=== PATIENT | female | born 1955 | race Caucasian/White ===

== ENCOUNTER → 2018-06-12 | Outpatient (CLI) | payer OTHER ==
[~2018-06-12] MED LIST: LOSA1TAB PO; MULT-506 PO
--- NOTE | 2018-06-13 08:10 | MAMMOGRAPHY REPORT ---
BILATERAL DIGITAL SCREENING MAMMOGRAM TOMOSYNTHESIS WITH CAD: 06/12/2018 CLINICAL HISTORY: Routine screening. Patient has no complaints. TECHNIQUE: The study was acquired using full field digital technology and interpreted from soft copy. Tomosynthesis (3D imaging) was done in the CC and MLO projections. A C-view reconstruction was then done. Current study was also evaluated with a Computer Aided Detection (CAD) system. COMPARISON: Comparison is made to exams dated: 11/28/2013 mammogram, 04/05/2012 mammogram, 04/03/2011 leyda mogram, 01/25/2010 mammogram - [facility], 01/20/2009, and 01/20/2009. BREAST COMPOSITION: There are scattered areas of fibroglandular density in both breasts. FINDINGS: No suspicious masses, calcifications, or areas of architectural distortion are noted in either breast . There has been no significant interval change compared to prior exams. Scattered bilateral benign-a ppearing calcifications are not significantly changed. IMPRESSION: There is no mammographic evidence of malignancy. A 1 year screening mammogram is recommended.( 019) The patient will receive written notification of the results. Approximately 10% of breast cancers are not detected with mammography. A negative mammographic report should not delay biopsy if a clinically suggestive mass is present. Liat Olguin M.D. /:06/12/2018 08:29:11 Metal Finish Inspector: Celeste Avalos, [facility] letter sent: Normal 1/2 BI-RADS Code: ACR BI-RADS Category 2: Benign
== END | disposition home or self-care (01) ==
LOC: C.MAMM 07:41
PROVIDERS: ATTEND Physician Assistant
DX: Z12.31 Encounter for screening mammogram for malignant neoplasm of breast (principal)

== ENCOUNTER 2024-06-20 17:03 | Inpatient (IN) ==
[2024-06-20] MEDS: MoRPHine SULFATE 4 MG/ML 1 ML CARP\\VIAL IV STA (17:58)
[2024-06-20] MEDS: ONDANSETRON INJ 2 MG/ML 2 ML VIAL IV STA (17:58)
[2024-06-20] MEDS: SODIUM CHLORIDE 0.9% 500 ML IV ONE (17:58)
[2024-06-20] MEDS: ONDANSETRON INJ 2 MG/ML 2 ML VIAL ONE (18:00)
[2024-06-20] MEDS: dilTIAZem HCl 5 MG/ML 5 ML VIAL IV STA (18:01)
[2024-06-20] MEDS ORDERED: STAT IV Infusion **Titration per Protocol STA (18:04)
--- NOTE | 2024-06-20 18:12 | Emergency Department Note ---
Impression & Plan Atrial fibrillation with rapid ventricular response, Back pain, Weakness, Acute hyponatremia ED Provider Note Provider: Stu Obregon MD DATE OF SERVICE: 06/20/2024 CHIEF COMPLAINT: Back and neck pain, weakness HISTORY OF PRESENT ILLNESS: Patient is a 69-year-old female history of hypertension recently seen here as well as in the outpatient setting in relation the past week for some pain in the initially the low back and left sciatic region. States she had turned in her desk and reach for something and had some pain develop here. Significant pain overnight and seen in the ER had x-rays obtained but on some oxycodone. Followed up in the primary office on Sunday still having significant pain there and put on some steroid. Later overnight that night developed some pain in the neck region. No significant chest pain or abdominal pain but generalized weakness and nausea not eating and drinking very well. Sleeping in a chair the last 5 days and not really ambulatory. Denies numbness or tingling. Pain has moved from the left low back and mid back region to the mid back to the right low back and right sciatic area. Has history of right sciatica here before but no surgeries the back. Did in the last day or so fall approximately 4 times. Has some bruising to the right elbow but good motion. Little bit of soreness of the right shoulder. Slight headache at the base of the head but no severe headache. Very fatigued. No fevers if anything a few days ago may be a slightly low temperature. Not eating and drinking much and not having much bowel movements. Has been on steroid pack the past several days. Does report that one of the doctors she did have some mild diffuse back pain. PAST MEDICAL HISTORY: As noted above MEDICATIONS: Reviewed home medications FMH: Heart disease and family including stents/CABG SOCIAL HISTORY: , works at [employer], non-smoker PHYSICAL EXAM: GENERAL: alert and oriented fatigued and uncomfortable appearing on the bed. Not lethargic and keenly awake. Head: normocephalic and atraumatic EYES: No injection, discharge or icterus. PERRL, EOMI. NECK: Trachea midline. Supple but with pain with any range of motion and turning in flexion and extension. No crepitus. No edema/erythema. ENT: Mucous membranes pink and moist. LUNGS: Airway patent. No retractions. Breath sounds clear HEART: Tachycardic irregular regular rate and rhythm. No chest wall tenderness ABDOMEN: Soft and non-tender, without guarding or rebound. SKIN: Acyanotic, warm, dry, without rashes EXTREMITIES: Without swelling, tenderness or deformity with some slight right shoulder tenderness and slight contusion and pain of the right elbow but good range of motion of these extremities. No significant tenderness of the lower extremities or deformity with some 1+ bilateral lower extremity edema. NEUROLOGICAL: No focal deficits moving all extremities. No aphasia. No facial droop or slurred speech. Normal strength and tone in the extremities. Sensation to gross touch normal in extremities. EK beats minute atrial fibrillation with a ventricular sponsor. No acute ST segment elevation or depression with a QTc of 475. Nonspecific T wave changes. CONTINUOUS CARDIAC MONITORING: was ordered and showed a heart rate of 110s-150s bpm in atrial fibrillation GCS 15. Patient's laboratory studies and imaging reviewed. Differential includes Musculoskeletal, disc herniation, fracture, metastatic disease, cord compression, discitis, sciatica, cauda equina, infection, aortic disease, renal colic, gastrointestinal, cardiac abnormality, CVA, meningitis, RPA, neck infection, electrolyte abnormality as well as other pathologies. IMPRESSION/MEDICAL DECISION MAKING: Patient weak and fatigued. Generally healthy. Fallen several times in the last 4 days secondary to pain initially related to left sciatic pain now more right sciatic pain. No real LOC reported not on high blood thinners. Has been on steroids to try to help with her back pain. Decreased intake. No significant abdominal pain or chest pain reported. Slight improvement with steroids and ibuprofen at home. No history of back surgeries. Some stiffness to the neck but does not appear lethargic and no fevers reported. Triage vitals without severe abnormality however EKG obtained in process of workup shows new onset rapid A-fib. Unsure if this has been ongoing just this evening or for several days and may explain some of her weakness. Will obtain CT scans of the head, cervical spine, chest, abdomen pelvis and lumbar spine. Blood work is ordered. Given a bit of IV fluid as well as some Zofran for symptom control in addition to pain medication. Given some Cardizem to help with rate control initially on a Cardizem drip was ordered. Denies significant URI symptoms but COVID flu RSV testing is sent. Negative flu COVID RSV testing. Blood work shows evidence of hyponatremia and what appears to be an acute kidney injury. No severe transaminitis. Troponin minimally elevated likely related to demand than true ACS. No significant anemia or thrombocytopenia noted. Patient does have a leukocytosis of 39. Has been on steroids. Unsure how much is stress reaction and neutrophil degranulation from the steroids. Will obtain lactate blood cultures and procalcitonin. A total of 2 L IV fluid ordered more than a 30 mL/kg IBW although again unclear if this is truly infectious. Will cover broadly with cefepime for broad-spectrum antimicrobial coverage. Again doubt this represents meningitis given the history with prolonged course, her lack of fevers, and her lack of lethargy. CT of the head per radiology report with acute traumatic injury or intracranial bleeding noted. CT of the cervical spine per radiology report without acute fracture and only degenerative changes. CT of the chest with contrast per radiology report without significant acute finding noted. CT abdomen pelvis and lumbar spine per radiology report without fractures. Nonspecific hyperdense fluid in the right pelvis questioning small hematoma versus lymphatic obstruction versus soft tissue mass without active extravasation noted. Discussed with the patient. Likely needs further imaging and MRI. Uptitrating diltiazem drip for better rate control again with receiving IV fluid here. Will bring her to the hospital for further care given her significant symptoms of new onset A-fib, hyponatremia, PRATIMA, and back pain. Likely need to go to further testing and possible MRIs prickly regarding the pelvic fluid? but do not see an acute neurological deficit this time indicative of acute cauda equina or spinal cord injury. Hospitalist was contacted. Harvey catheter placed that she is have difficulty ambulating. Patient is feeling much more comfortable and has increased range of motion of the neck. DIAGNOSIS: A-fib RVR, back pain, weakness, hyponatremia DISPOSITION: Hospitalist will evaluate Patient was agreeable with this plan. Critical Care I have personally spent 41 minutes of critical care time in the direct management of this patient. This includes bedside care, interpretation of diagnostic studies, and testing, discussion with consultants, patient, and family members, and other required patient management activities. These 41 minutes is in excess of all separately billable procedures. Past Med/Surg History Problem List (Updated 06/20/24 @ 18:21 by Stu Obregon M.D.) Acute hyponatremia (Acute) Weakness (Acute) Back pain (Acute) Atrial fibrillation with rapid ventricular response (Acute) Acute left lumbar radiculopathy (Acute) Social History Smoking Status: Never smoker Preferred Language: Sinhala Feels Safe at Home: Yes Allergies Allergies Allergy/AdvReac Type Severity Reaction Status Date / Time No Known Allergies Allergy Unverified 02/10/13 20:36 Home Meds Home Medications Medication Instructions Recorded Confirmed LOSARTAN POTASSIUM (COZAAR) 25 mg PO DAILY #0 tabs 07/24/12 Multivitamin 1 tab PO DAILY #0 tabs 02/10/13 Results & Data (ED) Vital Signs Vital Signs - 24 hr 06/20/24 17:18 06/20/24 17:44 06/20/24 18:04 Temperature 35.6 C L Temperature Source Temporal Artery Scan Pulse Rate 84 138 H Pulse Rate [Finger] 128 H Pulse Rhythm Regular Pulse Rhythm [Finger] Regular Pulse Strength Normal Pulse Strength [Finger] Normal Respiratory Rate 18 18 Respiratory Effort / Characteristics Non-Labored Non-Labored Spontaneous Respiratory Depth Normal Normal Respiratory Pattern Regular Blood Pressure 104/72 Blood Pressure [Right Arm] 156/96 H Blood Pressure Mean 82 Blood Pressure Mean [Right Arm] 116 Pulse Oximetry 97 100 Oxygen Delivery Method Room Air Room Air Sepsis Recent Fever Within 48 Hours No Sepsis New/Unexplained Change in Mental Status No Sepsis Action Taken by Nursing No Action Required 06/20/24 18:04 Temperature Temperature Source Pulse Rate Pulse Rate [Finger] Pulse Rhythm Pulse Rhythm [Finger] Pulse Strength Pulse Strength [Finger] Respiratory Rate Respiratory Effort / Characteristics Respiratory Depth Respiratory Pattern Blood Pressure Blood Pressure [Right Arm] Blood Pressure Mean Blood Pressure Mean [Right Arm] Pulse Oximetry 100 Oxygen Delivery Method Room Air Sepsis Recent Fever Within 48 Hours Sepsis New/Unexplained Change in Mental Status Sepsis Action Taken by Nursing Laboratory Data 06/20/24 17:55 06/20/24 17:55 Lab Results 06/20/24 06/20/24 06/20/24 Range/Units 17:55 18:02 18:07 WBC 39.08 H* (4.8-10.8) K/ul RBC 4.14 L (4.20-5.40) M/uL Hgb 12.4 (12.0-16.0) g/dl POC Hgb 12.9 (12.0-16.0) g/dl Hct 35.6 L (37.0-47.0) % POC Hct 38 (37-47) % MCV 86.0 (80.0-100.0) fL MCH 30.0 (25.0-34.0) pg MCHC 34.8 (32.0-36.0) g/dL RDW Std Deviation 40.6 (36.4-46.3) fL RDW Coeff of Jarad 13.0 (11.5-14.5) % Plt Count 337 (130-400) K/uL MPV 11.0 (9.4-12.4) fL Immature Gran % (Auto) 3.5 % Neut % (Auto) 88.1 % Lymph % (Auto) 4.5 % [place] % (Auto) 3.5 % Eos % (Auto) 0.0 % Baso % (Auto) 0.4 % Neut # (Auto) 34.45 H (1.40-6.50) K/uL Lymph # (Auto) 1.75 (1.20-3.40) K/uL [place] # (Auto) 1.36 H (0.11-0.59) K/uL Eos # (Auto) 0.00 (0.00-0.50) K/uL Baso # (Auto) 0.15 (0.00-0.20) K/uL Immature Gran # (Auto) 1.37 H (0.01-0.20) K/uL Polychromasia 1+ Echinocytes 1+ POC Sodium 127 L (135-144) mmol/L Sodium 127 L (136-145) mmol/L POC Potassium 3.3 (3.3-5.0) mmol/L Potassium 3.5 (3.5-5.1) mmol/L POC Chloride 95 L (101-112) mmol/L Chloride 94 L (98-107) mmol/L Carbon Dioxide 19 L (21-32) mmol/L POC Total CO2 17 L (24-31) mmol/L Anion Gap 14 H (3-11) POC Anion Gap 19.0 (16-25) mmol/L POC BUN 75 H (7-18) mg/dl BUN 84 H (6-23) mg/dl Creatinine 1.53 H (0.6-1.2) mg/dl POC Creatinine 1.7 H (0.6-1.3) mg/dl Est Cr Clr Drug Dosing 38.6 ml/min Est GFR ( Amer) 39.5 ml/min Est GFR (Non-Af Amer) 34.1 ml/min BUN/Creatinine Ratio 54.9 H (10-20) Glucose 280 H (70-99(Fasting)) mg/dl POC Glucose (other) 271 H (70-99) mg/dl Calcium 9.5 (8.6-10.3) mg/dl POC Ioniz Calcium Travis 1.17 (1.12-1.32) mmol/l Total Bilirubin 1.6 H (0.2-1.0) mg/dl AST 26 (13-39) U/L ALT 38 (7-52) U/L Alkaline Phosphatase 212 H (34-104) U/L Troponin I High Sens 59.8 H* (0-14) pg/ml Total Protein 6.7 (6.0-8.3) gm/dl Albumin 3.0 L (3.4-5.0) gm/dl Globulin 3.7 (2.5-4.0) gm/dl Albumin/Globulin Ratio 0.8 L (0.9-2) Lipase 17 (11-82) U/L SARS-CoV-2 (PCR) NEGATIVE (Negative) Influenza Type A (PCR) Negative (Neg) Influenza Type B (PCR) Negative (Neg) RSV (RT-PCR) Negative (Neg) Administered Medications Diltiazem HCl 125 mg/ Dextrose 125 mls @ 5 mls/hr IV .Q24H [facility]; Protocol Stop: 07/20/24 18:14 Last Admin: 06/20/24 18:30 Dose: 5 mg/hr, 5 mls/hr Documented By: GAURAV Co-signed By: LEX Lactated Ringer's (Lr) 1,000 mls @ 999 mls/hr IV .Q1H1M ONE Stop: 06/20/24 19:45 Last Admin: 06/20/24 19:03 Dose: 999 mls/hr Documented By: GAURAV Lactated Ringer's (Lr) 500 mls @ 999 mls/hr IV .Q31M ONE Stop: 06/20/24 19:15 Last Admin: 06/20/24 19:03 Dose: 999 mls/hr Documented By: GAURAV Discontinued Medications Diltiazem HCl (Diltiazem Hcl 5 Mg/Ml 5 Ml Vial) 10 mg IV NOW STA Stop: 06/20/24 17:58 Last Admin: 06/20/24 18:01 Dose: 10 mg Documented By: ZENAIDA Co-signed By: LEX Fentanyl Citrate (Fentanyl Citrate Pf 100 Mcg/2 Ml Vial) 100 mcg IV NOW STA Stop: 06/20/24 18:57 Last Admin: 06/20/24 19:02 Dose: 100 mcg Documented By: GAURAV Sodium Chloride (Nss) 500 mls @ 999 mls/hr IV .Q31M ONE Stop: 06/20/24 18:16 Last Infusion: 06/20/24 18:37 Dose: Infused Documented By: Admin: 06/20/24 17:58 Dose: 999 mls/hr Documented By: ZENAIDA Cefepime HCl (Maxipime) 2,000 mg in 20 mls @ 5 mls/min IV NOW STA; Protocol Stop: 06/20/24 18:49 Last Admin: 06/20/24 19:03 Dose: 5 mls/min Documented By: GAURAV Ioversol (Optiray 320 100ml) 94 ml IV ONCE ONE Stop: 06/20/24 18:38 Last Admin: 06/20/24 18:37 Dose: 94 ml Documented By: MAEGAN Morphine Sulfate (Morphine Sulfate 4 Mg/Ml 1 Ml Carp\Vial) 4 mg IV NOW STA Stop: 06/20/24 17:45 Last Admin: 06/20/24 17:58 Dose: 4 mg Documented By: ZENAIDA Ondansetron HCl (Ondansetron Inj 2 Mg/Ml 2 Ml Vial) 4 mg IV NOW STA Stop: 06/20/24 17:57 Last Admin: 06/20/24 17:58 Dose: 4 mg Documented By: ZENAIDA Ondansetron HCl (Ondansetron Inj 2 Mg/Ml 2 Ml Vial) Confirm Administered Dose 4 mg .ROUTE .STK-MED ONE Stop: 06/20/24 17:58 Last Admin: 06/20/24 18:00 Dose: Not Given Documented By: ZENAIDA Imaging Data Radiologist's Impression: Cervical Spine CT 06/20/24 17:44 CT cervical spine wo con CLINICAL HISTORY: falls, pain TECHNIQUE: Multidetector row helical CT of the cervical spine was performed without administration of intravenous contrast. Coronal and sagittal reformations were obtained. Automated dose lowering techniques and/or adjustment according to patient size were utilized for this exam. Comparison: None available at the time of this dictation. FINDINGS: No acute fractures or subluxations are identified. Degenerative changes are seen in the visualized spine. The alignment is normal. Soft tissues are unremarkable. IMPRESSION: Degenerative changes without evidence of acute bony injury. ACT 112: Negative or not required by law. Electronically signed by: Sagar Kennedy M.D. 06/20/2024 6:[address] 06/20/24 17:45 CT head/brain wo con CLINICAL HISTORY: falls, pain Technique: Contiguous axial CT images of the head were acquired from the base of the skull to the vertex without intravenous contrast administration. Images were viewed in brain, subdural and bone windows. Automated dose lowering techniques and/or adjustment according to patient size were utilized for this exam. Comparison: None available at the time of this dictation. Findings: The ventricles, basal cisterns, and cerebral sulci are normal. There is no acute intracranial hemorrhage or evidence of acute territorial infarction. Neither mass effect, shift of the midline structures, nor abnormal extra-axial fluid collections are shown. And subarachnoid cyst. Imaged portions of the paranasal sinuses and mastoid air cells are clear. The orbits appear normal. There are no acute fractures of the calvaria or scalp swelling. Impression: No acute intracranial hemorrhage, no evidence of acute territorial infarction or other acute intracranial disease process. ACT 112: Negative or not required by law. Electronically signed by: Sagar Kennedy M.D. 06/20/2024 6:[address] 06/20/24 17:46 CT chest diagnostic w con CLINICAL HISTORY: falls, back pain TECHNIQUE: Multidetector row helical CT of the chest was performed with intravenous contrast. Coronal and sagittal reformations were obtained. Automated dose lowering techniques and/or adjustment according to patient size were utilized for this exam. Comparison: Comparison is made to chest radiograph 07/24/2012 FINDINGS: Lungs and pleura: A calcified granuloma is seen. Heart and pericardium: Heart size is normal. No pericardial effusion. Vessels: Moderate atherosclerotic changes in the aorta and coronary arteries. Mediastinum and uriel: Unremarkable. Chest wall and lower neck: Unremarkable. Abdomen: For findings below the diaphragm, please refer to CT of the abdomen dated the same. Bones: Degenerative changes in the thoracic spine. IMPRESSION: No acute abnormalities, in particular no evidence of acute fracture. ACT 112: Negative or not required by law. Electronically signed by: Sagar Kennedy M.D. 06/20/2024 7:06 PM Discharge Plan Visit Data Chief Complaint: Back Injury/Pain Stated Complaint: SCIATICA, MEDS NOT HELPING, SEVERE PAIN ED Provider: Stu Obregon Discharge Problem: Atrial fibrillation with rapid ventricular response, Back pain, Weakness, Acute hyponatremia Patient Disposition: Being Evaluated by Hospitalist Forms Stand Alone Forms: [facility] Prescriptions Prescriptions: No Action LOSARTAN POTASSIUM (COZAAR) 25 MG tablet 25 mg PO DAILY Qty: 0 Multivitamin tablet 1 tab PO DAILY Qty: 0 Referrals Referrals: Juliane Khoury, [Primary Care Provider] -
[2024-06-20 18:14] LABS: iSTAT Creatinine 1.7 mg/dl (0.6-1.3); iSTAT Hemoglobin 12.9 g/dl (12.0-16.0); iSTAT Ionized Calcium 1.17 mmol/l (1.12-1.32); iSTAT Potassium 3.3 mmol/L (3.3-5.0)
[2024-06-20 18:27] LABS: Albumin Globulin Ratio 0.8 (0.9-2); BUN Creatinine Ratio 54.9 (10-20); Bilirubin,Total 1.6 mg/dl (0.2-1.0); Calcium 9.5 mg/dl (8.6-10.3); Creatinine Clr Calc Pharmacy 38.6 ml/min; Est GFR (African American) 39.5 ml/min; Est GFR (Non-African American) 34.1 ml/min; Globulin 3.7 gm/dl (2.5-4.0); Potassium 3.5 mmol/L (3.5-5.1); Total Protein 6.7 gm/dl (6.0-8.3)
[2024-06-20] MEDS: dilTIAZem HCL 125 MG in DEXTROSE 5% 100 ML IV SCH (18:30)
[2024-06-20 18:35] LABS: Troponin I High Sensitivity 59.8 pg/ml (0-14)
[2024-06-20 18:36] LABS: Hematocrit (blood only) 35.6 % (37.0-47.0); Hemoglobin 12.4 g/dl (12.0-16.0); Mean Corpuscular Hgb Conc 34.8 g/dL (32.0-36.0); Platelet Count 337 K/uL (130-400); RDW Standard Deviation 40.6 fL (36.4-46.3); Red Blood Count 4.14 M/uL (4.20-5.40); White Blood Count 39.08 K/ul (4.8-10.8)
[2024-06-20] MEDS: OPTIRAY 320 100ml IV ONE (18:37)
[2024-06-20 18:40] LABS: Basophils # (auto) 0.15 K/uL (0.00-0.20); Basophils % (auto) 0.4 %; Echinocytes 1+; Immature Granulocytes # (auto) 1.37 K/uL (0.01-0.20); Immature Granulocytes % (auto) 3.5 %; Lymphocytes # (auto) 1.75 K/uL (1.20-3.40); Lymphocytes % (auto) 4.5 %; Monocytes # (auto) 1.36 K/uL (0.11-0.59); Monocytes % (auto) 3.5 %; Neutrophils # (auto) 34.45 K/uL (1.40-6.50); Neutrophils % (auto) 88.1 %; Polychromasia 1+
[2024-06-20 18:54] LABS: Influenza A virus by PCR Negative (Neg); Influenza B virus by PCR Negative (Neg); RSV by PCR Negative (Neg); SARS CoV2 RNA(COVID-19) Ceph NEGATIVE (Negative)
--- NOTE | 2024-06-20 18:56 | CT Scan Report ---
CT head/brain wo con CLINICAL HISTORY: falls, pain Technique: Contiguous axial CT images of the head were acquired from the base of the skull to the lauren leslie without intravenous contrast administration. Images were viewed in brain, subdural and bone [facility]. Automated dose lowering techniques and/or adjustment according to patient size were utilized for this exam. Comparison: None available at the time of this dictation. Findings: The ventricles, basal cisterns, and cerebral sulci are normal. There is no acute intracranial hemorrh age or evidence of acute territorial infarction. Neither mass effect, shift of the midline structures , nor abnormal extra-axial fluid collections are shown. And subarachnoid cyst. Imaged portions of the paranasal sinuses and mastoid air cells are clear. The orbits appear normal. There are no acute fractures of the calvaria or scalp swelling. Impression: No acute intracranial hemorrhage, no evidence of acute territorial infarction or other acute intracra nial disease process. ACT 112: Negative or not required by law. Electronically signed by: Sagar Kennedy M.D. 06/20/2024 6:55 PM
--- NOTE | 2024-06-20 19:00 | CT Scan Report ---
CT cervical spine wo con CLINICAL HISTORY: falls, pain TECHNIQUE: Multidetector row helical CT of the cervical spine was performed without administration of intravenous contrast. Coronal and sagittal reformations were obtained. Automated dose lowering techn iques and/or adjustment according to patient size were utilized for this exam. Comparison: None available at the time of this dictation. FINDINGS: No acute fractures or subluxations are identified. Degenerative changes are seen in the visualized sp ine. The alignment is normal. Soft tissues are unremarkable. IMPRESSION: Degenerative changes without evidence of acute bony injury. ACT 112: Negative or not required by law. Electronically signed by: Sagar Kennedy M.D. 06/20/2024 6:57 PM
[2024-06-20] MEDS: fentaNYL citrate PF 100 MCG/2 ML VIAL IV STA (19:02)
[2024-06-20] MEDS: LACTATED RINGER'S 1,000 ML IV ONE (19:03)
[2024-06-20] MEDS: LACTATED RINGER'S 500 ML IV ONE (19:03)
[2024-06-20] MEDS: CEFEPIME 2,000 MG/20 ML VIAL IV STA (19:03)
--- NOTE | 2024-06-20 19:08 | CT Scan Report ---
CT chest diagnostic w con CLINICAL HISTORY: falls, back pain TECHNIQUE: Multidetector row helical CT of the chest was performed with intravenous contrast. Coronal and sagittal reformations were obtained. Automated dose lowering techniques and/or adjustment accord ing to patient size were utilized for this exam. Comparison: Comparison is made to chest radiograph 07/24/2012 FINDINGS: Lungs and pleura: A calcified granuloma is seen. Heart and pericardium: Heart size is normal. No pericardial effusion. Vessels: Moderate atherosclerotic changes in the aorta and coronary arteries. Mediastinum and uriel: Unremarkable. Chest wall and lower neck: Unremarkable. Abdomen: For findings below the diaphragm, please refer to CT of the abdomen dated the same. Bones: Degenerative changes in the thoracic spine. IMPRESSION: No acute abnormalities, in particular no evidence of acute fracture. ACT 112: Negative or not required by law. Electronically signed by: Sagar Kennedy M.D. 06/20/2024 7:06 PM
--- NOTE | 2024-06-20 19:22 | CT Scan Report ---
CT abd pelvis IV con only, CT lumbar spine w con CLINICAL HISTORY: falls, back pain TECHNIQUE: Helical axial images of the abdomen and pelvis were obtained and displayed. Automated dose lowering techniques and/or adjustment according to patient size were utilized for this exam. Dedicat ed images of the lumbar spine were obtained. This exam was performed with intravenous contrast. COMPARISON: Comparison is made to CT abdomen pelvis 02/11/2013 FINDINGS: Lower chest: For findings above the diaphragm, please see CT chest performed same day. Liver: Unremarkable. No focal lesions are seen. Gallbladder and biliary tree: Patient is status post cholecystectomy. No intra- or extrahepatic bilia ry ductal dilation. Pancreas: Unremarkable, no focal lesions. Spleen: Splenule is incidentally noted. Adrenals: Unremarkable. Kidneys and ureters: Renal cysts are seen. Bladder: Unremarkable. Reproductive organs: Unremarkable. Bowel: A hiatal hernia is seen. Lymph nodes Retroperitoneal: Unremarkable. Pelvic: Unremarkable. Mesenteric: Unremarkable. Peritoneum: There is a small amount of hyperdense fluid in the right pelvis which results in mild mas s effect upon the right internal iliac vein. Vessels: Atherosclerotic calcifications are seen. Abdominal wall: Bilateral fat-containing inguinal hernias are seen. Bones: Degenerative changes in the visualized spine. IMPRESSION: There is nonspecific hyperdense fluid in the right pelvis which may represent a very small amount of hematoma or interval development of lymphatic obstruction, less likely a soft tissue mass. No active extravasation is seen. Follow-up to resolution is recommended to exclude mass. ACT 112: Positive. There are findings on this exam that require communication between the performing entity and the patient following Patient Test Result Information Act ([place] Act 112) guidelines. Electronically signed by: Sagar Kennedy M.D. 06/20/2024 7:20 PM
--- NOTE | 2024-06-20 19:46 | History & Physical Report ---
Date of Service June 20, 2024 Assessment & Plan (1) Atrial fibrillation with rapid ventricular response: (2) Elevated troponin: Plan: Patient is 69 year old female with PMH HTN, dyslipidemia, anxiety presented to ER with c/o low back pain x 1 week and falls x 1 day In ER found to be in atrial fibrillation RVR. Pt denies CP, SOB, palpitations EKG Afib RVR with nonspecific ST changes Troponin: 59. Magnesium: 2.5, TSH: 1.8 Likely demand ischemia from afib rvr Trend troponin In ER given total 2L IVF, given Cardizem bolus and drip with HRs still in 130's Give Lopressor 5mg IV now Continue Cardizem drip Start Lopressor 12.5mg Q6H po Monitor on telemetry Echo MRI pelvis pending to further assess if appear to be hematoma. If less likely hematoma plan to start IV heparin EKG in am Cardiology consult (3) Back pain: (4) Weakness: Plan: Lumbar back pain x 8 days. Treated outpatient with oxycodone, muscle relaxers, NSAIDs and on day [address] Lumbar spine: degenerative changes In ER given fentanyl, morphine with reported decreased pain MRI Lumbar spine pending May need to consider ortho consult (5) PRATIMA (acute kidney injury): Plan: BUN: 84, Cr: 1.5. BUN/Cr ratio: 54. In 2021 Cr: 0.9 with GFR: 64 IVF Monitor renal functions, avoid nephrotoxic agents when possible SPEP w/ immuno fixation, further urine studies pending Nephrology consult (6) Leukocytosis: Plan: WBC: 39. Lactate: 2.2. Procalcitonin: 2.8. UA unremarkable. CT chest without infiltrate. Negative Lyme screen, Negative flu, RSV and COVID-19 PCR In ER afebrile. Is tachycardic with Afib RVR. Meets SIRS criteria, no source identified at this time, however further investigating pelvic fluid mass with MRI results pending In ER given total 2L IVF, cefepime Blood cultures pending Continue IVF Start Zosyn Trend Lactate MRSA swab pending CBC in am (7) Acute hyponatremia: Plan: Na corrected at 130 for glucose: 280 Serum and urine osmolality pending BMP in am (8) Pelvic fluid collection: Plan: CT Abd/Pelvis:nonspecific hyperdense fluid in the right pelvis which may represent a very small amount of hematoma or interval development of lymphatic obstruction, less likely a soft tissue mass. No active extravasation is seen. MRI Abd pending to further assess (9) Hyperglycemia: Plan: Random glucose: 280 No former DM diagnosis. Has been on 3 days prednisone Novolog sliding scale A1c in AM (10) Elevated alkaline phosphatase level: Plan: Alk phos: 212. other LFTs WNL May be secondary to underlying bone etiology CMP in am (11) HTN (hypertension): Plan: BP stable in ER and is on Cardizem drip Will hold home losartan with PRATIMA Admit PCU Full Code as per discussion with pt Follows with Dr Khoury for routine care Pt was seen and care coordinated with Dr Deal. See addendum I spent a total of 80 minutes reviewing notes, outpatient records, labs, medication, coordinating, documenting and providing care for this patient excluding time spent in the performance of separately billed services. History of Present Illness Chief Complaint: Back pain, falls Primary Care Provider: Juliane Khoury DO Patient is 69 year old female with PMH HTN, dyslipidemia, anxiety presented to ER with c/o back pain and falls. History obtained from patient and outpatient chart review. Patient states 8 days ago started with low back pain when she turned to get out of a chair and initially felt like she pulled a muscle and then had low back pain that radiated to left lateral leg. Seemed more to left side of low back initially and now right low back pain with radiation down inner right leg. States in past has had right back pain with sciatica type symptoms but this is more severe. She was seen in ER 06/14/2024 for low back pain and was prescribed oxycodone as needed for pain. She followed up with PCP and had continued back pain with radiation and was started on prednisone taper. Today was day 3 of 60 mg prednisone daily. She also has been using muscle relaxer as needed. Patient states despite these things pain has persisted. The past week she reports decreased appetite and has not been eating or drinking well. States yesterday attempted to ambulate and had fallen. Patient states has fallen 4 times in the past day. She denies hitting her head. She feels generalized weakness. Today feeling a little dizzy, worse with standing. Hasn't been able to ambulate or get out of bed or chair without assistance from her family. Denies abdominal pain, chest pain, SOB, palpitations, fever/chills, N/V/D/C, loss control of bowels or bladder, saddle paresthesias, extremity paresthesias, vision changes, neck pain, orthopnea, cough, sore throat, otalgia, rhinorrhea, abdominal pain, extremity edema, rashes, dysuria, hematuria, urinary frequency, urinary retention Allergies Allergy/AdvReac Type Severity Reaction Status Date / Time No Known Allergies Allergy Unverified 06/20/24 19:48 Home Medications Medication Instructions Recorded Confirmed Type Collagen Tab 3 tabs PO QAM 06/20/24 06/20/24 History acetaminophen 500 mg tablet 1,000 mg PO Q6H PRN Pain 06/20/24 06/20/24 History (Tylenol Extra Strength) calcium carbonate (Calcium 600) 600 mg PO DAILY 06/20/24 06/20/24 History glucosamine-chondroitin 250 mg-200 2 tab PO DAILY 06/20/24 06/20/24 History mg tablet (Osteo Bi-Flex) ibuprofen 200 mg tablet 600 - 800 mg PO Q8 PRN Pain 06/20/24 06/20/24 History losartan 50 mg tablet 50 mg PO QAM 06/20/24 06/20/24 History magnesium oxide 400 mg PO DAILY 06/20/24 06/20/24 History oxycodone 5 mg tablet 5 mg PO Q6 PRN Pain 06/20/24 06/20/24 History prednisone 20 mg tablet 2 mg PO .TAPER UD 06/20/24 06/20/24 History tizanidine 4 mg tablet 4 mg PO Q6 PRN .Muscle pain 06/20/24 06/20/24 History turmeric 400 mg capsule 0 mg PO QAM 06/20/24 06/20/24 History vitamin B complex 1 tab PO DAILY 06/20/24 06/20/24 History Past Med/Surg History Problem List (Updated 06/20/24 @ 20:54 by Dora Eduardo PA-C) Elevated alkaline phosphatase level Hyperglycemia Pelvic fluid collection Leukocytosis PRATIMA (acute kidney injury) Elevated troponin Acute hyponatremia (Acute) Weakness (Acute) Back pain (Acute) Atrial fibrillation with rapid ventricular response (Acute) Acute left lumbar radiculopathy (Acute) Medical History (Updated 06/20/24 @ 20:54 by Dora Eduardo PA-C) HTN (hypertension) Surgical History H/O section History of cholecystectomy Hx of tonsillectomy History of Zakia fundoplication Family History Other Heart disease Hypertension Social History Smoking Status: Never smoker Hx Alcohol Use: Yes Alcohol Intake Frequency: 2-4 x/Month Hx Substance Use: No Preferred Language: B[place] Feels Safe at Home: Yes Review of Systems Review of Systems: All systems reviewed & are unremarkable except as noted in HPI & below Physical Exam Physical Exam: PE per Dr Deal Results & Data Results & Data Vital Signs (Past 12 Hours) Vital Signs Temp Pulse Pulse Resp BP BP Pulse Ox 06/20/24 18:04 100 06/20/24 18:04 128 H 18 156/96 H 100 06/20/24 17:44 138 H 06/20/24 17:18 35.6 C L 84 18 104/72 97 O2 Del Method 06/20/24 18:04 Room Air 06/20/24 18:04 Room Air 06/20/24 17:44 06/20/24 17:18 Room Air Laboratory Results Short CBC 06/20/24 Range/Units 17:55 WBC 39.08 H* (4.8-10.8) K/ul Hgb 12.4 (12.0-16.0) g/dl Hct 35.6 L (37.0-47.0) % Plt Count 337 (130-400) K/uL BMP 06/20/24 17:55 Sodium 127 L Potassium 3.5 Chloride 94 L Carbon Dioxide 19 L BUN 84 H Creatinine 1.53 H Glucose 280 H Calcium 9.5 Liver Function 06/20/24 Range/Units 17:55 Total Bilirubin 1.6 H (0.2-1.0) mg/dl AST 26 (13-39) U/L ALT 38 (7-52) U/L Alkaline Phosphatase 212 H (34-104) U/L Albumin 3.0 L (3.4-5.0) gm/dl Urine 06/20/24 Range/Units 19:35 Urine Color Yellow Urine Appearance Clear (Clear) Urine pH 5.5 (4.5-7.5) Ur Specific [place] 1.022 (1.000-1.030) Urine Protein Trace H (Negative) Urine Glucose (UA) 1+ H (Negative) Diagnostic Findings Abdomen/Pelvis CT 06/20/24 17:44 CT abd pelvis IV con only, CT lumbar spine w con CLINICAL HISTORY: falls, back pain TECHNIQUE: Helical axial images of the abdomen and pelvis were obtained and displayed. Automated dose lowering techniques and/or adjustment according to patient size were utilized for this exam. Dedicated images of the lumbar spine were obtained. This exam was performed with intravenous contrast. COMPARISON: Comparison is made to CT abdomen pelvis 02/11/2013 FINDINGS: Lower chest: For findings above the diaphragm, please see CT chest performed same day. Liver: Unremarkable. No focal lesions are seen. Gallbladder and biliary tree: Patient is status post cholecystectomy. No intra- or extrahepatic biliary ductal dilation. Pancreas: Unremarkable, no focal lesions. Spleen: Splenule is incidentally noted. Adrenals: Unremarkable. Kidneys and ureters: Renal cysts are seen. Bladder: Unremarkable. Reproductive organs: Unremarkable. Bowel: A hiatal hernia is seen. Lymph nodes Retroperitoneal: Unremarkable. Pelvic: Unremarkable. Mesenteric: Unremarkable. Peritoneum: There is a small amount of hyperdense fluid in the right pelvis which results in mild mass effect upon the right internal iliac vein. Vessels: Atherosclerotic calcifications are seen. Abdominal wall: Bilateral fat-containing inguinal hernias are seen. Bones: Degenerative changes in the visualized spine. IMPRESSION: There is nonspecific hyperdense fluid in the right pelvis which may represent a very small amount of hematoma or interval development of lymphatic obstruction, less likely a soft tissue mass. No active extravasation is seen. Follow-up to resolution is recommended to exclude mass. ACT 112: Positive. There are findings on this exam that require communication between the performing entity and the patient following Patient Test Result Information Act ([place] Act 112) guidelines. Electronically signed by: Sagar Kennedy M.D. 06/20/2024 7:[address] 06/20/24 17:44 CT cervical spine wo con CLINICAL HISTORY: falls, pain TECHNIQUE: Multidetector row helical CT of the cervical spine was performed without administration of intravenous contrast. Coronal and sagittal reformations were obtained. Automated dose lowering techniques and/or adjustment according to patient size were utilized for this exam. Comparison: None available at the time of this dictation. FINDINGS: No acute fractures or subluxations are identified. Degenerative changes are seen in the visualized spine. The alignment is normal. Soft tissues are unremarkable. IMPRESSION: Degenerative changes without evidence of acute bony injury. ACT 112: Negative or not required by law. Electronically signed by: Sagar Kennedy M.D. 06/20/2024 6:[address] 06/20/24 17:45 CT head/brain wo con CLINICAL HISTORY: falls, pain Technique: Contiguous axial CT images of the head were acquired from the base of the skull to the vertex without intravenous contrast administration. Images were viewed in brain, subdural and bone windows. Automated dose lowering techniques and/or adjustment according to patient size were utilized for this exam. Comparison: None available at the time of this dictation. Findings: The ventricles, basal cisterns, and cerebral sulci are normal. There is no acute intracranial hemorrhage or evidence of acute territorial infarction. Neither mass effect, shift of the midline structures, nor abnormal extra-axial fluid collections are shown. And subarachnoid cyst. Imaged portions of the paranasal sinuses and mastoid air cells are clear. The orbits appear normal. There are no acute fractures of the calvaria or scalp swelling. Impression: No acute intracranial hemorrhage, no evidence of acute territorial infarction or other acute intracranial disease process. ACT 112: Negative or not required by law. Electronically signed by: Sagar Kennedy M.D. 06/20/2024 6:[address] 06/20/24 17:45 CT abd pelvis IV con only, CT lumbar spine w con CLINICAL HISTORY: falls, back pain TECHNIQUE: Helical axial images of the abdomen and pelvis were obtained and displayed. Automated dose lowering techniques and/or adjustment according to patient size were utilized for this exam. Dedicated images of the lumbar spine were obtained. This exam was performed with intravenous contrast. COMPARISON: Comparison is made to CT abdomen pelvis 02/11/2013 FINDINGS: Lower chest: For findings above the diaphragm, please see CT chest performed same day. Liver: Unremarkable. No focal lesions are seen. Gallbladder and biliary tree: Patient is status post cholecystectomy. No intra- or extrahepatic biliary ductal dilation. Pancreas: Unremarkable, no focal lesions. Spleen: Splenule is incidentally noted. Adrenals: Unremarkable. Kidneys and ureters: Renal cysts are seen. Bladder: Unremarkable. Reproductive organs: Unremarkable. Bowel: A hiatal hernia is seen. Lymph nodes Retroperitoneal: Unremarkable. Pelvic: Unremarkable. Mesenteric: Unremarkable. Peritoneum: There is a small amount of hyperdense fluid in the right pelvis which results in mild mass effect upon the right internal iliac vein. Vessels: Atherosclerotic calcifications are seen. Abdominal wall: Bilateral fat-containing inguinal hernias are seen. Bones: Degenerative changes in the visualized spine. IMPRESSION: There is nonspecific hyperdense fluid in the right pelvis which may represent a very small amount of hematoma or interval development of lymphatic obstruction, less likely a soft tissue mass. No active extravasation is seen. Follow-up to resolution is recommended to exclude mass. ACT 112: Positive. There are findings on this exam that require communication between the performing entity and the patient following Patient Test Result [place] Act [place] Act 112) guidelines. Electronically signed by: Sagar Kennedy M.D. 06/20/2024 7:[address] 06/20/24 17:46 CT chest diagnostic w con CLINICAL HISTORY: falls, back pain TECHNIQUE: Multidetector row helical CT of the chest was performed with intravenous contrast. Coronal and sagittal reformations were obtained. Automated dose lowering techniques and/or adjustment according to patient size were utilized for this exam. Comparison: Comparison is made to chest radiograph 07/24/2012 FINDINGS: Lungs and pleura: A calcified granuloma is seen. Heart and pericardium: Heart size is normal. No pericardial effusion. Vessels: Moderate atherosclerotic changes in the aorta and coronary arteries. Mediastinum and uriel: Unremarkable. Chest wall and lower neck: Unremarkable. Abdomen: For findings below the diaphragm, please refer to CT of the abdomen dated the same. Bones: Degenerative changes in the thoracic spine. IMPRESSION: No acute abnormalities, in particular no evidence of acute fracture. ACT 112: Negative or not required by law. Electronically signed by: Sagar Kennedy M.D. 06/20/2024 7:06 PM Supervising Physician Co-Signing Physician Notes I have seen and discussed the case with the collaborating advanced practitioner. I agree with the above H&P. I have reviewed and confirmed the patients medical history, the findings on physical examination, and the patients diagnosis and treatment plan with Jayce SALAMANCA and agree with the information documented. In short, Ms Espino is a 69 year old woman with PMH HTN, dyslipidemia, anxiety who is presenting with acute, progressive back pain. She states she does have sciatica but it seems to be bilateral, and more from groin down anterior leg with restless thighs. States was in normal state of health on Sunday of last week (06/12) and since presenting to ED and taking steroids, noting no relief in symptoms--in fact progressing Denies chest pain, decreased urine output, saddle anesthesia/incontinence. Completed taper. She reports decreased appetite for 1 week. found to be in afib rvr in the ED. Started on Dilt drip. Imaging with right pelvic mass, ?hematoma? GENERAL APPEARANCE: AxOx4,pleasant but mildly uncomfortable HEENT: NC, AT. MMM. EOMI, clear conjunctiva, oropharynx clear. NECK: Supple without lymphadenopathy. No stiffness or restricted ROM. HEART: irregularly irregular LUNGS: CTAB, moving air well. No crackles or wheezes are heard. ABDOMEN: Soft, TTP RLQ to deep palpation EXTREMITIES: Without cyanosis, clubbing or edema. NEUROLOGICAL: Grossly nonfocal. Alert and oriented, moving all 4 extremities. CN not formally tested but appear grossly intact. leg flexion limited 2/2 pain, sensation/pulses/motor intact Skin: Warm and dry without any rash. #Questionable Sepsis #Leukocytosis Unclear infectious source, however pelvic mass s/p 2L, will continue trickle iso hyponatremia and c/f volume overload Infectious work up pending, elevated procal iso of some inflammatory/infectious source Continue with Empiric zosyn MRSA nare Given relatively elevated ca+ (corrected 10.3) PRATIMA elevated protein gap and mass, ordered SPEP w/ immuno fixation -Also with leukocytosis was elevated even iso steriods, will add peripheral smear to assess if reactive or other process ongoing MRI Lumbar/pelvis to better delineate pelvic mass Repeat lactate #Atrial fib with RVR #Elevated troponin, likely demand iso RVR, sepsis On dilt drip, continue Start PO metoprolol 12.5mg q6h Once done from MRI and confirm no hematoma, start Heparin drip for [facility] Cards consult TSH pending #PRATIAM no history of CKD Elevated BUN iso steriods/dehydration, possibly prerenal Given presentation, urine studies ordered If uptrending consider nephrology #Hyponatremia iso pain and hyperglycemia Serum and urine osmo, pain control, and repeat am amp Gylcemic control #Hyperglycemia likely iso steriod use A1C in am SSI I spent a total of 35 minutes coordinating, documenting, and providing care for this patient excluding time spent in the performance of separately billed services. All of the aforementioned completed outside of collaborating with the assigned advanced practitioner for a full treatment plan. I have reviewed the advanced practitioner's documentation, and I agree with, and take responsibility for the plan of care
[2024-06-20] MEDS: METOPROLOL TARTRATE 1 MG/ML VIAL IV STA (20:13)
[2024-06-20] MEDS ORDERED: METOPROLOL TARTRATE 50 MG TAB PO ONE (20:15)
[2024-06-20 20:21] LABS: Magnesium 2.5 mg/dl (1.7-2.4)
[2024-06-20 20:35] LABS: Appearance Urine Clear (Clear); Bacteria Urine Automated None Seen (None Seen); Bilirubin Urine Negative (Negative); Blood Urine Negative (Negative); Color Urine Yellow; Epithelial Cell Urine Auto 0-2 /hpf (0-2); Glucose Urine UA 1+ (Negative); Ketones Urine Negative (Negative); Leukocyte Esterase Urine Negative (Negative); Nitrite Urine Negative (Negative); Protein Urine Trace (Negative); RBC Urine Automated 0-2 /hpf (0-2); Specific Gravity Urine 1.022 (1.000-1.030); Urobilinogen Urine Negative (Negative); WBC Urine Automated 0-5 /hpf (0-5); pH Urine 5.5 (4.5-7.5)
[2024-06-20 20:37] LABS: Thyroid Stimulating Hormone 1.85 uIu/ml (0.300-4.500)
[2024-06-20] MEDS: METOPROLOL TARTRATE 25 MG TAB PO ONE (20:58)
[2024-06-20] MEDS ORDERED: PIPERACILLIN/TAZOBACTAM 4.5 GM/100 ML BAG IV ONE (21:00)
[2024-06-20] MEDS ORDERED: METOPROLOL TARTRATE 1 MG/ML VIAL IV PRN (21:22)
[2024-06-20] MEDS ORDERED: DEXTROSE 50% 50 ML SYRINGE IV PRN (21:22)
[2024-06-20] MEDS ORDERED: CARBOHYDRATES FOR HYPOGLYCEMIA PO PRN (21:22)
[2024-06-20] MEDS ORDERED: GLUCOSE 40% GEL 15 GM TUBE PO PRN (21:22)
[2024-06-20] MEDS ORDERED: GLUCOSE 10 TAB/TUBE PO PRN (21:22)
[2024-06-20] MEDS ORDERED: oxyCODONE HCL IR 5 MG TAB (IMMEDIATE RELEASE) PO PRN (21:22)
[2024-06-20] MEDS ORDERED: GLUCAGON FOR INJ 1 MG VIAL SQ PRN (21:22)
[2024-06-20] MEDS: SODIUM CHLORIDE 0.9% 1,000 ML IV SCH (21:30)
[2024-06-20] MEDS: PIPERACILLIN/TAZOBACTAM 4.5 GM in DEXTROSE 5% MINI-B 100 ML IV ONE (21:56)
[2024-06-20] MEDS: INSULIN ASPART PER UNIT CHARGE SC SCH (22:17)
[2024-06-20] MEDS: ACETAMINOPHEN 325 MG TAB PO PRN (22:17)
[2024-06-20 23:14] LABS: Creatinine Urine Random 27.8 mg/dl; Protein Creatinine Ratio Urine 0.9 (0-0.2)
--- OUTSIDE RECORDS SUMMARY | 2024-06-20 23:19 | External Medical Summary | Summary of Care ---
Author Name Unknown Organization [facility] Address [address] [place] [address] Phone [phone] Care Team Providers Care Pantographer Name Role Phone Juliane Khoury DO Primary Care Provider Reason for Visit * Reason Comments Hospital Follow-Up Patient is here for an ER follow-up after being discharged on 06/13 from [facility] due to lbp. Patient is still in severe pain. Patient was given morphine and antinausea medication and still remains in severe pain Encounter Details Date Type Department Care Team (Late st Contact Info) Description 06/17/2024 1:40 PM EDT Office Visit Family Practice [facility] [address] [place] [address] Darling Hernández PA-C 200 [place] [address] Lumbar radiculopathy*; Nausea Allergies No known active allergiesdocumented as of this encounter (statuses as of 06/17/2024) Medications Medication Sig Dispensed Refills Start Date End Date Status Multiple Vitamins-Minerals (MULTIVITAMIN WOMEN 50+) TABS Take 1 Tab by mouth daily. Active Osteo Bi-Flex Triple Strength Oral Tablet Take by mouth 2 Tablets daily . Active Vitamin D3 50 MCG (2000 UT) Oral Capsule Take 1 Capsule by mouth in the morning. Active Calcium-Vitamin D 600-200 MG-UNIT Oral Tablet Take 1 Tablet by mouth in the morning. Active Super B-50 Complex Oral Capsule Take by mouth 1 Tablet daily . Active Collagen 1500/C 500-50-0.8 MG Oral Capsule (Collagen-Vitamin C-Biotin) Take by mouth 3 Tablets daily . Active Omeprazole 20 MG Oral Capsule Delayed Release (PriLOSEC)Indication s:Gastroesophageal reflux disease, unspecified whether esophagitis present Take 1 Capsule by mouth in the morning. 1 hour before the first meal of the day. 30 Capsule 5 07/23/2023 Active Additional Information Patient not taking.Reported on 03/27/2024 Losartan Potassium 50 MG Oral Tablet (Cozaar) Take 1 Tablet by mouth in the morning. 90 Tablet 3 08/15/2023 Active Magnesium 250 MG Oral Tablet Take 1 Tablet by mouth every evening. Active Ibuprofen 200 MG Oral Capsule Take 2 Capsules by mouth every 6 hours as needed. Active tiZANidine HCl 4 MG Oral Tablet (Zanaflex)Indication s:Lumbar radiculopathy Take 1 Tablet by mouth every 6 hours as needed for Muscle spasms. 30 Tablet 06/17/2024 Active predniSONE 20 MG Oral Tablet (Deltasone)Indicatio ns:Lumbar radiculopathy Take 3 tabs for 3 days, 2 tabs for 3 days, 1 tab for 3 days, 1/2 tab for 3 days 20 Tablet 06/17/2024 Active Hospital, Clinic, or Other Facility Administered Medication Ordered Dose Route Frequency Start Date End Date Status keTORolac (Toradol) 60 MG/2ML IM inj 60 mgIndications:Lumbar radiculopathy 60 mg IM ONCE 06/17/2024 06/17/2024 Ended ondansetron (Zofran) tab 4 mgIndications:Nausea 4 mg OR ONCE 06/17/2024 06/17/2024 Disc ontinued ondansetron ODT (Zofran) tab 4 mgIndications:Nausea 4 mg OR ONCE 06/17/2024 06/17/2024 Ende d documented as of this encounter (statuses as of 06/17/2024) Active Problems Problem Noted Date Diagnosed Date Primary osteoarthritis of both hands 02/14/2023 Primary osteoarthritis of both shoulders 023 Generalized osteoarthritis 02/14/2023 HTN, goal below 140/90 02/13/2018 Paraesophageal hernia 08/01/2012 DYSLIPIDEMIA, GOAL TO BE DETERMINED 11/11/2009 Overview: Per Lipid Taxonomy. ADVANCE DIRECTIVE INFORMATION 12/10/2008 Overview: No, Advance Directive brochure given to patient. Anxiety state 09/02/2007 Insomnia 06/13/2004 Overview: PSG 2014 -- no sleep disorder ICD-10 update of inactive term documented as of this encounter (statuses as of 06/17/2024) Resolved Problems Problem Noted Date Diagnosed Date Resolved Date Special screening for malign ant neoplasms, colon 02/13/2018 02/13/2018 Dyslipidemia, goal to be determined 11/14/2007 10/20/2009 Overview: Per Lipid Taxonomy HTN, goal below 140/90 12/26/200507/31 PURE HYPERCHOLESTEROLEM 06/13/200410/26 Overview: Per Lipid Taxonomy. Hypertension 03/06/2018 documented as of this encounter (statuses as of 06/17/2024) Immunizations Name Administration Dates Next Due COVID-19 mRNA, LNP-s, No Pre serve, 2-Dose Series ([employer]) 09/05/2021,02/25/2021,01/29/2021 Covid-19, Mrna, Lnp-s, Pf, B ivalent, 30 Mcg, IM, 12 yrs and above ([employer]) 09/20/2022 Influenza, Whole Virus 09/13/1998 9 Pneumococcal Conjugate Vacc, 13 Valent (Prevnar) 04/14/2022 Pneumococcal Polysaccharide PPV23 (Pneumovax) 10/29/2020 Seasonal Influenza Virus Vac cine, Unspecified Formulation 08/29/2021,09/12/2018 Seasonal Influenza, QUAD, wi th Preserv, 6 mons & Above, 0.5 mL, IM 08/29/2020,09/19/2019 Seasonal Influenza, Quadriva lent Hd (Fluzone Hd) 09/20/2022 Seasonal Influenza, Quadriva lent, No Preserve, IM 09/13/2017 Seasonal Influenza, Split, I IV3, With Preserve, Inj 08/20/2014,09/28/2010,09/28/2009,12/2002,10/30/2002,11/14/2000 TD - Tetanus/Diptheria (ADULT) 05/26/1996 TD, Preservative Free 10/29/2020 TDAP, Age 7 and older, IM (Adacel) 10/28/2009 Zoster Vaccine Recombinant (Shingrix) 10/06/2019 ,08/05/2019 documented as of this encounter Social History Tobacco Use Types Packs/Day Years Used Date Smoking Tobacco: Never Smokeless Tobacco: Never Alcohol Use Standard Drinks/Week Comments Yes 0 (1 standard drink = 0.6 oz pur e alcohol) 2 glasses per week PHQ-2 Answer Date Recorded PHQ-2 Score 0 07/22/2019 Hunger Vital Sign Answer Date Recorded Within the past 12 months, y ou worried that your food would run out before you got the money to buy more. Never true 04/02/20 23 Within the past 12 months, t he food you bought just didn't last and you didn't have money to get more. Never true 04/02/2023 Sex and Gender Information Value Date Recorded Sex Assigned at Female 04/02/2023 8:49 AM EDT Gender Identity Female 04/02/2023 8:49 AM EDT Sexual Orientation Straight 04/02/2023 8: 49 AM EDT Job Start Date Occupation Industry Not on file Not on file Not on file documented as of this encounter Last Filed Vital Signs Vital Sign Reading Time Taken Comments Blood Pressure 162/80 06/17/2024 1:49 PM EDT Pulse 95 06/17/2024 1:49 PM EDT Temperature 37.6 C (99.6 F) 06/17/2024 1:49 PM ED T Respiratory Rate 15 06/17/2024 1:49 PM EDT Oxygen Saturation 98% 06/17/2024 1:49 PM EDT Inhaled Oxygen Concentration - - Weight - - Height 166.9 cm (5' 5.71") 06/17/2024 1:49 PM E DT Body Mass Index - - documented in this encounter Progress Notes * Nereida Thompson, MED ASSIST - 06/17/2024 2:34 PM EDT Pre-Administration Time Out Procedure Performed: Yes Patient Identified (Ask Name/Date of ): Yes Does the patient have a fever greater than 101 degrees today? No Patient allergic to latex? No Has the patient ever fainted after receiving an injection? No VFC Stock: No Immunization(s) verified: Yes, Immunization Name: toradol, VIS Sheet(s) given: Yes Verified Side and Site: Yes Verified Shot(s) with Parent(s)/Patient: Yes * Darling Hernández PA-C - 06/17/2024 1:53 PM EDT Images from the original note were not included. History of Present Illness John Espino is a 69 year old female that presents for Hospital Follow-Up (Patient is here for an ER follow-up after being discharged on 06/13 from [facility] due to lbp. Patient is still in severe pain. Patient was given morphine and antinausea medication and still remains in severe pain) Patient is a 69 year old female presents for a follow up after an ER visit. On 06/12 felt a pinch inher low back. Noted at the end of the work day. No injury. Awoke with excruiating pain on morning of 06/13. Went to the bathroom. Wasn't able to get back in bed. Family called ambulance. Every movement caused severe pain. Taken to ER; given oxycodone 5 mg, toradol, zofran, steroids Works desk job. Urination / bowel movements fair. Some constipation with meds. Low back pain with radiation down left leg. Tried ice pack. Physical Exam Vitals: 06/17/24 1349 Temp: 37.6 C (99.6 F) Pulse: 95 Resp: 15 SpO2: 98% BP: 162/80 BP Readings from Last 3 Encounters: 06/17/24 162/80 04/02/24 159/77 07/23/23 134/82 Wt Readings from Last 3 Encounters: 03/27/24 97.7 kg (215 lb 6.4 oz) 07/23/23 97.7 kg (215 lb 6.4 oz) 10/11/22 94.3 kg (207 lb 12.8 oz) General: alert, well nourished, well developed, cooperative, and moderate distress Head: Normocephalic, No masses, lesions, tenderness or abnormalities Eye Exam: PERRLA, extraocular movements intact, conjunctiva are pink and non- injected, sclera clear Lungs: chest symmetric with normal AP diameter, no chest deformities noted, normal respiratory rateand rhythm, diaphragmatic excursion normal Back: back symmetric, no curvature, no costovertebral angle tenderness, no skin lesions, erythema or scars, Some limitation of flexion, Tender paralumbar muscles bilaterally Extremities: less than 2 second capillary refill, no joint deformities, effusion, or inflammation, no edema, no skin discoloration, no clubbing, no cyanosis, decreased range of motion muscle strengthof lower extremities more pronounced on left than right I have reviewed the following results: None Assessment and Plan Lumbar radiculopathy (Primary) - XR L SPINE AP AND LATERAL - tiZANidine HCl 4 MG Oral Tablet (Zanaflex); Take 1 Tablet by mouth every 6 hours as needed for Muscle spasms. - predniSONE 20 MG Oral Tablet (Deltasone); Take 3 tabs for 3 days, 2 tabs for 3 days, 1 tab for 3 days, 1/2 tab for 3 days - keTORolac (Toradol) 60 MG/2ML IM inj 60 mg Nausea - ondansetron ODT (Zofran) tab 4 mg Wrap-Up Time: I spent a total of 30-39 minutes (exact time 38 mins) on the date of service in preparation, delivery, and documentation of the care provided to John Espino excluding any time spent in the performance of separately billed services. documented in this encounter Nursing Notes * Nereida Thompson MED ASSIST - 06/17/2024 1:48 PM EDT Chief Complaint Patient presents with Hospital Follow-Up Patient is here for an ER follow-up after being discharged on 06/13 from [facility] due to lbp. Patient is still in severe pain. Patient was given morphine and antinausea medication and still remains in severe pain documented in this encounter Plan of Treatment Upcoming Encounters Date Type Department Care Team (Late st Contact Info) Description 06/17/2024 2:45 PM EDT Imaging Radiology [place] [place] [address] [facility] [place] [address] Arrived 07/15/2024 10:20 AM EDT Office Visit Family Practice [facility] [place] [address] [place] [address] Juliane Khoury DO 200 [facility] [place] [address] 12/18/2024 8:45 AM EST Office Visit Dermatology [facility] [place] [address] [facility] [place] [address] Brian Kaye MD 200 [facility] [place] [address] Scheduled Orders Name Type Priority Associated Diagnoses Orde r Schedule XR L SPINE AP AND LATERAL Medical Imaging Routine Lumbar radiculopathy Ordered: 06/17/2024 Scheduled Procedures Name Priority Associated Diagnoses Date/Ti me COLONOSCOPY FLEXIBLE PROXIMAL DIAGNOSTIC Recall History of colon polyps Health Maintenance Due Date Last Done Comments Cologuard 1999 Fecal Occult Blood Test 1999 Sigmoidoscopy 1999 Depression Screening 07/22/2020 07/22/2019, 08/24/2015 (Discussed) GFR 03/29/2023 03/29/2022, 10/27, 08/07/2019, Additional history exists COVID-19 Vaccine ( season) 2024 10/02/2023, 09/20/2022, 09/05/2021, Additional history exists Influenza Vaccine (FLU shot) (#1) 2024 10/02/2023, 09/20/2022, 08/29/2021, Additional history exists Mammogram 12/25/2024 12/25/2023, 11/27, 03/25/2021, Additional history exists Albumin/Creatinine Ratio 03/29/2025 03/29/2022 Lipid Panel 03/29/2027 03/29/2022, 10/27, 08/07/2019, Additional history exists DXA Scan 12/08/2027 12/08/2020 Colonoscopy 04/02/2029 04/02/2024, 05/0 06/2024, 02/26/2018, Additional history exists Colorectal Cancer Screening 04/02/2029 DTaP,Tdap,and Td Vaccines (3 - Td or Tdap) 10/29/2030 10/29/2020, 10/28/2009, 05/26/1996 Zoster Vaccines Completed 10/06/2019, 08/05/2019 *BASELINE EKG FOR HTN Completed 04/14/2022 Pneumococcal Vaccine: 65+ Years Completed 04/14/2022, 10/29/2020 RETIRED - COLONOSCOPY-EVERY 5 YRS AGES 18-100 Discontinued 04/02/2024, 04/02/2024, 02/26/2018, Additional history exists HPV (Gardasil) Vaccine Aged Out No lo nger eligible based on patient's age to complete this topic MENINGOCOCCAL (MENACTRA/MENVEO) Aged Out No longer eligible based on patient's age to complete this topic documented as of this encounter Medical Devices Not on filedocumented as of this encounter Visit Diagnoses Diagnosis Lumbar radiculopathy- Primary Thoracic or lumbosacral neuritis or radiculitis, unspecified Nausea Nausea alone documented in this encounter Administered Medications Inactive Administered Medications - up to 3 most recent administrations Medication Order MAR Action Action Date Dose Rate Site keTORolac (Toradol) 60 MG/2ML IM inj 60 mg 60 mg, Intramuscular, ONCE, On Sun06/17/24 at 1500, For 1 dose Given 06/17/2024 2:42 PM EDT 60 mg Dorsogluteal Left ondansetron ODT (Zofran) tab 4 mg 4 mg, Oral, ONCE, On Sun06/17/24 at 1515, For 1 dose Given 06/17/2024 2:34 PM EDT 4 mg documented in this encounter Care Teams Pantographer Relationship Specialty Start Date End Date Juliane Khoury DO [address] [place] [address] PCP - General Family Medicine 09/29/11 documented as of this encounter
--- OUTSIDE RECORDS SUMMARY | 2024-06-20 23:19 | External Medical Summary | Summary of Care ---
Author Name Unknown Organization [facility] Address [address] [place] [address] Phone [phone] Care Team Providers Care Roll Hauler Name Role Phone Juliane Khoury DO Primary Care Provider Reason for Visit * Reason Comments Hospital Follow-Up Patient is here for an ER follow-up after being discharged on 06/13 from [facility] due to lbp. Patient is still in severe pain. Patient was given morphine and antinausea medication and still remains in severe pain Encounter Details Date Type Department Care Team (Late st Contact Info) Description 06/17/2024 1:40 PM EDT Office Visit Family Practice [facility] 200 [place] [address] Darling Hernández PA-C 200 [place] [address] Lumbar radiculopathy*; Nausea Allergies No known active [...] mgIndications:Lumbar radiculopathy 60 mg IM ONCE 06/17/2024 06/18/2024 Active ondansetron (Zofran) tab 4 mgIndications:Nausea 4 mg [...] mRNA, LNP-s, No Pre serve, 2-Dose Series ([employer]) 09/05/2021,02/25/2021,01/29/2021 Covid-19, Mrna, Lnp-s, Pf, B ivalent, 30 Mcg, IM, 12 yrs and above ([employer]) 09/20/2022 Influenza, Whole Virus 09/13/1998 9 Pneumococcal [...] 166.9 cm (5' 5.71") 06/17/2024 1:49 PM ED T Body Mass Index - - documented in [...] Yes Verified Shot(s) with Parent(s)/Patient: Yes * Dalring Hernández PA-C - 06/17/2024 1:53 PM EDT Images from the original note were not included. History of Present Illness John Espino is a 69 year old female that presents for Hospital Follow-Up (Patient is here for an ER follow-up after being discharged on 06/13 from [facility] due to lbp. Patient is still in [...] follow-up after being discharged on 06/13 from [facility] due to lbp. Patient is still in severe pain. Patient was given morphine and antinausea medication and still remains in severe pain documented in this encounter Plan of Treatment Upcoming Encounters Date Type Department Care Team (Late st Contact Info) Description 07/15/2024 10:20 AM EDT Office Visit Family Practice [facility] [address] [facility] [place], [place] [address] Juliane Khoury DO [address] [facility] [place] [address] 12/18/2024 8:45 AM EST Office Visit Dermatology [facility] [address] [place] [place] [address] Brian Kaye MD [address] [place] [place] [address] Scheduled Orders Name Type Priority Associated Diagnoses [...] MAR Action Action Date Dose Rate Site ondansetron ODT (Zofran) tab 4 mg 4 mg, Oral, ONCE, On Sun06/17/24 at 1515, For 1 dose Given 06/17/2024 2:34 PM EDT 4 mg documented in this encounter Care Teams Roll Hauler Relationship Specialty Start Date End Date Juliane Khoury DO [address] [place] [address] PCP - General Family Medicine 09/29/11 documented as of this encounter
--- OUTSIDE RECORDS SUMMARY | 2024-06-20 23:19 | External Medical Summary | Summary of Care ---
Author Name Unknown Organization [facility] Address [address] [place] [address] Phone [phone] Care Team Providers Care Hat Marker Name Role Phone Juliane Khoury DO Primary Care Provider Reason for Visit * Reason Comments Hospital Follow-Up Patient is here for an ER follow-up after being discharged on 06/13 from [facility] due to lbp. Patient is still in severe pain. Patient was given morphine and antinausea medication and still remains in severe pain Encounter Details Date Type Department Care Team (Late st Contact Info) Description 06/17/2024 1:40 PM EDT Office Visit Family Practice [facility] 200 [place] [address] Darling Hernández PA-C 200 [place] [address] Lumbar radiculopathy*; Nausea Allergies No known active [...] mRNA, LNP-s, No Pre serve, 2-Dose Series ([employer]) 09/05/2021,02/25/2021,01/29/2021 Covid-19, Mrna, Lnp-s, Pf, B ivalent, 30 Mcg, IM, 12 yrs and above ([employer]) 09/20/2022 Influenza, Whole Virus 09/13/1998 9 Pneumococcal [...] follow-up after being discharged on 06/13 from [facility] due to lbp. Patient is still in [...] tabs for 3 days, 1 tab for 3days, 1/2 tab for 3 days - keTORolac [...] follow-up after being discharged on 06/13 from [facility] due to lbp. Patient is still in severe pain. Patient was given morphine and antinausea medication and still remains in severe pain documented in this encounter Plan of Treatment Upcoming Encounters Date Type Department Care Team (Late st Contact Info) Description 07/15/2024 10:20 AM EDT Office Visit Family Practice [facility] [address] [facility] [place], [place] [address] Juliane Khoury DO [address] [facility] [place] [address] 12/18/2024 8:45 AM EST Office Visit Dermatology [facility] [address] [facility] [place] [address] Brian Kaye MD [address] [facility] [place] [address] Scheduled Orders Name Type Priority Associated Diagnoses [...] mg documented in this encounter Care Teams Hat Marker Relationship Specialty Start Date End Date Juliane Khoury DO [address] [place] [address] PCP - General Family Medicine 09/29/11 documented as of this encounter
--- OUTSIDE RECORDS SUMMARY | 2024-06-20 23:19 | External Medical Summary | Summary of Care ---
Author Name Unknown Organization [facility] Address [address] [place] [address] Phone [phone] Care Team Providers Care Academic Support Specialist Name Role Phone Juliane Khoury DO Primary Care Provider Reason for Visit * Reason Comments Hospital Follow-Up Patient is here for an ER follow-up after being discharged on 06/13 from [facility] due to lbp. Patient is still in severe pain. Patient was given morphine and antinausea medication and still remains in severe pain Encounter Details Date Type Department Care Team (Late st Contact Info) Description 06/17/2024 1:40 PM EDT Office Visit Family Practice [facility] 200 [facility] [place] [address] Darling Hernández PA-C 200 [place] [address] Lumbar radiculopathy*; Nausea Allergies No known active [...] mRNA, LNP-s, No Pre serve, 2-Dose Series ([employer]) 09/05/2021,02/25/2021,01/29/2021 Covid-19, Mrna, Lnp-s, Pf, B ivalent, 30 Mcg, IM, 12 yrs and above ([employer]) 09/20/2022 Influenza, Whole Virus 09/13/1998 9 Pneumococcal [...] follow-up after being discharged on 06/13 from [facility] due to lbp. Patient [...] follow-up after being discharged on 06/13 from [facility] due to lbp. Patient is still in severe pain. Patient was given morphine and antinausea medication and still remains in severe pain documented in this encounter Plan of Treatment Upcoming Encounters Date Type Department Care Team (Late st Contact Info) Description 07/15/2024 10:20 AM EDT Office Visit Family Practice [facility] 200 [facility] [place], [place] [address] Juliane Khoury DO 200 [facility] [place], [place] [address] 12/18/2024 8:45 AM EST Office Visit Dermatology [facility] 200 [facility] [place] [address] Brian Kaye MD 200 [facility] [place] [address] Pending Results Name Type Priority Associated Diagnoses Date /Time XR L SPINE AP AND LATERAL Medical Imaging Routine Lumbar radiculopathy 06/17/2024 2:42 PM EDT Scheduled Procedures Name Priority Associated Diagnoses Date/Ti [...] mg documented in this encounter Care Teams Academic Support Specialist Relationship Specialty Start Date End Date Juliane Khoury DO [address] [place] [address] PCP - General Family Medicine 09/29/11 documented as of this encounter
[2024-06-21] MEDS: METOPROLOL TARTRATE 25 MG TAB PO SCH (00:41)
[2024-06-21] MEDS: PIPERACILLIN/TAZOBACTAM 4.5 GM in DEXTROSE 5% MINI-B 100 ML IV SCH (03:57)
--- NOTE | 2024-06-21 07:37 | Electrocardiogram Report ---
Test Reason : Blood Pressure : / mmHG Vent. Rate : 145 BPM Atrial Rate : 000 BPM P-R Int : 000 ms QRS Dur : 084 ms QT Int : 306 ms P-R-T Axes : 000 005 117 degrees QTc Int : 475 ms Atrial fibrillation with rapid ventricular response with premature ventricular or aberrantly conducte d complexes Nonspecific ST and T wave abnormality Abnormal ECG When compared with ECG of 10-FEB-2013 21:04, Atrial fibrillation has replaced Sinus rhythm Vent. rate has increased BY 67 BPM Nonspecific T wave abnormality now evident in Lateral leads Confirmed by Yordy Browning ([id number]) on 06/21/2024 7:37:11 AM Referred By: REFERRED SELF Confirmed By:Yordy Browning
--- NOTE | 2024-06-21 07:49 | Electrocardiogram Report ---
Test Reason : Blood Pressure : / mmHG Vent. Rate : 112 BPM Atrial Rate : 416 BPM P-R Int : 000 ms QRS Dur : 084 ms QT Int : 332 ms P-R-T Axes : 000 007 176 degrees QTc Int : 453 ms Atrial fibrillation with rapid ventricular response Nonspecific T wave abnormality Abnormal ECG When compared with ECG of 20-JUN-2024 17:52, Nonspecific T wave abnormality, worse in Lateral leads Confirmed by Yordy Browning ([id number]) on 06/21/2024 7:48:28 AM Referred By: REFERRED SELF Confirmed By:Yordy Browning
[2024-06-21 08:35] LABS: A calco-baum cmplx NotReported Not Detected (NotDetected); Bact fragilis Not Reported Not Detected (NotDetected); Blood Culture Id Panel See PCR Comment (NotDetected); C auris Not Reported Not Detected (NotDetected); Calbicans Not Reported Not Detected (NotDetected); Candida glabrata Not Reported Not Detected (NotDetected); Candida krusei Not Reported Not Detected (NotDetected); Cneoformans/gatti Not Reported Not Detected (NotDetected); Cparapsilosis Not Reported Not Detected (NotDetected); E cloacae compx Not Reported Not Detected (NotDetected); Efaecalis Not Reported Not Detected (NotDetected); Efaecium Not Reported Not Detected (NotDetected); Enterobacterales Not Reported Not Detected (NotDetected); Escherichia coli Not Reported Not Detected (NotDetected); H influenzae Not Reported Not Detected (NotDetected); K aerogenes Not Reported Not Detected (NotDetected); Koxytoca Not Reported Not Detected (NotDetected); Kpneumoniae grp Not Reported Not Detected (NotDetected); Lmonocyt Not Reported Not Detected (NotDetected); N meningitidis Not Reported Not Detected (NotDetected); P aeruginosa Not Reported Not Detected (NotDetected); Proteus spp Not Reported Not Detected (NotDetected); Salmonella spp Not Reported Not Detected (NotDetected); Staph lugdunensis Not Reported Not Detected (NotDetected); Staph spp. Not Reported DETECTED (NotDetected); Staphaureus Not Reported DETECTED (NotDetected); Staphepi Not Reported Not Detected (NotDetected); Staphylococcus spp. DETECTED (NotDetected); Stenmaltophilia Not Reported Not Detected (NotDetected); Strep agal(GrpB) Not Reported Not Detected (NotDetected); Strep pneum Not Reported Not Detected (NotDetected); Strep pyog (GrpA) Not Reported Not Detected (NotDetected); Strep spp Not Reported Not Detected (NotDetected); mecAC+MREJ Resistant Gene MRSA Not Detected (NotDetected)
[2024-06-21 08:53] LABS: Albumin Globulin Ratio 0.9 (0.9-2); Albumin Level 2.5 gm/dl (3.4-5.0); BUN Creatinine Ratio 58.2 (10-20); Bilirubin,Total 1.5 mg/dl (0.2-1.0); Calcium 8.4 mg/dl (8.6-10.3); Est GFR (African American) 74.1 ml/min; Est GFR (Non-African American) 63.9 ml/min; Globulin 2.9 gm/dl (2.5-4.0); Hematocrit (blood only) 31.3 % (37.0-47.0); Hemoglobin 10.8 g/dl (12.0-16.0); Magnesium 2.2 mg/dl (1.7-2.4); Mean Corpuscular Hemoglobin 30.9 pg (25.0-34.0); Mean Corpuscular Hgb Conc 34.5 g/dL (32.0-36.0); Mean Corpuscular Volume 89.4 fL (80.0-100.0); Mean Platelet Volume 10.8 fL (9.4-12.4); Platelet Count 308 K/uL (130-400); Potassium 3.2 mmol/L (3.5-5.1); RDW Coefficient of Variation 13.2 % (11.5-14.5); RDW Standard Deviation 43.2 fL (36.4-46.3); Total Protein 5.4 gm/dl (6.0-8.3); White Blood Count 36.71 K/ul (4.8-10.8)
[2024-06-21 08:59] LABS: Troponin I High Sensitivity 44.6 pg/ml (0-14)
[2024-06-21 09:00] LABS: Estimated Average Glucose 137 mg/dl; Hemoglobin A1C 6.4 % (4.5-5.6)
--- NOTE | 2024-06-21 09:24 | Hospitalist Progress Note ---
Date of Service June 21, 2024 Assessment & Plan (1) Atrial fibrillation with rapid ventricular response: (2) Elevated troponin: (3) Back pain: (4) Weakness: (5) PRATIMA (acute kidney injury): (6) Leukocytosis: (7) Acute hyponatremia: (8) Pelvic fluid collection: (9) Hyperglycemia: (10) Elevated alkaline phosphatase level: (11) HTN (hypertension): Plan Patient is 69 year old female with PMHx of HTN, dyslipidemia, anxiety who presented to the ER with concern for low back pain x 1 week and falls x 1 day. Was found to have atrial fibrillation with RVR in the emergency room. Sepsis, POA Bacteremia Pt tachycardic with marked leukocytosis 39K on admission (pt was on steroids outpt) Lactate 2.2 on admission, with 2.2 repeat. Procal elevated at 2.87 UA not suggestive of infection Negative Lyme screen, Negative flu, RSV and COVID-[address] with no signs of infection CT abd/pelvis and CT lumbar spine noting possible mass vs hematoma, MRIs pending to further define Blood Cx x2 sets growing gram positive cocci Biofire serology noting staph but not MRSA, no need for IV Vancomycin at this time Source of infection uncertain at this time Continue with IV Zosyn Pt notes she tends to priscilla bushes quite frequently, fungal cultures added Echo pending Infectious Disease consulted, appreciate recs Pelvic fluid collection CT Abd/Pelvis: "nonspecific hyperdense fluid in the right pelvis which may represent a very small amount of hematoma or interval development of lymphatic obstruction, less likely a soft tissue mass. No active extravasation is seen." Possible hematoma, mass or source of infection? MRI pelvis pending to further assess Leukocytosis Pt presenting with WBC of 39K Noted pt has been on steroids recently with an acute infectious process underlying as well. Elevated likely in setting of above Peripheral smear pending Hematology was consulted on admission Atrial Fibrillation with RVR Demand Ischemia In ER found to be in atrial fibrillation RVR. Pt denies CP, SOB, palpitations EKG Afib RVR with nonspecific ST changes Trop of 59.8 to 59.2 to 44.6, likely demand ischemia from afib rvr Echo ordered and pending TSH wnl In ER given total 2L IVF, given Cardizem bolus and drip with HRs still in 130's Given Lopressor 5mg IV on admission Continue Cardizem drip Continue Lopressor 12.5mg Q6H po Start IV heparin once pelvic hematoma ruled out- MRI switched to stat Monitor on telemetry Cardiology consulted, appreciate further recs Back pain Weakness Lumbar back pain x 8 days. Treated outpatient with oxycodone, muscle relaxers, NSAIDs and on day [address] Lumbar spine: degenerative changes MRI lumbar spine pending In ER given fentanyl, morphine with reported decreased pain MRI Lumbar spine pending Pain Control Ortho spine consulted, appreciate recs PRATIMA (acute kidney injury) BUN: 84, Cr: 1.5. BUN/Cr ratio: 54. In 2021 Cr: 0.9 with GFR: 64 IVF Monitor renal function, avoid nephrotoxic agents when possible Nephrology consulted, appreciate recs Acute hyponatremia Na corrected at 130 for glucose: 280 Serum osm 302, urine osm 480, urine Na 35 Currently improving Nephrology consulted, appreciate recs Hypokalemia Replete as needed Hypermagnesemia mag of 2.5 on admission Down to 2.2 Continue to monitor Anemia Hgb of 12.4 to 10.8 AM anemia panel Continue to monitor Prediabetes Hyperglycemia Random glucose: 280 No former DM diagnosis. Has been on 3 days prednisone Novolog sliding scale A1c of 6.4 PCP followup after discharge Elevated alkaline phosphatase level Elevated t bili t bili 1.6 alk phos 212 Continue to monitor HTN (hypertension) BP stable in ER and is on Cardizem drip Will hold home losartan with PRATIMA Diet: DMII DVT prophylaxis: on hold Dispo: PT/OT recs once medically stable Admission and Anticipated Discharge Date Admission Date: June 20, 2024 Subjective pt was seen with at bedside AAOx 3 at time of the exam. States she is in quite a bit of pain and noting she might not be able to stay still for the MRI w/o medication Notes that she was told in the past that she has a fibroid, concerned that is related to the pelvic mass noted. She and state she has been having many falls. They note no dental issues or IV drug use but do state that she tends to priscilla bushes quite a bit and often gets struck by thorns Denies fevers at home but they do note chills and sweats and very low temps, notes temp of 95 Review of Systems Review of Systems: All systems reviewed & are unremarkable except as noted in Subjective Physical Exam Physical Exam: General: Alert, oriented.mild distress Skin: No noted rashes or bruises Psych: Appropriate mood and affect Neuro:difficulty with any movement in the bed HEENT: NC/AT CV:irregular Resp: Breath sounds clear bilaterally, no increased effort of breathing. Abdomen: Soft, tender Extremities: edema in lower extremities bilaterally. Results & Data Results & Data Vital Signs (Past 12 Hours) Vital Signs Temp Pulse Pulse Resp BP BP Pulse Ox 06/21/24 07:50 36.6 C 120 H 20 96/61 L 100 06/21/24 04:10 36.5 C 97 H 18 103/68 98 06/20/24 23:56 36.5 C 121 H 20 107/61 99 06/20/24 23:00 117 H 06/20/24 21:32 36.4 C 126 H 20 95/65 L 94 O2 Del Method O2 Flow Rate 06/21/24 07:50 Nasal Cannula 2 06/21/24 04:10 Nasal Cannula 1 06/20/24 23:56 Nasal Cannula 1 06/20/24 23:00 06/20/24 21:32 Nasal Cannula 1 Diagnostic Findings Abdomen/Pelvis CT 06/20/24 17:44 CT abd pelvis IV con only, CT lumbar spine w con CLINICAL HISTORY: falls, back pain TECHNIQUE: Helical axial images of the abdomen and pelvis were obtained and displayed. Automated dose lowering techniques and/or adjustment according to patient size were utilized for this exam. Dedicated images of the lumbar spine were obtained. This exam was performed with intravenous contrast. COMPARISON: Comparison is made to CT abdomen pelvis 02/11/2013 FINDINGS: Lower chest: For findings above the diaphragm, please see CT chest performed same day. Liver: Unremarkable. No focal lesions are seen. Gallbladder and biliary tree: Patient is status post cholecystectomy. No intra- or extrahepatic biliary ductal dilation. Pancreas: Unremarkable, no focal lesions. Spleen: Splenule is incidentally noted. Adrenals: Unremarkable. Kidneys and ureters: Renal cysts are seen. Bladder: Unremarkable. Reproductive organs: Unremarkable. Bowel: A hiatal hernia is seen. Lymph nodes Retroperitoneal: Unremarkable. Pelvic: Unremarkable. Mesenteric: Unremarkable. Peritoneum: There is a small amount of hyperdense fluid in the right pelvis which results in mild mass effect upon the right internal iliac vein. Vessels: Atherosclerotic calcifications are seen. Abdominal wall: Bilateral fat-containing inguinal hernias are seen. Bones: Degenerative changes in the visualized spine. IMPRESSION: There is nonspecific hyperdense fluid in the right pelvis which may represent a very small amount of hematoma or interval development of lymphatic obstruction, less likely a soft tissue mass. No active extravasation is seen. Follow-up to resolution is recommended to exclude mass. ACT 112: Positive. There are findings on this exam that require communication between the performing entity and the patient following Patient Test Result Information Act ([place] Act 112) guidelines. Electronically signed by: Sagar Kennedy M.D. 06/20/2024 7:[address] 06/20/24 17:44 CT cervical spine wo con CLINICAL HISTORY: falls, pain TECHNIQUE: Multidetector row helical CT of the cervical spine was performed without administration of intravenous contrast. Coronal and sagittal reformations were obtained. Automated dose lowering techniques and/or adjustment according to patient size were utilized for this exam. Comparison: None available at the time of this dictation. FINDINGS: No acute fractures or subluxations are identified. Degenerative changes are seen in the visualized spine. The alignment is normal. Soft tissues are unremarkable. IMPRESSION: Degenerative changes without evidence of acute bony injury. ACT 112: Negative or not required by law. Electronically signed by: Sagar Kennedy M.D. 06/20/2024 6:[address] 06/20/24 17:45 CT head/brain wo con CLINICAL HISTORY: falls, pain Technique: Contiguous axial CT images of the head were acquired from the base of the skull to the vertex without intravenous contrast administration. Images were viewed in brain, subdural and bone windows. Automated dose lowering techniques and/or adjustment according to patient size were utilized for this exam. Comparison: None available at the time of this dictation. Findings: The ventricles, basal cisterns, and cerebral sulci are normal. There is no acute intracranial hemorrhage or evidence of acute territorial infarction. Neither mass effect, shift of the midline structures, nor abnormal extra-axial fluid collections are shown. And subarachnoid cyst. Imaged portions of the paranasal sinuses and mastoid air cells are clear. The orbits appear normal. There are no acute fractures of the calvaria or scalp swelling. Impression: No acute intracranial hemorrhage, no evidence of acute territorial infarction or other acute intracranial disease process. ACT 112: Negative or not required by law. Electronically signed by: Sagar Kennedy M.D. 06/20/2024 6:[address] 06/20/24 17:45 CT abd pelvis IV con only, CT lumbar spine w con CLINICAL HISTORY: falls, back pain TECHNIQUE: Helical axial images of the abdomen and pelvis were obtained and displayed. Automated dose lowering techniques and/or adjustment according to patient size were utilized for this exam. Dedicated images of the lumbar spine were obtained. This exam was performed with intravenous contrast. COMPARISON: Comparison is made to CT abdomen pelvis 02/11/2013 FINDINGS: Lower chest: For findings above the diaphragm, please see CT chest performed same day. Liver: Unremarkable. No focal lesions are seen. Gallbladder and biliary tree: Patient is status post cholecystectomy. No intra- or extrahepatic biliary ductal dilation. Pancreas: Unremarkable, no focal lesions. Spleen: Splenule is incidentally noted. Adrenals: Unremarkable. Kidneys and ureters: Renal cysts are seen. Bladder: Unremarkable. Reproductive organs: Unremarkable. Bowel: A hiatal hernia is seen. Lymph nodes Retroperitoneal: Unremarkable. Pelvic: Unremarkable. Mesenteric: Unremarkable. Peritoneum: There is a small amount of hyperdense fluid in the right pelvis which results in mild mass effect upon the right internal iliac vein. Vessels: Atherosclerotic calcifications are seen. Abdominal wall: Bilateral fat-containing inguinal hernias are seen. Bones: Degenerative changes in the visualized spine. IMPRESSION: There is nonspecific hyperdense fluid in the right pelvis which may represent a very small amount of hematoma or interval development of lymphatic obstruction, less likely a soft tissue mass. No active extravasation is seen. Follow-up to resolution is recommended to exclude mass. ACT 112: Positive. There are findings on this exam that require communication between the performing entity and the patient following Patient Test Result Information Act ([place] Act 112) guidelines. Electronically signed by: Sagar Kennedy M.D. 06/20/2024 7:[address] 06/20/24 17:46 CT chest diagnostic w con CLINICAL HISTORY: falls, back pain TECHNIQUE: Multidetector row helical CT of the chest was performed with intravenous contrast. Coronal and sagittal reformations were obtained. Automated dose lowering techniques and/or adjustment according to patient size were utilized for this exam. Comparison: Comparison is made to chest radiograph 07/24/2012 FINDINGS: Lungs and pleura: A calcified granuloma is seen. Heart and pericardium: Heart size is normal. No pericardial effusion. Vessels: Moderate atherosclerotic changes in the aorta and coronary arteries. Mediastinum and uriel: Unremarkable. Chest wall and lower neck: Unremarkable. Abdomen: For findings below the diaphragm, please refer to CT of the abdomen dated the same. Bones: Degenerative changes in the thoracic spine. IMPRESSION: No acute abnormalities, in particular no evidence of acute fracture. ACT 112: Negative or not required by law. Electronically signed by: Sagar Kennedy M.D. 06/20/2024 7:06 PM
[2024-06-21 09:30] LABS: Basophils # (auto) 0.19 K/uL (0.00-0.20); Basophils % (auto) 0.5 %; Eosinophils # (auto) 0.01 K/uL (0.00-0.50); Immature Granulocytes # (auto) 1.21 K/uL (0.01-0.20); Immature Granulocytes % (auto) 3.3 %; Lymphocytes # (auto) 1.23 K/uL (1.20-3.40); Lymphocytes % (auto) 3.4 %; Monocytes # (auto) 1.71 K/uL (0.11-0.59); Monocytes % (auto) 4.7 %; Neutrophils # (auto) 32.36 K/uL (1.40-6.50); Neutrophils % (auto) 88.1 %
--- NOTE | 2024-06-21 09:56 | Nephrology Consultation ---
Date of Consultation June 21, 2024 Assessment & Plan (1) PRATIMA (acute kidney injury): Patient with acute kidney injury likely prerenal azotemia in setting of A-fib RVR and NSAID use. Patient is no longer taking ibuprofen, she only took it at home. She has received IV fluids and being managed with rate control agents. She is making urine. Electrolytes are stable except for hypokalemia. Will give her potassium chloride 40 mEq twice daily for 3 doses. Discussed need to completely avoid NSAIDs going forward. I agree with continuing maintenance fluids and avoid hypotension. No need for 24-hour urine collection as there is low suspicion for multiple myeloma (2) Atrial fibrillation with rapid ventricular response: Patient is on diltiazem and Lopressor. A-fib RVR is driving the acute kidney injury. Renal function is improving with rate control. Avoid hypotension as above. History of Present Illness Reason for Consultation: PRATIMA Requesting Physician: Jammie Pereyra MD Attending Physician: Jammie Pereyra MD History of Present Illness Mrs. 69-year-old female with history of hypertension, chronic back pain who was admitted with worsening back pain for 1 week and for found to have A-fib with RVR, hypotension and acute kidney injury with creatinine of 1.5. Patient had been taking ibuprofen for back pain. She is also complaining of right shoulder pain, neck pain and back pain. No shortness of breath or leg swelling. She is making urine and now has a Harvey catheter. She was given IV normal saline 2 L bolus and currently on maintenance fluids of normal saline 80 mL/h. He is making urine. Creatinine has improved to 0.9 but BUN is still high. She also has hypokalemia of 3.2 this morning. is at the bedside. She is also on diltiazem drip and Lopressor. Allergies Allergy/AdvReac Type Severity Reaction Status Date / Time No Known Allergies Allergy Unverified 06/20/24 19:48 Home Medications Medication Instructions Recorded Confirmed Type Collagen Tab 3 tabs PO QAM 06/20/24 06/20/24 History acetaminophen 500 mg tablet 1,000 mg PO Q6H PRN Pain 06/20/24 06/20/24 History (Tylenol Extra Strength) calcium carbonate (Calcium 600) 600 mg PO DAILY 06/20/24 06/20/24 History glucosamine-chondroitin 250 mg-200 2 tab PO DAILY 06/20/24 06/20/24 History mg tablet (Osteo Bi-Flex) ibuprofen 200 mg tablet 600 - 800 mg PO Q8 PRN Pain 06/20/24 06/20/24 History losartan 50 mg tablet 50 mg PO QAM 06/20/24 06/20/24 History magnesium oxide 400 mg PO DAILY 06/20/24 06/20/24 History oxycodone 5 mg tablet 5 mg PO Q6 PRN Pain 06/20/24 06/20/24 History prednisone 20 mg tablet 2 mg PO .TAPER UD 06/20/24 06/20/24 History tizanidine 4 mg tablet 4 mg PO Q6 PRN .Muscle pain 06/20/24 06/20/24 History turmeric 400 mg capsule 0 mg PO QAM 06/20/24 06/20/24 History vitamin B complex 1 tab PO DAILY 06/20/24 06/20/24 History Patient History Medical History (Updated 06/20/24 @ 20:54 by Dora Eduardo PA-C) HTN (hypertension) Surgical History H/O section History of cholecystectomy Hx of tonsillectomy History of Zakia fundoplication Family History Other Heart disease Hypertension Social History Smoking Status: Never smoker Hx Alcohol Use: Yes Alcohol type: wine Alcohol Intake Frequency: 2-4 x/Month Hx Substance Use: No Preferred Language: Slovenian Grip Wrapper Required: No Beliefs That Will Affect Care: None Current Living Situation: Spouse Feels Safe at Home: Yes Safety Concerns: Feels Safe At This Time Assistive Devices: Cane and Glasses Review of Systems 2 Review of Systems: All other systems were reviewed and negative except as noted in HPI Physical Exam 2 Physical Exam: General exam: Appears comfortable, no acute distress HEENT: Pupils are equal and reactive to light Neck: No JVD, neck is supple trachea is midline Respiratory system: Clear breath sounds bilaterally. Gastrointestinal: Abdomen is soft, non distended, non tender, bowel sounds are present CVS: Regular rate and rhythm. No murmurs, rubs or gallops Musculoskeletal: No joint or muscle tenderness Extremities: Non tender, no edema, peripheral pulses are present Neuro: Oriented, no tremors, no focal neurological deficits Skin: No rashes Results & Data Vital Signs (Past 12 Hours) Vital Signs Temp Pulse Pulse Resp BP BP Pulse Ox 06/21/24 07:50 36.6 C 120 H 20 96/61 L 100 06/21/24 04:10 36.5 C 97 H 18 103/68 98 06/20/24 23:56 36.5 C 121 H 20 107/61 99 06/20/24 23:00 117 H O2 Del Method O2 Flow Rate 06/21/24 07:50 Nasal Cannula 2 06/21/24 04:10 Nasal Cannula 1 06/20/24 23:56 Nasal Cannula 1 06/20/24 23:00 Laboratory Results 06/21/24 08:07 06/20/24 06/21/24 17:55 08:07 WBC 39.08 H* 36.71 H* RBC 4.14 L 3.50 L MCV 86.0 89.4 MCH 30.0 30.9 MCHC 34.8 34.5 RDW Std Deviation 40.6 43.2 RDW Coeff of Jarad 13.0 13.2 Plt Count 337 308 MPV 11.0 10.8 Albumin 3.0 L 2.5 L
[2024-06-21] MEDS: POTASSIUM CHLORIDE 20 MEQ/15 ML UDC PO SCH (10:44)
[2024-06-21 11:45] LABS: Phosphorus 3.2 mg/dl (2.5-4.9)
[2024-06-21] MEDS: MoRPHine SULFATE 4 MG/ML 1 ML CARP\\VIAL IV PRN (11:51)
[2024-06-21] MEDS: ONDANSETRON INJ 2 MG/ML 2 ML VIAL IV PRN (11:51)
[2024-06-21] MEDS: GADOBUTROL 10ML VIAL IV ONE (13:42)
--- NOTE | 2024-06-21 16:52 | Cardiology Consultation ---
Date of Consultation June 21, 2024 Assessment & Plan (1) Atrial fibrillation with rapid ventricular response: (2) Acute hyponatremia: (3) Elevated troponin: (4) Leukocytosis: (5) Pelvic fluid collection: (6) Gram-positive bacteremia: Plan New onset atrial fibrillation with rapid ventricular response for started on Cardizem drip [id number] score 3(hypertension 1, female 1, age 1) She now has converted to sinus rhythm She will need anticoagulation CT abdomen showed hyperdense fluid collection which could represent hematoma or lymphatic collection Make sure there is no hematoma before starting anticoagulation she is dehydrated received 2 L of IV fluids still has dry mouth Elevated troponins in the setting of sepsis, dehydration and A-fib with RVR EKG no evidence of ischemia no Anginal symptoms Echo shows normal wall motion History of Present Illness Reason for Consultation: AFIb Requesting Physician: Jammie Pereyra MD Attending Physician: Jammie Pereyra MD History of Present Illness 69-year old with history of hypertension no prior cardiac history presents with history back pain for 1 week and generalized weakness. Last week started having back pain which was significant required pain medications and steroids also reports chills and rigors no fevers per se .very tired unable to do any of her daily activities. in The emergency room was noted to be in atrial fibrillation with rapid ventricular response started on Cardizem drip. Blood culture showed hyponatremia, positive blood cultures for gram-positive cocci Imaging shows nonspecific hyperdense fluid in the right pelvis may represent a small amount of hematoma less likely soft tissue mass Family history father had coronary artery disease that engaged in 40s required coronary artery bypass. Brother had stents in his 60s Allergies Allergy/AdvReac Type Severity Reaction Status Date / Time No Known Allergies Allergy Unverified 06/20/24 19:48 Home Medications Medication Instructions Recorded Confirmed Type Collagen Tab 3 tabs PO QAM 06/20/24 06/20/24 History acetaminophen 500 mg tablet 1,000 mg PO Q6H PRN Pain 06/20/24 06/20/24 History (Tylenol Extra Strength) calcium carbonate (Calcium 600) 600 mg PO DAILY 06/20/24 06/20/24 History glucosamine-chondroitin 250 mg-200 2 tab PO DAILY 06/20/24 06/20/24 History mg tablet (Osteo Bi-Flex) ibuprofen 200 mg tablet 600 - 800 mg PO Q8 PRN Pain 06/20/24 06/20/24 History losartan 50 mg tablet 50 mg PO QAM 06/20/24 06/20/24 History magnesium oxide 400 mg PO DAILY 06/20/24 06/20/24 History oxycodone 5 mg tablet 5 mg PO Q6 PRN Pain 06/20/24 06/20/24 History prednisone 20 mg tablet 2 mg PO .TAPER UD 06/20/24 06/20/24 History tizanidine 4 mg tablet 4 mg PO Q6 PRN .Muscle pain 06/20/24 06/20/24 History turmeric 400 mg capsule 0 mg PO QAM 06/20/24 06/20/24 History vitamin B complex 1 tab PO DAILY 06/20/24 06/20/24 History Patient History Medical History (Updated 06/21/24 @ 18:02 by Asya Kraus MD) HTN (hypertension) Surgical History H/O section History of cholecystectomy Hx of tonsillectomy History of Zakia fundoplication Family History Other Heart disease Hypertension Social History Smoking Status: Never smoker Hx Alcohol Use: Yes Alcohol type: wine Alcohol Intake Frequency: 2-4 x/Month Hx Substance Use: No Preferred Language: Russian Car Cooper Required: No Beliefs That Will Affect Care: None Current Living Situation: Spouse Feels Safe at Home: Yes Safety Concerns: Feels Safe At This Time Assistive Devices: Cane and Glasses Review of Systems Constitutional: + chills, + body aches and + fatigue Respiratory: + cough, + dyspnea, + dyspnea on exertio n and + hemoptysis Cardiovascular: no chest pain, no chest pain with activity, no dyspnea, no palpitations and no edema Gastrointestinal: + early satiety Musculoskeletal: + back pain, + neck pain and + body ache s Neurologic: + generalized weakness Psychiatric: + anxiety Physical Exam Constitutional: + ill appearing Eyes: PERRL, conjunctivae normal, anicteric sclerae Respiratory: normal respiratory effort, lungs clear to auscultation Cardiovascular: Rate/Rhythm: regular rate Heart Sounds: normal S1 and normal S2 Palpation: normal PMI Extremities: no edema Gastrointestinal (Abdomen): normal bowel sounds, soft, nontender, no hepatosplenomegaly Neurologic: awake Results & Data Vital Signs (Past 12 Hours) Vital Signs Temp Pulse Pulse Resp BP BP Pulse Ox 06/21/24 14:42 36.8 C 76 18 129/68 98 06/21/24 11:46 36.2 C L 122 H 19 104/70 100 06/21/24 08:00 125 H 06/21/24 08:00 06/21/24 07:50 36.6 C 120 H 20 96/61 L 100 O2 Del Method O2 Flow Rate 06/21/24 14:42 Nasal Cannula 3 06/21/24 11:46 Nasal Cannula 2 06/21/24 08:00 06/21/24 08:00 Nasal Cannula 1 06/21/24 07:50 Nasal Cannula 2 Laboratory Results Cardiac Enzymes 06/20/24 06/20/24 06/21/24 Range/Units 17:55 21:23 08:07 AST 26 18 (13-39) U/L Troponin I High Sens 59.8 H* 59.2 H* 44.6 H D (0-14) pg/ml CBC 06/20/24 06/21/24 Range/Units 17:55 08:07 WBC 39.08 H* 36.71 H* (4.8-10.8) K/ul RBC 4.14 L 3.50 L (4.20-5.40) M/uL Hgb 12.4 10.8 L (12.0-16.0) g/dl Hct 35.6 L 31.3 L (37.0-47.0) % Plt Count 337 308 (130-400) K/uL Neut # (Auto) 34.45 H 32.36 H (1.40-6.50) K/uL Lymph # (Auto) 1.75 1.23 (1.20-3.40) K/uL [place] # (Auto) 1.36 H 1.71 H (0.11-0.59) K/uL Eos # (Auto) 0.00 0.01 (0.00-0.50) K/uL Baso # (Auto) 0.15 0.19 (0.00-0.20) K/uL Comprehensive Metabolic Panel 06/20/24 06/21/24 Range/Units 17:55 08:07 Sodium 127 L 134 L (136-145) mmol/L Potassium 3.5 3.2 L (3.5-5.1) mmol/L Chloride 94 L 102 (98-107) mmol/L Carbon Dioxide 19 L 25 (21-32) mmol/L BUN 84 H 53 H D (6-23) mg/dl Creatinine 1.53 H 0.91 D (0.6-1.2) mg/dl Glucose 280 H 141 H (70-99(Fasting)) mg/dl Calcium 9.5 8.4 L (8.6-10.3) mg/dl AST 26 18 (13-39) U/L ALT 38 26 (7-52) U/L Alkaline Phosphatase 212 H 162 H (34-104) U/L Total Protein 6.7 5.4 L (6.0-8.3) gm/dl Albumin 3.0 L 2.5 L (3.4-5.0) gm/dl Intake and Output 06/21/24 06/21/24 06/21/24 06:59 14:59 22:59 Intake Total 106.25 / 2280.00 1484.75 / 1484.75 Output Total 1200 / 1500 700 / 700 Balance -1093.75 / 780.00 784.75 / 784.75 Intake: IV 106.25 / 2280.00 1244.75 / 1244.75 Piperacillin/Tazobactam 4.5 gm 100 / 100 In Dextrose 5% Mini-B 100 ml @ 25 mls/hr IV Q8H [facility] Rx#: [id number] Sodium Chloride 0.9% 1,000 ml @ 960 / 960 80 mls/hr IV .[id number] [facility] Rx#: [id number] dilTIAZem HCL 125 mg In 106.25 / 180.00 184.75 / 184.75 Dextrose 5% 100 ml @ 15 MG/HR 15 mls/hr IV .[id number] [facility] Rx#: [id number] Oral 240 / 240 Output: Urine Amount (Catheter) 1200 / 1500 700 / 700 Harvey/Indwelling 1200 / 1500 700 / 700 Other: Weight 99.019 kg Weight Measurement Method Built in [facility] Medications Administered Home Medications Medication Instructions Recorded Confirmed Last Taken Collagen Tab 3 tabs PO QAM 06/20/24 06/20/24 Unknown acetaminophen 500 mg tablet 1,000 mg PO Q6H PRN Pain 06/20/24 06/20/24 Unknown (Tylenol Extra Strength) calcium carbonate (Calcium 600) 600 mg PO DAILY 06/20/24 06/20/24 Unknown glucosamine-chondroitin 250 mg-200 2 tab PO DAILY 06/20/24 06/20/24 Unknown mg tablet (Osteo Bi-Flex) ibuprofen 200 mg tablet 600 - 800 mg PO Q8 PRN Pain 06/20/24 06/20/24 Unknown losartan 50 mg tablet 50 mg PO QAM 06/20/24 06/20/24 Unknown magnesium oxide 400 mg PO DAILY 06/20/24 06/20/24 Unknown oxycodone 5 mg tablet 5 mg PO Q6 PRN Pain 06/20/24 06/20/24 Unknown prednisone 20 mg tablet 2 mg PO .TAPER UD 06/20/24 06/20/24 06/20/24 tizanidine 4 mg tablet 4 mg PO Q6 PRN .Muscle pain 06/20/24 06/20/24 Unknown turmeric 400 mg capsule 0 mg PO QAM 06/20/24 06/20/24 Unknown vitamin B complex 1 tab PO DAILY 06/20/24 06/20/24 Unknown Active Medications Generic Name Dose Route Start Last Admin Trade Name Freq PRN Reason Stop Dose Admin Acetaminophen 650 mg 06/20/24 21:22 06/20/24 22:17 Acetaminophen 325 Mg Tab PO 07/20/24 21:21 650 mg Q4H PRN Administration Pain or Fever Piperacillin Sod/Tazobactam 100 mls @ 25 mls/hr 06/21/24 04:00 06/21/24 14:25 Sod 4.5 gm/ Dextrose IV 06/23/24 03:59 25 mls/hr Q8H [facility] Administration Protocol Sodium Chloride 1,000 mls @ 80 mls/hr 06/20/24 21:22 06/21/24 09:30 Nss IV 06/21/24 22:21 80 mls/hr .[id number] [facility] Administration Insulin Aspart 0 units 06/20/24 21:22 06/21/24 14:29 Insulin Aspart Per Unit Charge SC 07/20/24 21:21 Not Given ACHS [facility] Metoprolol Tartrate 12.5 mg 06/21/24 01:00 06/21/24 14:45 Metoprolol Tartrate 25 Mg Tab PO 07/21/24 00:59 12.5 mg Q6 [facility] Administration Morphine Sulfate 3 mg 06/20/24 21:22 06/21/24 11:51 Morphine Sulfate 4 Mg/Ml 1 Ml Carp\Vial IV 07/04/24 21:21 3 mg Q4H PRN Administration Severe Pain (Scale 7, 8, 9,10) Ondansetron HCl 4 mg 06/20/24 21:22 06/21/24 11:51 Ondansetron Inj 2 Mg/Ml 2 Ml Vial IV 07/20/24 21:21 4 mg Q6H PRN Administration Nausea Potassium Chloride 40 meq 06/21/24 10:00 06/21/24 10:44 Potassium Chloride 20 Meq/15 Ml Udc PO 06/22/24 09:01 40 meq BID [facility] Administration
--- NOTE | 2024-06-21 17:39 | Oncology Consultation ---
Date of Consultation June 21, 2024 Assessment & Plan (1) Leukocytosis: Given that we are dealing with predominantly neutrophilic leukocytosis my impression is that the patient has reactive leukocytosis secondary to severe sepsis. At this point I do not recommend invasive testing such as bone marrow biopsy. Recommend treatment of sepsis and monitoring of blood counts. She does have elevated monocytes however that can also be reactive. Do not see an underlying myeloproliferative condition at this point needing bone marrow test. Plan Hematology will continue to follow the patient make appropriate recommendations. Thank you for this interesting urological consult. Total of 60 minutes was spent in counseling, coordination of care, review of prior records. History of Present Illness Reason for Consultation: Leukocytosis neutrophilia Attending Physician: Jammie Pereyra MD History of Present Illness the patient is a very pleasant 69-year-old woman with a past history of hypertension, dyslipidemia who initially presented to the ER complaining of back pain and falls. She was found to be septic in the hospital and a blood culture from 06/20/2024 revealed gram-positive cocci in Cl[facility]. The patient has been septic, has been started on broad-spectrum antibiotics. During this time she was noted to be having leukocytosis with a WBC count of 39,000/mcL on 06/20/2024 and 36,000/mcL on 06/21/2024. The differential on this WBC count is predominantly neutrophilic. During this time the patient also became anemic with a hemoglobin of 10.8 g/dL. Her platelet count is well-preserved. There are no blasts in the peripheral blood. Hematology is not consulted to assist in management of this patient with leukocytosis who is also septic. Allergies Allergy/AdvReac Type Severity Reaction Status Date / Time No Known Allergies Allergy Unverified 06/20/24 19:48 Home Medications Medication Instructions Recorded Confirmed Type Collagen Tab 3 tabs PO QAM 06/20/24 06/20/24 History acetaminophen 500 mg tablet 1,000 mg PO Q6H PRN Pain 06/20/24 06/20/24 History (Tylenol Extra Strength) calcium carbonate (Calcium 600) 600 mg PO DAILY 06/20/24 06/20/24 History glucosamine-chondroitin 250 mg-200 2 tab PO DAILY 06/20/24 06/20/24 History mg tablet (Osteo Bi-Flex) ibuprofen 200 mg tablet 600 - 800 mg PO Q8 PRN Pain 06/20/24 06/20/24 History losartan 50 mg tablet 50 mg PO QAM 06/20/24 06/20/24 History magnesium oxide 400 mg PO DAILY 06/20/24 06/20/24 History oxycodone 5 mg tablet 5 mg PO Q6 PRN Pain 06/20/24 06/20/24 History prednisone 20 mg tablet 2 mg PO .TAPER UD 06/20/24 06/20/24 History tizanidine 4 mg tablet 4 mg PO Q6 PRN .Muscle pain 06/20/24 06/20/24 History turmeric 400 mg capsule 0 mg PO QAM 06/20/24 06/20/24 History vitamin B complex 1 tab PO DAILY 06/20/24 06/20/24 History Patient History Medical History (Updated 06/20/24 @ 20:54 by Dora Eduardo PA-C) HTN (hypertension) Surgical History H/O section History of cholecystectomy Hx of tonsillectomy History of Zakia fundoplication Family History Other Heart disease Hypertension Social History Smoking Status: Never smoker Hx Alcohol Use: Yes Alcohol type: wine Alcohol Intake Frequency: 2-4 x/Month Hx Substance Use: No Preferred Language: Norwegian 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 Beliefs That Will Affect Care: None Current Living Situation: Spouse Feels Safe at Home: Yes Safety Concerns: Feels Safe At This Time Assistive Devices: Cane and Glasses Review of Systems Review of Systems: All systems reviewed & are unremarkable except as noted in HPI & below Constitutional: as per Subjective / HPI Eyes: as per Subjective / HPI Ear, Nose, Mouth, Throat: as per Subjective / HPI Respiratory: as per Subjective / HPI Cardiovascular: as per Subjective / HPI Gastrointestinal: as per Subjective / HPI Genitourinary: as per Subjective / HPI Musculoskeletal: as per Subjective / HPI Integumentary: as per Subjective / HPI Neurologic: as per Subjective / HPI Psychiatric: as per Subjective / HPI Endocrine: as per Subjective / HPI Hematologic / Lymphatic: as per Subjective / HPI Physical Exam Constitutional: WD/WN, vitals as above Eyes: PERRL, conjunctivae normal, anicteric sclerae ENMT: external ear and nose normal, oropharynx normal Neck: trachea midline, no thyromegaly Respiratory: normal respiratory effort, lungs clear to auscultation Cardiovascular: RRR, no murmur, no edema Gastrointestinal (Abdomen): normal bowel sounds, soft, nontender, no hepatosplenomegaly Musculoskeletal: no cyanosis or clubbing, extremities motor strength 5/5 Skin: no rashes, warm and dry Neurologic: patellar DTR's 2+ bilat, sensation intact Results & Data Vital Signs (Past 12 Hours) Vital Signs Temp Pulse Pulse Resp BP BP Pulse Ox 06/21/24 14:42 36.8 C 76 18 129/68 98 06/21/24 11:46 36.2 C L 122 H 19 104/70 100 06/21/24 08:00 125 H 06/21/24 08:00 06/21/24 07:50 36.6 C 120 H 20 96/61 L 100 O2 Del Method O2 Flow Rate 06/21/24 14:42 Nasal Cannula 3 06/21/24 11:46 Nasal Cannula 2 06/21/24 08:00 06/21/24 08:00 Nasal Cannula 1 06/21/24 07:50 Nasal Cannula 2
--- NOTE | 2024-06-21 18:01 | Magnetic Resonance Report ---
MR lumbar spine wo/w con CLINICAL HISTORY: 69 years-old Female with f/u hematoma, need to put pt on hep. Acute low back pain with recent fall COMPARISON: CT abdomen and pelvis 06/20/2024, CT lumbar spine 06/20/2024 TECHNIQUE: Multiplanar, multi sequence MRI of the lumbar spine was performed with and without IV cont rast FINDINGS: 60 degrees levoscoliosis of the lumbar spine. Motion degraded study with the axial sequences nearly n ondiagnostic. No acute fracture, subluxation or erosion. There is edema noted within the paraspinal m usculature. Heterogeneous enhancement noted within the left mid to lower lumbar paraspinal tissues on image 16 series 9 Trace free pelvic fluid suggested. Conus medullaris terminates at T12-L1. At T10-T 11 there is moderate intervertebral disc space narrowing and circumferential annular disc bulging and moderate facet arthrosis. Moderate central canal stenosis with severe right and moderate left forami nal narrowing. T12-L1: Mild intervertebral disc space narrowing and spondylotic spurring with moderate facet arthro sis. No central canal or neural foraminal narrowing. L1-L2: Mild to moderate intervertebral disc space narrowing and spondylotic spurring with small circ umferential annular disc bulge. Ligamentum flavum thickening with moderate facet arthrosis. Mild bila teral foraminal stenosis. L2-L3: Mild to moderate intervertebral disc space narrowing and spondylotic spurring with small circ umferential annular disc bulge. Ligamentum flavum thickening with moderate facet arthrosis. Mild cent ral canal stenosis, AP dimension of the thecal sac measuring 9 mm. Mild bilateral foraminal narrowing . L3-L4: Mild to moderate disc space narrowing and spondylotic spurring with posterior disc osteophyte complex. Severe facet arthrosis with small facet effusions. Severe central canal stenosis with AP di mension of the thecal sac measuring 5 mm. Mild bilateral foraminal narrowing. L4-L5: Mild to moderate intervertebral disc space narrowing with 2 mm degenerative related anterolis thesis. Spondylotic spurring with circumferential annular disc bulging and posterior disc osteophyte complex. Advanced facet arthrosis with facet effusions and ligamentum flavum thickening. Severe centr al canal narrowing, AP dimension of the thecal sac measuring 5 mm. Moderate bilateral foraminal steno sis. L5-S1: Spondylotic spurring with tiny posterior annular disc bulge. Severe facet arthrosis with fac et effusions. Central canal and right neural foramen are patent. Mild left foraminal narrowing. IMPRESSION: 1. The study is very motion degraded. No acute fracture, subluxation or endplate erosion identified. 2. Intramuscular edema within the mid to lower lumbar paraspinal tissues with heterogeneous enhanceme nt on the left. Correlate clinically to exclude an acute muscle strain versus less likely an infectio us myositis. 3. Multilevel central canal and neural foraminal narrowing as above. 4. No epidural fluid collections. ACT 112: Negative or not required by law. The above report was generated using voice recognition software. It may contain grammatical, syntax o r spelling errors. Electronically signed by: Madhu Alaniz M.D. 06/21/2024 6:00 PM
--- NOTE | 2024-06-21 18:01 | Magnetic Resonance Report ---
MR pelvis wo/w con HISTORY: 69 years-old Female f/u hematoma, need to put pt on hep acute pelvic trauma COMPARISON: MRI lumbar spine of same day, CT abdomen and pelvis and lumbar spine studies 06/20/2024 TECHNIQUE: Multiple axial CT images of the pelvis were obtained with and without IV contrast. FINDINGS: Study is very motion degraded. There is edema and small amount of fluid tracking along the right iliacus muscle as seen on image 15 series 5. Additionally, there is focal areas of increased T2 signal noted tracking along the right il iac vessels posterior to the iliopsoas. Mild edema tracks along the iliopsoas myotendinous junction. Findings appear unchanged compared to the comparison CT. Trace free pelvic fluid. Decompressed urinar y bladder with Harvey catheter. The uterus is anteflexed. There is prominence of the mid uterine body and fundal myometrium dorsally. The endometrium measures 6 mm in thickness. No acute fracture, disloc ation or bone marrow edema. Heterogeneous enhancement of the left paraspinal musculature with areas of increased T2 signal, left greater than right extending from L3-S1. IMPRESSION: 1. Motion degraded exam. 2. No acute fracture or bone marrow edema. 3. Small amount of edema and fluid tracking along the right iliacus and iliopsoas musculature suggest gianfranco of acute small retroperitoneal hemorrhage. 4. Edema and enhancement within the paraspinal muscles, left greater than right is also likely posttr aumatic. An infectious myositis could appear similarly. Correlate with physical exam findings and pat ient presentation. 5. Trace free pelvic fluid. 6. Possible fibroid uterus with mild thickening of the postmenopausal endometrium. ACT 112: Negative or not required by law. The above report was generated using voice recognition software. It may contain grammatical, syntax o r spelling errors. Electronically signed by: Madhu Alaniz M.D. 06/21/2024 6:00 PM
[2024-06-21] MEDS: SODIUM CHLORIDE 0.9% 500 ML IV SCH (18:09)
[2024-06-21] MEDS: DICLOFENAC SOD 1% GEL 100 GM TUBE EXT PRN (21:59)
[2024-06-21] MEDS: LIDOCAINE 5% 1 PATCH TD SCH (22:00)
[2024-06-22 07:11] LABS: Hematocrit (blood only) 33.5 % (37.0-47.0); Hemoglobin 11.1 g/dl (12.0-16.0); Mean Corpuscular Hemoglobin 30.3 pg (25.0-34.0); Mean Corpuscular Hgb Conc 33.1 g/dL (32.0-36.0); Mean Corpuscular Volume 91.5 fL (80.0-100.0); Mean Platelet Volume 10.8 fL (9.4-12.4); Platelet Count 312 K/uL (130-400); RDW Coefficient of Variation 13.2 % (11.5-14.5); RDW Standard Deviation 44.5 fL (36.4-46.3); Red Blood Count 3.66 M/uL (4.20-5.40)
[2024-06-22 07:18] LABS: Basophils # (auto) 0.04 K/uL (0.00-0.20); Basophils % (auto) 0.1 %; Eosinophils # (auto) 0.04 K/uL (0.00-0.50); Eosinophils % (auto) 0.1 %; Immature Granulocytes # (auto) 1.93 K/uL (0.01-0.20); Immature Granulocytes % (auto) 5.2 %; Lymphocytes # (auto) 2.26 K/uL (1.20-3.40); Lymphocytes % (auto) 6.1 %; Monocytes # (auto) 1.88 K/uL (0.11-0.59); Monocytes % (auto) 5.1 %; Neutrophils # (auto) 30.95 K/uL (1.40-6.50); Neutrophils % (auto) 83.4 %
[2024-06-22 07:27] LABS: Folate (Folic Acid),Ser orPlas 13.17 ng/ml (>5.38)
[2024-06-22 07:32] LABS: Albumin Globulin Ratio 0.8 (0.9-2); Albumin Level 2.8 gm/dl (3.4-5.0); Bilirubin,Total 1.8 mg/dl (0.2-1.0); Calcium 8.4 mg/dl (8.6-10.3); Creatinine Clr Calc Pharmacy 73.5 ml/min; Est GFR (African American) 82.8 ml/min; Est GFR (Non-African American) 71.4 ml/min; Globulin 3.3 gm/dl (2.5-4.0); Magnesium 2.1 mg/dl (1.7-2.4); Phosphorus 2.5 mg/dl (2.5-4.9); Potassium 3.8 mmol/L (3.5-5.1); Total Protein 6.1 gm/dl (6.0-8.3)
[2024-06-22 07:50] LABS: Ferritin 1097.5 ng/ml (8-388)
[2024-06-22] MEDS: POLYETHYLENE (MIRALAX) 17 GM PACK PO PRN (08:45)
--- NOTE | 2024-06-22 10:42 | Orthopedic Consultation ---
Date of Consultation June 22, 2024 Assessment & Plan (1) Acute left lumbar radiculopathy: Assessment back and leg pain consistent with radiculopathy and possible myositis. Plan MRI lumbar spine available for review does demonstrate evidence of anterior listhesis marked facet hypertrophy L3-L4 L4-L5. The there is significant motion artifact throughout the study compromising my interpretation. There is however marked evidence of edema within the musculature of the lumbar spine multiple foot on the left. At this point I would encourage transitions from bed to chair as tolerated. We could progress to physical therapy if she is able to do so. Ideally would like to update an MRI of the lumbar spine in the next few days when she is more comfortable and we can obtain a more accurate scan. Would also include standing x-rays of the lumbar spine when patient is stable. History of Present Illness Reason for Consultation: Back pain with leg weakness Attending Physician: Jammie Pereyra MD History of Present Illness This is a very pleasant 69-year-old female who presents with severe back pain and leg weakness and difficulty walking. She is positive for staph bacteremia. This morning she states she is relatively comfortable lying in bed prefers to sit up straight if possible. Allergies Allergy/AdvReac Type Severity Reaction Status Date / Time No Known Allergies Allergy Unverified 06/20/24 19:48 Home Medications Medication Instructions Recorded Confirmed Type Collagen Tab 3 tabs PO QAM 06/20/24 06/20/24 History acetaminophen 500 mg tablet 1,000 mg PO Q6H PRN Pain 06/20/24 06/20/24 History (Tylenol Extra Strength) calcium carbonate (Calcium 600) 600 mg PO DAILY 06/20/24 06/20/24 History glucosamine-chondroitin 250 mg-200 2 tab PO DAILY 06/20/24 06/20/24 History mg tablet (Osteo Bi-Flex) ibuprofen 200 mg tablet 600 - 800 mg PO Q8 PRN Pain 06/20/24 06/20/24 History losartan 50 mg tablet 50 mg PO QAM 06/20/24 06/20/24 History magnesium oxide 400 mg PO DAILY 06/20/24 06/20/24 History oxycodone 5 mg tablet 5 mg PO Q6 PRN Pain 06/20/24 06/20/24 History prednisone 20 mg tablet 2 mg PO .TAPER UD 06/20/24 06/20/24 History tizanidine 4 mg tablet 4 mg PO Q6 PRN .Muscle pain 06/20/24 06/20/24 History turmeric 400 mg capsule 0 mg PO QAM 06/20/24 06/20/24 History vitamin B complex 1 tab PO DAILY 06/20/24 06/20/24 History Patient History Medical History (Updated 06/21/24 @ 18:02 by Asya Kraus MD) HTN (hypertension) Surgical History H/O section History of cholecystectomy Hx of tonsillectomy History of Zakia fundoplication Family History Other Heart disease Hypertension Social History Smoking Status: Never smoker Hx Alcohol Use: Yes Alcohol type: wine Alcohol Intake Frequency: 2-4 x/Month Hx Substance Use: No Preferred Language: German 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 Sensory is symmetric and intact. Results & Data Vital Signs (Past 12 Hours) Vital Signs Temp Pulse Pulse Resp BP Pulse Ox O2 Del Method 06/22/24 09:21 97 Room Air 06/22/24 07:44 37.1 C 75 19 138/69 99 Nasal Cannula 06/22/24 07:35 72 06/22/24 07:35 Nasal Cannula 06/22/24 06:40 72 06/22/24 02:47 36.8 C 67 18 127/72 100 Nasal Cannula 06/21/24 22:57 80 06/21/24 22:52 36.8 C 84 18 102/58 L 96 Nasal Cannula O2 Flow Rate 06/22/24 09:21 06/22/24 07:44 3 06/22/24 07:35 06/22/24 07:35 3 06/22/24 06:40 06/22/24 02:47 06/21/24 22:57 06/21/24 22:52
--- NOTE | 2024-06-22 11:58 | Nephrology Progress Note ---
Date of Service June 22, 2024 Assessment & Plan (1) PRATIMA (acute kidney injury): Plan: Patient with acute kidney injury likely prerenal azotemia in setting of A-fib RVR and NSAID use. Renal function is now normal. Sodium is down to 128. Will stop IV fluids after current bottle. Discussed need to completely avoid NSAIDs going forward. Workup for source of sepsis is ongoing. Renal will sign off case. Please call if additional questions or concerns (2) Atrial fibrillation with rapid ventricular response: Plan: Patient is on Lopressor. A-fib RVR is driving the acute kidney injury. Renal function is improving with rate control. Avoid hypotension as above. Admission and Anticipated Discharge Date Admission Date: June 20, 2024 Subjective Seen for acute kidney injury and electrolyte imbalance. Main complaint is weakness and poor appetite. She is making urine and creatinine back to normal. Sodium downtrending. Review of Systems 2 Review of Systems: All other systems were reviewed and negative except as noted in HPI Physical Exam 2 Physical Exam: General exam: Appears comfortable, no acute distress HEENT: Pupils are equal and reactive to light Neck: No JVD, neck is supple trachea is midline Respiratory system: Clear breath sounds bilaterally. Gastrointestinal: Abdomen is soft, non distended, non tender, bowel sounds are present CVS: Regular rate and rhythm. No murmurs, rubs or gallops Musculoskeletal: No joint or muscle tenderness Extremities: Non tender, no edema, peripheral pulses are present Neuro: Oriented, no tremors, no focal neurological deficits Skin: No rashes Results & Data Vital Signs (Past 12 Hours) Vital Signs Temp Pulse Pulse Resp BP Pulse Ox O2 Del Method 06/22/24 11:36 36.9 C 74 19 146/71 H 97 Room Air 06/22/24 09:21 97 Room Air 06/22/24 07:44 37.1 C 75 19 138/69 99 Nasal Cannula 06/22/24 07:35 72 06/22/24 07:35 Nasal Cannula 06/22/24 06:40 72 06/22/24 02:47 36.8 C 67 18 127/72 100 Nasal Cannula O2 Flow Rate 06/22/24 11:36 06/22/24 09:21 06/22/24 07:44 3 06/22/24 07:35 06/22/24 07:35 3 06/22/24 06:40 06/22/24 02:47 Laboratory Results 06/22/24 06:02 06/22/24 06:02 WBC 37.10 H* RBC 3.66 L MCV 91.5 MCH 30.3 MCHC 33.1 RDW Std Deviation 44.5 RDW Coeff of Jarad 13.2 Plt Count 312 MPV 10.8 Phosphorus 2.5 Albumin 2.8 L
--- NOTE | 2024-06-22 14:25 | Hospitalist Progress Note ---
Date of Service June 22, 2024 Assessment & Plan (1) Atrial fibrillation with rapid ventricular response: (2) Elevated troponin: (3) Back pain: (4) Weakness: (5) PRATIMA (acute kidney injury): (6) Leukocytosis: (7) Acute hyponatremia: (8) Pelvic fluid collection: (9) Hyperglycemia: (10) Elevated alkaline phosphatase level: (11) HTN (hypertension): Plan Patient is 69 year old female with PMHx of HTN, dyslipidemia, anxiety who presented to the ER with concern for low back pain x 1 week and falls x 1 day. Was found to have atrial fibrillation with RVR in the emergency room. Sepsis, POA Bacteremia Possible infectious Myositis Pt tachycardic with marked leukocytosis 39K on admission (pt was on steroids outpt) Lactate 2.2 on admission, with 2.2 repeat. Procal elevated at 2.87 UA not suggestive of infection Negative Lyme screen, Negative flu, RSV and COVID-[address] with no signs of infection CT abd/pelvis and CT lumbar spine noting possible mass vs hematoma MRI pelvis concerning for infectious myositis Blood Cx x2 sets (4/4 bottles) growing staph species [employer] serology noting staph but not MRSA, no need for IV Vancomycin at this time Source of infection uncertain at this time Continue with IV Zosyn Pt notes she tends to priscilla bushes quite frequently, fungal cultures added-NGTD Echo did not make note of any vegetations Infectious Disease consulted, appreciate recs Pelvic fluid collection Retroperitoneal bleed CT Abd/Pelvis: "nonspecific hyperdense fluid in the right pelvis which may represent a very small amount of hematoma or interval development of lymphatic obstruction, less likely a soft tissue mass. No active extravasation is seen." MRI pelvis concerning for infectious myositis and small retroperitoneal bleed Will hold off on anticoagulation in this setting PT/INR Likely traumatic bleed- pt notes recent falls General surgery consulted, appreciate further recs. Recommended/stated the following: -"Patient has a retroperitoneal hematoma with a small amount of extravasation noted on the pelvic MRI and this was discussed with her and her family that no surgical intervention is needed it should resolve on its own Follow the H&H and within the last 24 hours his bilirubin unchanged On 06/21/2024 hemoglobin was 10.8 On 06/22/2024 hemoglobin 11.1 No surgical intervention at this time with monitor hemoglobin" Stable at this time Monitor H/H Leukocytosis Pt presenting with WBC of 39K Noted pt has been on steroids recently with an acute infectious process underlying as well. Elevated likely in setting of above Peripheral smear pending Hematology was consulted on admission, appreciate recs. noted the following: -"Given that we are dealing with predominantly neutrophilic leukocytosis my impression is that the patient has reactive leukocytosis secondary to severe sepsis. At this point I do not recommend invasive testing such as bone marrow biopsy. Recommend treatment of sepsis and monitoring of blood counts. She does have elevated monocytes however that can also be reactive. Do not see an underlying myeloproliferative condition at this point needing bone marrow test." Continue to trend Atrial Fibrillation with RVR Demand Ischemia In ER found to be in atrial fibrillation RVR. Pt denies CP, SOB, palpitations EKG Afib RVR with nonspecific ST changes Trop of 59.8 to 59.2 to 44.6, likely demand ischemia from afib rvr Echo did not make note of any vegetations, EF 65-70%, trace MR TSH wnl In ER given total 2L IVF, given Cardizem bolus and drip with HRs still in 130's Given Lopressor 5mg IV on admission Continued Cardizem drip with conversion to sinus rhythm on 06/21/24 Continue Lopressor 12.5mg Q6H po IV heparin not started in setting of acute retroperitoneal bleed Monitor on telemetry Cardiology consulted, appreciate further recs. Noted/stated the following: "New onset atrial fibrillation with rapid ventricular response for started on Cardizem drip [id number] score 3(hypertension 1, female 1, age 1) She now has converted to sinus rhythm She will need anticoagulation CT abdomen showed hyperdense fluid collection which could represent hematoma or lymphatic collection Make sure there is no hematoma before starting anticoagulation she is dehydrated received 2 L of IV fluids still has dry mouth Elevated troponins in the setting of sepsis, dehydration and A-fib with RVR EKG no evidence of ischemia no Anginal symptoms Echo shows normal wall motion" Continue to monitor on telemetry Back pain Weakness Acute lumbar radiculopathy Lumbar back pain x 8 days. Treated outpatient with oxycodone, muscle relaxers, NSAIDs and on day [address] Lumbar spine: degenerative changes In ER given fentanyl, morphine with reported decreased pain MRI Lumbar spine noting "Intramuscular edema within the mid to lower lumbar paraspinal tissues with heterogeneous enhancement on the left." Pain Control Ortho spine consulted, appreciate recs. Noted/Stated the following: -"Acute left lumbar radiculopathy: Assessment back and leg pain consistent with radiculopathy and possible myositis. Plan MRI lumbar spine available for review does demonstrate evidence of anterior listhesis marked facet hypertrophy L3-L4 L4-L5. The there is significant motion artifact throughout the study compromising my interpretation. There is however marked evidence of edema within the musculature of the lumbar spine multiple foot on the left. At this point I would encourage transitions from bed to chair as tolerated. We could progress to physical therapy if she is able to do so. Ideally would like to update an MRI of the lumbar spine in the next few days when she is more comfortable and we can obtain a more accurate scan. Would also include standing x-rays of the lumbar spine when patient is stable." PT/OT ordered PRATIMA (acute kidney injury) BUN: 84, Cr: 1.5. BUN/Cr ratio: 54. In 2021 Cr: 0.9 with GFR: 64 IVF Monitor renal function, avoid nephrotoxic agents when possible Nephrology consulted, appreciate recs. recommended/stated the following: -"Patient with acute kidney injury likely prerenal azotemia in setting of A- fib RVR and NSAID use. Renal function is now normal. Sodium is down to 128. Will stop IV fluids after current bottle. Discussed need to completely avoid NSAIDs going forward. Workup for source of sepsis is ongoing. Renal will sign off case. Please call if additional questions or concerns Patient is on Lopressor. A-fib RVR is driving the acute kidney injury. Renal function is improving with rate control. Avoid hypotension as above." Acute hyponatremia Na corrected at 130 for glucose: 280 Serum osm 302, urine osm 480, urine Na 35 Nephrology consulted, appreciate recs. Noted/stated the following: "Sodium is down to 128. Will stop IV fluids after current bottle." Continue to monitor Hypokalemia Replete as needed Hypermagnesemia mag of 2.5 on admission Down to 2.2 Continue to monitor currently normal Anemia Hgb of 12.4 to 10.8 AM anemia panel noting iron level low normal Continue to monitor Prediabetes Hyperglycemia Random glucose: 280 No former DM diagnosis. Has been on 3 days prednisone Novolog sliding scale A1c of 6.4 PCP followup after discharge Elevated alkaline phosphatase level Elevated t bili t bili 1.6 alk phos 212 Continue to monitor HTN (hypertension) BP stable in ER and is on Cardizem drip Will hold home losartan with PRATIMA Diet: DMII DVT prophylaxis: SCD in setting of retroperitoneal bleed Dispo: PT/OT recs once medically stable Admission and Anticipated Discharge Date Admission Date: June 20, 2024 Subjective pt seen with and children at bedside. States she feels a little better, can move her head But very tired. Family with lots of questions about expected course, bacteremia. Review of Systems Review of Systems: All systems reviewed & are unremarkable except as noted in Subjective Physical Exam Physical Exam: General: Alert, oriented, sleepy Skin: No noted rashes or bruises Psych: Appropriate mood and affect Neuro:difficulty with any movement in the bed HEENT: NC/AT CV:regular Resp: Breath sounds clear bilaterally, no increased effort of breathing. Abdomen: Soft, tender Extremities: edema in lower extremities bilaterally. Results & Data Results & Data Vital Signs (Past 12 Hours) Vital Signs Temp Pulse Pulse Resp BP Pulse Ox O2 Del Method 06/22/24 14:19 70 06/22/24 11:36 36.9 C 74 19 146/71 H 97 Room Air 06/22/24 09:21 97 Room Air 06/22/24 07:44 37.1 C 75 19 138/69 99 Nasal Cannula 06/22/24 07:35 72 06/22/24 07:35 Nasal Cannula 06/22/24 06:40 72 06/22/24 02:47 36.8 C 67 18 127/72 100 Nasal Cannula O2 Flow Rate 06/22/24 14:19 06/22/24 11:36 06/22/24 09:21 06/22/24 07:44 3 06/22/24 07:35 06/22/24 07:35 3 06/22/24 06:40 06/22/24 02:47 Diagnostic Findings Abdomen/Pelvis CT 06/20/24 17:44 CT abd pelvis IV con only, CT lumbar spine w con CLINICAL HISTORY: falls, back pain TECHNIQUE: Helical axial images of the abdomen and pelvis were obtained and displayed. Automated dose lowering techniques and/or adjustment according to patient size were utilized for this exam. Dedicated images of the lumbar spine were obtained. This exam was performed with intravenous contrast. COMPARISON: Comparison is made to CT abdomen pelvis 02/11/2013 FINDINGS: Lower chest: For findings above the diaphragm, please see CT chest performed same day. Liver: Unremarkable. No focal lesions are seen. Gallbladder and biliary tree: Patient is status post cholecystectomy. No intra- or extrahepatic biliary ductal dilation. Pancreas: Unremarkable, no focal lesions. Spleen: Splenule is incidentally noted. Adrenals: Unremarkable. Kidneys and ureters: Renal cysts are seen. Bladder: Unremarkable. Reproductive organs: Unremarkable. Bowel: A hiatal hernia is seen. Lymph nodes Retroperitoneal: Unremarkable. Pelvic: Unremarkable. Mesenteric: Unremarkable. Peritoneum: There is a small amount of hyperdense fluid in the right pelvis which results in mild mass effect upon the right internal iliac vein. Vessels: Atherosclerotic calcifications are seen. Abdominal wall: Bilateral fat-containing inguinal hernias are seen. Bones: Degenerative changes in the visualized spine. IMPRESSION: There is nonspecific hyperdense fluid in the right pelvis which may represent a very small amount of hematoma or interval development of lymphatic obstruction, less likely a soft tissue mass. No active extravasation is seen. Follow-up to resolution is recommended to exclude mass. ACT 112: Positive. There are findings on this exam that require communication between the performing entity and the patient following Patient Test Result Information Act ([place] Act 112) guidelines. Electronically signed by: Sagar Kennedy M.D. 06/20/2024 7:[address] 06/20/24 17:44 CT cervical spine wo con CLINICAL HISTORY: falls, pain TECHNIQUE: Multidetector row helical CT of the cervical spine was performed without administration of intravenous contrast. Coronal and sagittal reformations were obtained. Automated dose lowering techniques and/or adjustment according to patient size were utilized for this exam. Comparison: None available at the time of this dictation. FINDINGS: No acute fractures or subluxations are identified. Degenerative changes are seen in the visualized spine. The alignment is normal. Soft tissues are unremarkable. IMPRESSION: Degenerative changes without evidence of acute bony injury. ACT 112: Negative or not required by law. Electronically signed by: Sagar Kennedy M.D. 06/20/2024 6:[address] 06/20/24 17:45 CT head/brain wo con CLINICAL HISTORY: falls, pain Technique: Contiguous axial CT images of the head were acquired from the base of the skull to the vertex without intravenous contrast administration. Images were viewed in brain, subdural and bone windows. Automated dose lowering techniques and/or adjustment according to patient size were utilized for this exam. Comparison: None available at the time of this dictation. Findings: The ventricles, basal cisterns, and cerebral sulci are normal. There is no acute intracranial hemorrhage or evidence of acute territorial infarction. Neither mass effect, shift of the midline structures, nor abnormal extra-axial fluid collections are shown. And subarachnoid cyst. Imaged portions of the paranasal sinuses and mastoid air cells are clear. The orbits appear normal. There are no acute fractures of the calvaria or scalp swelling. Impression: No acute intracranial hemorrhage, no evidence of acute territorial infarction or other acute intracranial disease process. ACT 112: Negative or not required by law. Electronically signed by: Sagar Kennedy M.D. 06/20/2024 6:[address] 06/20/24 17:45 CT abd pelvis IV con only, CT lumbar spine w con CLINICAL HISTORY: falls, back pain TECHNIQUE: Helical axial images of the abdomen and pelvis were obtained and displayed. Automated dose lowering techniques and/or adjustment according to patient size were utilized for this exam. Dedicated images of the lumbar spine were obtained. This exam was performed with intravenous contrast. COMPARISON: Comparison is made to CT abdomen pelvis 02/11/2013 FINDINGS: Lower chest: For findings above the diaphragm, please see CT chest performed same day. Liver: Unremarkable. No focal lesions are seen. Gallbladder and biliary tree: Patient is status post cholecystectomy. No intra- or extrahepatic biliary ductal dilation. Pancreas: Unremarkable, no focal lesions. Spleen: Splenule is incidentally noted. Adrenals: Unremarkable. Kidneys and ureters: Renal cysts are seen. Bladder: Unremarkable. Reproductive organs: Unremarkable. Bowel: A hiatal hernia is seen. Lymph nodes Retroperitoneal: Unremarkable. Pelvic: Unremarkable. Mesenteric: Unremarkable. Peritoneum: There is a small amount of hyperdense fluid in the right pelvis whic h results in mild mass effect upon the right internal iliac vein. Vessels: Atherosclerotic calcifications are seen. Abdominal wall: Bilateral fat-containing inguinal hernias are seen. Bones: Degenerative changes in the visualized spine. IMPRESSION: There is nonspecific hyperdense fluid in the right pelvis which may represent a very small amount of hematoma or interval development of lymphatic obstruction, less likely a soft tissue mass. No active extravasation is seen. Follow-up to resolution is recommended to exclude mass. ACT 112: Positive. There are findings on this exam that require communication between the performing entity and the patient following Patient Test Result Information Act ([place] Act 112) guidelines. Electronically signed by: Sagar Kennedy M.D. 06/20/2024 7:[address] 06/20/24 17:46 CT chest diagnostic w con CLINICAL HISTORY: falls, back pain TECHNIQUE: Multidetector row helical CT of the chest was performed with intr avenous contrast. Coronal and sagittal reformations were obtained. Automated dose lowering techniques and/or adjustment according to patient size were utilized for this exam. Comparison: Comparison is made to chest radiograph 07/24/2012 FINDINGS: Lungs and pleura: A calcified granuloma is seen. Heart and pericardium: Heart size is normal. No pericardial effusion. Vessels: Moderate atherosclerotic changes in the aorta and coronary arteries. Mediastinum and uriel: Unremarkable. Chest wall and lower neck: Unremarkable. Abdomen: For findings below the diaphragm, please refer to CT of the abdomen dated the same. Bones: Degenerative changes in the thoracic spine. IMPRESSION: No acute abnormalities, in particular no evidence of acute fracture. ACT 112: Negative or not required by law. Electronically signed by: Sagar Kennedy M.D. 06/20/2024 7:06 PM Lumbar Spine MRI 06/21/24 09:20 MR lumbar spine wo/w con CLINICAL HISTORY: 69 years-old Female with f/u hematoma, need to put pt on hep. Acute low back pain with recent fall COMPARISON: CT abdomen and pelvis 06/20/2024, CT lumbar spine 06/20/2024 TECHNIQUE: Multiplanar, multi sequence MRI of the lumbar spine was performed with and without IV contrast FINDINGS: 60 degrees levoscoliosis of the lumbar spine. Motion degraded study with the axial sequences nearly nondiagnostic. No acute fracture, subluxation or erosion. There is edema noted within the paraspinal musculature. Heterogeneous enhancement noted within the left mid to lower lumbar paraspinal tissues on image 16 series 9 Trace free pelvic fluid suggested. Conus medullaris terminates at T12-L1. At T10-T11 there is moderate intervertebral disc space narrowing and circumferential annular disc bulging and moderate facet arthrosis. Moderate central canal stenosis with severe right and moderate left foraminal narrowing. T12-L1: Mild intervertebral disc space narrowing and spondylotic spurring with moderate facet arthrosis. No central canal or neural foraminal narrowing. L1-L2: Mild to moderate intervertebral disc space narrowing and spondylotic spurring with small circumferential annular disc bulge. Ligamentum flavum thickening with moderate facet arthrosis. Mild bilateral foraminal stenosis. L2-L3: Mild to moderate intervertebral disc space narrowing and spondylotic spurring with small circumferential annular disc bulge. Ligamentum flavum thickening with moderate facet arthrosis. Mild central canal stenosis, AP dimension of the thecal sac measuring 9 mm. Mild bilateral foraminal narrowing. L3-L4: Mild to moderate disc space narrowing and spondylotic spurring with posterior disc osteophyte complex. Severe facet arthrosis with small facet effusions. Severe central canal stenosis with AP dimension of the thecal sac measuring 5 mm. Mild bilateral foraminal narrowing. L4-L5: Mild to moderate intervertebral disc space narrowing with 2 mm degenerative related anterolisthesis. Spondylotic spurring with circumferential annular disc bulging and posterior disc osteophyte complex. Advanced facet arthrosis with facet effusions and ligamentum flavum thickening. Severe central canal narrowing, AP dimension of the thecal sac measuring 5 mm. Moderate bilateral foraminal stenosis. L5-S1: Spondylotic spurring with tiny posterior annular disc bulge. Severe facet arthrosis with facet effusions. Central canal and right neural foramen are patent. Mild left foraminal narrowing. IMPRESSION: 1. The study is very motion degraded. No acute fracture, subluxation or endplate erosion identified. 2. Intramuscular edema within the mid to lower lumbar paraspinal tissues with heterogeneous enhancement on the left. Correlate clinically to exclude an acute muscle strain versus less likely an infectious myositis. 3. Multilevel central canal and neural foraminal narrowing as above. 4. No epidural fluid collections. ACT 112: Negative or not required by law. The above report was generated using voice recognition software. It may contain grammatical, syntax or spelling errors. Electronically signed by: Madhu Alaniz M.D. 06/21/2024 6:00 PM Pelvis MRI 06/21/24 09:20 MR pelvis wo/w con HISTORY: 69 years-old Female f/u hematoma, need to put pt on hep acute pelvic trauma COMPARISON: MRI lumbar spine of same day, CT abdomen and pelvis and lumbar spine studies 06/20/2024 TECHNIQUE: Multiple axial CT images of the pelvis were obtained with and without IV contrast. FINDINGS: Study is very motion degraded. There is edema and small amount of fluid tracking along the right iliacus muscle as seen on image 15 series 5. Additionally, there is focal areas of increased T2 signal noted tracking along the right iliac vessels posterior to the iliopsoas. Mild edema tracks along the iliopsoas myotendinous junction. Findings appear unchanged compared to the comparison CT. Trace free pelvic fluid. Decompressed urinary bladder with Harvey catheter. The uterus is anteflexed. There is prominence of the mid uterine body and fundal myometrium dorsally. The endometrium measures 6 mm in thickness. No acute fracture, dislocation or bone marrow edema. Heterogeneous enhancement of the left paraspinal musculature with areas of increased T2 signal, left greater than right extending from L3-S1. IMPRESSION: 1. Motion degraded exam. 2. No acute fracture or bone marrow edema. 3. Small amount of edema and fluid tracking along the right iliacus and iliopsoas musculature suggestive of acute small retroperitoneal hemorrhage. 4. Edema and enhancement within the paraspinal muscles, left greater than right is also likely posttraumatic. An infectious myositis could appear similarly. Correlate with physical exam findings and patient presentation. 5. Trace free pelvic fluid. 6. Possible fibroid uterus with mild thickening of the postmenopausal endometrium. ACT 112: Negative or not required by law. The above report was generated using voice recognition software. It may contain grammatical, syntax or spelling errors. Electronically signed by: Madhu Alaniz M.D. 06/21/2024 6:00 PM
--- NOTE | 2024-06-22 15:03 | Surgery Consultation ---
Date of Consultation June 22, 2024 Assessment & Plan (1) Retroperitoneal hematoma: Patient has a retroperitoneal hematoma with a small amount of extravasation noted on the pelvic MRI and this was discussed with her and her family that no surgical intervention is needed it should resolve on its own Follow the H&H and within the last 24 hours his bilirubin unchanged On 06/21/2024 hemoglobin was 10.8 On 06/22/2024 hemoglobin 11.1 Plan No surgical intervention at this time with monitor hemoglobin We will sign off since there are no acute surgical needs History of Present Illness Reason for Consultation: Retroperitoneal bleed Attending Physician: Jammie Pereyra MD History of Present Illness This 69-year-old female has approximately a week or so history of back pain dating back to last Sunday where she had some difficulty accessing medical help due to the general outage of the computer system progressively became more symptomatic was finally seen by primary physician who has started on steroid and eventually came in to be evaluated and found to have a retroperitoneal bleed on the right paraspinous area and we asked to see her regarding this Apparently I had operated on this patient approximately 13 years ago where at that time there laparoscopic Zakia fundoplication and repair for paraesophageal hernia Allergies Allergy/AdvReac Type Severity Reaction Status Date / Time No Known Allergies Allergy Unverified 06/20/24 19:48 Home Medications Medication Instructions Recorded Confirmed Type Collagen Tab 3 tabs PO QAM 06/20/24 06/20/24 History acetaminophen 500 mg tablet 1,000 mg PO Q6H PRN Pain 06/20/24 06/20/24 History (Tylenol Extra Strength) calcium carbonate (Calcium 600) 600 mg PO DAILY 06/20/24 06/20/24 History glucosamine-chondroitin 250 mg-200 2 tab PO DAILY 06/20/24 06/20/24 History mg tablet (Osteo Bi-Flex) ibuprofen 200 mg tablet 600 - 800 mg PO Q8 PRN Pain 06/20/24 06/20/24 History losartan 50 mg tablet 50 mg PO QAM 06/20/24 06/20/24 History magnesium oxide 400 mg PO DAILY 06/20/24 06/20/24 History oxycodone 5 mg tablet 5 mg PO Q6 PRN Pain 06/20/24 06/20/24 History prednisone 20 mg tablet 2 mg PO .TAPER UD 06/20/24 06/20/24 History tizanidine 4 mg tablet 4 mg PO Q6 PRN .Muscle pain 06/20/24 06/20/24 History turmeric 400 mg capsule 0 mg PO QAM 06/20/24 06/20/24 History vitamin B complex 1 tab PO DAILY 06/20/24 06/20/24 History Patient History Medical History (Updated 06/22/24 @ 15:00 by García Nunn MD, FACS) HTN (hypertension) Surgical History H/O section History of cholecystectomy Hx of tonsillectomy History of Zakia fundoplication Family History Other Heart disease Hypertension Social History Smoking Status: Never smoker Hx Alcohol Use: Yes Alcohol type: wine Alcohol Intake Frequency: 2-4 x/Month Hx Substance Use: No Preferred Language: [employer] Required: No Beliefs That Will Affect Care: None Current Living Situation: Spouse Feels Safe at Home: Yes Safety Concerns: Feels Safe At This Time Assistive Devices: Cane and Glasses Physical Exam Physical Exam: She is alert coherent resting comfortably today she has some discomfort in her right shoulder neck The abdomen is grossly benign she is able to flex her left leg without any difficulty similarly on the right side she can flex her leg and externally rotated without any difficulty Results & Data Vital Signs (Past 12 Hours) Vital Signs Temp Pulse Pulse Resp BP Pulse Ox O2 Del Method 06/22/24 14:19 70 06/22/24 11:36 36.9 C 74 19 146/71 H 97 Room Air 06/22/24 09:21 97 Room Air 06/22/24 07:44 37.1 C 75 19 138/69 99 Nasal Cannula 06/22/24 07:35 72 06/22/24 07:35 Nasal Cannula 06/22/24 06:40 72 O2 Flow Rate 06/22/24 14:19 06/22/24 11:36 06/22/24 09:21 06/22/24 07:44 3 06/22/24 07:35 06/22/24 07:35 3 06/22/24 06:40 PG Care Time/CCT Total # of Minutes Spent Total Time Spent with Patient: Total time spent is greater than 50% in coordination of care (as documented) at patient's floor/unit and/or counseling patient: Coding Level of Care Code 04587 IN/OBS CONSULT LVL 3,45M Diagnoses Retroperitoneal hematoma K68.3
[2024-06-22] MEDS: FERROUS SULFATE 325 MG TAB PO SCH (15:45)
--- NOTE | 2024-06-22 17:17 | Cardiology Progress Note ---
Date of Service June 22, 2024 Assessment & Plan (1) Atrial fibrillation with rapid ventricular response: (2) Acute hyponatremia: (3) Elevated troponin: (4) Leukocytosis: (5) Pelvic fluid collection: (6) Gram-positive bacteremia: Plan New onset atrial fibrillation with rapid ventricular response was on Cardizem drip converted to sinus yesterday evening [id number] score 3(hypertension 1, female 1, age 1) will need anticoagualtion CT abdomen and pelvis MRI shows acute small retroperitoneal hemorrhage so anticoagulation is on hold until hemoglobin stable. And hemorrhage resolves. Once stable can be started on anticoagulation with Eliquis Will also need Zio patch monitor as an outpatient and cardiology follow-up Elevated troponins in the setting of sepsis, dehydration and A-fib with RVR peak Of 59 and have down trended to 44 which is normal EKG no evidence of ischemia Stable without any anginal symptoms Gram-positive bacteremia sepsis with significant leukocytosis Source not clear No obvious evidence of vegetations on echocardiogram Please call with questions Admission and Anticipated Discharge Date Admission Date: June 20, 2024 Review of Systems Constitutional: + fatigue; no fever and no chills Respiratory: no cough, no dyspnea and no hemoptysis Cardiovascular: no chest pain, no dyspnea, no dyspnea on exertion, no orthopnea and no palpitations Musculoskeletal: + body aches Neurologic: + generalized weakness Physical Exam Constitutional: no acute distress Respiratory: normal respiratory effort, lungs clear to auscultation Cardiovascular: RRR, no murmur, no edema Extremities: no edema Results & Data Vital Signs (Past 12 Hours) Vital Signs Temp Pulse Pulse Resp BP BP Pulse Ox 06/22/24 15:47 36.6 C 75 19 145/73 H 97 06/22/24 14:19 70 06/22/24 11:36 36.9 C 74 19 146/71 H 97 06/22/24 09:21 97 06/22/24 07:44 37.1 C 75 19 138/69 99 06/22/24 07:35 72 06/22/24 07:35 06/22/24 06:40 72 O2 Del Method O2 Flow Rate 06/22/24 15:47 Room Air 06/22/24 14:19 06/22/24 11:36 Room Air 06/22/24 09:21 Room Air 06/22/24 07:44 Nasal Cannula 3 06/22/24 07:35 06/22/24 07:35 Nasal Cannula 3 06/22/24 06:40 Laboratory Results Cardiac Enzymes 06/22/24 Range/Units 06:02 AST 23 (13-39) U/L CBC 06/22/24 Range/Units 06:02 WBC 37.10 H* (4.8-10.8) K/ul RBC 3.66 L (4.20-5.40) M/uL Hgb 11.1 L (12.0-16.0) g/dl Hct 33.5 L (37.0-47.0) % Plt Count 312 (130-400) K/uL Neut # (Auto) 30.95 H (1.40-6.50) K/uL Lymph # (Auto) 2.26 (1.20-3.40) K/uL [place] # (Auto) 1.88 H (0.11-0.59) K/uL Eos # (Auto) 0.04 (0.00-0.50) K/uL Baso # (Auto) 0.04 (0.00-0.20) K/uL Comprehensive Metabolic Panel 06/22/24 Range/Units 06:02 Sodium 129 L (136-145) mmol/L Potassium 3.8 (3.5-5.1) mmol/L Chloride 99 (98-107) mmol/L Carbon Dioxide 23 (21-32) mmol/L BUN 39 H (6-23) mg/dl Creatinine 0.83 (0.6-1.2) mg/dl Glucose 123 H (70-99(Fasting)) mg/dl Calcium 8.4 L (8.6-10.3) mg/dl AST 23 (13-39) U/L ALT 30 (7-52) U/L Alkaline Phosphatase 175 H (34-104) U/L Total Protein 6.1 (6.0-8.3) gm/dl Albumin 2.8 L (3.4-5.0) gm/dl Intake and Output 06/22/24 06/22/24 06/22/24 06:59 14:59 22:59 Intake Total 1258.667 / 3789.417 1136 / 1236 100 / 1236 Output Total 550 / 1675 700 / 700 Balance 708.667 / 2114.417 436 / 536 100 / 536 Intake: IV 1058.667 / 3099.417 416 / 516 100 / 516 Piperacillin/Tazobactam 4.5 gm 100 / 300 100 / 200 100 / 200 In Dextrose 5% Mini-B 100 ml @ 25 mls/hr IV Q8H [facility] Rx#: [id number] Sodium Chloride 0.9% 500 ml @ 958.667 / 958.667 316 / 316 80 mls/hr IV .Q6H15M [facility] Rx#: [id number] Oral 200 / 690 720 / 720 Output: Urine Amount (Catheter) 550 / 1675 700 / 700 Harvey/Indwelling 550 / 1675 700 / 700 Other: Weight 99.1 kg Diagnostic Findings MRI of pelvis Small amount of edema and fluid tracking along the right iliacus and iliopsoas musculature suggestive of acute small retroperitoneal hemorrhage.
[2024-06-22] MEDS: DOCUSATE SODIUM 100 MG CAP PO SCH (20:44)
[2024-06-23 07:49] LABS: Hematocrit (blood only) 28.1 % (37.0-47.0); Hemoglobin 9.4 g/dl (12.0-16.0); Mean Corpuscular Hemoglobin 30.3 pg (25.0-34.0); Mean Corpuscular Hgb Conc 33.5 g/dL (32.0-36.0); Mean Corpuscular Volume 90.6 fL (80.0-100.0); Mean Platelet Volume 10.5 fL (9.4-12.4); Platelet Count 364 K/uL (130-400); RDW Coefficient of Variation 12.9 % (11.5-14.5); RDW Standard Deviation 42.8 fL (36.4-46.3); White Blood Count 36.94 K/ul (4.8-10.8)
[2024-06-23 08:09] LABS: Basophils # (auto) 0.11 K/uL (0.00-0.20); Basophils % (auto) 0.3 %; Eosinophils # (auto) 0.03 K/uL (0.00-0.50); Eosinophils % (auto) 0.1 %; Immature Granulocytes # (auto) 2.15 K/uL (0.01-0.20); Immature Granulocytes % (auto) 5.8 %; Lymphocytes # (auto) 1.25 K/uL (1.20-3.40); Lymphocytes % (auto) 3.4 %; Monocytes # (auto) 1.22 K/uL (0.11-0.59); Monocytes % (auto) 3.3 %; Neutrophils # (auto) 32.18 K/uL (1.40-6.50); Neutrophils % (auto) 87.1 %; Toxic Vacuolation 1+
[2024-06-23 08:10] LABS: Prothrombin Time 10.9 Seconds (9.0-12.0)
[2024-06-23 08:11] LABS: Albumin Globulin Ratio 0.9 (0.9-2); Albumin Level 2.6 gm/dl (3.4-5.0); BUN Creatinine Ratio 43.5 (10-20); Bilirubin,Total 1.9 mg/dl (0.2-1.0); Creatinine Clr Calc Pharmacy 91.6 ml/min; Est GFR (African American) 102.2 ml/min; Est GFR (Non-African American) 88.2 ml/min; Magnesium 1.9 mg/dl (1.7-2.4); Phosphorus 2.6 mg/dl (2.5-4.9); Potassium 4.3 mmol/L (3.5-5.1); Total Protein 5.6 gm/dl (6.0-8.3)
[2024-06-23] MEDS: PIPER/TAZO 4.5g in D5W MINI-B 100 ML IV SCH (09:20)
--- NOTE | 2024-06-23 12:09 | Orthopedic Progress Note ---
Date of Service June 23, 2024 Assessment & Plan (1) Acute left lumbar radiculopathy: Plan: Plan at this time have discussed with the patient and her family that I would like to update an MRI lumbar spine when she is able to tolerate a new scan. Hopefully this could be done in the next few days. Admission and Anticipated Discharge Date Admission Date: June 20, 2024 Subjective Patient was up and ambulated in the room today with the assistance of therapy. She experienced some right upper buttock pain only. No radicular complaints. Physical Exam Physical Exam: On exam she is currently in bed. She is neurologically intact. Results & Data Vital Signs (Past 12 Hours) Vital Signs Temp Pulse Resp BP Pulse Ox O2 Del Method 06/23/24 09:00 36.8 C 06/23/24 07:33 36.2 C L 94 H 21 129/74 94 Room Air 06/23/24 03:47 36.5 C 100 H 20 141/76 H 99 Room Air
--- NOTE | 2024-06-23 12:15 | Ultrasound Report ---
US liver CLINICAL HISTORY: elevated liver enzymes TECHNIQUE: Multiple real-time sonographic images of the right upper quadrant were obtained. Comparison: Comparison is made to abdominal ultrasound 07/24/2012 FINDINGS: The liver is diffusely homogenous with normal contour and echogenicity. No focal mass lesions are see n. No intrahepatic ductal dilatation is seen. Patient is status post cholecystectomy. The common duct measures 0.5 cm in diameter at the level of the hepatic artery. The visualized portions of the p ancreas appear normal. The right kidney shows normal echogenicity, cortical thickness and renal contour. The right kidney sh ows no evidence of hydronephrosis or mass. No ascites or free fluid is seen in Ramos's pouch. IMPRESSION: Unremarkable right upper quadrant ultrasound. ACT 112: Negative or not required by law. Electronically signed by: Sagar Kennedy M.D. 06/23/2024 12:14 PM
--- NOTE | 2024-06-23 13:05 | Infectious Disease Consult ---
Date of Service June 23, 2024 Telehealth Information I performed this visit using a real-time telehealth connection between my location and the patients location ([facility]). After connecting through interactive tele-video, patient was identified by name and date of and/or wristband check.Patient (or authorized healthcare hardware supplies sales representative) was informed that this was a telemedicine visit and it was being conducted confidentially over secure lines. My office door was closed and no one else was present in the room with me.Patient (or authorized healthcare hardware supplies sales representative) provided consent to proceed with the visit, expressed an understanding of privacy and security of the telemedicine visit, and gave permission to have a hospital hardware supplies sales representative in the room in order to assist with the visit and to conduct portions of the visit, as needed. I informed the patient (or authorized healthcare hardware supplies sales representative) that I reviewed their record and presented the opportunity for them to ask any questions regarding the visit today. The patient agreed to participate. Assessment & Plan (1) Gram-positive bacteremia: Plan: Cultures show MSSA. Infection likely started from the skin and may have been present for some time prior to admission. TTE negative, but undelrying endocarditis seems plausible. Her back pain and imaging findings would suggest infection may be present there as well. (2) Retroperitoneal hematoma: Plan: I suspect this is either primary MSSA infection or secondarily seeded with MSSA. Plan Repeat blood cultures are pending. If these turn positive, will need to repeat in 48 hours in order to document clearance. Although we can hold off on a PADMA right now since she will get a prolonged course of therapy regardless, I would plan on trying to obtain one if her follow-up cultures remain positive. In the meantime, I would D/C the pip-tazo and start her on cefazolin 2g IV q 8 going forward. Based on her imaging findings, I would anticipate her needing a 6 week course. final abx plans remain pending. History of Present Illness History of Present Illness Ms. Espino is a 69yo female who was admitted to [facility] on 06/20/24 with complaints of back pain, generalized weakness and falls at home. She is seen today via telemed and her hsuband and son are present and help provide some of the history. In the ED, she was noted to have a WBC of 39K and to be in Afib with RVR. Imaging of her spine subsequently showed myositis changes in the iliopsoas and a ?fluid collection, retroperitoneal hematoma. Blood cultures turned positive for 4 of 4 bottles with MSSA. She denies any recent skin trauma, wounds, ulcers or rashes. She feel better today, but is tired after undergoing PT. No N/V or diarrhea. No fevers. Allergies Allergy/AdvReac Type Severity Reaction Status Date / Time No Known Allergies Allergy Unverified 06/20/24 19:48 Home Medications Medication Instructions Recorded Confirmed Type Collagen Tab 3 tabs PO QAM 06/20/24 06/20/24 History acetaminophen 500 mg tablet 1,000 mg PO Q6H PRN Pain 06/20/24 06/20/24 History (Tylenol Extra Strength) calcium carbonate (Calcium 600) 600 mg PO DAILY 06/20/24 06/20/24 History glucosamine-chondroitin 250 mg-200 2 tab PO DAILY 06/20/24 06/20/24 History mg tablet (Osteo Bi-Flex) ibuprofen 200 mg tablet 600 - 800 mg PO Q8 PRN Pain 06/20/24 06/20/24 History losartan 50 mg tablet 50 mg PO QAM 06/20/24 06/20/24 History magnesium oxide 400 mg PO DAILY 06/20/24 06/20/24 History oxycodone 5 mg tablet 5 mg PO Q6 PRN Pain 06/20/24 06/20/24 History prednisone 20 mg tablet 2 mg PO .TAPER UD 06/20/24 06/20/24 History tizanidine 4 mg tablet 4 mg PO Q6 PRN .Muscle pain 06/20/24 06/20/24 History turmeric 400 mg capsule 0 mg PO QAM 06/20/24 06/20/24 History vitamin B complex 1 tab PO DAILY 06/20/24 06/20/24 History Patient History Medical History HTN (hypertension) Surgical History H/O section History of cholecystectomy Hx of tonsillectomy History of Zakia fundoplication Family History Other Heart disease Hypertension Social History Smoking Status: Never smoker Hx Alcohol Use: Yes Alcohol type: wine Alcohol Intake Frequency: 2-4 x/Month Hx Substance Use: No Preferred Language: Dominican Overlock Collar Setter Required: No Beliefs That Will Affect Care: None Current Living Situation: Spouse Feels Safe at Home: Yes Safety Concerns: Feels Safe At This Time Assistive Devices: Cane and Glasses Review of Systems Gen- Generalized weakness, no fevers HEENT- No headaches, but some neck stiffness Resp-- No SOB, some cough and difficulty clearing her throat CV- No chest pain GI- No N/V or diarrhea - No dysuria Skin- No rash MSK- Back pain as per HPI Physical Exam Gen- NAD, cooperative with exam HEENT- NC AT Eyes- no icterus Lungs- Normal respiratory rate on room air Ext- no edema MSK-- No joint swelling or erythema Neuro- Alert and oriented Results & Data Vital Signs (Past 12 Hours) Vital Signs Temp Pulse Resp BP Pulse Ox O2 Del Method 06/23/24 11:47 36.9 C 97 H 21 136/78 98 Room Air 06/23/24 09:00 36.8 C 06/23/24 07:33 36.2 C L 94 H 21 129/74 94 Room Air 06/23/24 03:47 36.5 C 100 H 20 141/76 H 99 Room Air Laboratory Results WBC 39 -> 36.9 Hgb 9.4 Platelets 364 UA with 0-5 WBC, 0-2 RBC Total bili 1.9 ALT 26 Na 127 Creatinine 0.69 BUN 30 Diagnostic Findings Blood cultures 06/20/24 with 4 of 4 bottles MSSA Blood cultures 06/23/24 pending MRI of pelvis from 06/21/24 shows right sided psoas edema TTE from 06/21/24 shows no obvious vegetations, but not all valves are visualized optimally
[2024-06-23] MEDS: ceFAZolin 2000MG 2,000 MG/15 ML SYR IV SCH (14:08)
--- NOTE | 2024-06-23 15:38 | Hospitalist Progress Note ---
Date of Service June 23, 2024 Assessment & Plan (1) Atrial fibrillation with rapid ventricular response: (2) Elevated troponin: (3) Back pain: (4) Weakness: (5) PRATIMA (acute kidney injury): (6) Leukocytosis: (7) Acute hyponatremia: (8) Pelvic fluid collection: (9) Hyperglycemia: (10) Elevated alkaline phosphatase level: (11) HTN (hypertension): Plan Patient is 69 year old female with PMHx of HTN, dyslipidemia, anxiety who presented to the ER with concern for low back pain x 1 week and falls x 1 day. Found to be septic in the setting of a possible infectious myositis with retroperitoneal bleed. Sepsis, POA Bacteremia, Gram positive Possible infectious Myositis Pt tachycardic with marked leukocytosis 39K on admission (pt was on steroids outpt) Lactate 2.2 on admission, with 2.2 repeat, eventually down to normal at 1.4. Procal elevated at 2.87 UA not suggestive of infection Negative Lyme screen, Negative flu, RSV and COVID-[address] with no signs of infection CT abd/pelvis and CT lumbar spine noting possible mass vs hematoma MRI pelvis concerning for infectious myositis Blood Cx x2 sets (4/4 bottles) on admission growing MSSA Repeat Blood cultures pending [facility] serology noting staph but not MRSA, no need for IV Vancomycin at this time Intially treated empirically with IV Zosyn Pt notes she tends to priscilla bushes quite frequently, fungal cultures added-NGTD TTE did not make note of any vegetations Infectious Disease consulted, appreciate recs. Noted/Stated the following: "Gram-positive bacteremia: Cultures show MSSA. Infection likely started from the skin and may have been present for some time prior to admission. TTE negative, but undelrying endocarditis seems plausible. Her back pain and imaging findings would suggest infection may be present there as well. Retroperitoneal hematoma: I suspect this is either primary MSSA infection or secondarily seeded with MSSA. Plan: "Repeat blood cultures are pending. If these turn positive, will need to repeat in 48 hours in order to document clearance. Although we can hold off on a PADMA right now since she will get a prolonged course of therapy regardless, I would plan on trying to obtain one if her follow-up cultures remain positive. In the meantime, I would D/C the pip-tazo and start her on cefazolin 2g IV q 8 going forward. Based on her imaging findings, I would anticipate her needing a 6 week course. final abx plans remain pending." Continue with IV Cefazolin 2g IV q8h Follow repeat blood cultures Continue to monitor Pelvic fluid collection Retroperitoneal bleed CT Abd/Pelvis: "nonspecific hyperdense fluid in the right pelvis which may represent a very small amount of hematoma or interval development of lymphatic obstruction, less likely a soft tissue mass. No active extravasation is seen." MRI pelvis concerning for infectious myositis and small retroperitoneal bleed Will hold off on anticoagulation in this setting Per , pt has bruised easily with any slight touch for the 38 years he has known her Platelets have been normal PT/INR, apTT, consider further Hematology workup outpt Likely traumatic bleed- pt notes recent falls General surgery consulted, appreciate further recs. Recommended/stated the following: -"Patient has a retroperitoneal hematoma with a small amount of extravasation noted on the pelvic MRI and this was discussed with her and her family that no surgical intervention is needed it should resolve on its own Follow the H&H and within the last 24 hours his bilirubin unchanged On 06/21/2024 hemoglobin was 10.8 On 06/22/2024 hemoglobin 11.1 No surgical intervention at this time with monitor hemoglobin" Hemoglobin 9.4 on 06/23...down from 12.4 on admission Repeat H/H, consider repeat imaging if persistent decrease Continue to monitor Leukocytosis Pt presenting with WBC of 39K Noted pt has been on steroids recently with an acute infectious process underlying as well. Elevated likely in setting of above Peripheral smear leaning towards a leukemoid reaction. Pathologist interpretation noted/stated the following: "This peripheral smear for review reveals normochromic/normocytic red blood cells, polychromasia of the red blood cells, scattered echinocytes, cytoplasmic vacuoles within the PMN leukocytes, unremarkable lymphocytes, unremarkable monocytes and unremarkable platelets. The PMN leukocytes lack toxic granulations and Dohle bodies and thus the triad supporting bacteremia/sepsis is not present. Focally, platelet clumping is seen. Blasts, schistocytes and spherocytes are all not seen. Review of the patient's CBC reveals a remarkable leukocytosis at 39.08 times 10 to the ninth per liter, an unremarkable hemoglobin concentration at 12.4 g/dL, [place] [address] to the ninth per liter and an absolute neutrophile count of 34.45 times 10 to the ninth per liter. Review of the electronic medical record indicates the patient presented to the emergency department complaining of back pain and falls and was found to have the clinical signs of sepsis. A blood culture is positive to date. She was also found to have atrial fibrillation with rapid ventricular response and the clinicians favor an infectious myositis. Although neutrophilic leukemia certainly exists, I do not favor this diagnosis and of course the best interpretation of this case is a reactive neutrophilia, AKA leukemoid reaction." Hematology was consulted on admission, appreciate recs. noted the following: -"Given that we are dealing with predominantly neutrophilic leukocytosis my impression is that the patient has reactive leukocytosis secondary to severe sepsis. At this point I do not recommend invasive testing such as bone marrow biopsy. Recommend treatment of sepsis and monitoring of blood counts. She does have elevated monocytes however that can also be reactive. Do not see an underlying myeloproliferative condition at this point needing bone marrow test." Continue to trend Atrial Fibrillation with RVR Demand Ischemia In ER found to be in atrial fibrillation RVR. Pt denies CP, SOB, palpitations EKG Afib RVR with nonspecific ST changes Trop of 59.8 to 59.2 to 44.6, likely demand ischemia from afib rvr Echo did not make note of any vegetations, EF 65-70%, trace MR TSH wnl In ER given total 2L IVF, given Cardizem bolus and drip with HRs still in 130's Given Lopressor 5mg IV on admission Continued Cardizem drip with conversion to sinus rhythm on 06/21/24 Continue Lopressor 12.5mg Q6H po IV heparin not started in setting of acute retroperitoneal bleed Monitor on telemetry Cardiology consulted, appreciate further recs. Noted/stated the following: "New onset atrial fibrillation with rapid ventricular response for started on Cardizem drip [id number] score 3(hypertension 1, female 1, age 1) She now has converted to sinus rhythm She will need anticoagulation CT abdomen showed hyperdense fluid collection which could represent hematoma or lymphatic collection Make sure there is no hematoma before starting anticoagulation she is dehydrated received 2 L of IV fluids still has dry mouth Elevated troponins in the setting of sepsis, dehydration and A-fib with RVR EKG no evidence of ischemia no Anginal symptoms Echo shows normal wall motion" Continue to monitor on telemetry Back pain Weakness Acute lumbar radiculopathy Lumbar back pain x 8 days. Treated outpatient with oxycodone, muscle relaxers, NSAIDs and on day [address] Lumbar spine: degenerative changes In ER given fentanyl, morphine with reported decreased pain MRI Lumbar spine noting "Intramuscular edema within the mid to lower lumbar paraspinal tissues with heterogeneous enhancement on the left." Pain Control Ortho spine consulted, appreciate recs. Noted/Stated the following: -"Acute left lumbar radiculopathy: Assessment back and leg pain consistent with radiculopathy and possible myositis. Plan MRI lumbar spine available for review does demonstrate evidence of anterior listhesis marked facet hypertrophy L3-L4 L4-L5. The there is significant motion artifact throughout the study compromising my interpretation. There is however marked evidence of edema within the musculature of the lumbar spine multiple foot on the left. At this point I would encourage transitions from bed to chair as tolerated. We could progress to physical therapy if she is able to do so. Ideally would like to update an MRI of the lumbar spine in the next few days when she is more comfortable and we can obtain a more accurate scan. Would also include standing x-rays of the lumbar spine when patient is stable." PT/OT ordered PRATIMA (acute kidney injury) BUN: 84, Cr: 1.5. BUN/Cr ratio: 54. In 2021 Cr: 0.9 with GFR: 64 IVF Monitor renal function, avoid nephrotoxic agents when possible Nephrology consulted, appreciate recs. recommended/stated the following: -"Patient with acute kidney injury likely prerenal azotemia in setting of A- fib RVR and NSAID use. Renal function is now normal. Sodium is down to 128. Will stop IV fluids after current bottle. Discussed need to completely avoid NSAIDs going forward. Workup for source of sepsis is ongoing. Renal will sign off case. Please call if additional questions or concerns Patient is on Lopressor. A-fib RVR is driving the acute kidney injury. Renal function is improving with rate control. Avoid hypotension as above." Acute hyponatremia Na corrected at 130 for glucose: 280 Serum osm 302, urine osm 480, urine Na 35 Nephrology consulted, appreciate recs. Noted/stated the following: "Sodium is down to 128. Will stop IV fluids after current bottle." Neurology consulted once more on 06/23 for Na of 127, appreciate recs Continue to monitor Hypokalemia Replete as needed Hypermagnesemia mag of 2.5 on admission Down to 2.2 Continue to monitor currently normal Anemia Hgb of 12.4 to 10.8 AM anemia panel noting iron level low normal Continue to monitor R shoulder pain Reported right shoulder pain, new per pt, while working with PT on 06/23 Hx of falls R shoulder xray pending Pain control Prediabetes Hyperglycemia Random glucose: 280 No former DM diagnosis. Has been on 3 days prednisone Novolog sliding scale A1c of 6.4 PCP followup after discharge Elevated alkaline phosphatase level Elevated t bili t bili 1.[address] with no hepatic abnormalities Hepatic US with no appreciable cause Likely elevated in setting of sepsis Continue to monitor HTN (hypertension) BP stable Will hold home losartan with PRATIMA Diet: DMII DVT prophylaxis: SCDs in setting of retroperitoneal bleed Dispo: PT/OT recs once medically stable Admission and Anticipated Discharge Date Admission Date: June 20, 2024 Subjective pt seen with and son at bedside. States she is tired, was up sitting in chair in the AM, worked with PT. Per pt has Hx of easy bleeding No BMs yet Review of Systems Review of Systems: All systems reviewed & are unremarkable except as noted in Subjective Physical Exam Physical Exam: General: Alert, sleepy Skin:bruising noted on back, no open wounds noted Psych: Appropriate mood and affect Neuro:difficulty with any movement in the bed HEENT: NC/AT CV:regular Resp: Breath sounds clear bilaterally, no increased effort of breathing. Abdomen: Soft, tender Extremities: edema in lower extremities bilaterally. Results & Data Results & Data Vital Signs (Past 12 Hours) Vital Signs Temp Pulse Resp BP BP Pulse Ox O2 Del Method 06/23/24 12:53 36.6 C 89 24 181/72 H 99 Room Air 06/23/24 11:47 36.9 C 97 H 21 136/78 98 Room Air 06/23/24 09:00 36.8 C 06/23/24 07:33 36.2 C L 94 H 21 129/74 94 Room Air 06/23/24 03:47 36.5 C 100 H 20 141/76 H 99 Room Air Diagnostic Findings Abdomen/Pelvis CT 06/20/24 17:44 CT abd pelvis IV con only, CT lumbar spine w con CLINICAL HISTORY: falls, back pain TECHNIQUE: Helical axial images of the abdomen and pelvis were obtained and displayed. Automated dose lowering techniques and/or adjustment according to patient size were utilized for this exam. Dedicated images of the lumbar spine were obtained. This exam was performed with intravenous contrast. COMPARISON: Comparison is made to CT abdomen pelvis 02/11/2013 FINDINGS: Lower chest: For findings above the diaphragm, please see CT chest performed same day. Liver: Unremarkable. No focal lesions are seen. Gallbladder and biliary tree: Patient is status post cholecystectomy. No intra- or extrahepatic biliary ductal dilation. Pancreas: Unremarkable, no focal lesions. Spleen: Splenule is incidentally noted. Adrenals: Unremarkable. Kidneys and ureters: Renal cysts are seen. Bladder: Unremarkable. Reproductive organs: Unremarkable. Bowel: A hiatal hernia is seen. Lymph nodes Retroperitoneal: Unremarkable. Pelvic: Unremarkable. Mesenteric: Unremarkable. Peritoneum: There is a small amount of hyperdense fluid in the right pelvis which results in mild mass effect upon the right internal iliac vein. Vessels: Atherosclerotic calcifications are seen. Abdominal wall: Bilateral fat-containing inguinal hernias are seen. Bones: Degenerative changes in the visualized spine. IMPRESSION: There is nonspecific hyperdense fluid in the right pelvis which may represent a very small amount of hematoma or interval development of lymphatic obstruction, less likely a soft tissue mass. No active extravasation is seen. Follow-up to resolution is recommended to exclude mass. ACT 112: Positive. There are findings on this exam that require communication between the performing entity and the patient following Patient Test Result Information Act ([place] Act 112) guidelines. Electronically signed by: Sagar Kennedy M.D. 06/20/2024 7:[address] 06/20/24 17:44 CT cervical spine wo con CLINICAL HISTORY: falls, pain TECHNIQUE: Multidetector row helical CT of the cervical spine was performed without administration of intravenous contrast. Coronal and sagittal reformations were obtained. Automated dose lowering techniques and/or adjustment according to patient size were utilized for this exam. Comparison: None available at the time of this dictation. FINDINGS: No acute fractures or subluxations are identified. Degenerative changes are seen in the visualized spine. The alignment is normal. Soft tissues are unremarkable. IMPRESSION: Degenerative changes without evidence of acute bony injury. ACT 112: Negative or not required by law. Electronically signed by: Sagar Kennedy M.D. 06/20/2024 6:[address] 06/20/24 17:45 CT head/brain wo con CLINICAL HISTORY: falls, pain Technique: Contiguous axial CT images of the head were acquired from the base of the skull to the vertex without intravenous contrast administration. Images were viewed in brain, subdural and bone windows. Automated dose lowering techniques and/or adjustment according to patient size were utilized for this exam. Comparison: None available at the time of this dictation. Findings: The ventricles, basal cisterns, and cerebral sulci are normal. There is no acute intracranial hemorrhage or evidence of acute territorial infarction. Neither mass effect, shift of the midline structures, nor abnormal extra-axial fluid collections are shown. And subarachnoid cyst. Imaged portions of the paranasal sinuses and mastoid air cells are clear. The orbits appear normal. There are no acute fractures of the calvaria or scalp swelling. Impression: No acute intracranial hemorrhage, no evidence of acute territorial infarction or other acute intracranial disease process. ACT 112: Negative or not required by law. Electronically signed by: Sagar Kennedy M.D. 06/20/2024 6:[address] 06/20/24 17:45 CT abd pelvis IV con only, CT lumbar spine w con CLINICAL HISTORY: falls, back pain TECHNIQUE: Helical axial images of the abdomen and pelvis were obtained and displayed. Automated dose lowering techniques and/or adjustment according to patient size were utilized for this exam. Dedicated images of the lumbar spine were obtained. This exam was performed with intravenous contrast. COMPARISON: Comparison is made to CT abdomen pelvis 02/11/2013 FINDINGS: Lower chest: For findings above the diaphragm, please see CT chest performed same day. Liver: Unremarkable. No focal lesions are seen. Gallbladder and biliary tree: Patient is status post cholecystectomy. No intra- or extrahepatic biliary ductal dilation. Pancreas: Unremarkable, no focal lesions. Spleen: Splenule is incidentally noted. Adrenals: Unremarkable. Kidneys and ureters: Renal cysts are seen. Bladder: Unremarkable. Reproductive organs: Unremarkable. Bowel: A hiatal hernia is seen. Lymph nodes Retroperitoneal: Unremarkable. Pelvic: Unremarkable. Mesenteric: Unremarkable. Peritoneum: There is a small amount of hyperdense fluid in the right pelvis which results in mild mass effect upon the right internal iliac vein. Vessels: Atherosclerotic calcifications are seen. Abdominal wall: Bilateral fat-containing inguinal hernias are seen. Bones: Degenerative changes in the visualized spine. IMPRESSION: There is nonspecific hyperdense fluid in the right pelvis which may represent a very small amount of hematoma or interval development of lymphatic obstruction, less likely a soft tissue mass. No active extravasation is seen. Follow-up to resolution is recommended to exclude mass. ACT 112: Positive. There are findings on this exam that require communication between the performing entity and the patient following Patient Test Result Information Act ([place] Act 112) guidelines. Electronically signed by: Sagar Kennedy M.D. 06/20/2024 7:[address] 06/20/24 17:46 CT chest diagnostic w con CLINICAL HISTORY: falls, back pain TECHNIQUE: Multidetector row helical CT of the chest was performed with intravenous contrast. Coronal and sagittal reformations were obtained. Automated dose lowering techniques and/or adjustment according to patient size were utilized for this exam. Comparison: Comparison is made to chest radiograph 07/24/2012 FINDINGS: Lungs and pleura: A calcified granuloma is seen. Heart and pericardium: Heart size is normal. No pericardial effusion. Vessels: Moderate atherosclerotic changes in the aorta and coronary arteries. Mediastinum and uriel: Unremarkable. Chest wall and lower neck: Unremarkable. Abdomen: For findings below the diaphragm, please refer to CT of the abdomen dated the same. Bones: Degenerative changes in the thoracic spine. IMPRESSION: No acute abnormalities, in particular no evidence of acute fracture. ACT 112: Negative or not required by law. Electronically signed by: Sagar Kennedy M.D. 06/20/2024 7:06 PM Lumbar Spine MRI 06/21/24 09:20 MR lumbar spine wo/w con CLINICAL HISTORY: 69 years-old Female with f/u hematoma, need to put pt on hep. Acute low back pain with recent fall COMPARISON: CT abdomen and pelvis 06/20/2024, CT lumbar spine 06/20/2024 TECHNIQUE: Multiplanar, multi sequence MRI of the lumbar spine was performed with and without IV contrast FINDINGS: 60 degrees levoscoliosis of the lumbar spine. Motion degraded study with the axial sequences nearly nondiagnostic. No acute fracture, subluxation or erosion. There is edema noted within the paraspinal musculature. Heterogeneous enhancement noted within the left mid to lower lumbar paraspinal tissues on image 16 series 9 Trace free pelvic fluid suggested. Conus medullaris terminates at T12-L1. At T10-T11 there is moderate intervertebral disc space narrowing and circumferential annular disc bulging and moderate facet arthrosis. Moderate central canal stenosis with severe right and moderate left foraminal narrowing. T12-L1: Mild intervertebral disc space narrowing and spondylotic spurring with moderate facet arthrosis. No central canal or neural foraminal narrowing. L1-L2: Mild to moderate intervertebral disc space narrowing and spondylotic spurring with small circumferential annular disc bulge. Ligamentum flavum thickening with moderate facet arthrosis. Mild bilateral foraminal stenosis. L2-L3: Mild to moderate intervertebral disc space narrowing and spondylotic spurring with small circumferential annular disc bulge. Ligamentum flavum thickening with moderate facet arthrosis. Mild central canal stenosis, AP dimension of the thecal sac measuring 9 mm. Mild bilateral foraminal narrowing. L3-L4: Mild to moderate disc space narrowing and spondylotic spurring with posterior disc osteophyte complex. Severe facet arthrosis with small facet effusions. Severe central canal stenosis with AP dimension of the thecal sac measuring 5 mm. Mild bilateral foraminal narrowing. L4-L5: Mild to moderate intervertebral disc space narrowing with 2 mm degenerative related anterolisthesis. Spondylotic spurring with circumferential annular disc bulging and posterior disc osteophyte complex. Advanced facet arthrosis with facet effusions and ligamentum flavum thickening. Severe central canal narrowing, AP dimension of the thecal sac measuring 5 mm. Moderate bilateral foraminal stenosis. L5-S1: Spondylotic spurring with tiny posterior annular disc bulge. Severe facet arthrosis with facet effusions. Central canal and right neural foramen are patent. Mild left foraminal narrowing. IMPRESSION: 1. The study is very motion degraded. No acute fracture, subluxation or endplate erosion identified. 2. Intramuscular edema within the mid to lower lumbar paraspinal tissues with heterogeneous enhancement on the left. Correlate clinically to exclude an acute muscle strain versus less likely an infectious myositis. 3. Multilevel central canal and neural foraminal narrowing as above. 4. No epidural fluid collections. ACT 112: Negative or not required by law. The above report was generated using voice recognition software. It may contain grammatical, syntax or spelling errors. Electronically signed by: Madhu Alaniz M.D. 06/21/2024 6:00 PM Pelvis MRI 06/21/24 09:20 MR pelvis wo/w con HISTORY: 69 years-old Female f/u hematoma, need to put pt on hep acute pelvic trauma COMPARISON: MRI lumbar spine of same day, CT abdomen and pelvis and lumbar spine studies 06/20/2024 TECHNIQUE: Multiple axial CT images of the pelvis were obtained with and without IV contrast. FINDINGS: Study is very motion degraded. There is edema and small amount of fluid tracking along the right iliacus muscle as seen on image 15 series 5. Additionally, there is focal areas of increased T2 signal noted tracking along the right iliac vessels posterior to the iliopsoas. Mild edema tracks along the iliopsoas myotendinous junction. Findings appear unchanged compared to the comparison CT. Trace free pelvic fluid. Decompressed urinary bladder with Harvey catheter. The uterus is anteflexed. There is prominence of the mid uterine body and fundal myometrium dorsally. The endometrium measures 6 mm in thickness. No acute fracture, dislocation or bone marrow edema. Heterogeneous enhancement of the left paraspinal musculature with areas of increased T2 signal, left greater than right extending from L3-S1. IMPRESSION: 1. Motion degraded exam. 2. No acute fracture or bone marrow edema. 3. Small amount of edema and fluid tracking along the right iliacus and iliopsoas musculature suggestive of acute small retroperitoneal hemorrhage. 4. Edema and enhancement within the paraspinal muscles, left greater than right is also likely posttraumatic. An infectious myositis could appear similarly. Correlate with physical exam findings and patient presentation. 5. Trace free pelvic fluid. 6. Possible fibroid uterus with mild thickening of the postmenopausal endometrium. ACT 112: Negative or not required by law. The above report was generated using voice recognition software. It may contain grammatical, syntax or spelling errors. Electronically signed by: Madhu Alaniz M.D. 06/21/2024 6:00 PM Liver Ultrasound 06/23/24 10:23 US liver CLINICAL HISTORY: elevated liver enzymes TECHNIQUE: Multiple real-time sonographic images of the right upper quadrant were obtained. Comparison: Comparison is made to abdominal ultrasound 07/24/2012 FINDINGS: The liver is diffusely homogenous with normal contour and echogenicity. No focal mass lesions are seen. No intrahepatic ductal dilatation is seen. Patient is status post cholecystectomy. The common duct measures 0.5 cm in diameter at the level of the hepatic artery. The visualized portions of the pancreas appear normal. The right kidney shows normal echogenicity, cortical thickness and renal contour. The right kidney shows no evidence of hydronephrosis or mass. No ascites or free fluid is seen in Ramos's pouch. IMPRESSION: Unremarkable right upper quadrant ultrasound. ACT 112: Negative or not required by law. Electronically signed by: Sagar Kennedy M.D. 06/23/2024 12:14 PM
[2024-06-23] MEDS ORDERED: SOD PHOSPHATE/SOD BIPHOSPHATE ENEMA 132 ML BTL PR PRN (15:44)
[2024-06-23] MEDS ORDERED: MAGNESIUM HYDROXIDE SUSP 30 ML UDC PO PRN (15:44)
[2024-06-23 17:03] LABS: Urine Chloride 25 mmol/L; Urine Potassium 62.2 mmol/L; Urine Sodium < 10 mmol/L
[2024-06-23 17:12] LABS: Hemoglobin 8.3 g/dl (12.0-16.0)
[2024-06-23 17:29] LABS: BUN Creatinine Ratio 49.2 (10-20); Calcium 7.5 mg/dl (8.6-10.3); Creatinine Clr Calc Pharmacy 100.4 ml/min; Est GFR (African American) 105.3 ml/min; Est GFR (Non-African American) 90.9 ml/min; Potassium 4.1 mmol/L (3.5-5.1)
--- NOTE | 2024-06-23 18:52 | XRay Report ---
XR shoulder RT min 2V routine CLINICAL HISTORY: R shoulder pain TECHNIQUE: 3 views of the right shoulder were obtained. Comparison: None available at the time of this dictation. FINDINGS: There is no evidence of an acute fracture. Joint spaces are well-preserved. The overlying soft tissue s are unremarkable. The visualized portions of the lungs are clear. IMPRESSION: No evidence of acute osseous injury. ACT 112: Negative or not required by law. Electronically signed by: Sagar Kennedy M.D. 06/23/2024 6:51 PM
--- NOTE | 2024-06-23 19:43 | Nephrology Progress Note ---
Date of Service June 23, 2024 Assessment & Plan (1) Hyponatremia with decreased serum osmolality: Plan: serum sodium 127 on presentation, improved next day to 134, since then down trending steadily, to jina 125 PM of 06/23. uOsm 629; sOsm 270, Raimundo <10 and uCl 25. Labs most c/w volume depletion, not unthinkable in setting of bacteremia; however her BUN is downtrending and rest of chem panel does not really suggest contraction or volume depletion. She is 2.5L + on the admission so far, w/ large gain in wt on bed weight> difficult to evaluate for trend/signficance here. she's not eating well though seems to be drinking plenty >> overall clinical picture and labs do not exactly match but will treat as volume depletion >will give 1L NS overnight; next bmp in AM/ AM labs >ordered repeat urine studies for AM >encourage protein/calorie intake >> she's interested in tofu and/or milkshakes w/ protein powder >> both fine >for now no fluid limit >continue strict I/O >pls work at consistent technique for bedweights -maintain eukalemia Admission and Anticipated Discharge Date Admission Date: June 20, 2024 Subjective asked by primary service to reevaluate pt d/t worsening /recurrent hyponatremia. pt c/o extreme fatigue, generalized weakness, signfiicant diffuse pain. "too tired to brush my teeth" R shoulder very sore w/ maneuvers > a chronic issue. has been eating but minimally >> no appetite and too much work to chew Review of Systems 2 Review of Systems: All systems reviewed & are unremarkable except as noted in Subjective Physical Exam 2 Constitutional: well developed, well nourished and cooperative; no acute distress Eyes: EOM intact bilaterally ENMT: Ears: no external ear abnormality Nose: no external nose abnormality Mouth: + dry oral mucous membranes very nasal husky upper airway raspy voice Neck: no nuchal rigidity (not rigid but stiff) Respiratory: normal respiratory effort Auscultation: + diminished lung sounds Cardiovascular: Rate/Rhythm: regular rate and regular rhythm Extremities: + edema (trace pedal) Gastrointestinal (Abdomen): Inspection/Auscultation: normal bowel sounds P ercussion/Palpation: abdomen soft; abdomen nontender Musculoskeletal: Extremities: + abnormal strength Skin: no rashes, warm and dry Neurologic: duncan, fluent speech, no tremor; + lassitude Psychiatric: Orientation: alert and oriented x 3 Results & Data Vital Signs (Past 12 Hours) Vital Signs Temp Pulse Resp BP Pulse Ox O2 Del Method 06/23/24 07:33 36.2 C L 94 H 21 129/74 94 Room Air 06/23/24 03:47 36.5 C 100 H 20 141/76 H 99 Room Air 06/22/24 23:00 36.7 C 81 16 145/75 H 95 Room Air Laboratory Results 06/23/24 16:46 06/23/24 16:46 sOsm 270 uOsm 629 Raimundo <10 uCl 25
[2024-06-23] MEDS: SODIUM CHLORIDE 0.9% 1,000 ML IV SCH (20:57)
--- NOTE | 2024-06-23 21:45 | CT Scan Report ---
Exam(s): CT ABDOMEN + PELVIS Without Contrast EXAM: CT Abdomen and Pelvis Without Intravenous Contrast CLINICAL HISTORY: r/o worsening bleed, hgb drop to 8.3. TECHNIQUE: Axial computed tomography images of the abdomen and pelvis without intravenous contrast. CTDI is 27.63 mGy and DLP is 1334.26 mGy-cm. Automated exposure control was utilized for the study. A dose lowering technique was utilized adhering to the principles of ALARA. COMPARISON: CT abdomen and pelvis with contrast dated 06/20/2024 FINDINGS: Lung bases: Unremarkable. No mass. No consolidation. ABDOMEN: Liver: Unremarkable. Gallbladder and bile ducts: Cholecystectomy. No ductal dilation. Pancreas: Unremarkable. No ductal dilation. Spleen: Unremarkable. No splenomegaly. Adrenals: Unremarkable. No mass. Kidneys and ureters: Unremarkable. No obstructing stones. No hydronephrosis. Stomach and bowel: Stomach is mild to moderately gas distended. Abnormal mucosal thickening of the pyloric channel and proximal duodenum with a suggestion of adjacent surrounding fat stranding. The unenhanced small and large bowel are otherwise unremarkable. Evaluation of the mucosal pattern is somewhat limited; however, no definite asymmetry. Mild to moderate stool burden. No appreciable diverticulitis. PELVIS: Appendix: No findings to suggest acute appendicitis. Bladder: A Harvey catheter is noted in the predominantly decompressed bladder. No stones. Reproductive: Unremarkable as visualized. ABDOMEN and PELVIS: Intraperitoneal space: Unremarkable. No free air. No significant fluid collection. Retroperitoneal space: No retroperitoneal hematoma noted. Bones/joints: No acute fracture. No dislocation. Soft tissues: Minimal dependent edema noted posteriorly. No abdominal wall hematoma. Vasculature: Unremarkable. No abdominal aortic aneurysm. Lymph nodes: Unremarkable. No enlarged lymph nodes. IMPRESSION: 1. Abnormal mucosal thickening of the pyloric channel and proximal duodenum with a suggestion of adjacent surrounding fat stranding. Suspect distal gastritis/proximal duodenitis. No evidence for perforation, obstruction or adjacent extraluminal hematoma. The small and large bowel is otherwise unremarkable. 2. No other evidence for the patient's reported worsening anemia. No retroperitoneal hematoma. Electronically signed by: Shashank Eubanks MD 06/23/24 21:44 PM
[2024-06-24 04:42] LABS: A calco-baum cmplx NotReported Not Detected (NotDetected); Bact fragilis Not Reported Not Detected (NotDetected); Blood Culture Id Panel See PCR Comment (NotDetected); C auris Not Reported Not Detected (NotDetected); Calbicans Not Reported Not Detected (NotDetected); Candida glabrata Not Reported Not Detected (NotDetected); Candida krusei Not Reported Not Detected (NotDetected); Cneoformans/gatti Not Reported Not Detected (NotDetected); Cparapsilosis Not Reported Not Detected (NotDetected); E cloacae compx Not Reported Not Detected (NotDetected); Efaecalis Not Reported Not Detected (NotDetected); Efaecium Not Reported Not Detected (NotDetected); Enterobacterales Not Reported Not Detected (NotDetected); Escherichia coli Not Reported Not Detected (NotDetected); H influenzae Not Reported Not Detected (NotDetected); K aerogenes Not Reported Not Detected (NotDetected); Koxytoca Not Reported Not Detected (NotDetected); Kpneumoniae grp Not Reported Not Detected (NotDetected); Lmonocyt Not Reported Not Detected (NotDetected); N meningitidis Not Reported Not Detected (NotDetected); P aeruginosa Not Reported Not Detected (NotDetected); Proteus spp Not Reported Not Detected (NotDetected); Salmonella spp Not Reported Not Detected (NotDetected); Staph lugdunensis Not Reported Not Detected (NotDetected); Staph spp. Not Reported DETECTED (NotDetected); Staphaureus Not Reported DETECTED (NotDetected); Staphepi Not Reported Not Detected (NotDetected); Staphylococcus spp. DETECTED (NotDetected); Stenmaltophilia Not Reported Not Detected (NotDetected); Strep agal(GrpB) Not Reported Not Detected (NotDetected); Strep pneum Not Reported Not Detected (NotDetected); Strep pyog (GrpA) Not Reported Not Detected (NotDetected); Strep spp Not Reported Not Detected (NotDetected); mecAC+MREJ Resistant Gene MRSA Not Detected (NotDetected)
[2024-06-24 06:19] LABS: Appearance Urine Clear (Clear); Bacteria Urine Automated None Seen (None Seen); Bilirubin Urine Negative (Negative); Blood Urine Negative (Negative); Color Urine Dark Yellow; Epithelial Cell Urine Auto 0-2 /hpf (0-2); Glucose Urine UA Negative (Negative); Ketones Urine Negative (Negative); Leukocyte Esterase Urine Negative (Negative); Nitrite Urine Negative (Negative); Protein Urine Trace (Negative); Specific Gravity Urine 1.023 (1.000-1.030); Urobilinogen Urine Negative (Negative); WBC Urine Automated 0-5 /hpf (0-5)
[2024-06-24 06:31] LABS: Hematocrit (blood only) 23.9 % (37.0-47.0); Mean Corpuscular Hemoglobin 30.1 pg (25.0-34.0); Mean Corpuscular Hgb Conc 33.5 g/dL (32.0-36.0); Mean Corpuscular Volume 89.8 fL (80.0-100.0); Mean Platelet Volume 10.2 fL (9.4-12.4); Platelet Count 367 K/uL (130-400); RDW Standard Deviation 42.4 fL (36.4-46.3); Red Blood Count 2.66 M/uL (4.20-5.40); White Blood Count 27.76 K/ul (4.8-10.8)
[2024-06-24 06:32] LABS: Urine Chloride < 15 mmol/L; Urine Potassium 44.5 mmol/L; Urine Sodium < 10 mmol/L
[2024-06-24 06:53] LABS: Partial Thromboplastin Ratio 0.9; Partial Thromboplastin Time 23 Seconds (21-31)
[2024-06-24 06:54] LABS: Albumin Globulin Ratio 0.9 (0.9-2); Albumin Level 2.5 gm/dl (3.4-5.0); BUN Creatinine Ratio 43.9 (10-20); Calcium 7.8 mg/dl (8.6-10.3); Creatinine Clr Calc Pharmacy 94.8 ml/min; Est GFR (African American) 103.7 ml/min; Est GFR (Non-African American) 89.5 ml/min; Globulin 2.8 gm/dl (2.5-4.0); Phosphorus 2.9 mg/dl (2.5-4.9); Potassium 3.9 mmol/L (3.5-5.1); Total Protein 5.3 gm/dl (6.0-8.3)
[2024-06-24 07:00] LABS: Basophils # (auto) 0.05 K/uL (0.00-0.20); Basophils % (auto) 0.2 %; Eosinophils # (auto) 0.11 K/uL (0.00-0.50); Eosinophils % (auto) 0.4 %; Immature Granulocytes # (auto) 1.63 K/uL (0.01-0.20); Immature Granulocytes % (auto) 5.9 %; Lymphocytes # (auto) 2.01 K/uL (1.20-3.40); Lymphocytes % (auto) 7.2 %; Monocytes # (auto) 1.43 K/uL (0.11-0.59); Monocytes % (auto) 5.2 %; Neutrophils # (auto) 22.53 K/uL (1.40-6.50); Neutrophils % (auto) 81.1 %
--- NOTE | 2024-06-24 08:12 | Hospitalist Progress Note ---
Date of Service June 24, 2024 Assessment & Plan (1) Atrial fibrillation with rapid ventricular response: (2) Elevated troponin: (3) Back pain: (4) Weakness: (5) PRATIMA (acute kidney injury): (6) Leukocytosis: (7) Acute hyponatremia: (8) Pelvic fluid collection: (9) Hyperglycemia: (10) Elevated alkaline phosphatase level: (11) HTN (hypertension): Plan Patient is 69 year old female with PMHx of HTN, dyslipidemia, anxiety who presented to the ER with concern for low back pain x 1 week and falls x 1 day. Found to be septic in the setting of a possible infectious myositis with retroperitoneal bleed. Sepsis, POA Bacteremia, Gram positive Possible infectious Myositis Pt tachycardic with marked leukocytosis 39K on admission (pt was on steroids outpt) Lactate 2.2 on admission, with 2.2 repeat, eventually down to normal at 1.4. Procal elevated at 2.87 UA not suggestive of infection Negative Lyme screen, Negative flu, RSV and COVID-[address] with no signs of infection CT abd/pelvis and CT lumbar spine noting possible mass vs hematoma MRI pelvis concerning for infectious myositis Blood Cx x2 sets (4/4 bottles) on admission growing MSSA Repeat Blood cultures pending [employer] serology noting staph but not MRSA, no need for IV Vancomycin at this time Initially treated empirically with IV Zosyn Pt notes she tends to priscilla bushes quite frequently, fungal cultures added-NGTD TTE did not make note of any vegetations Infectious Disease consulted, appreciate recs. Noted/Stated the following: "Gram-positive bacteremia: Cultures show MSSA. Infection likely started from the skin and may have been present for some time prior to admission. TTE negative, but undelrying endocarditis seems plausible. Her back pain and imaging findings would suggest infection may be present there as well. Retroperitoneal hematoma: I suspect this is either primary MSSA infection or secondarily seeded with MSSA. Plan: "Repeat blood cultures are pending. If these turn positive, will need to repeat in 48 hours in order to document clearance. Although we can hold off on a PADMA right now since she will get a prolonged course of therapy regardless, I would plan on trying to obtain one if her follow-up cultures remain positive. In the meantime, I would D/C the pip-tazo and start her on cefazolin 2g IV q 8 going forward. Based on her imaging findings, I would anticipate her needing a 6 week course. final abx plans remain pending." Continue with IV Cefazolin 2g IV q8h Follow repeat blood cultures Continue to monitor 06/24- repeat blood cultures growing gram positive cocci in clusters once more. Cardiology made aware of need for PADMA. Advised to make NPO. Continue IV cefazolin at this time, will need ID input once more based on PADMA findings. Pelvic fluid collection Retroperitoneal bleed CT Abd/Pelvis: "nonspecific hyperdense fluid in the right pelvis which may represent a very small amount of hematoma or interval development of lymphatic obstruction, less likely a soft tissue mass. No active extravasation is seen." MRI pelvis concerning for infectious myositis and small retroperitoneal bleed Will hold off on anticoagulation in this setting Per , pt has bruised easily with any slight touch for the 38 years he has known her Platelets have been normal PT/INR, apTT, consider further Hematology workup outpt Likely traumatic bleed- pt notes recent falls General surgery consulted, appreciate further recs. Recommended/stated the following: -"Patient has a retroperitoneal hematoma with a small amount of extravasation noted on the pelvic MRI and this was discussed with her and her family that no surgical intervention is needed it should resolve on its own Follow the H&H and within the last 24 hours his bilirubin unchanged On 06/21/2024 hemoglobin was 10.8 On 06/22/2024 hemoglobin 11.1 No surgical intervention at this time with monitor hemoglobin" Hemoglobin 9.4 on 06/23...down from 12.4 on admission Repeated hgb on 06/23 decreased to 8.3 from 9.4, CT abd/pelvis repeated to r/o progressive retroperitoneal bleed. CT noting no bleed at this time but did note possible distal gastritis/proximal duodenitis. H/H stable at this time at 8.0. Continue to monitor Gastritis/Duodenitis CT abd/pelvis 06/23 noting possible distal gastritis/proximal duodenitis Pt started on IV pantoprazole 40mg BID GI consulted, appreciate recs Dyspnea Pt noting she is having trouble breathing on 06/24 Notes unable to take a deep breath CT chest reviewed from admission on 06/20 Chest CTA PE protocol ordered Currently 100% on RA Continue to monitor Leukocytosis Pt presenting with WBC of 39K Noted pt has been on steroids recently with an acute infectious process underlying as well. Elevated likely in setting of above Peripheral smear leaning towards a leukemoid reaction. Pathologist interpretation noted/stated the following: "This peripheral smear for review reveals normochromic/normocytic red blood cells, polychromasia of the red blood cells, scattered echinocytes, cytoplasmic vacuoles within the PMN leukocytes, unremarkable lymphocytes, unremarkable monocytes and unremarkable platelets. The PMN leukocytes lack toxic granulations and Dohle bodies and thus the triad supporting bacteremia/sepsis is not present. Focally, platelet clumping is seen. Blasts, schistocytes and spherocytes are all not seen. Review of the patient's CBC reveals a remarkable leukocytosis at 39.08 times 10 to the ninth per liter, an unremarkable hemoglobin c oncentration at 12.4 g/dL, [place] [address] to the ninth per liter and an absolute neutrophile count of 34.45 times 10 to the ninth per liter. Review of the electronic medical record indicates the patient presented to the emergency department complaining of back pain and falls and was found to have the clinical signs of sepsis. A blood culture is positive to date. She was also found to have atrial fibrillation with rapid ventricular response and the clinicians favor an infectious myositis. Although neutrophilic leukemia certainly exists, I do not favor this diagnosis and of course the best interpretation of this case is a reactive neutrophilia, AKA leukemoid reaction." Hematology was consulted on admission, appreciate recs. noted the following: -"Given that we are dealing with predominantly neutrophilic leukocytosis my impression is that the patient has reactive leukocytosis secondary to severe sepsis. At this point I do not recommend invasive testing such as bone marrow biopsy. Recommend treatment of sepsis and monitoring of blood counts. She does have elevated monocytes however that can also be reactive. Do not see an underlying myeloproliferative condition at this point needing bone marrow test." Continue to trend improving Atrial Fibrillation with RVR Demand Ischemia In ER found to be in atrial fibrillation RVR. Pt denies CP, SOB, palpitations EKG Afib RVR with nonspecific ST changes Trop of 59.8 to 59.2 to 44.6, likely demand ischemia from afib rvr Echo did not make note of any vegetations, EF 65-70%, trace MR TSH wnl In ER given total 2L IVF, given Cardizem bolus and drip with HRs still in 130's Given Lopressor 5mg IV on admission Continued Cardizem drip with conversion to sinus rhythm on 06/21/24 Continue Lopressor 12.5mg Q6H po IV heparin not started in setting of acute retroperitoneal bleed Monitor on telemetry Cardiology consulted, appreciate further recs. Noted/stated the following: "New onset atrial fibrillation with rapid ventricular response for started on Cardizem drip [id number] score 3(hypertension 1, female 1, age 1) She now has converted to sinus rhythm She will need anticoagulation CT abdomen showed hyperdense fluid collection which could represent hematoma or lymphatic collection Make sure there is no hematoma before starting anticoagulation she is dehydrated received 2 L of IV fluids still has dry mouth Elevated troponins in the setting of sepsis, dehydration and A-fib with RVR EKG no evidence of ischemia no Anginal symptoms Echo shows normal wall motion" Continue to monitor on telemetry Back pain Weakness Acute lumbar radiculopathy Lumbar back pain x 8 days. Treated outpatient with oxycodone, muscle relaxers, NSAIDs and on day [address] Lumbar spine: degenerative changes In ER given fentanyl, morphine with reported decreased pain MRI Lumbar spine noting "Intramuscular edema within the mid to lower lumbar paraspinal tissues with heterogeneous enhancement on the left." Pain Control Ortho spine consulted, appreciate recs. Noted/Stated the following: -"Acute left lumbar radiculopathy: Assessment back and leg pain consistent with radiculopathy and possible myositis. Plan MRI lumbar spine available for review does demonstrate evidence of anterior listhesis marked facet hypertrophy L3-L4 L4-L5. The there is significant motion artifact throughout the study compromising my interpretation. There is however marked evidence of edema within the musculature of the lumbar spine multiple foot on the left. At this point I would encourage transitions from bed to chair as tolerated. We could progress to physical therapy if she is able to do so. Ideally would like to update an MRI of the lumbar spine in the next few days when she is more comfortable and we can obtain a more accurate scan. Would also include standing x-rays of the lumbar spine when patient is stable." PT/OT ordered PRATIMA (acute kidney injury) BUN: 84, Cr: 1.5. BUN/Cr ratio: 54. In 2021 Cr: 0.9 with GFR: 64 IVF Monitor renal function, avoid nephrotoxic agents when possible Nephrology consulted, appreciate recs. recommended/stated the following: -"Patient with acute kidney injury likely prerenal azotemia in setting of A- fib RVR and NSAID use. Renal function is now normal. Sodium is down to 128. Will stop IV fluids after current bottle. Discussed need to completely avoid NSAIDs going forward. Workup for source of sepsis is ongoing. Renal will sign off case. Please call if additional questions or concerns Patient is on Lopressor. A-fib RVR is driving the acute kidney injury. Renal function is improving with rate control. Avoid hypotension as above." Currently wnl, improved Acute hyponatremia Na corrected at 130 for glucose: 280 Serum osm 302, urine osm 480, urine Na 35 Nephrology consulted, appreciate recs. Noted/stated the following: "Sodium is down to 128. Will stop IV fluids after current bottle." Neurology consulted once more on 06/23 for Na of 127, appreciate recs Continue to monitor Hypokalemia Replete as needed Hypermagnesemia mag of 2.5 on admission Down to 2.2 Continue to monitor currently normal Anemia Hgb of 12.4 to 10.8 AM anemia panel noting iron level low normal On oral ferrous sulfate with stool softener for constipation Continue to monitor Constipation Noted on CT abd/pelvis from 06/23 "Mild to moderate stool burden" Bowel regimen with scheduled miralax and scheduled docusate sodium Continue to monitor R shoulder pain Reported right shoulder pain, new per pt, while working with PT on 06/23 Hx of falls R shoulder xray pending Pain control Prediabetes Hyperglycemia Random glucose: 280 No former DM diagnosis. Has been on 3 days prednisone Novolog sliding scale A1c of 6.4 PCP followup after discharge Elevated alkaline phosphatase level Elevated t bili t bili 1.[address] with no hepatic abnormalities Hepatic US with no appreciable cause Likely elevated in setting of sepsis Continue to monitor HTN (hypertension) BP stable Will hold home losartan with PRATIMA Diet: DMII DVT prophylaxis: SCDs in setting of retroperitoneal bleed Dispo: PT/OT recs once medically stable Admission and Anticipated Discharge Date Admission Date: June 20, 2024 Subjective pt seen with son and at bedside. AAOx3. Pt states that she has been having trouble breathing, unable to take a deep breath family asking about possible transfer. Pt declining transfer, states she wants PADMA and CT chest done first. Review of Systems Review of Systems: All systems reviewed & are unremarkable except as noted in Subjective Physical Exam Physical Exam: General: Alert,oriented x3 sleepy Skin:bruising noted on back, no open wounds noted Psych: Appropriate mood and affect Neuro:difficulty with any movement in the bed HEENT: NC/AT CV:regular Resp: no increased effort of breathing. Abdomen: Soft, tender Extremities: edema in lower extremities bilaterally. Results & Data Results & Data Vital Signs (Past 12 Hours) Vital Signs Temp Pulse Pulse Resp BP BP Pulse Ox 06/24/24 08:09 83 06/24/24 07:38 06/24/24 07:22 36.4 C L 75 16 137/79 100 06/24/24 02:18 36.3 C L 86 22 150/77 H 100 06/23/24 22:51 36.6 C 92 H 18 146/80 H 98 06/23/24 21:49 91 H 06/23/24 20:45 O2 Del Method 06/24/24 08:09 06/24/24 07:38 Room Air 06/24/24 07:22 Room Air 06/24/24 02:18 Room Air 06/23/24 22:51 Room Air 06/23/24 21:49 06/23/24 20:45 Room Air Diagnostic Findings Abdomen/Pelvis CT 06/20/24 17:44 CT abd pelvis IV con only, CT lumbar spine w con CLINICAL HISTORY: falls, back pain TECHNIQUE: Helical axial images of the abdomen and pelvis were obtained and displayed. Automated dose lowering techniques and/or adjustment according to patient size were utilized for this exam. Dedicated images of the lumbar spine were obtained. This exam was performed with intravenous contrast. COMPARISON: Comparison is made to CT abdomen pelvis 02/11/2013 FINDINGS: Lower chest: For findings above the diaphragm, please see CT chest performed same day. Liver: Unremarkable. No focal lesions are seen. Gallbladder and biliary tree: Patient is status post cholecystectomy. No intra- or extrahepatic biliary ductal dilation. Pancreas: Unremarkable, no focal lesions. Spleen: Splenule is incidentally noted. Adrenals: Unremarkable. Kidneys and ureters: Renal cysts are seen. Bladder: Unremarkable. Reproductive organs: Unremarkable. Bowel: A hiatal hernia is seen. Lymph nodes Retroperitoneal: Unremarkable. Pelvic: Unremarkable. Mesenteric: Unremarkable. Peritoneum: There is a small amount of hyperdense fluid in the right pelvis which results in mild mass effect upon the right internal iliac vein. Vessels: Atherosclerotic calcifications are seen. Abdominal wall: Bilateral fat-containing inguinal hernias are seen. Bones: Degenerative changes in the visualized spine. IMPRESSION: There is nonspecific hyperdense fluid in the right pelvis which may represent a very small amount of hematoma or interval development of lymphatic obstruction, less likely a soft tissue mass. No active extravasation is seen. Follow-up to resolution is recommended to exclude mass. ACT 112: Positive. There are findings on this exam that require communication between the performing entity and the patient following Patient Test Result Information Act ([place] Act 112) guidelines. Electronically signed by: Sagar Kennedy M.D. 06/20/2024 7:[address] 06/20/24 17:44 CT cervical spine wo con CLINICAL HISTORY: falls, pain TECHNIQUE: Multidetector row helical CT of the cervical spine was performed without administration of intravenous contrast. Coronal and sagittal reformations were obtained. Automated dose lowering techniques and/or adjustment according to patient size were utilized for this exam. Comparison: None available at the time of this dictation. FINDINGS: No acute fractures or subluxations are identified. Degenerative changes are seen in the visualized spine. The alignment is normal. Soft tissues are unremarkable. IMPRESSION: Degenerative changes without evidence of acute bony injury. ACT 112: Negative or not required by law. Electronically signed by: Sagar Kennedy M.D. 06/20/2024 6:[address] 06/20/24 17:45 CT head/brain wo con CLINICAL HISTORY: falls, pain Technique: Contiguous axial CT images of the head were acquired from the base of the skull to the vertex without intravenous contrast administration. Images were viewed in brain, subdural and bone windows. Automated dose lowering techniques and/or adjustment according to patient size were utilized for this exam. Comparison: None available at the time of this dictation. Findings: The ventricles, basal cisterns, and cerebral sulci are normal. There is no acute intracranial hemorrhage or evidence of acute territorial infarction. Neither mass effect, shift of the midline structures, nor abnormal extra-axial fluid col lections are shown. And subarachnoid cyst. Imaged portions of the paranasal sinuses and mastoid air cells are clear. The orbits appear normal. There are no acute fractures of the calvaria or scalp swelling. Impression: No acute intracranial hemorrhage, no evidence of acute territorial infarction or other acute intracranial disease process. ACT 112: Negative or not required by law. Electronically signed by: Sagar Kennedy M.D. 06/20/2024 6:[address] 06/20/24 17:45 CT abd pelvis IV con only, CT lumbar spine w con CLINICAL HISTORY: falls, back pain TECHNIQUE: Helical axial images of the abdomen and pelvis were obtained and displayed. Automated dose lowering techniques and/or adjustment according to patient size were utilized for this exam. Dedicated images of the lumbar spine were obtained. This exam was performed with intravenous contrast. COMPARISON: Comparison is made to CT abdomen pelvis 02/11/2013 FINDINGS: Lower chest: For findings above the diaphragm, please see CT chest performed same day. Liver: Unremarkable. No focal lesions are seen. Gallbladder and biliary tree: Patient is status post cholecystectomy. No intra- or extrahepatic biliary ductal dilation. Pancreas: Unremarkable, no focal lesions. Spleen: Splenule is incidentally noted. Adrenals: Unremarkable. Kidneys and ureters: Renal cysts are seen. Bladder: Unremarkable. Reproductive organs: Unremarkable. Bowel: A hiatal hernia is seen. Lymph nodes Retroperitoneal: Unremarkable. Pelvic: Unremarkable. Mesenteric: Unremarkable. Peritoneum: There is a small amount of hyperdense fluid in the right pelvis which results in mild mass effect upon the right internal iliac vein. Vessels: Atherosclerotic calcifications are seen. Abdominal wall: Bilateral fat-containing inguinal hernias are seen. Bones: Degenerative changes in the visualized spine. IMPRESSION: There is nonspecific hyperdense fluid in the right pelvis which may represent a very small amount of hematoma or interval development of lymphatic obstruction, less likely a soft tissue mass. No active extravasation is seen. Follow-up to resolution is recommended to exclude mass. ACT 112: Positive. There are findings on this exam that require communication between the performing entity and the patient following Patient Test Result Information Act ([place] Act 112) guidelines. Electronically signed by: Sagar Kennedy M.D. 06/20/2024 7:[address] 06/20/24 17:46 CT chest diagnostic w con CLINICAL HISTORY: falls, back pain TECHNIQUE: Multidetector row helical CT of the chest was performed with intravenous contrast. Coronal and sagittal reformations were obtained. Automated dose lowering techniques and/or adjustment according to patient size were utilized for this exam. Comparison: Comparison is made to chest radiograph 07/24/2012 FINDINGS: Lungs and pleura: A calcified granuloma is seen. Heart and pericardium: Heart size is normal. No pericardial effusion. Vessels: Moderate atherosclerotic changes in the aorta and coronary arteries. Mediastinum and uriel: Unremarkable. Chest wall and lower neck: Unremarkable. Abdomen: For findings below the diaphragm, please refer to CT of the abdomen dated the same. Bones: Degenerative changes in the thoracic spine. IMPRESSION: No acute abnormalities, in particular no evidence of acute fracture. ACT 112: Negative or not required by law. Electronically signed by: Sagar Kennedy M.D. 06/20/2024 7:06 PM Lumbar Spine MRI 06/21/24 09:20 MR lumbar spine wo/w con CLINICAL HISTORY: 69 years-old Female with f/u hematoma, need to put pt on hep. Acute low back pain with recent fall COMPARISON: CT abdomen and pelvis 06/20/2024, CT lumbar spine 06/20/2024 TECHNIQUE: Multiplanar, multi sequence MRI of the lumbar spine was performed with and without IV contrast FINDINGS: 60 degrees levoscoliosis of the lumbar spine. Motion degraded study with the axial sequences nearly nondiagnostic. No acute fracture, subluxation or erosion. There is edema noted within the paraspinal musculature. Heterogeneous enhanceme nt noted within the left mid to lower lumbar paraspinal tissues on image 16 series 9 Trace free pelvic fluid suggested. Conus medullaris terminates at T12- L1. At T10-T11 there is moderate intervertebral disc space narrowing and circumferential annular disc bulging and moderate facet arthrosis. Moderate central canal stenosis with severe right and moderate left foraminal narrowing. T12-L1: Mild intervertebral disc space narrowing and spondylotic spurring with moderate facet arthrosis. No central canal or neural foraminal narrowing. L1-L2: Mild to moderate intervertebral disc space narrowing and spondylotic spurring with small circumferential annular disc bulge. Ligamentum flavum thickening with moderate facet arthrosis. Mild bilateral foraminal stenosis. L2-L3: Mild to moderate intervertebral disc space narrowing and spondylotic spurring with small circumferential annular disc bulge. Ligamentum flavum thickening with moderate facet arthrosis. Mild central canal stenosis, AP dim ension of the thecal sac measuring 9 mm. Mild bilateral foraminal narrowing. L3-L4: Mild to moderate disc space narrowing and spondylotic spurring with posterior disc osteophyte complex. Severe facet arthrosis with small facet effusions. Severe central canal stenosis with AP dimension of the thecal sac measuring 5 mm. Mild bilateral foraminal narrowing. L4-L5: Mild to moderate intervertebral disc space narrowing with 2 mm degenerative related anterolisthesis. Spondylotic spurring with circumferential annular disc bulging and posterior disc osteophyte complex. Advanced facet arthrosis with facet effusions and ligamentum flavum thickening. Severe central canal narrowing, AP dimension of the thecal sac measuring 5 mm. Moderate bilateral foraminal stenosis. L5-S1: Spondylotic spurring with tiny posterior annular disc bulge. Severe facet arthrosis with facet effusions. Central canal and right neural foramen are patent. Mild left foraminal narrowing. IMPRESSION: 1. The study is very motion degraded. No acute fracture, subluxation or endplate erosion identified. 2. Intramuscular edema within the mid to lower lumbar paraspinal tissues with heterogeneous enhancement on the left. Correlate clinically to exclude an acute muscle strain versus less likely an infectious myositis. 3. Multilevel central canal and neural foraminal narrowing as above. 4. No epidural fluid collections. ACT 112: Negative or not required by law. The above report was generated using voice recognition software. It may contain grammatical, syntax or spelling errors. Electronically signed by: Madhu Alaniz M.D. 06/21/2024 6:00 PM Pelvis MRI 06/21/24 09:20 MR pelvis wo/w con HISTORY: 69 years-old Female f/u hematoma, need to put pt on hep acute pelvic trauma COMPARISON: MRI lumbar spine of same day, CT abdomen and pelvis and lumbar spine studies 06/20/2024 TECHNIQUE: Multiple axial CT images of the pelvis were obtained with and without IV contrast. FINDINGS: Study is very motion degraded. There is edema and small amount of fluid tracking along the right iliacus muscle as seen on image 15 series 5. Additionally, there is focal areas of increased T2 signal noted tracking along the right iliac vessels posterior to the iliopsoas. Mild edema tracks along the iliopsoas myotendinous junction. Findings appear unchanged compared to the comparison CT. Trace free pelvic fluid. Decompressed urinary bladder with Harvey catheter. The uterus is anteflexed. There is prominence of the mid uterine body and fundal myometrium dorsally. The endome trium measures 6 mm in thickness. No acute fracture, dislocation or bone marrow edema. Heterogeneous enhancement of the left paraspinal musculature with areas of increased T2 signal, left greater than right extending from L3-S1. IMPRESSION: 1. Motion degraded exam. 2. No acute fracture or bone marrow edema. 3. Small amount of edema and fluid tracking along the right iliacus and iliopsoas musculature suggestive of acute small retroperitoneal hemorrhage. 4. Edema and enhancement within the paraspinal muscles, left greater than right is also likely posttraumatic. An infectious myositis could appear similarly. Correlate with physical exam findings and patient presentation. 5. Trace free pelvic fluid. 6. Possible fibroid uterus with mild thickening of the postmenopausal endometrium. ACT 112: Negative or not required by law. The above report was generated using voice recognition software. It may contain grammatical, syntax or spelling errors. Electronically signed by: Madhu Alaniz M.D. 06/21/2024 6:00 PM Liver Ultrasound 06/23/24 10:23 US liver CLINICAL HISTORY: elevated liver enzymes TECHNIQUE: Multiple real-time sonographic images of the right upper quadrant were obtained. Comparison: Comparison is made to abdominal ultrasound 07/24/2012 FINDINGS: The liver is diffusely homogenous with normal contour and echogenicity. No focal mass lesions are seen. No intrahepatic ductal dilatation is seen. Patient is status post cholecystectomy. The common duct measures 0.5 cm in diameter at the level of the hepatic artery. The visualized portions of the pancreas appear normal. The right kidney shows normal echogenicity, cortical thickness and renal contour. The right kidney shows no evidence of hydronephrosis or mass. No ascites or free fluid is seen in Ramos's pouch. IMPRESSION: Unremarkable right upper quadrant ultrasound. ACT 112: Negative or not required by law. Electronically signed by: Sagar Kennedy M.D. 06/23/2024 12:14 PM Shoulder X-Ray 06/23/24 16:32 XR shoulder RT min 2V routine CLINICAL HISTORY: R shoulder pain TECHNIQUE: 3 views of the right shoulder were obtained. Comparison: None available at the time of this dictation. FINDINGS: There is no evidence of an acute fracture. Joint spaces are well-preserved. The overlying soft tissues are unremarkable. The visualized portions of the lungs are clear. IMPRESSION: No evidence of acute osseous injury. ACT 112: Negative or not required by law. Electronically signed by: Sagar Kennedy M.D. 06/23/2024 6:51 PM Abdomen/Pelvis CT 06/23/24 18:37 Exam(s): CT ABDOMEN + PELVIS Without Contrast EXAM: CT Abdomen and Pelvis Without Intravenous Contrast CLINICAL HISTORY: r/o worsening bleed, hgb drop to 8.3. TECHNIQUE: Axial computed tomography images of the abdomen and pelvis without intravenous contrast. CTDI is 27.63 mGy and DLP is 1334.26 mGy-cm. Automated exposure control was utilized for the study. A dose lowering technique was utilized adhering to the principles of ALARA. COMPARISON: CT abdomen and pelvis with contrast dated 06/20/2024 FINDINGS: Lung bases: Unremarkable. No mass. No consolidation. ABDOMEN: Liver: Unremarkable. Gallbladder and bile ducts: Cholecystectomy. No ductal dilation. Pancreas: Unremarkable. No ductal dilation. Spleen: Unremarkable. No splenomegaly. Adrenals: Unremarkable. No mass. Kidneys and ureters: Unremarkable. No obstructing stones. No hydronephrosis. Stomach and bowel: Stomach is mild to moderately gas distended. Abnormal mucosal thickening of the pyloric channel and proximal duodenum with a suggestion of adjacent surrounding fat stranding. The unenhanced small and large bowel are otherwise unremarkable. Evaluation of the mucosal pattern is somewhat limited; however, no definite asymmetry. Mild to moderate stool burden. No appreciable diverticulitis. PELVIS: Appendix: No findings to suggest acute appendicitis. Bladder: A Harvey catheter is noted in the predominantly decompressed bladder. No stones. Reproductive: Unremarkable as visualized. ABDOMEN and PELVIS: Intraperitoneal space: Unremarkable. No free air. No significant fluid collection. Retroperitoneal space: No retroperitoneal hematoma noted. Bones/joints: No acute fracture. No dislocation. Soft tissues: Minimal dependent edema noted posteriorly. No abdominal wall hematoma. Vasculature: Unremarkable. No abdominal aortic aneurysm. Lymph nodes: Unremarkable. No enlarged lymph nodes. IMPRESSION: 1. Abnormal mucosal thickening of the pyloric channel and proximal duodenum with a suggestion of adjacent surrounding fat stranding. Suspect distal gastritis/proximal duodenitis. No evidence for perforation, obstruction or adjacent extraluminal hematoma. The small and large bowel is otherwise unremarkable. 2. No other evidence for the patient's reported worsening anemia. No retroperitoneal hematoma. Electronically signed by: Shashank Eubanks MD 06/23/24 21:44 PM
--- NOTE | 2024-06-24 08:52 | Gastrointestinal Consultation ---
<Statement entered by Hyun Varma MD - 06/24/24 17:05> I have examined the patient, reviewed the History & Physical and in the interval since the performance of the History & Physical I have noted the following changes of clinical significance: no changes noted. I agree with the documentation provided by RADHA Perez. No overt evidence of GI bleeding. CT findings noted and do warrant evaluation but risk > benefit of endoscopy at this time as unlikely to represent a significant contributing cause to her current acute presentation. Recommend treatment w PPI and EGD once recovered from other acute issues. Date of Consultation June 24, 2024 Assessment & Plan (1) Abnormal CT scan, stomach: CT suggestive of possible distal gastritis or duodenitis -IV Protonix 40 mg BID -Given acute clinical picture included bacteremia on IV Cefazolin, significant leukocytosis, A fib with RVR, elevated troponin, and imaging concerning for a possible myositis would defer endoscopic evaluation of the CT finding at this time. Can continue PPI therapy conservatively and consider EGD as an outpatient when acute process resolves. -Avoid NSAIDs -Continue to monitor H/H & monitor for overt GI bleeding. Patient's MRI did note concern for retroperitoneal bleeding, CT differs. History of Present Illness Reason for Consultation: Abnormal thickening of the pylorus Attending Physician: Jammie Pereyra MD History of Present Illness Patient is a 69 yo female hospitalized with significant medical issues including gram positive bacteremia with initial WBC count >30,000. She has had back pain and imaging demonstrates a myositis and possible retroperitoneal bleed (on pelvic MRI). She is in A fib with RVR. GI has been consulted due to CT findings of the pylorus suggestive of duodenitis/distal gastritis. Patient has been on Ibuprofen & Prednisone at home and taking a significant amount per family. PCR suggest staph is positive. Blood cultures pending. H/H is 8.0/23.9. BUN 29/Cr 0.66. This is a notable change in her H/H from admission when her hemoglobin was 12.4. Family at bedside & patient report that she has not had findings of hematochezia, hematemesis, coffee ground emesis, melena. She has a history of GERD and large hiatal hernia, both which resolved after her Zakia Fundoplication years ago. CT read as follows: IMPRESSION: 1. Abnormal mucosal thickening of the pyloric channel and proximal duodenum with a suggestion of adjacent surrounding fat stranding. Suspect distal gastritis/proximal duodenitis. No evidence for perforation, obstruction or adjacent extraluminal hematoma. The small and large bowel is otherwise unremarkable. 2. No other evidence for the patient's reported worsening anemia. No retroperitoneal hematoma. Allergies Allergy/AdvReac Type Severity Reaction Status Date / Time No Known Allergies Allergy Unverified 06/20/24 19:48 Home Medications Medication Instructions Recorded Confirmed Type Collagen Tab 3 tabs PO QAM 06/20/24 06/20/24 History acetaminophen 500 mg tablet 1,000 mg PO Q6H PRN Pain 06/20/24 06/20/24 History (Tylenol Extra Strength) calcium carbonate (Calcium 600) 600 mg PO DAILY 06/20/24 06/20/24 History glucosamine-chondroitin 250 mg-200 2 tab PO DAILY 06/20/24 06/20/24 History mg tablet (Osteo Bi-Flex) ibuprofen 200 mg tablet 600 - 800 mg PO Q8 PRN Pain 06/20/24 06/20/24 History losartan 50 mg tablet 50 mg PO QAM 06/20/24 06/20/24 History magnesium oxide 400 mg PO DAILY 06/20/24 06/20/24 History oxycodone 5 mg tablet 5 mg PO Q6 PRN Pain 06/20/24 06/20/24 History prednisone 20 mg tablet 2 mg PO .TAPER UD 06/20/24 06/20/24 History tizanidine 4 mg tablet 4 mg PO Q6 PRN .Muscle pain 06/20/24 06/20/24 History turmeric 400 mg capsule 0 mg PO QAM 06/20/24 06/20/24 History vitamin B complex 1 tab PO DAILY 06/20/24 06/20/24 History Patient History Medical History HTN (hypertension) Surgical History H/O section History of cholecystectomy Hx of tonsillectomy History of Zakia fundoplication Family History Other Heart disease Hypertension Social History Smoking Status: Never smoker Hx Alcohol Use: Yes Alcohol type: wine Alcohol Intake Frequency: 2-4 x/Month Hx Substance Use: No Preferred Language: Turkish Communication Ability: Effective Field Secretary Required: No Beliefs That Will Affect Care: None Current Living Situation: Spouse Feels Safe at Home: Yes Safety Concerns: Feels Safe At This Time Assistive Devices: Cane Review of Systems Constitutional: no fever Gastrointestinal: no abdominal pain, no coffee ground emesis, no hematemesis, no blood in stools and no melena Psychiatric: no problem reported Physical Exam Constitutional: well developed Respiratory: normal respiratory effort Gastrointestinal (Abdomen): normal bowel sounds, soft, nontender, no hepatosplenomegaly Psychiatric: Orientation: alert and oriented x 3 Results & Data Vital Signs (Past 12 Hours) Vital Signs Temp Pulse Pulse Resp BP BP Pulse Ox 06/24/24 08:09 83 06/24/24 07:38 06/24/24 07:22 36.4 C L 75 16 137/79 100 06/24/24 02:18 36.3 C L 86 22 150/77 H 100 06/23/24 22:51 36.6 C 92 H 18 146/80 H 98 06/23/24 21:49 91 H O2 Del Method 06/24/24 08:09 06/24/24 07:38 Room Air 06/24/24 07:22 Room Air 06/24/24 02:18 Room Air 06/23/24 22:51 Room Air 06/23/24 21:49 PG Care Time/CCT Total # of Minutes Spent Total Time Spent with Patient: Total time spent is greater than 50% in coordination of care (as documented) at patient's floor/unit and/or counseling patient: Coding Level of Care Code 01083 INT INP/OBS CARE 3/75MIN Diagnoses Abnormal CT scan, stomach R93.3
[2024-06-24 09:17] LABS: Alpha 1 Globulin 0.6 g/dL (0.2-0.3); Beta-1-Globulin 0.3 g/dL (0.4-0.6); Beta-2-Globulin 0.3 g/dL (0.2-0.5); Gamma Globulin 0.6 g/dL (0.8-1.7); Monoclonal Protein Band 1 DNR g/dL (NONE DETECTED); Monoclonal Protein Band 2 DNR g/dL (NONE DETECTED); Monoclonal Protein Band 3 DNR g/dL (NONE DETECTED); Total Protein 4.9 g/dL (6.1-8.1)
--- NOTE | 2024-06-24 09:57 | Nephrology Progress Note ---
Date of Service June 24, 2024 Assessment & Plan (1) Hyponatremia with decreased serum osmolality: Plan: serum sodium 127 on presentation, improved next day to 134, since then down trending steadily, to jina 125 PM of 06/23, up to 128 on 06/24. 06/22 >> uOsm 629; sOsm 270, Raimundo <10 and uCl 25. Labs most c/w volume depletion, not unthinkable in setting of bacteremia; however her BUN is downtrending and rest of chem panel does not really suggest contraction or volume depletion. She remains 2.5L + on the admission so far, w/ inconsistent wts on obligate bed weight> difficult to evaluate for trend/signficance here. she's not eating well though seems to be drinking plenty responded well to 1L NS yesterday >> overall will continue to treat as volume depletion; repeat urine studies this am suggest ongoing significant volume depletion; not clear how long these urine studies will be consistent/ supportive of pt status but will continue to monitor frequently for now >will give 1L NS through the day, repeat urine studies and bmp 1999 >> orders in >ordered repeat urine studies for AM as well >encourage protein/calorie intake >> she's interested in tofu and/or milkshakes w/ protein powder >> both fine >for now no fluid limit >continue strict I/O >pls work at consistent technique for bedweights -maintain eukalemia care coordinated w/ Dr Pereyra re labs, IVF and we are in agreemetn. Admission and Anticipated Discharge Date Admission Date: June 20, [address] yesterday and GI c/s today for possible duodenitis/gastritis > endoscopy deferred; pt on IV PPI. ongoing diffuse / severe pain, though not abd any more. c/o constipation. no sob, no n/v. still very weak and fatigued. Review of Systems 2 Review of Systems: All systems reviewed & are unremarkable except as noted in Subjective Physical Exam 2 Constitutional: well developed, well nourished and cooperative; no acute distress Eyes: EOM intact bilaterally ENMT: Ears: no external ear abnormality Nose: no external nose abnormality Mouth: + dry oral mucous membranes Neck: no nuchal rigidity (not rigid but stiff) Respiratory: normal respiratory effort Auscultation: + diminished lung sounds Cardiovascular: Rate/Rhythm: regular rate and regular rhythm Extremities: n o edema Gastrointestinal (Abdomen): Inspection/Auscultation: normal bowel sounds P ercussion/Palpation: abdomen soft; abdomen nontender Musculoskeletal: Extremities: + abnormal strength Skin: no rashes, warm and dry Psychiatric: Orientation: alert and oriented x 3 Results & Data Vital Signs (Past 12 Hours) Vital Signs Temp Pulse Pulse Resp BP BP Pulse Ox 06/24/24 08:09 83 06/24/24 07:38 06/24/24 07:22 36.4 C L 75 16 137/79 100 06/24/24 02:18 36.3 C L 86 22 150/77 H 100 06/23/24 22:51 36.6 C 92 H 18 146/80 H 98 O2 Del Method 06/24/24 08:09 06/24/24 07:38 Room Air 06/24/24 07:22 Room Air 06/24/24 02:18 Room Air 06/23/24 22:51 Room Air Laboratory Results 06/24/24 06:10 06/24/24 06:[address] abd reviewed
[2024-06-24] MEDS: PANTOprazole 40 MG in SYRINGE 0 ML IV SCH (09:59)
[2024-06-24] MEDS ORDERED: SODIUM CHLORIDE 0.9% 500 ML IV SCH (10:00)
[2024-06-24] MEDS: SODIUM CHLORIDE 0.9% 1,000 ML IV SCH (10:26)
[2024-06-24 11:49] LABS: Urine Potassium 38.8 mmol/L
[2024-06-24] MEDS: OPTIRAY 320 100ml IV ONE (12:59)
--- NOTE | 2024-06-24 13:31 | Cardiology Progress Note ---
Date of Service June 24, 2024 Assessment & Plan (1) Atrial fibrillation with rapid ventricular response: (2) Acute hyponatremia: (3) Elevated troponin: (4) Leukocytosis: (5) Pelvic fluid collection: (6) Gram-positive bacteremia: Plan 1. Persistent bacteremia despite antibiotic therapy Discussed transesophageal echocardiogram with patient. No contraindications to anesthesia though somewhat somnolent. No partial or denture plate, loose dentition Mild dysphagia in the past with notable prior Zakia fundoplication in the remote past possible recent gastritis Plan transesophageal echocardiogram in a.m. Will not transverse GE junction. N.p.o. after midnight 2. Transient atrial fibrillation during acute illness on presentation. Currently on metoprolol tartrate 12.5 mg every 6 hours will simplify to 25 mg twice per day Admission and Anticipated Discharge Date Admission Date: June 20, 2024 Subjective Patient seen and examined in the setting of 's presence Patient referred for persistent bacteremia uncertain source PADMA recommended by infectious disease Initial echocardiogram without significant valvular pathology though limited study Results & Data Vital Signs (Past 12 Hours) Vital Signs Temp Pulse Pulse Resp BP BP Pulse Ox 06/24/24 11:27 36.5 C 87 19 159/90 H 99 06/24/24 08:09 83 06/24/24 07:38 06/24/24 07:22 36.4 C L 75 16 137/79 100 06/24/24 02:18 36.3 C L 86 22 150/77 H 100 O2 Del Method 06/24/24 11:27 Room Air 06/24/24 08:09 06/24/24 07:38 Room Air 06/24/24 07:22 Room Air 06/24/24 02:18 Room Air
--- NOTE | 2024-06-24 13:50 | CT Scan Report ---
CT abd pelvis IV con only CLINICAL HISTORY: SOB TECHNIQUE: Helical axial images of the abdomen and pelvis were obtained and displayed. Automated dose lowering techniques and/or adjustment according to patient size were utilized for this exam. This e xam was performed with intravenous contrast. CT DOSE: 1434.4 mGy.cm COMPARISON: Comparison is made to CT abdomen pelvis 06/23/2024 FINDINGS: Lower chest: No acute abnormality. Liver: Unremarkable. No focal lesions are seen. Gallbladder and biliary tree: Patient is status post cholecystectomy. No intra- or extrahepatic bilia ry ductal dilation. Pancreas: Unremarkable, no focal lesions. Spleen: Splenule is incidentally noted. Adrenals: Unremarkable. Kidneys and ureters: Renal cysts are seen. Bladder: Harvey catheter is seen. Reproductive organs: Unremarkable. Bowel: Diverticulosis is seen without evidence of diverticulitis. Wall thickening is seen in the stom ach with surrounding fat stranding. A small hiatal hernia is seen. A small cluster of subcentimeter p araesophageal lymph nodes are seen. Lymph nodes Retroperitoneal: Unremarkable. Pelvic: Unremarkable. Mesenteric: Subcentimeter lymph nodes are seen most prominently around the gastritis Peritoneum: Trace free fluid in the pelvis is likely physiologic. Vessels: Atherosclerotic calcifications are seen. Abdominal wall: Unremarkable. Bones: Degenerative changes in the visualized spine. IMPRESSION: Gastric wall thickening with surrounding fat stranding and lymph nodes. Findings concerning for gastr itis with possible associated duodenitis. ACT 112: Negative or not required by law. Electronically signed by: Sagar Kennedy M.D. 06/24/2024 1:49 PM
--- NOTE | 2024-06-24 15:07 | CT Scan Report ---
CT angio chest PE protocol CLINICAL HISTORY: PE TECHNIQUE: Multidetector row helical CT of the chest was performed with angiographic protocol. Henderson l and sagittal reformations were obtained. Coronal and sagittal MIPS were obtained from the axial melissa a set and were submitted for review. Automated dose lowering techniques and/or adjustment according to patient size were utilized for this exam. CT DOSE: 894.56 mGy.cm Comparison: Comparison is made to chest 06/20/2024 FINDINGS: Lungs and pleura: Bronchial wall thickening is seen. Heart and pericardium: Heart size is normal. No pericardial effusion. Vessels: Moderate atherosclerotic changes in the aorta and coronary arteries. Mediastinum and uriel: Subcentimeter lymph nodes are seen. Chest wall and lower neck: Unremarkable. Abdomen: A hiatal hernia is seen. Bones: Degenerative changes in the thoracic spine. IMPRESSION: 1. No acute abnormality and in particular no evidence of pulmonary embolus. 2. Bronchial wall thickening is more conspicuous than in the prior exam and may represent infectious /inflammatory airways disease. ACT 112: Negative or not required by law. Electronically signed by: Sagar Kennedy M.D. 06/24/2024 3:05 PM
[2024-06-24] MEDS ORDERED: ALBUTEROL HFA 8 GM INHALER INH PRN (16:42)
[2024-06-24] MEDS: OPTIRAY 320 125ml IV ONE (16:52)
[2024-06-24] MEDS: METOPROLOL TARTRATE 25 MG TAB PO SCH (17:34)
[2024-06-24] MEDS: POLYETHYLENE (MIRALAX) 17 GM PACK PO SCH (20:14)
[2024-06-24 20:58] LABS: BUN Creatinine Ratio 39.7 (10-20); Creatinine Clr Calc Pharmacy 99.3 ml/min; Est GFR (African American) 105.3 ml/min; Est GFR (Non-African American) 90.9 ml/min; Potassium 3.9 mmol/L (3.5-5.1)
[2024-06-25 06:41] LABS: Hematocrit (blood only) 18.9 % (37.0-47.0); Hemoglobin 6.4 g/dl (12.0-16.0); Mean Corpuscular Hemoglobin 29.9 pg (25.0-34.0); Mean Corpuscular Hgb Conc 33.9 g/dL (32.0-36.0); Mean Corpuscular Volume 88.3 fL (80.0-100.0); Mean Platelet Volume 10.2 fL (9.4-12.4); Platelet Count 393 K/uL (130-400); RDW Standard Deviation 41.4 fL (36.4-46.3); Red Blood Count 2.14 M/uL (4.20-5.40)
[2024-06-25 06:49] LABS: Albumin Level 2.3 gm/dl (3.4-5.0); BUN Creatinine Ratio 36.2 (10-20); Bilirubin,Total 0.8 mg/dl (0.2-1.0); Calcium 7.5 mg/dl (8.6-10.3); Creatinine Clr Calc Pharmacy 107.9 ml/min; Est GFR (African American) 108.2 ml/min; Est GFR (Non-African American) 93.4 ml/min; Globulin 2.4 gm/dl (2.5-4.0); Magnesium 2.1 mg/dl (1.7-2.4); Phosphorus 2.8 mg/dl (2.5-4.9); Potassium 3.9 mmol/L (3.5-5.1); Total Protein 4.7 gm/dl (6.0-8.3)
[2024-06-25] MEDS ORDERED: SODIUM CHLORIDE 0.9% 250 ML IV PRN (06:51)
--- NOTE | 2024-06-25 06:51 | Communication Note ---
Date of Service: June 25, 2024
[2024-06-25 07:13] LABS: Basophils # (auto) 0.03 K/uL (0.00-0.20); Basophils % (auto) 0.1 %; Eosinophils # (auto) 0.12 K/uL (0.00-0.50); Eosinophils % (auto) 0.6 %; Immature Granulocytes # (auto) 1.37 K/uL (0.01-0.20); Immature Granulocytes % (auto) 6.5 %; Lymphocytes # (auto) 2.15 K/uL (1.20-3.40); Lymphocytes % (auto) 10.1 %; Monocytes # (auto) 1.21 K/uL (0.11-0.59); Monocytes % (auto) 5.7 %; Neutrophils # (auto) 16.32 K/uL (1.40-6.50); RBC Morphology Unremarkable
--- NOTE | 2024-06-25 07:56 | XRay Report ---
XR chest 1V portable CLINICAL HISTORY: sob TECHNIQUE: Single frontal radiograph of the chest was obtained. Comparison: Comparison is made to chest radiograph 07/24/2012 FINDINGS: No lines and tubes are seen. The cardiomediastinal silhouette is normal. The lungs are clear. No evid ence of pleural effusion or pneumothorax. IMPRESSION: No acute abnormalities and in particular no radiographic evidence of pneumonia. ACT 112: Negative or not required by law. Electronically signed by: Sagar Kennedy M.D. 06/25/2024 7:54 AM
[2024-06-25 09:35] LABS: Reticulated Hemoglobin 35.8 pg (28.2-36.6); Reticulocyte % 2.76 % (0.50-2.00); Reticulocytes # 0.06 10^6/uL (0.020-0.100)
[2024-06-25 09:42] LABS: Fibrinogen 529 mg/dl (184-400)
[2024-06-25 09:57] LABS: Folate (Folic Acid),Ser orPlas 15.21 ng/ml (>5.38)
--- NOTE | 2024-06-25 10:18 | Nephrology Progress Note ---
Date of Service June 25, 2024 Assessment & Plan (1) Hyponatremia with decreased serum osmolality: Plan: serum sodium 127 on presentation, improved next day to 134, since then down trending steadily, to jina 125 PM of 06/23, up to 128 on 06/24, 129 on 06/25. 06/22 >> uOsm 629; sOsm 270, Raimundo <10 and uCl 25. Sodium labs most c/w volume depletion, not unthinkable in setting of bacteremia; however her BUN is downtrending and rest of chem panel does not really suggest contraction or volume depletion. NPO currently. w/ inconsistent wts on obligate bed weight> difficult to evaluate for trend/signficance here. responded well to 1L NS and was giving more but sob so stopped >> overall will continue to treat as volume depletion; repeat urine studies this am suggest ongoing significant volume depletion; not clear how long these urine studies will be consistent/ supportive of pt status but will continue to monitor frequently for now >no further saline today; repeat bmp in AM or again this PM as well; this moderate /stable hyponatremia is least of her issues >encourage protein/calorie intake when taking po again >> she's interested in tofu and/or milkshakes w/ protein powder >> both fine >for now no fluid limit >continue strict I/O >pls work at consistent technique for bedweights -maintain eukalemia updated both MD and RN re chest pressure care coordinated w/ Dr Toyin painter labs, symptoms, differential; we are in agreement Admission and Anticipated Discharge Date Admission Date: June 20, 2024 Subjective for PADMA today but cancelled d/t worsenign anemia needing pRBC. for ? endoscopy today. no clear source. ongoing significant neck/back/ R hip stiffness/pain. no sob (did have soem transiently yesterday PM). no current L sided chest pressure but did have soem for about an hour earlier today first ever non radiating, no assoc sx, non reproducible. Review of Systems 2 Review of Systems: All systems reviewed & are unremarkable except as noted in Subjective Physical Exam 2 Constitutional: well developed, well nourished and cooperative; no acute distress Eyes: EOM intact bilaterally ENMT: Ears: no external ear abnormality Nose: no external nose abnormality Mouth: + muffled voice (hoarse as prev evals) and + dry oral mucous membranes Neck: no nuchal rigidity (not rigid but stiff) Respiratory: normal respiratory effort Auscultation: + diminished lung sounds Cardiovascular: Rate/Rhythm: regular rate and regular rhythm Extremities: n o edema Gastrointestinal (Abdomen): Inspection/Auscultation: normal bowel sounds P ercussion/Palpation: abdomen soft; abdomen nontender Musculoskeletal: Extremities: + abnormal strength (needs 2 person assist to roll in bed) Skin: no rashes, warm and dry Psychiatric: Orientation: alert and oriented x 3 Results & Data Vital Signs (Past 12 Hours) Vital Signs Temp Pulse Pulse Resp BP BP BP 06/25/24 09:55 36.5 C 85 18 160/70 H 06/25/24 08:05 36.7 C 81 18 146/73 H 06/25/24 02:49 36.6 C 84 18 123/70 06/24/24 23:03 36.5 C 85 20 122/71 Pulse Ox O2 Del Method 06/25/24 09:55 96 06/25/24 08:05 99 Room Air 06/25/24 02:49 97 Room Air 06/24/24 23:03 98 Room Air Laboratory Results 06/25/24 05:41 06/25/24 05:41
--- NOTE | 2024-06-25 11:20 | Gastroenterology Progress Note ---
<Statement entered by Hyun Varma MD - 06/25/24 17:27> I have examined the patient, reviewed the History & Physical and in the interval since the performance of the History & Physical I have noted the following changes of clinical significance: no changes noted. I agree with the documentation provided by RADHA Perez with no additional comments. Planned combo EGD/PADMA w cardiology for tomorrow and discussed morena Lopez's but shortly thereafter received word that she is to be transferred after a brain MRI prelim read found a cerebellar stroke. Procedures cancelled. Date of Service June 25, 2024 Assessment & Plan (1) Anemia: (2) Abnormal CT scan, stomach: Plan GI was contacted regarding EGD given H/H of 6.4/18.9. Dr. Varma would like to coordinate care with cardiology and do a combined PADMA & EGD. Continue IV Protonix 40 mg BID. Continue to transfuse PRBCs per hospitalist orders. Will need H/H up to move forward. Continue to monitor for overt GI bleeding. Given significant drop in hemoglobin, would have expected to see blood if this was a true GI bleed. Perhaps consider a hematology consult as well. Will work with cardiology, endoscopy unit, & anesthesia to coordinate care. Hospitalist updated. Admission and Anticipated Discharge Date Admission Date: June 20, 2024 Subjective Patient is a 69 yo female GI is following for profound anemia. H/H is down to 6.4/18.9. No overt GI bleeding. No new symptoms. Review of Systems Gastrointestinal: no abdominal pain, no coffee ground emesis, no blood in stools and no melena Physical Exam Constitutional: well developed Respiratory: normal respiratory effort Gastrointestinal (Abdomen): normal bowel sounds, soft, nontender, no h epatosplenomegaly Psychiatric: Orientation: alert and oriented x 3 Results & Data Results & Data Vital Signs (Past 12 Hours) Vital Signs Temp Pulse Pulse Resp BP BP BP 06/25/24 10:56 36.7 C 75 16 144/78 H 06/25/24 10:26 36.6 C 88 14 157/77 H 06/25/24 10:11 36.6 C 81 16 147/68 H 06/25/24 09:55 36.5 C 85 18 160/70 H 06/25/24 08:05 36.7 C 81 18 146/73 H 06/25/24 02:49 36.6 C 84 18 123/70 Pulse Ox O2 Del Method 06/25/24 10:56 100 06/25/24 10:26 92 06/25/24 10:11 98 06/25/24 09:55 96 06/25/24 08:05 99 Room Air 06/25/24 02:49 97 Room Air PG Care Time/CCT Total # of Minutes Spent Total Time Spent with Patient: Total time spent is greater than 50% in coordination of care (as documented) at patient's floor/unit and/or counseling patient: Coding Level of Care Code 18236 SUB INP/OBS CARE 3/50MIN Diagnoses Anemia D64.[address] scan, stomach R93.3
--- NOTE | 2024-06-25 11:34 | Cardiology Progress Note ---
Date of Service June 25, 2024 Assessment & Plan (1) Gram-positive bacteremia: Plan 69-year-old with persistent bacteremia Gram-positive cocci without distinct source PADMA recommended Procedure this morning canceled due to drop in hemoglobin We will reschedule for a.m. pending review of data Admission and Anticipated Discharge Date Admission Date: June 20, 2024 Subjective Patient scheduled for transesophageal echocardiogram this morning. Study canceled due to drop in hemoglobin Currently hemodynamically stable Anticipated EGD possibly later today Results & Data Vital Signs (Past 12 Hours) Vital Signs Temp Pulse Pulse Resp BP BP BP 06/25/24 10:56 36.7 C 75 16 144/78 H 06/25/24 10:26 36.6 C 88 14 157/77 H 06/25/24 10:11 36.6 C 81 16 147/68 H 06/25/24 09:55 36.5 C 85 18 160/70 H 06/25/24 08:05 36.7 C 81 18 146/73 H 06/25/24 02:49 36.6 C 84 18 123/70 Pulse Ox O2 Del Method 06/25/24 10:56 100 06/25/24 10:26 92 06/25/24 10:11 98 06/25/24 09:55 96 06/25/24 08:05 99 Room Air 06/25/24 02:49 97 Room Air
--- NOTE | 2024-06-25 11:35 | Anesthesiology Consultation ---
Date of Service June 25, 2024 Assessment & Plan Chart Review Chart Review: Acceptable Risk for Surgery and Patient NOT seen in Pre Admission Testing Consults Requested none History Surgery Operation Date: 06/25/24 07:30 Proposed Procedures p Transesophageal Echo w/Anesthesia - Jassi Madison MD Operation Date: 06/26/24 07:15 Proposed Procedures p Transesophageal Echo w/Anesthesia - Jassi Madison MD Height/Weight Height: 5 ft 5 in Weight: 103.9 kg Allergies Allergy/AdvReac Type Severity Reaction Status Date / Time No Known Allergies Allergy Unverified 06/20/24 19:48 Medications Home Medications Medication Instructions Recorded Confirmed Last Taken Collagen Tab 3 tabs PO QAM 06/20/24 06/20/24 Unknown acetaminophen 500 mg tablet 1,000 mg PO Q6H PRN Pain 06/20/24 06/20/24 Unknown (Tylenol Extra Strength) calcium carbonate (Calcium 600) 600 mg PO DAILY 06/20/24 06/20/24 Unknown glucosamine-chondroitin 250 mg-200 2 tab PO DAILY 06/20/24 06/20/24 Unknown mg tablet (Osteo Bi-Flex) ibuprofen 200 mg tablet 600 - 800 mg PO Q8 PRN Pain 06/20/24 06/20/24 Unknown losartan 50 mg tablet 50 mg PO QAM 06/20/24 06/20/24 Unknown magnesium oxide 400 mg PO DAILY 06/20/24 06/20/24 Unknown oxycodone 5 mg tablet 5 mg PO Q6 PRN Pain 06/20/24 06/20/24 Unknown prednisone 20 mg tablet 2 mg PO .TAPER UD 06/20/24 06/20/24 06/20/24 tizanidine 4 mg tablet 4 mg PO Q6 PRN .Muscle pain 06/20/24 06/20/24 Unknown turmeric 400 mg capsule 0 mg PO QAM 06/20/24 06/20/24 Unknown vitamin B complex 1 tab PO DAILY 06/20/24 06/20/24 Unknown Active Medications Generic Name Dose Route Start Last Admin Trade Name Freq PRN Reason Stop Dose Admin Acetaminophen 650 mg 06/20/24 21:22 06/21/24 21:00 Acetaminophen 325 Mg Tab PO 07/20/24 21:21 650 mg Q4H PRN Administration Pain or Fever Diclofenac Sodium 2 gm 06/21/24 21:07 06/24/24 17:54 Diclofenac Sod 1% Gel 100 Gm Tube EXT 07/21/24 21:06 2 gm Q6H PRN Administration joint pain Protocol Docusate Sodium 100 mg 06/22/24 21:00 06/25/24 10:02 Docusate Sodium 100 Mg Cap PO 07/22/24 20:59 100 mg BID NANETTE Administration Ferrous Sulfate 325 mg 06/22/24 15:30 06/25/24 10:02 Ferrous Sulfate 325 Mg Tab PO 07/22/24 15:29 325 mg QAM NANETTE Administration Cefazolin Sodium 2,000 mg in 15 mls @ 3.75 mls/min 06/23/24 14:00 06/25/24 06:14 Ancef 2000mg IV 07/07/24 13:59 3.75 mls/min Q8H NANETTE Administration Pantoprazole Sodium 40 mg/ 10 mls @ 5 mls/min 06/24/24 09:00 06/25/24 10:02 Syringe IV 07/24/24 08:59 5 mls/min BID NANETTE Administration Sodium Chloride 1,000 mls @ 125 mls/hr 06/24/24 10:15 06/24/24 14:44 Nss IV 07/24/24 10:14 0 mls/hr .Q8H NANETTE Infusion Insulin Aspart 0 units 06/20/24 21:22 06/25/24 09:58 Insulin Aspart Per Unit Charge SC 07/20/24 21:21 Not Given ACHS NANETTE Lidocaine 1 patch 06/21/24 21:15 06/24/24 20:14 Lidocaine 5% 1 Patch TD 07/21/24 21:14 1 patch HS NANETTE Administration Metoprolol Tartrate 25 mg 06/24/24 17:00 06/25/24 10:02 Metoprolol Tartrate 25 Mg Tab PO 07/24/24 16:59 25 mg [id number] NANETTE Administration Miscellaneous 1 each 06/22/24 09:00 06/25/24 10:02 Remove Lidoderm Patch N/A 07/22/24 08:59 1 each DAILY NANETTE Administration Morphine Sulfate 3 mg 06/20/24 21:22 06/21/24 20:59 Morphine Sulfate 4 Mg/Ml 1 Ml Carp\Vial IV 07/04/24 21:21 3 mg Q4H PRN Administration Severe Pain (Scale 7, 8, 9,10) Ondansetron HCl 4 mg 06/20/24 21:22 06/21/24 20:59 Ondansetron Inj 2 Mg/Ml 2 Ml Vial IV 07/20/24 21:21 4 mg Q6H PRN Administration Nausea Polyethylene Glycol 17 gm 06/24/24 21:00 06/25/24 10:02 Polyethylene (Miralax) 17 Gm Pack PO 07/24/24 20:59 17 gm BID NANETTE Administration Past Medical History Medical History HTN (hypertension) Past Family History Family History Other Heart disease Hypertension Past Surgical History Surgical History H/O section History of cholecystectomy Hx of tonsillectomy History of Zakia fundoplication Social History Smoking Status: Never smoker Hx Alcohol Use: Yes Alcohol type: wine alcohol intake frequency: a few times a week Hx Substance Use: No Review of Systems ROS Unobtainable: All systems reviewed & are unremarkable except as noted in HPI & below Physical Exam Vital Signs Last Vital Signs Temp 36.7 C 06/25/24 10:56 Pulse 75 06/25/24 10:56 Resp 16 06/25/24 10:56 BP 144/78 H 06/25/24 10:56 Pulse Ox 100 06/25/24 10:56 O2 Del Method Room Air 06/25/24 08:05 O2 Flow Rate 3 06/22/24 07:44 Testing Laboratory Results 06/25/24 05:41 06/25/24 05:41 PT 10.9 Seconds (9.0-12.0) 06/23/24 07:25 INR 1.0 (0.9-1.1) 06/23/24 07:25 APTT 23 Seconds (21-31) 06/24/24 06:10 Hemoglobin A1c 6.4 % (4.5-5.6) H 06/21/24 08:07 Urine Color Dark Yellow 06/24/24 05:35 Urine Appearance Clear (Clear) 06/24/24 05:35 Urine pH 6.0 (4.5-7.5) 06/24/24 05:35 Ur Specific [place] 1.023 (1.000-1.030) 06/24/24 05:35 Urine Protein Trace (Negative) H 06/24/24 05:35 Urine Glucose (UA) Negative (Negative) 06/24/24 05:35 Urine Ketones Negative (Negative) 06/24/24 05:35 Urine Nitrite Negative (Negative) 06/24/24 05:35 Ur Leukocyte Esterase Negative (Negative) 06/24/24 05:35 Urine WBC (Auto) 0-5 /hpf (0-5) 06/24/24 05:35 Urine RBC (Auto) 3-5 /hpf (0-2) H 06/24/24 05:35 U Hyaline Cast (Auto) 3-5 /lpf (0-2) H 06/24/24 05:35 U Epithel Cells (Auto) 0-2 /hpf (0-2) 06/24/24 05:35 Urine Bacteria (Auto) None Seen (None Seen) 06/24/24 05:35 Blood Type A Positive 06/25/24 07:03 Antibody Screen NEGATIVE 06/25/24 07:03 06/23/24 10:21 Aerobic Blood Culture - Preliminary Blood Staphylococcus species Anaerobic Blood Culture - Preliminary No growth in Anaerobic bottle after 48 hours. 06/23/24 10:16 Aerobic Blood Culture - Preliminary Blood Staphylococcus species Anaerobic Blood Culture - Preliminary No growth in Anaerobic bottle after 48 hours. 06/20/24 19:05 Aerobic Blood Culture - Final Blood Staphylococcus aureus Anaerobic Blood Culture - Final Staphylococcus aureus 06/20/24 18:56 Aerobic Blood Culture - Final Blood Staphylococcus aureus Anaerobic Blood Culture - Final Staphylococcus aureus 06/21/24 22:25 Fungal Smear - Final Blood Electrocardiogram Date: 06/20/24 Atrial fibrillation with rapid ventricular response Nonspecific T wave abnormality Abnormal ECG When compared with ECG of 20-JUN-2024 17:52, Nonspecific T wave abnormality, worse in Lateral leads Confirmed by Yordy Browning ([id number]) on 06/21/2024 7:48:28 AM Chest X-Ray Date: 06/25/24 No acute abnormalities and in particular no radiographic evidence of pneumonia. Echocardiogram Date: 06/21/24 EF: 65-[address] abdomen/pelvis IMPRESSION: Gastric wall thickening with surrounding fat stranding and lymph nodes. Findings concerning for gastritis with possible associated duodenitis.
--- NOTE | 2024-06-25 11:36 | Hospitalist Progress Note ---
Date of Service June 25, 2024 Assessment & Plan (1) Atrial fibrillation with rapid ventricular response: (2) Elevated troponin: (3) Back pain: (4) Weakness: (5) PRATIMA (acute kidney injury): (6) Leukocytosis: (7) Acute hyponatremia: (8) Pelvic fluid collection: (9) Hyperglycemia: (10) Elevated alkaline phosphatase level: (11) HTN (hypertension): Plan Ms. Espino is a 69 year old female with PMHx of HTN, dyslipidemia, anxiety who admitted on 06/20 for back pain and weakness. Found to be septic in the setting of a possible infectious myositis with retroperitoneal bleed. Ortho evaluated patient given acute radiculopathy: new MRI lumbar when able to tolerate Nephrology following for hyponatremia which has been trending in mid-high 120s. GI following for duodenitis findings on CT and corresponding acute anemia Cardiology following iso persistent anemia and PADMA coordination ID on consult for abx recommendations #Sepsis, POA resolving #MSSA bacteremia, persistent, source unknown #Possible infectious Myositis WBC to 39.9, Lactate 2.2 on admission, downtrending Procal elevated at 2.87 UA not suggestive of infection Negative Lyme screen, Negative flu, RSV and COVID-19 PCR Chest CTA 06/23: questionable bornchitis CT abd/pelvis and CT lumbar spine noting possible mass vs hematoma MRI pelvis concerning for infectious myositis Blood Cx x2 sets (4/4 bottles) on admission growing MSSA 06/20, BCX on 06/23 2/4 +MSSA Transitioned to IV cefazolin q 8h -Continue Planning to PADMA when stable Trend CBC MRI brain/lumbar spine ordered #Acute normocytic anemia #Gastritis/Duodenitis CT abd/pelvis 06/23 noting possible distal gastritis/proximal duodenitis Continue PPI BID GI consulted -Drop in hgb to 6.4 this am requiring transfusion, plan to perform EGD 06/25 v 06/26 -Coordinating with PADMA Transfuse hgb <7 Anemia labs with elevated retic c/w bleed, b12 and folate WNL Repeat HH this afternoon #Pelvic fluid collection #Retroperitoneal bleed #Acute radiculopathy CT Abd/Pelvis: "nonspecific hyperdense fluid in the right pelvis which may represent a very small amount of hematoma or interval development of lymphatic obstruction, less likely a soft tissue mass. No active extravasation is seen." MRI pelvis concerning for infectious myositis and small retroperitoneal bleedl PT/INR, apTT, consider further Hematology workup outpt Likely traumatic bleed- pt notes recent falls General surgery consulted: -No surgical intervention Hgb continues to down trend [facility] following Repeat lumbar MRI PT/OT as able #Atrial Fibrillation with RVR *resolved #Demand Ischemia iso sepsis EKG Afib RVR with nonspecific ST changes on admission Trop of 59.8 to 59.2 to 44.6, likely demand ischemia from afib rvr Echo did not make note of any vegetations, EF 65-70%, trace MR TSH wnl In ER given total 2L IVF, given Cardizem bolus and drip with HRs still in 130's Given Lopressor 5mg IV on admission Continued Cardizem drip with conversion to sinus rhythm on 06/21/24 Continue Lopressor 12.5mg Q6H po IV heparin not started in setting of acute retroperitoneal bleed Monitor on telemetry Cardiology consulted, appreciate further recs. Noted/stated the following: [id number] score 3(hypertension 1, female 1, age 1) Transitioned to Metoprolol tartrate 25mg BID #Hyposmolar hyponatremia #PRATIMA (acute kidney injury) *resolved BUN: 84, Cr: 1.5. BUN/Cr ratio: 54. In 2021 Cr: 0.9 with GFR: 64 IVF Monitor renal function, avoid nephrotoxic agents when possible Nephrology consulted, appreciate recs -No FR -Strict I/Os -Encourage PO intake as able -Repeat urine studies per nephro Trend BMP #Leukocytosis *down trending Peripheral smear leaning towards a leukemoid reaction. Pathologist interpretation noted/stated the following: "Although neutrophilic leukemia certainly exists, I do not favor this diagnosis and of course the best interpretation of this case is a reactive neutrophilia, AKA leukemoid reaction." Trend CBC #Dyspnea *resolved Pt noting she is having trouble breathing on 06/24 Notes unable to take a deep breath CT chest reviewed from admission on 06/20 Chest CTA PE protocol w/o PE, ?bronchitis Improved today, exam benign CTM, o2 prn #Hypokalemia Replete as needed #Hypermagnesemia mag of 2.5 on admission Down to 2.2 Continue to monitor currently normal #Constipation Noted on CT abd/pelvis from 06/23 "Mild to moderate stool burden" Bowel regimen with scheduled miralax and scheduled docusate sodium Continue to monitor #R shoulder pain Reported right shoulder pain, new per pt, while working with PT on 06/23 Hx of falls R shoulder xray WNL Pain control #Prediabetes #Hyperglycemia Random glucose: 280 No former DM diagnosis. Has been on 3 days prednisone Novolog sliding scale A1c of 6.4 PCP followup after discharge #Elevated alkaline phosphatase level #Elevated t bili elevated 2/2 sepsis, liver US wnl #HTN (hypertension) BP stable Will hold home losartan with PRATIMA Diet: NPO for now iso possible procedure DVT prophylaxis: SCDs in setting of retroperitoneal bleed Dispo: PT/OT recs once medically stable Admission and Anticipated Discharge Date Admission Date: June 20, 2024 Subjective Hgb down to 6.4 this am, remains HDS Denies any BM or vomiting, reports persistent back pain and diffusely feeling sore Lethargic, falls asleep easily on exam at bedside--discussed plan about proceeding with likely EGD and postponing PADMA scheduled for today given anemia Physical Exam Constitutional: lethargic woman, follows command, AO4 but falls asleep easily on exam Neck: tenderness along right occiput Respiratory: normal respiratory effort, lungs clear to auscultation Cardiovascular: RRR, +JOSÉ LUIS Gastrointestinal (Abdomen): tenderness to deep palpation, but generally soft and no focal signs Musculoskeletal: no edema noted, right shoulder palpated without any pain, range of motion limited 2/2 soreness v pain Neurologic: no focal deficits, follows commands, however, lethargic Results & Data Results & Data Vital Signs (Past 12 Hours) Vital Signs Temp Pulse Pulse Resp BP BP BP 06/25/24 10:56 36.7 C 75 16 144/78 H 06/25/24 10:26 36.6 C 88 14 157/77 H 06/25/24 10:11 36.6 C 81 16 147/68 H 06/25/24 09:55 36.5 C 85 18 160/70 H 06/25/24 08:05 36.7 C 81 18 146/73 H 06/25/24 02:49 36.6 C 84 18 123/70 Pulse Ox O2 Del Method 06/25/24 10:56 100 06/25/24 10:26 92 06/25/24 10:11 98 06/25/24 09:55 96 06/25/24 08:05 99 Room Air 06/25/24 02:49 97 Room Air Laboratory Results Short CBC 06/25/24 Range/Units 05:41 WBC 21.20 H (4.8-10.8) K/ul Hgb 6.4 L* (12.0-16.0) g/dl Hct 18.9 L* (37.0-47.0) % Plt Count 393 (130-400) K/uL BMP 06/24/24 06/25/24 20:24 05:41 Sodium 128 L 129 L Potassium 3.9 3.9 Chloride 101 102 Carbon Dioxide 20 L 22 BUN 25 H 21 Creatinine 0.63 0.58 L Glucose 151 H 111 H Calcium 8.0 L 7.5 L Liver Function 06/25/24 Range/Units 05:41 Total Bilirubin 0.8 (0.2-1.0) mg/dl AST 37 (13-39) U/L ALT 31 (7-52) U/L Alkaline Phosphatase 142 H (34-104) U/L Albumin 2.3 L (3.4-5.0) gm/dl Medications Administered Home Medications Medication Instructions Recorded Confirmed Last Taken Collagen Tab 3 tabs PO QAM 06/20/24 06/20/24 Unknown acetaminophen 500 mg tablet 1,000 mg PO Q6H PRN Pain 06/20/24 06/20/24 Unknown (Tylenol Extra Strength) calcium carbonate (Calcium 600) 600 mg PO DAILY 06/20/24 06/20/24 Unknown glucosamine-chondroitin 250 mg-200 2 tab PO DAILY 06/20/24 06/20/24 Unknown mg tablet (Osteo Bi-Flex) ibuprofen 200 mg tablet 600 - 800 mg PO Q8 PRN Pain 06/20/24 06/20/24 Unknown losartan 50 mg tablet 50 mg PO QAM 06/20/24 06/20/24 Unknown magnesium oxide 400 mg PO DAILY 06/20/24 06/20/24 Unknown oxycodone 5 mg tablet 5 mg PO Q6 PRN Pain 06/20/24 06/20/24 Unknown prednisone 20 mg tablet 2 mg PO .TAPER UD 06/20/24 06/20/24 06/20/24 tizanidine 4 mg tablet 4 mg PO Q6 PRN .Muscle pain 06/20/24 06/20/24 Unknown turmeric 400 mg capsule 0 mg PO QAM 06/20/24 06/20/24 Unknown vitamin B complex 1 tab PO DAILY 06/20/24 06/20/24 Unknown Active Medications Generic Name Dose Route Start Last Admin Trade Name Eugenia PRN Reason Stop Dose Admin Acetaminophen 650 mg 06/20/24 21:22 06/21/24 21:00 Acetaminophen 325 Mg Tab PO 07/20/24 21:21 650 mg Q4H PRN Administration Pain or Fever Diclofenac Sodium 2 gm 06/21/24 21:07 06/24/24 17:54 Diclofenac Sod 1% Gel 100 Gm Tube EXT 07/21/24 21:06 2 gm Q6H PRN Administration joint pain Protocol Docusate Sodium 100 mg 06/22/24 21:00 06/25/24 10:02 Docusate Sodium 100 Mg Cap PO 07/22/24 20:59 100 mg BID NANETTE Administration Ferrous Sulfate 325 mg 06/22/24 15:30 06/25/24 10:02 Ferrous Sulfate 325 Mg Tab PO 07/22/24 15:29 325 mg QAM NANETTE Administration Cefazolin Sodium 2,000 mg in 15 mls @ 3.75 mls/min 06/23/24 14:00 06/25/24 06:14 Ancef 2000mg IV 07/07/24 13:59 3.75 mls/min Q8H NANETTE Administration Pantoprazole Sodium 40 mg/ 10 mls @ 5 mls/min 06/24/24 09:00 06/25/24 10:02 Syringe IV 07/24/24 08:59 5 mls/min BID NANETTE Administration Sodium Chloride 1,000 mls @ 125 mls/hr 06/24/24 10:15 06/24/24 14:44 Nss IV 07/24/24 10:14 0 mls/hr .Q8H NANETTE Infusion Insulin Aspart 0 units 06/20/24 21:22 06/25/24 09:58 Insulin Aspart Per Unit Charge SC 07/20/24 21:21 Not Given ACHS NANETTE Lidocaine 1 patch 06/21/24 21:15 06/24/24 20:14 Lidocaine 5% 1 Patch TD 07/21/24 21:14 1 patch HS NANETTE Administration Metoprolol Tartrate 25 mg 06/24/24 17:00 06/25/24 10:02 Metoprolol Tartrate 25 Mg Tab PO 07/24/24 16:59 25 mg [id number] NANETTE Administration Miscellaneous 1 each 06/22/24 09:00 06/25/24 10:02 Remove Lidoderm Patch N/A 07/22/24 08:59 1 each DAILY NANETTE Administration Morphine Sulfate 3 mg 06/20/24 21:22 06/21/24 20:59 Morphine Sulfate 4 Mg/Ml 1 Ml Carp\\Vial IV 07/04/24 21:21 3 mg Q4H PRN Administration Severe Pain (Scale 7, 8, 9,10) Ondansetron HCl 4 mg 06/20/24 21:22 06/21/24 20:59 Ondansetron Inj 2 Mg/Ml 2 Ml Vial IV 07/20/24 21:21 4 mg Q6H PRN Administration Nausea Polyethylene Glycol 17 gm 06/24/24 21:00 06/25/24 10:02 Polyethylene (Miralax) 17 Gm Pack PO 07/24/24 20:59 17 gm BID NANETTE Administration
[2024-06-25 13:29] LABS: Hematocrit (blood only) 23.3 % (37.0-47.0); Hemoglobin 7.9 g/dl (12.0-16.0)
[2024-06-25] MEDS: GADOBUTROL 65ML VIAL IV ONE (17:15)
[2024-06-25] MEDS: LORazepam 1 MG in SYRINGE 0.5 ML IV STA (17:25)
--- NOTE | 2024-06-25 18:07 | Discharge Summary ---
Discharge Summary Date of Service June 25, 2024 Principal Dx & Hospital Course #1 = Principal Diagnosis (1) Atrial fibrillation with rapid ventricular response: (2) Elevated troponin: (3) Back pain: (4) Weakness: (5) PRATIMA (acute kidney injury): (6) Leukocytosis: (7) Acute hyponatremia: (8) Pelvic fluid collection: (9) Hyperglycemia: (10) Elevated alkaline phosphatase level: (11) HTN (hypertension): Plan Ms. Espino is a 69 year old female with PMHx of HTN, dyslipidemia, anxiety who admitted on 06/20 for back pain and weakness. Found to be septic in the setting of a possible infectious myositis with retroperitoneal bleed. Course complicated by anemia despite resolution of retroperitoneal bleed. Pursued MRI imaging--which revealed progressive disease marked by abscesses in psoas and epidural space, as well as MRI with left cerebellar infarct. #Sepsis, POA resolving #MSSA bacteremia, persistent, source unknown #Possible infectious Myositis WBC to 39.9, Lactate 2.2 on admission, downtrending Procal elevated at 2.87 UA not suggestive of infection Negative Lyme screen, Negative flu, RSV and COVID-19 PCR Chest CTA 06/23: questionable bornchitis CT abd/pelvis and CT lumbar spine noting possible mass vs hematoma MRI pelvis concerning for infectious myositis Blood Cx x2 sets (4/4 bottles) on admission growing MSSA 06/20, BCX on 06/23 2/4 +MSSA Transitioned to IV cefazolin q 8h -Continue Planning to [facility] when stable #Left cerebellar infarct with mass effect MRI brain 06/25 transfer to [facility] for neurologic monitoring #Multiple Paraspinal and epidural abscesses -Transfer to [place] #Acute normocytic anemia #Gastritis/Duodenitis CT abd/pelvis 06/23 noting possible distal gastritis/proximal duodenitis Continue PPI BID GI consulted -Drop in hgb to 6.4 this am requiring transfusion, plan to perform EGD 06/25 v 06/26 -Coordinating with [facility] Transfuse hgb <7 Anemia labs with elevated retic c/w bleed, b12 and folate WNL Repeat HH this afternoon #Pelvic fluid collection #Retroperitoneal bleed #Acute radiculopathy CT Abd/Pelvis: "nonspecific hyperdense fluid in the right pelvis which may represent a very small amount of hematoma or interval development of lymphatic obstruction, less likely a soft tissue mass. No active extravasation is seen." MRI pelvis concerning for infectious myositis and small retroperitoneal bleedl PT/INR, apTT, consider further Hematology workup outpt Likely traumatic bleed- pt notes recent falls General surgery consulted: -No surgical intervention Hgb continues to down trend [facility] following Repeat lumbar MRI PT/OT as able #Atrial Fibrillation with RVR *resolved #Demand Ischemia iso sepsis EKG Afib RVR with nonspecific ST changes on admission Trop of 59.8 to 59.2 to 44.6, likely demand ischemia from afib rvr Echo did not make note of any vegetations, EF 65-70%, trace MR TSH wnl In ER given total 2L IVF, given Cardizem bolus and drip with HRs still in 130's Given Lopressor 5mg IV on admission Continued Cardizem drip with conversion to sinus rhythm on 06/21/24 Continue Lopressor 12.5mg Q6H po IV heparin not started in setting of acute retroperitoneal bleed Monitor on telemetry Cardiology consulted, appreciate further recs. Noted/stated the following: [id number] score 3(hypertension 1, female 1, age 1) Transitioned to Metoprolol tartrate 25mg BID #Hyposmolar hyponatremia #PRATIMA (acute kidney injury) *resolved BUN: 84, Cr: 1.5. BUN/Cr ratio: 54. In 2021 Cr: 0.9 with GFR: 64 IVF Monitor renal function, avoid nephrotoxic agents when possible Nephrology consulted, appreciate recs -No FR -Strict I/Os -Encourage PO intake as able -Repeat urine studies per nephro Trend BMP #Leukocytosis *down trending Peripheral smear leaning towards a leukemoid reaction. Pathologist interpretation noted/stated the following: "Although neutrophilic leukemia certainly exists, I do not favor this diagnosis and of course the best interpretation of this case is a reactive neutrophilia, AKA leukemoid reaction." Trend CBC #Dyspnea *resolved Pt noting she is having trouble breathing on 06/24 Notes unable to take a deep breath CT chest reviewed from admission on 06/20 Chest CTA PE protocol w/o PE, ?bronchitis Improved today, exam benign CTM, o2 prn #Hypokalemia Replete as needed #Hypermagnesemia mag of 2.5 on admission Down to 2.2 Continue to monitor currently normal #Constipation Noted on CT abd/pelvis from 06/23 "Mild to moderate stool burden" Bowel regimen with scheduled miralax and scheduled docusate sodium Continue to monitor #R shoulder pain Reported right shoulder pain, new per pt, while working with PT on 06/23 Hx of falls R shoulder xray WNL Pain control #Prediabetes #Hyperglycemia Random glucose: 280 No former DM diagnosis. Has been on 3 days prednisone Novolog sliding scale A1c of 6.4 PCP followup after discharge #Elevated alkaline phosphatase level #Elevated t bili elevated 2/2 sepsis, liver US wnl #HTN (hypertension) BP stable Will hold home losartan with PRATIMA Diet: NPO for now iso possible procedure DVT prophylaxis: SCDs in setting of retroperitoneal bleed Dispo: PT/OT recs once medically stable Notes For Next Care Provider Medication Changes From Visit Cefazolin q 8 Admission HPI Per Admitting Provider Patient is 69 year old female with PMH HTN, dyslipidemia, anxiety presented to ER with c/o back pain and falls. History obtained from patient and outpatient chart review. Patient states 8 days ago started with low back pain when she turned to get out of a chair and initially felt like she pulled a muscle and then had low back pain that radiated to left lateral leg. Seemed more to left side of low back initially and now right low back pain with radiation down inner right leg. States in past has had right back pain with sciatica type symptoms but this is more severe. She was seen in ER 06/14/2024 for low back pain and was prescribed oxycodone as needed for pain. She followed up with PCP and had continued back pain with radiation and was started on prednisone taper. Today was day 3 of 60 mg prednisone daily. She also has been using muscle relaxer as needed. Patient states despite these things pain has persisted. The past week she reports decreased appetite and has not been eating or drinking well. States yesterday attempted to ambulate and had fallen. Patient states has fallen 4 times in the past day. She denies hitting her head. She feels generalized weakness. Today feeling a little dizzy, worse with standing. Hasn't been able to ambulate or get out of bed or chair without assistance from her family. Denies abdominal pain, chest pain, SOB, palpitations, fever/chills, N/V/D/C, loss c ontrol of bowels or bladder, saddle paresthesias, extremity paresthesias, vision changes, neck pain, orthopnea, cough, sore throat, otalgia, rhinorrhea, abdominal pain, extremity edema, rashes, dysuria, hematuria, urinary frequency, urinary retention Admission Exam Per Admitting Provider GENERAL APPEARANCE: AxOx4,pleasant but mildly uncomfortable HEENT: NC, AT. MMM. EOMI, clear conjunctiva, oropharynx clear. NECK: Supple without lymphadenopathy. No stiffness or restricted ROM. HEART: irregularly irregular LUNGS: CTAB, moving air well. No crackles or wheezes are heard. ABDOMEN: Soft, TTP RLQ to deep palpation EXTREMITIES: Without cyanosis, clubbing or edema. NEUROLOGICAL: Grossly nonfocal. Alert and oriented, moving all 4 extremities. CN not formally tested but appear grossly intact. leg flexion limited 2/2 pain, sensation/pulses/motor intact Skin: Warm and dry without any rash. Discharge Exam Constitutional lethargic on exam Respiratory normal respiratory effort, lungs clear to auscultation Cardiovascular RRR, no murmur, no edema Gastrointestinal (Abdomen) normal bowel sounds, soft, nontender, no hepatosplenomegaly Musculoskeletal pain in shoulders and hips limiting range of motion Neurologic CNII-CXII in tact Updated Medication List Medication Instructions Recorded Confirmed Type Collagen Tab 3 tabs PO QAM 06/20/24 06/20/24 History acetaminophen 500 mg tablet 1,000 mg PO Q6H PRN Pain 06/20/24 06/20/24 History (Tylenol Extra Strength) calcium carbonate (Calcium 600) 600 mg PO DAILY 06/20/24 06/20/24 History glucosamine-chondroitin 250 mg-200 2 tab PO DAILY 06/20/24 06/20/24 History mg tablet (Osteo Bi-Flex) magnesium oxide 400 mg PO DAILY 06/20/24 06/20/24 History tizanidine 4 mg tablet 4 mg PO Q6 PRN .Muscle pain 06/20/24 06/20/24 History turmeric 400 mg capsule 0 mg PO QAM 06/20/24 06/20/24 History vitamin B complex 1 tab PO DAILY 06/20/24 06/20/24 History metoprolol tartrate 25 mg tablet 25 mg PO BID17 #60 tabs 06/25/24 Rx Hospital Stay Data Consultations 06/20/24 19:32 ED Decision to Admit Stat 06/20/24 21:22 Consult Cardiology Routine Consult Hematology Routine 06/21/24 08:00 Consult Nephrology Routine 06/21/24 09:24 Consult Infectious Diseases Routine 06/21/24 09:50 Consult Orthopedic Spine Surgery Routine 06/22/24 08:36 Consult General Surgery Routine 06/24/24 08:08 Consult Gastroenterology Routine 06/25/24 07:30 Consult Anesthesiology Routine 06/25/24 17:45 Burn CD for patient Stat Procedures Performed Operation Date: 06/26/24 07:15 <No data on this case meets the specified criteria> Diagnostic Imagining Performed 06/20/24 17:44 CT abd pelvis IV con only Stat CT cervical spine wo con Stat 06/20/24 17:45 CT head/brain wo con Stat CT lumbar spine w con Stat 06/20/24 17:46 CT chest diagnostic w con Stat 06/21/24 09:20 MR lumbar spine wo/w con Stat MR pelvis wo/w con Stat 06/23/24 10:23 US liver Urgent 06/23/24 18:37 CT abd pelvis wo con Urgent 06/24/24 11:49 CT Abd and Pelvis [CT abd pelvis IV con only] Urgent 06/24/24 13:50 CT angio chest PE protocol Urgent 06/25/24 16:00 CT cervical spine wo con Routine MRI Brain [MR brain wo/w con] Routine MRI Lumbar Spine [MR lumbar spine wo/w con] Routine Pending Results Patient Have Any Pending Studies at Discharge: No Discharge Instructions Given to Patient (Per Discharging Provider) Ms. Espino is a 69 year old female with PMHx of HTN, dyslipidemia, anxiety who admitted on 06/20 for back pain and weakness. Found to be septic in the setting of a possible infectious myositis with retroperitoneal bleed. Course complicated by acute anemia despite resolution of retroperitoneal bleed on scan. MRI of brain and lumbar spine ordered. MRI brain revealed large left cerebellar infarct with mass effect and no herniation Plan for transfer for neurosurg eval if necessary and further eval of mssa baceteremia given concern of continued +BCX #Sepsis, POA resolving #MSSA bacteremia, persistent, source unknown #Possible infectious Myositis WBC to 39.9, Lactate 2.2 on admission, downtrending Procal elevated at 2.87 UA not suggestive of infection Negative Lyme screen, Negative flu, RSV and COVID-19 PCR Chest CTA 06/23: questionable bornchitis CT abd/pelvis and CT lumbar spine noting possible mass vs hematoma MRI pelvis concerning for infectious myositis Blood Cx x2 sets (4/4 bottles) on admission growing MSSA 06/20, BCX on 06/23 2/4 +MSSA Transitioned to IV cefazolin q 8h Last dose 1445 06/25 Planning to [facility] when stable #Acute normocytic anemia #Gastritis/Duodenitis CT abd/pelvis 06/23 noting possible distal gastritis/proximal duodenitis Continue PPI BID GI consulted -Drop in hgb to 6.4 this am requiring transfusion, plan to perform EGD 06/25 v 06/26 -Coordinating with P[facility] Transfuse hgb <7 Anemia labs with elevated retic c/w bleed, b12 and folate WNL Repeat HH this afternoon: increased to 7.9 #Pelvic fluid collection #Retroperitoneal bleed #Acute radiculopathy CT Abd/Pelvis: "nonspecific hyperdense fluid in the right pelvis which may represent a very small amount of hematoma or interval development of lymphatic obstruction, less likely a soft tissue mass. No active extravasation is seen." MRI pelvis concerning for infectious myositis and small retroperitoneal bleedl PT/INR, apTT, consider further Hematology workup outpt Likely traumatic bleed- pt notes recent falls General surgery consulted: -No surgical intervention [facility] following Repeat lumbar MRI pending read #Atrial Fibrillation with RVR *resolved #Demand Ischemia iso sepsis EKG Afib RVR with nonspecific ST changes on admission Trop of 59.8 to 59.2 to 44.6, likely demand ischemia from afib rvr Echo did not make note of any vegetations, EF 65-70%, trace MR TSH wnl In ER given total 2L IVF, given Cardizem bolus and drip with HRs still in 130's Given Lopressor 5mg IV on admission Continued Cardizem drip with conversion to sinus rhythm on 06/21/24 Continue Lopressor 12.5mg Q6H po IV heparin not started in setting of acute retroperitoneal bleed Monitor on telemetry Cardiology consulted, appreciate further recs. Noted/stated the following: [id number] score 3(hypertension 1, female 1, age 1) Transitioned to Metoprolol tartrate 25mg BID #Hyposmolar hyponatremia #PRATIMA (acute kidney injury) *resolved BUN: 84, Cr: 1.5. BUN/Cr ratio: 54. In 2021 Cr: 0.9 with GFR: 64 IVF Monitor renal function, avoid nephrotoxic agents when possible Nephrology consulted, appreciate recs -No FR -Strict I/Os -Encourage PO intake as able -Repeat urine studies per nephro Trend BMP #Leukocytosis *down trending Peripheral smear leaning towards a leukemoid reaction. Pathologist interpretation noted/stated the following: "Although neutrophilic leukemia certainly exists, I do not favor this diagnosis and of course the best interpretation of this case is a reactive neutrophilia, AKA leukemoid reaction." Trend CBC #Dyspnea *resolved Pt noting she is having trouble breathing on 06/24 Notes unable to take a deep breath CT chest reviewed from admission on 06/20 Chest CTA PE protocol w/o PE, ?bronchitis Improved today, exam benign CTM, o2 prn #Hypokalemia Replete as needed #Hypermagnesemia mag of 2.5 on admission Down to 2.2 Continue to monitor currently normal #Constipation Noted on CT abd/pelvis from 06/23 "Mild to moderate stool burden" Bowel regimen with scheduled miralax and scheduled docusate sodium Continue to monitor #R shoulder pain Reported right shoulder pain, new per pt, while working with PT on 06/23 Hx of falls R shoulder xray WNL Pain control #Prediabetes #Hyperglycemia Random glucose: 280 No former DM diagnosis. Has been on 3 days prednisone Novolog sliding scale A1c of 6.4 PCP followup after discharge #Elevated alkaline phosphatase level #Elevated t bili elevated 2/2 sepsis, liver US wnl #HTN (hypertension) BP stable Will hold home losartan with PRATIMA Total Time Total Time Spent Total Time Spent (In Minutes): 120
--- NOTE | 2024-06-25 18:11 | Magnetic Resonance Report ---
MR brain wo/w con HISTORY: 69 years-old Female encephalopathy, neck pain bacteremia acute headache with reported encep halopathy COMPARISON: Head CT 06/20/2024 TECHNIQUE: Multiplanar multisequence MRI of the brain was obtained with and without IV contrast. FINDINGS: Motion degraded exam. Arachnoid cyst posterior to the superior right parietal lobe on image 18 series 5 measures 5 x 4 x 4 cm causing mild adjacent mass effect upon the cerebrum. Punctate areas of restr icted diffusion are noted within the occipital lobes with an 11 mm focus in the right occipital lobe, image 9 series 3. Additional punctate foci within the right cerebellum on image 5 series 3. There is a large area of restricted diffusion involving the majority of the left cerebellar hemisphere measur ing approximately 5.4 cm. These areas demonstrate decreased signal on the ADC map. Punctate areas of leptomeningeal enhancement noted within the left cerebellar hemisphere at the area of restricted diff usion. No additional abnormal enhancement identified. Midline structures are otherwise unremarkable. Degenerative changes of the midcervical spine. No acut e intracranial hemorrhage, midline shift or hydrocephalus. The signal abnormalities in the left cereb ellum causes mass effect on the adjacent brainstem and right cerebellum. Involutional changes with mo derate patchy T2/FLAIR hyperintense foci noted throughout the white matter. Cerebral venous sinuses a nd major arterial flow voids appear generally patent. The skull, orbits and soft tissues are within n ormal limits. IMPRESSION: 1. Mostly subcentimeter punctate acute infarcts noted within the bilateral occipital lobes and cerebe llum suggests proximal embolic source such as basilar artery thromboembolic disease. 2. There is a large area of restricted diffusion and mass effect within the left cerebellum measuring up to 5 cm demonstrating areas of tiny nodular leptomeningeal enhancement. Posterior fossa structure s seen on the head CT from 06/20/2024 appear unremarkable, therefore this finding favors a subacute in farct. An indeterminate intra-axial mass could have a similar imaging appearance however considered l ess likely. Follow-up brain MRI in one month recommended. 3. No acute intracranial hemorrhage. 4. Arachnoid cyst noted adjacent to the superior aspect of the right parietal lobe. ACT 112: Negative or not required by law. The above report was generated using voice recognition software. It may contain grammatical, syntax o r spelling errors. Electronically signed by: Madhu Alaniz M.D. 06/25/2024 6:09 PM
--- NOTE | 2024-06-25 19:11 | Magnetic Resonance Report ---
MR lumbar spine wo/w con CLINICAL HISTORY: 69 years-old Female with acute back pain, myositis, bacteremia. Acute low back suraj n with bacteremia COMPARISON: CT abdomen and pelvis 06/24/2024, MRI lumbar spine 06/21/2024. TECHNIQUE: Multiplanar, multi sequence MRI of the lumbar spine was performed 06/21/2024 FINDINGS: 60 degrees levoscoliosis of the lumbar spine. Motion degraded study. No acute fracture, subluxation o r erosion. Progressively worsen free pelvic fluid. There is acute intramuscular peripherally enhancing fluid col lections within the right psoas, iliacus and right iliopsoas distributions with adjacent inflammatory stranding, partially imaged suggestive of abscesses. This demonstrates peripheral enhancement measur ing up to 4.9 x 2.3 cm on image 31 series 10. Less prominent abscess within the left psoas muscle. Le ft paraspinal intramuscular abscess measures up to 4.0 cm image 21 series 10 and measures up to 12 mm in craniocaudal dimension on image 14 series 10. Abnormal enhancement extends into the epidural tiss ues from L3-L5 with suggestion of developing epidural abscesses within these distributions. Cauda equ jonatan nerve roots also demonstrate enhancement. Conus medullaris terminates at T12-L1. At T10-T11 there is moderate intervertebral disc space narrowi ng and circumferential annular disc bulging and moderate facet arthrosis. Moderate central canal sten osis with severe right and moderate left foraminal narrowing. T12-L1: Mild intervertebral disc space narrowing and spondylotic spurring with moderate facet arthros is. No central canal or neural foraminal narrowing. L1-L2: Mild to moderate intervertebral disc space narrowing and spondylotic spurring with small circu mferential annular disc bulge. Ligamentum flavum thickening with moderate facet arthrosis. Mild bilat eral foraminal stenosis. L2-L3: Mild to moderate intervertebral disc space narrowing and spondylotic spurring with small circu mferential annular disc bulge. Ligamentum flavum thickening with moderate facet arthrosis. Mild centr al canal stenosis, AP dimension of the thecal sac measuring 9 mm. Mild bilateral foraminal narrowing. L3-L4: Mild to moderate disc space narrowing and spondylotic spurring with posterior disc osteophyte complex. Severe facet arthrosis with small facet effusions. Severe central canal stenosis with AP dim ension of the thecal sac measuring 5 mm. Mild bilateral foraminal narrowing. L4-L5: Mild to moderate intervertebral disc space narrowing with 2 mm degenerative related anterolist hesis. Spondylotic spurring with circumferential annular disc bulging and posterior disc osteophyte c omplex. Advanced facet arthrosis with facet effusions and ligamentum flavum thickening. Severe centra l canal narrowing, AP dimension of the thecal sac measuring 5 mm. Moderate bilateral foraminal stenos is. L5-S1: Spondylotic spurring with tiny posterior annular disc bulge. Severe facet arthrosis with f acet effusions. Central canal and right neural foramen are patent. Mild left foraminal narrowing. IMPRESSION: 1. Paraspinal myositis with intramuscular abscesses, left greater than right with extension into the bilateral psoas musculature, right iliacus and iliopsoas distributions. 2. Motion degradation limits the study, however there is epidural enhancement of the lumbar spine wit h possible developing epidural abscesses. 3. Enhancement of the dura and cauda equina nerve roots suggestive of concomitant arachnoiditis. 4. Unchanged discogenic degeneration as above. Findings were discussed with Dr. Park Deal on 06/25/2024 at 7:06 PM. ACT 112: Negative or not required by law. The above report was generated using voice recognition software. It may contain grammatical, syntax o r spelling errors. Electronically signed by: Madhu Alaniz M.D. 06/25/2024 7:10 PM
[2024-06-25] MEDS ORDERED: MECLIZINE HCL 25 MG TAB PO STA (19:18)
--- NOTE | 2024-06-27 18:28 | Electrocardiogram Report ---
Test Reason : Blood Pressure : / mmHG Vent. Rate : 084 BPM Atrial Rate : 084 BPM P-R Int : 138 ms QRS Dur : 074 ms QT Int : 390 ms P-R-T Axes : 068 003 028 degrees QTc Int : 460 ms Normal sinus rhythm Possible Left atrial enlargement Borderline ECG When compared with ECG of 20-JUN-2024 21:55, Sinus rhythm has replaced Atrial fibrillation Nonspecific T wave abnormality, improved in Lateral leads Confirmed by Yordy Browning ([id number]) on 06/27/2024 6:28:05 PM Referred By: REFERRED SELF Confirmed By:Yordy Browning
== END 2024-06-25 20:07 | disposition short-term general hospital (02) | DRG 871 ==
LOC: ED 17:03 → SUATTDRO 19:56 → 4W 19:56

== ENCOUNTER 2024-08-20 14:26 | Inpatient (IN) ==
--- NOTE | 2024-08-20 14:38 | Emergency Department Note ---
Impression & Plan Dissection of vertebral artery, Stroke-like symptoms, Prolonged QT interval, Elevated lactic acid level ED Provider Note HISTORY OF PRESENT ILLNESS: Patient is a 69-year-old female presenting with dizziness and double vision. Patient reports that at 1330 today she was getting her PICC line removed by home nursing staff when she suddenly felt very dizzy and was seeing double. Reports that she tried to reach for a cup on the table and could not because the room was spinning and she could not see correctly. She had nausea and an episode of vomiting. Patient is not currently on any anticoagulation. 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 Reports her deficits from the stroke were generalized weakness but no visual changes or dizziness. She denies any numbness or tingling or weakness in her extremities. Denies any chest pain or shortness of breath. Currently states that her double vision has slightly improved, but she is severely dizzy whenever she opens her eyes. Patient did receive Ativan prehospital with EMS, given her persistent nausea and multiple episodes of vomiting -they state that she had a prolonged QT on her EKG and were hesitant to give Zofran, thus the dose of Ativan. ROS: as above PHYSICAL EXAM: Constitutional: Patient appears in no acute distress. HENT: Head: Normocephalic and atraumatic. Eyes: EOMI, PERRL Mouth/Throat: Mucous membranes moist. Neck: Trachea midline. Neck supple. Cardiovascular: RRR, No murmurs, rubs or gallops. Intact distal pulses. Pulmonary/Chest: No respiratory distress. Breath sounds clear and equal bilaterally. No wheezes or rales. Abdominal: Abdomen soft, no tenderness, rebound or guarding. Musculoskeletal: No edema, tenderness or deformity noted. Skin: Warm and dry. No rash, erythema, pallor or cyanosis Psychiatric: Appropriate mood and affect for situation. Neurological: Alert and keenly responsive. Facies symmetric. Able to raise eyebrows, close eyes, smile, puff mouth, stick out tongue, move tongue left and right and raise palate symmetrically. Able to shrug shoulders. PERRLA. SILT to forehead below eye and at jawline. Can hear soft noise bilaterally. Patient is dysmetric with her right upper extremity on [id number]. She also has difficulties with [id number] bilaterally. Strength 5/5 in bilateral upper and lower extremities. SILT throughout bilateral upper and lower extremities. No appreciable visual field cuts on examination. MDM: - Vitals signs showed hypertension - History obtained via patient. History as above. - Chronic conditions affecting care: Afib; hx of retroperitoneal hematoma; HTN - Differential diagnoses include, but are not limited to: CVA; intracranial hemorrhage; cerebellar infarction; ACS; aortic dissection - Order placed for continuous cardiac monitoring. At this time, monitor showed rate of 57 bpm with normal sinus rhythm, per my interpretation. - External medical records reviewed. Discharge summary dated 06/25/2024 was reviewed. Patient was admitted that time for back pain and weakness. She was found to be septic in the setting of a possible infectious myositis and retroperitoneal bleed. She had an MRI of her brain that showed a left cerebellar infarct. She also was noted to have abscess in her psoas and epidural space. - EKG interpreted by myself showed normal sinus rhythm. Rate bradycardic at 56 bpm. QT prolonged at 538. No acute ischemic changes. - Laboratory workup interpreted by myself showed normal WBC; anemia (Hgb 10.5); normal PT/INR; stable electrolytes; PRATIMA (Cr 1.68); elevated anion gap (15); elevated lactate (3.0); normal troponin - Discussed case with telestroke neurologist, Dr. Tim Ernandez, at [facility] at 15:02. He reports that the patient is not a TNK candidate, as she had a notable stroke in the last 3 months. He reviewed the images and states that given patient's history of bleed on Eliquis, aspirin is appropriate to be dosed for her. He reports that there is no role for intervention for her vertebral artery dissections. Reports the patient would be appropriate to be admitted here but they can be consulted for further recommendations if the patient clinically worsens. Recommends holding any antihypertensives unless blood pressure >220/120. - Patient given 324 mg PO aspirin - Given 1L NS in ER. - Discussed case with ICU attending, Dr. Gusman, who believes the patient would be appropriate for close monitoring not in the ICU. - Discussion was had with adult protective caseworker about patient's case and need for admission - Hospitalist consulted for admission - Patient admitted to [facility] service for further evaluation and management. I have personally spent 48 minutes of critical care time in the direct management of this patient. This includes bedside care, interpretation of diagnostic studies, and testing, discussion with consultants, patient, and family members, and other required patient management activities. This 48 minutes is in excess of all separately billable procedures. ASSESSMENT AND PLAN: Diagnosis: Strokelike symptoms; vertebral artery dissection; prolonged QT interval; elevated lactic acid level Plan: Admit Past Med/Surg History Problem List (Updated 08/20/24 @ 16:04 by Darlene Car MD) Elevated lactic acid level (Acute) Prolonged QT interval (Acute) Stroke-like symptoms (Acute) Dissection of vertebral artery (Acute) Anemia Abnormal CT scan, stomach Hyponatremia with decreased serum osmolality Retroperitoneal hematoma Gram-positive bacteremia Elevated alkaline phosphatase level Hyperglycemia Pelvic fluid collection Leukocytosis PRATIMA (acute kidney injury) Elevated troponin Acute hyponatremia (Acute) Weakness (Acute) Back pain (Acute) Atrial fibrillation with rapid ventricular response (Acute) Medical History HTN (hypertension) Surgical History H/O section History of cholecystectomy Hx of tonsillectomy History of Zakia fundoplication Family History Other Heart disease Hypertension Social History Smoking Status: Never smoker Hx Alcohol Use: Yes Alcohol type: wine Alcohol Intake Frequency: 2-4 x/Month Hx Substance Use: No Preferred Language: Icelandic Communication Ability: Effective Lead Neurodiagnostic Technologist Required: No Beliefs That Will Affect Care: None Current Living Situation: Spouse Feels Safe at Home: Yes Assistive Devices: Cane Allergies Allergies Allergy/AdvReac Type Severity Reaction Status Date / Time No Known Allergies Allergy Unverified 08/20/24 15:20 Home Meds Home Medications Medication Instructions Recorded Confirmed Collagen Tab 3 tabs PO QAM 06/20/24 08/20/24 acetaminophen 500 mg tablet 1,000 mg PO Q6H PRN Pain 06/20/24 08/20/24 (Tylenol Extra Strength) calcium carbonate (Calcium 600) 600 mg PO DAILY 06/20/24 08/20/24 glucosamine-chondroitin 250 mg-200 2 tab PO DAILY 06/20/24 08/20/24 mg tablet (Osteo Bi-Flex) magnesium oxide 400 mg PO DAILY 06/20/24 08/20/24 tizanidine 4 mg tablet 4 mg PO Q6 PRN .Muscle pain 06/20/24 08/20/24 turmeric 400 mg capsule 400 mg PO QAM 06/20/24 08/20/24 vitamin B complex 1 tab PO DAILY 06/20/24 08/20/24 amiodarone 200 mg tablet 200 mg PO BID 08/20/24 08/20/24 cefadroxil 500 mg capsule 500 mg PO BID 08/20/24 08/20/24 furosemide 20 mg tablet 20 mg PO QAM 08/20/24 08/20/24 losartan 100 mg tablet 100 mg PO DAILY 08/20/24 08/20/24 Previous Rx's Medication Instructions Recorded metoprolol tartrate 25 mg tablet 25 mg PO BID17 #60 tabs 06/25/24 Results & Data (ED) Vital Signs Vital Signs - 24 hr 08/20/24 14:54 08/20/24 14:57 08/20/24 15:00 Temperature 36.8 C Temperature Source Skin Pulse Rate 57 L 56 L 56 L Pulse Rate from SpO2 Sensor Respiratory Rate 18 24 28 H Blood Pressure 183/72 H 183/73 H 195/74 H Blood Pressure Mean 109 109 114 Pulse Oximetry 97 95 96 Oxygen Delivery Method Room Air Sepsis Recent Fever Within 48 Hours No Sepsis New/Unexplained Change in Mental Status No Sepsis Action Taken by Nursing No Action Required 08/20/24 15:03 08/20/24 15:18 08/20/24 15:30 Temperature Temperature Source Pulse Rate 56 L 57 L 57 L Pulse Rate from SpO2 Sensor 57 L Respiratory Rate 20 20 19 Blood Pressure 188/75 H 197/88 H 197/88 H Blood Pressure Mean 112 124 124 Pulse Oximetry 95 94 92 Oxygen Delivery Method Sepsis Recent Fever Within 48 Hours Sepsis New/Unexplained Change in Mental Status Sepsis Action Taken by Nursing 08/20/24 15:32 Temperature Temperature Source Pulse Rate 57 L Pulse Rate from SpO2 Sensor Respiratory Rate Blood Pressure Blood Pressure Mean Pulse Oximetry Oxygen Delivery Method Sepsis Recent Fever Within 48 Hours Sepsis New/Unexplained Change in Mental Status Sepsis Action Taken by Nursing Laboratory Data 08/20/24 14:40 08/20/24 14:40 Lab Results 08/20/24 08/20/24 08/20/24 Range/Units 14:38 14:40 14:44 WBC 8.76 (4.8-10.8) K/ul RBC 3.52 L (4.20-5.40) M/uL Hgb 10.5 L (12.0-16.0) g/dl Hct 32.6 L (37.0-47.0) % MCV 92.6 (80.0-100.0) fL MCH 29.8 (25.0-34.0) pg MCHC 32.2 (32.0-36.0) g/dL RDW Std Deviation 47.5 H (36.4-46.3) fL RDW Coeff of Jarad 14.1 (11.5-14.5) % Plt Count 260 (130-400) K/uL MPV 10.4 (9.4-12.4) fL Immature Gran % (Auto) 0.9 % Neut % (Auto) 45.5 % Lymph % (Auto) 41.6 % Gooding % (Auto) 7.9 % Eos % (Auto) 3.4 % Baso % (Auto) 0.7 % Neut # (Auto) 3.99 (1.40-6.50) K/uL Lymph # (Auto) 3.64 H (1.20-3.40) K/uL Gooding # (Auto) 0.69 H (0.11-0.59) K/uL Eos # (Auto) 0.30 (0.00-0.50) K/uL Baso # (Auto) 0.06 (0.00-0.20) K/uL Immature Gran # (Auto) 0.08 (0.01-0.20) K/uL PT 10.9 (9.0-12.0) Seconds INR 1.0 (0.9-1.1) APTT < 20 L (21-31) Seconds PTT Ratio 0.7 Sodium 137 (136-145) mmol/L Potassium 3.5 (3.5-5.1) mmol/L Chloride 103 (98-107) mmol/L Carbon Dioxide 19 L (21-32) mmol/L Anion Gap 15 H (3-11) BUN 39 H (6-23) mg/dl Creatinine 1.68 H (0.6-1.2) mg/dl Est Cr Clr Drug Dosing 30.3 ml/min Est GFR ( Amer) 35.3 ml/min Est GFR (Non-Af Amer) 30.5 ml/min BUN/Creatinine Ratio 23.2 H (10-20) Glucose 172 H (70-99(Fasting)) mg/dl POC Glucose 194 H (70-99) mg/dl Lactate (0.4-2.0) mmol/L Calcium 9.9 (8.6-10.3) mg/dl Magnesium 2.3 (1.7-2.4) mg/dl Total Bilirubin 1.3 H (0.2-1.0) mg/dl AST 13 (13-39) U/L ALT 13 (7-52) U/L Alkaline Phosphatase 75 (34-104) U/L Troponin I High Sens 2.4 (0-14) pg/ml Total Protein 7.5 (6.0-8.3) gm/dl Albumin 4.0 (3.4-5.0) gm/dl Globulin 3.5 (2.5-4.0) gm/dl Albumin/Globulin Ratio 1.1 (0.9-2) Blood Type A Positive Antibody Screen NEGATIVE 08/20/24 Range/Units 15:04 WBC (4.8-10.8) K/ul RBC (4.20-5.40) M/uL Hgb (12.0-16.0) g/dl Hct (37.0-47.0) % MCV (80.0-100.0) fL MCH (25.0-34.0) pg MCHC (32.0-36.0) g/dL RDW Std Deviation (36.4-46.3) fL RDW Coeff of Jarad (11.5-14.5) % Plt Count (130-400) K/uL MPV (9.4-12.4) fL Immature Gran % (Auto) % Neut % (Auto) % Lymph % (Auto) % Gooding % (Auto) % Eos % (Auto) % Baso % (Auto) % Neut # (Auto) (1.40-6.50) K/uL Lymph # (Auto) (1.20-3.40) K/uL Gooding # (Auto) (0.11-0.59) K/uL Eos # (Auto) (0.00-0.50) K/uL Baso # (Auto) (0.00-0.20) K/uL Immature Gran # (Auto) (0.01-0.20) K/uL PT (9.0-12.0) Seconds INR (0.9-1.1) APTT (21-31) Seconds PTT Ratio Sodium (136-145) mmol/L Potassium (3.5-5.1) mmol/L Chloride (98-107) mmol/L Carbon Dioxide (21-32) mmol/L Anion Gap (3-11) BUN (6-23) mg/dl Creatinine (0.6-1.2) mg/dl Est Cr Clr Drug Dosing ml/min Est GFR ( Amer) ml/min Est GFR (Non-Af Amer) ml/min BUN/Creatinine Ratio (10-20) Glucose (70-99(Fasting)) mg/dl POC Glucose (70-99) mg/dl Lactate 3.0 H* (0.4-2.0) mmol/L Calcium (8.6-10.3) mg/dl Magnesium (1.7-2.4) mg/dl Total Bilirubin (0.2-1.0) mg/dl AST (13-39) U/L ALT (7-52) U/L Alkaline Phosphatase (34-104) U/L Troponin I High Sens (0-14) pg/ml Total Protein (6.0-8.3) gm/dl Albumin (3.4-5.0) gm/dl Globulin (2.5-4.0) gm/dl Albumin/Globulin Ratio (0.9-2) Blood Type Antibody Screen Administered Medications Sodium Chloride (Nss) 1,000 mls @ 999 mls/hr IV .Q1H1M ONE Stop: 08/20/24 16:29 Last Admin: 08/20/24 16:06 Dose: 999 mls/hr Documented By: GALEN Discontinued Medications Aspirin (Aspirin Chew 324 Mg) 324 mg PO NOW STA Stop: 08/20/24 15:46 Last Admin: 08/20/24 16:02 Dose: 324 mg Documented By: GALEN Ioversol (Optiray 320 125ml) 119 ml IV ONCE ONE Stop: 08/20/24 14:46 Last Admin: 08/20/24 14:46 Dose: 119 ml Documented By: LOGAN Imaging Data Radiologist's Impression: Head CT 08/20/24 14:33 CT head/brain wo con CLINICAL HISTORY: 69 years-old Female with dizziness; double vision; cerebellar sx. Acute stroke like symptoms TECHNIQUE: Multiple axial CT images of the head were obtained without contrast. A dose lowering technique was utilized adhering to the principles of ALARA. COMPARISON: CTA head of same day, brain MRI 06/25/2024 FINDINGS: No acute intracranial hemorrhage, midline shift, intra-axial mass, hydrocephalus, territorial ischemia or abnormal extra-axial collection. Arachnoid cyst adjacent to the superior right parietal lobe is unchanged. Changes with chronic microvascular ischemic disease. There is progressive encephalomalacia within the mid to inferior left cerebellar hemisphere. The calvarium is intact. The paranasal sinuses, mastoid air cells, and middle ear cavities are clear. IMPRESSION: 1. No acute intracranial abnormality identified. 2. Progressive encephalomalacia within the subacute to chronic appearing left cerebellar infarct originally described on the 06/25/2024 MRI. 3. Involutional changes with chronic microvascular ischemic disease. ACT 112: Negative or not required by law. The above report was generated using voice recognition software. It may contain grammatical, syntax or spelling errors. Electronically signed by: Madhu Alaniz M.D. 08/20/2024 3:17 PM Head CTA 08/20/24 14:33 CT ANGIOGRAM OF THE BRAIN CLINICAL HISTORY: Dizziness. Diplopia. COMPARISON STUDY: Unenhanced CT of the brain performed concurrently on 08/20/2024. MRI of the brain dated 06/25/2024. TECHNIQUE: Following the IV administration of 119 cc of Optiray 320, CT angiogram of the brain was performed from the skull base to the vertex. Images are reviewed in the axial, sagittal, and coronal planes. 3-D MIPS images are created and assessed. IV contrast was administered without complication. A dose lowering technique was utilized adhering to the principles of ALARA. FINDINGS: Brain parenchyma: There is age-related emotional change noting mild to moderate subcortical and periventricular microangiopathic disease. A focus of left cerebellar encephalomalacia is consistent with a prior infarct. This was acute on 06/25/2024. There is no evidence of acute hemorrhage, mass effect, or territorial ischemia noting angiographic phase technique. There is no evidence of enhancing mass lesion on the angiogram phase images. No extra-axial fluid collection is seen. Brownlee-white matter differentiation is preserved. Ventricles, sulci, and cisterns: Normal in configuration. CT angiogram of the brain: There is atherosclerotic calcification of the cavernous carotid arteries. The internal carotid arteries are widely patent, as are the anterior and middle cerebral arteries. The vertebrobasilar system and posterior cerebral arteries are widely patent. The right vertebral artery is dominant. There is no aneurysm, high-grade stenosis, or focal vessel cutoff identified throughout the intracranial circulation. Dural sinuses: Clear as visualized. Orbits: The bony orbits are intact. The orbital contents are normal as visualized. Sinuses and mastoids: An 11 mm retention cyst is noted in the right maxillary antrum. The Paranasal sinuses are otherwise clear. The mastoid air cells are well pneumatized. Calvarium: Unremarkable. IMPRESSION: 1. . There is no evidence of hemorrhage, mass effect, or acute territorial ischemia noting angiographic phase technique. 2. Unremarkable CT angiogram of the brain. ACT 112: Negative or not required by law. Electronically signed by: Sylvester Sweeney M.D. 08/20/2024 3:19 PM Neck CTA 08/20/24 14:33 CT angio neck with con CLINICAL HISTORY: dizziness; double vision; cerebellar sx TECHNIQUE: CT angiography of the head and neck was performed following intravenous administration of iodinated contrast. Coronal and sagittal MIPS were obtained from the axial data set and were submitted for review. Automated dose lowering techniques and/or adjustment according to patient size were utilized for this examination. All measurements were calculated based on NASCET criteria. CT DOSE: 1217.62 mGy.cm Comparison: None available at the time of this dictation. FINDINGS: Lungs and soft tissues are unremarkable. CTA Neck: A 3 vessel aortic arch is shown. There is no significant atherosclerotic plaque in the aortic arch or the origins of the innominate, left common carotid, and left subclavian arteries. Carotid arteries are unremarkable. There is a filling defect in the V3 to proximal V4 segment of the vertebral artery likely representing a dissection. The right vertebral artery is dominant. IMPRESSION: 1. 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 Assessment of stenosis of the internal carotid arteries is based on NASCET criteria. ACT 112: Negative or not required by law. Electronically signed by: Sagar Kennedy M.D. 08/20/2024 3:08 PM Discharge Plan Visit Data Chief Complaint: Dizziness Stated Complaint: DIZZINESS ED Provider: Darlene Car Discharge Problem: Dissection of vertebral artery, Stroke-like symptoms, Prolonged QT interval, Elevated lactic acid level Forms Stand Alone Forms: [facility] [employer] Prescriptions Prescriptions: No Action tizanidine 4 mg tablet 4 mg PO Q6 PRN (Reason: .Muscle pain) acetaminophen [Tylenol Extra Strength] 500 mg Tablet 1,000 mg PO Q6H PRN (Reason: Pain) calcium carbonate [Calcium 600] 600 mg calcium (1,500 mg) Tablet 600 mg PO DAILY vitamin B complex Tablet 1 tab PO DAILY glucosamine-chondroitin [Osteo Bi-Flex] 250-200 mg Tablet 2 tab PO DAILY magnesium oxide 400 mg magnesium Tablet 400 mg PO DAILY turmeric 400 mg Capsule 400 mg PO QAM Collagen Tab 3 tabs PO QAM metoprolol tartrate 25 mg Tablet 25 mg PO BID17 Qty: 60 0RF amiodarone 200 mg tablet 200 mg PO BID cefadroxil 500 mg capsule 500 mg PO BID furosemide 20 mg tablet 20 mg PO QAM losartan 100 mg tablet 100 mg PO DAILY Referrals Referrals: Juliane Khoury, [Primary Care Provider] -
[2024-08-20] MEDS: OPTIRAY 320 125ml IV ONE (14:46)
--- NOTE | 2024-08-20 15:10 | CT Scan Report ---
CT angio neck with con CLINICAL HISTORY: dizziness; double vision; cerebellar sx TECHNIQUE: CT angiography of the head and neck was performed following intravenous administration of iodinated contrast. Coronal and sagittal MIPS were obtained from the axial data set and were submitt ed for review. Automated dose lowering techniques and/or adjustment according to patient size were u tilized for this examination. All measurements were calculated based on NASCET criteria. CT DOSE: 1217.62 mGy.cm Comparison: None available at the time of this dictation. FINDINGS: Lungs and soft tissues are unremarkable. CTA Neck: A 3 vessel aortic arch is shown. There is no significant atherosclerotic plaque in the aor tic arch or the origins of the innominate, left common carotid, and left subclavian arteries. Caroti d arteries are unremarkable. There is a filling defect in the V3 to proximal V4 segment of the verteb ral artery likely representing a dissection. The right vertebral artery is dominant. IMPRESSION: 1. 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 Assessment of stenosis of the internal carotid arteries is based on NASCET criteria. ACT 112: Negative or not required by law. Electronically signed by: Sagar Kennedy M.D. 08/20/2024 3:08 PM
[2024-08-20 15:18] LABS: Albumin Globulin Ratio 1.1 (0.9-2); BUN Creatinine Ratio 23.2 (10-20); Bilirubin,Total 1.3 mg/dl (0.2-1.0); Calcium 9.9 mg/dl (8.6-10.3); Creatinine Clr Calc Pharmacy 30.3 ml/min; Est GFR (African American) 35.3 ml/min; Est GFR (Non-African American) 30.5 ml/min; Globulin 3.5 gm/dl (2.5-4.0); Magnesium 2.3 mg/dl (1.7-2.4); Potassium 3.5 mmol/L (3.5-5.1); Total Protein 7.5 gm/dl (6.0-8.3)
--- NOTE | 2024-08-20 15:19 | CT Scan Report ---
CT head/brain wo con CLINICAL HISTORY: 69 years-old Female with dizziness; double vision; cerebellar sx. Acute stroke lik e symptoms TECHNIQUE: Multiple axial CT images of the head were obtained without contrast. A dose lowering tech nique was utilized adhering to the principles of ALARA. COMPARISON: CTA head of same day, brain MRI 06/25/2024 FINDINGS: No acute intracranial hemorrhage, midline shift, intra-axial mass, hydrocephalus, territorial ischemi a or abnormal extra-axial collection. Arachnoid cyst adjacent to the superior right parietal lobe is unchanged. Changes with chronic microvascular ischemic disease. There is progressive encephalomalacia within the mid to inferior left cerebellar hemisphere. The calvarium is intact. The paranasal sinuses, mastoid air cells, and middle ear cavities are clear . IMPRESSION: 1. No acute intracranial abnormality identified. 2. Progressive encephalomalacia within the subacute to chronic appearing left cerebellar infarct orig inally described on the 06/25/2024 MRI. 3. Involutional changes with chronic microvascular ischemic disease. ACT 112: Negative or not required by law. The above report was generated using voice recognition software. It may contain grammatical, syntax o r spelling errors. Electronically signed by: Madhu Alaniz M.D. 08/20/2024 3:17 PM
[2024-08-20 15:21] LABS: Basophils # (auto) 0.06 K/uL (0.00-0.20); Basophils % (auto) 0.7 %; Eosinophils % (auto) 3.4 %; Hematocrit (blood only) 32.6 % (37.0-47.0); Hemoglobin 10.5 g/dl (12.0-16.0); Immature Granulocytes # (auto) 0.08 K/uL (0.01-0.20); Immature Granulocytes % (auto) 0.9 %; Lymphocytes # (auto) 3.64 K/uL (1.20-3.40); Lymphocytes % (auto) 41.6 %; Mean Corpuscular Hemoglobin 29.8 pg (25.0-34.0); Mean Corpuscular Hgb Conc 32.2 g/dL (32.0-36.0); Mean Corpuscular Volume 92.6 fL (80.0-100.0); Mean Platelet Volume 10.4 fL (9.4-12.4); Monocytes # (auto) 0.69 K/uL (0.11-0.59); Monocytes % (auto) 7.9 %; Neutrophils # (auto) 3.99 K/uL (1.40-6.50); Neutrophils % (auto) 45.5 %; Platelet Count 260 K/uL (130-400); RDW Coefficient of Variation 14.1 % (11.5-14.5); RDW Standard Deviation 47.5 fL (36.4-46.3); Red Blood Count 3.52 M/uL (4.20-5.40); White Blood Count 8.76 K/ul (4.8-10.8)
--- NOTE | 2024-08-20 15:21 | CT Scan Report ---
CT ANGIOGRAM OF THE BRAIN CLINICAL HISTORY: Dizziness. Diplopia. COMPARISON STUDY: Unenhanced CT of the brain performed concurrently on 08/20/2024. MRI of the brain d ated 06/25/2024. TECHNIQUE: Following the IV administration of 119 cc of Optiray 320, CT angiogram of the brain was pe rformed from the skull base to the vertex. Images are reviewed in the axial, sagittal, and coronal pl anes. 3-D MIPS images are created and assessed. IV contrast was administered without complication. A dose lowering technique was utilized adhering to the principles of ALARA. FINDINGS: Brain parenchyma: There is age-related emotional change noting mild to moderate subcortical and periv entricular microangiopathic disease. A focus of left cerebellar encephalomalacia is consistent with a prior infarct. This was acute on 06/25/2024. There is no evidence of acute hemorrhage, mass effect, o r territorial ischemia noting angiographic phase technique. There is no evidence of enhancing mass le loyd on the angiogram phase images. No extra-axial fluid collection is seen. Brownlee-white matter differ entiation is preserved. Ventricles, sulci, and cisterns: Normal in configuration. CT angiogram of the brain: There is atherosclerotic calcification of the cavernous carotid arteries. The internal carotid arteries are widely patent, as are the anterior and middle cerebral arteries. Th e vertebrobasilar system and posterior cerebral arteries are widely patent. The right vertebral arter y is dominant. There is no aneurysm, high-grade stenosis, or focal vessel cutoff identified throughou t the intracranial circulation. Dural sinuses: Clear as visualized. Orbits: The bony orbits are intact. The orbital contents are normal as visualized. Sinuses and mastoids: An 11 mm retention cyst is noted in the right maxillary antrum. The Paranasal s inuses are otherwise clear. The mastoid air cells are well pneumatized. Calvarium: Unremarkable. IMPRESSION: 1. . There is no evidence of hemorrhage, mass effect, or acute territorial ischemia noting angiograph ic phase technique. 2. Unremarkable CT angiogram of the brain. ACT 112: Negative or not required by law. Electronically signed by: Sylvester Sweeney M.D. 08/20/2024 3:19 PM
[2024-08-20 15:24] LABS: Troponin I High Sensitivity 2.4 pg/ml (0-14)
[2024-08-20 15:30] LABS: Partial Thromboplastin Ratio 0.7; Prothrombin Time 10.9 Seconds (9.0-12.0)
[2024-08-20 15:33] LABS: Partial Thromboplastin Time < 20 Seconds (21-31)
[2024-08-20] MEDS: ASPIRIN CHEW 324 MG PO STA (16:02)
[2024-08-20] MEDS: SODIUM CHLORIDE 0.9% 1,000 ML IV ONE (16:06)
--- NOTE | 2024-08-20 17:15 | History & Physical Report ---
Date of Service August 20, 2024 Assessment & Plan (1) Elevated lactic acid level: (2) Stroke-like symptoms: (3) Dissection of vertebral artery: (4) Retroperitoneal hematoma: (5) HTN (hypertension): Plan 69-year-old female who presented to the ED on 08/20/2024 with dizziness/blurred vision, recent cerebellar stroke, recently hospitalized for retroperitoneal hematoma, finished IV antibiotics on 08/20 for MSSA bacteremia admitted for stroke rule out. Assessment and plan: Left V3/V4 vertebral artery dissection: Not a candidate for tPA, start baby aspirin, consult neurology Check head MRI, check echo, permissive hypertension x 24 hours Neurochecks every 4 hours Hypertensive urgency: Permissive hypertension x 24 hours, hold losartan, continue metoprolol PRATIMA: Lactic acidosis: Creatinine elevated likely secondary to dehydration, takes Lasix at home Labs are indicative of dehydration, with an elevated anion gap/elevated lactic acid Gentle IV fluids, daily CMP, anticipate worsening creatinine with recent IV contrast Recent retroperitoneal hematoma: Hemoglobin stable, 10.5, no S/S active bleeding, CTM Recent MSSA bacteremia: Patient finished IV cephalosporin today 08/20PICC line was removed by home care nursing Follows with infectious disease, reports she will be on cefadroxil for at least 2 months, this is ordered and patient Hx AF: Remains in sinus rhythm, continue amiodarone/metoprolol, consult cardiology as needed Full code DVT prophylaxis: SCDs, AC contraindicated with recent bleeding A total of 60 minutes was spent coordinating, documenting, and providing care for this patient excluding time spent in the performance of separately billable services. This included personally reviewing all current labs and imaging studies, medication reconciliation, outpatient chart review, and discussion with specialists History of Present Illness Chief Complaint: Blurry vision, dizziness Primary Care Provider: Juliane Khoury DO The patient is a 69-year-old female with a past medical history of A-fib, CVA, recent retroperitoneal hematoma, recent MSSA bacteremiaendocarditis, who presents to the ED today 08/20/2024 after she became dizzy and her vision became blurry. She reports a home care nurse came to her house to remove her PICC line. She was sitting and comfortable. Her vision became blurry and she starte d feeling dizzy. She also felt nauseous and clammy. She denied any abdominal pain at this time. Denied any chest pain or shortness of breath. When she arrived to the ER, stroke alert was called- Head CT showed: 1. No acute intracranial abnormality identified. 2. Progressive encephalomalacia within the subacute to chronic appearing left cerebellar infarct originally described on the 06/25/2024 MRI. 3. Involutional changes with chronic microvascular ischemic disease. CTA of the neck showed dissection and a left V3/V4 vertebral artery Head CTA was negative Per the ER physician, after discussion with neurology/ICU it was recommended the patient be admitted to PCU level of care and started on aspirin. Not a candidate for TPA with history of retroperitoneal hematoma EKG showed sinus bradycardia On arrival to the ED, labs are remarkable for hemoglobin 10.5, CO2 19, anion gap 15, BUN 39, creatinine 1.68, lactate 3.0 The patient was recently admitted . She originally came in on 06/20 for back pain and weakness and was found to be septic in the setting of possible infectious myositis with retroperitoneal bleed. The patient also had an MRI that showed progressive disease with abscesses in the psoas and epidural space. At this time she was also worked up for stroke which was positive for left cerebellar infarct The patient was discharged on IV antibiotics which she completed today. She will now be transitioned to cefadroxil for at least 2 months per the patient, she is following with infectious disease. Reports her only residual deficits from her recent stroke were right leg weakness and some balance issues. On exam today, patient had tremors on her right hand and arm but otherwise no weakness numbness or tingling. Her blurry vision resolved but she still reports feeling fuzzy on exam. Allergies Allergy/AdvReac Type Severity Reaction Status Date / Time No Known Allergies Allergy Unverified 08/20/24 15:20 Home Medications Medication Instructions Recorded Confirmed Type Collagen Tab 3 tabs PO QAM 06/20/24 08/20/24 History acetaminophen 500 mg tablet 1,000 mg PO Q6H PRN Pain 06/20/24 08/20/24 History (Tylenol Extra Strength) calcium carbonate (Calcium 600) 600 mg PO DAILY 06/20/24 08/20/24 History glucosamine-chondroitin 250 mg-200 2 tab PO DAILY 06/20/24 08/20/24 History mg tablet (Osteo Bi-Flex) magnesium oxide 400 mg PO DAILY 06/20/24 08/20/24 History tizanidine 4 mg tablet 4 mg PO Q6 PRN .Muscle pain 06/20/24 08/20/24 History turmeric 400 mg capsule 400 mg PO QAM 06/20/24 08/20/24 History vitamin B complex 1 tab PO DAILY 06/20/24 08/20/24 History metoprolol tartrate 25 mg tablet 25 mg PO BID17 #60 tabs 06/25/24 08/20/24 Rx amiodarone 200 mg tablet 200 mg PO BID 08/20/24 08/20/24 History cefadroxil 500 mg capsule 500 mg PO BID 08/20/24 08/20/24 History furosemide 20 mg tablet 20 mg PO QAM 08/20/24 08/20/24 History losartan 100 mg tablet 100 mg PO DAILY 08/20/24 08/20/24 History pantoprazole 40 mg tablet,delayed 40 mg PO DAILY 08/20/24 08/20/24 History release Past Med/Surg History Problem List Elevated lactic acid level (Acute) Prolonged QT interval (Acute) Stroke-like symptoms (Acute) Dissection of vertebral artery (Acute) Anemia Abnormal CT scan, stomach Hyponatremia with decreased serum osmolality Retroperitoneal hematoma Gram-positive bacteremia Elevated alkaline phosphatase level Hyperglycemia Pelvic fluid collection Leukocytosis PRATIMA (acute kidney injury) Elevated troponin Acute hyponatremia (Acute) Weakness (Acute) Back pain (Acute) Atrial fibrillation with rapid ventricular response (Acute) Medical History HTN (hypertension) Surgical History H/O section History of cholecystectomy Hx of tonsillectomy History of Zakia fundoplication Family History Other Heart disease Hypertension Social History Smoking Status: Never smoker Hx Alcohol Use: Yes Alcohol type: wine Alcohol Intake Frequency: 2-4 x/Month Hx Substance Use: No Preferred Language: Bengali Communication Ability: Effective Compound Finisher Required: No Beliefs That Will Affect Care: None Current Living Situation: Spouse Feels Safe at Home: Yes Assistive Devices: Cane Review of Systems Review of Systems: All negative aside from stated in HPI Physical Exam Constitutional: WD/WN, vitals as above Eyes: PERRL, conjunctivae normal, anicteric sclerae ENMT: external ear and nose normal, oropharynx normal Neck: trachea midline, no thyromegaly Respiratory: normal respiratory effort, lungs clear to auscultation Cardiovascular: RRR, no murmur, no edema Chest (Breasts): normal inspection/palpation of breasts Gastrointestinal (Abdomen): normal bowel sounds, soft, nontender, no hepatosplenomegaly Musculoskeletal: no cyanosis or clubbing, extremities motor strength 5/5 Skin: no rashes, warm and dry Neurologic: patellar DTR's 2+ bilat, sensation intact and PERRL, EOMI, accommodation nl, no face palsy, no dysarthria normal touch/pain/proprioception, CN's II-XI intact bilaterally and moves all extremities (Reports right lower extremity weakness, strength is equal on exam) Motor/Sensory: + tremor (Right arm) Psychiatric: A+Ox3, euthymic affect Lymphatic: no cervical or axillary lymphadenopathy Results & Data Results & Data Vital Signs (Past 12 Hours) Vital Signs Temp Pulse Pulse Resp BP BP Pulse Ox 08/20/24 16:26 58 L 15 204/86 H 96 08/20/24 15:32 57 L 08/20/24 15:30 57 L 19 197/88 H 92 08/20/24 15:18 57 L 20 197/88 H 94 08/20/24 15:03 56 L 20 188/75 H 95 08/20/24 15:00 56 L 28 H 195/74 H 96 08/20/24 14:57 56 L 24 183/73 H 95 08/20/24 14:54 36.8 C 57 L 18 183/72 H 97 O2 Del Method 08/20/24 16:26 Room Air 08/20/24 15:32 08/20/24 15:30 08/20/24 15:18 08/20/24 15:03 08/20/24 15:00 08/20/24 14:57 08/20/24 14:54 Room Air Laboratory Results Laboratory Results WBC 8.76 K/ul (4.8-10.8) 08/20/24 14:40 RBC 3.52 M/uL (4.20-5.40) L 08/20/24 14:40 Hgb 10.5 g/dl (12.0-16.0) L 08/20/24 14:40 Hct 32.6 % (37.0-47.0) L 08/20/24 14:40 MCV 92.6 fL (80.0-100.0) 08/20/24 14:40 MCH 29.8 pg (25.0-34.0) 08/20/24 14:40 MCHC 32.2 g/dL (32.0-36.0) 08/20/24 14:40 RDW Std Deviation 47.5 fL (36.4-46.3) H 08/20/24 14:40 RDW Coeff of Jarad 14.1 % (11.5-14.5) 08/20/24 14:40 Plt Count 260 K/uL (130-400) 08/20/24 14:40 MPV 10.4 fL (9.4-12.4) 08/20/24 14:40 Immature Gran % (Auto) 0.9 % 08/20/24 14:40 Neut % (Auto) 45.5 % 08/20/24 14:40 Lymph % (Auto) 41.6 % 08/20/24 14:40 [place] % (Auto) 7.9 % 08/20/24 14:40 Eos % (Auto) 3.4 % 08/20/24 14:40 Baso % (Auto) 0.7 % 08/20/24 14:40 Neut # (Auto) 3.99 K/uL (1.40-6.50) 08/20/24 14:40 Lymph # (Auto) 3.64 K/uL (1.20-3.40) H 08/20/24 14:40 [place] # (Auto) 0.69 K/uL (0.11-0.59) H 08/20/24 14:40 Eos # (Auto) 0.30 K/uL (0.00-0.50) 08/20/24 14:40 Baso # (Auto) 0.06 K/uL (0.00-0.20) 08/20/24 14:40 Immature Gran # (Auto) 0.08 K/uL (0.01-0.20) 08/20/24 14:40 PT 10.9 Seconds (9.0-12.0) 08/20/24 14:40 INR 1.0 (0.9-1.1) 08/20/24 14:40 APTT < 20 Seconds (21-31) L 08/20/24 14:40 PTT Ratio 0.7 08/20/24 14:40 Sodium 137 mmol/L (136-145) 08/20/24 14:40 Potassium 3.5 mmol/L (3.5-5.1) 08/20/24 14:40 Chloride 103 mmol/L (98-107) 08/20/24 14:40 Carbon Dioxide 19 mmol/L (21-32) L 08/20/24 14:40 Anion Gap 15 (3-11) H 08/20/24 14:40 BUN 39 mg/dl (6-23) H 08/20/24 14:40 Creatinine 1.68 mg/dl (0.6-1.2) H 08/20/24 14:40 Est Cr Clr Drug Dosing 30.3 ml/min 08/20/24 14:40 Est GFR ( Amer) 35.3 ml/min 08/20/24 14:40 Est GFR (Non-Af Amer) 30.5 ml/min 08/20/24 14:40 BUN/Creatinine Ratio 23.2 (10-20) H 08/20/24 14:40 Glucose 172 mg/dl (70-99(Fasting)) H 08/20/24 14:40 POC Glucose 194 mg/dl (70-99) H 08/20/24 14:38 Lactate 3.0 mmol/L (0.4-2.0) H* 08/20/24 15:04 Calcium 9.9 mg/dl (8.6-10.3) 08/20/24 14:40 Magnesium 2.3 mg/dl (1.7-2.4) 08/20/24 14:40 Total Bilirubin 1.3 mg/dl (0.2-1.0) H 08/20/24 14:40 AST 13 U/L (13-39) 08/20/24 14:40 ALT 13 U/L (7-52) 08/20/24 14:40 Alkaline Phosphatase 75 U/L (34-104) 08/20/24 14:40 Troponin I High Sens 2.4 pg/ml (0-14) 08/20/24 14:40 Total Protein 7.5 gm/dl (6.0-8.3) 08/20/24 14:40 Albumin 4.0 gm/dl (3.4-5.0) 08/20/24 14:40 Globulin 3.5 gm/dl (2.5-4.0) 08/20/24 14:40 Albumin/Globulin Ratio 1.1 (0.9-2) 08/20/24 14:40 Procalcitonin < 0.02 ng/ml (0-0.5) 08/20/24 14:40 Blood Type A Positive 08/20/24 14:44 Antibody Screen NEGATIVE 08/20/24 14:[address] 08/20/24 14:33 CT head/brain wo con CLINICAL HISTORY: 69 years-old Female with dizziness; double vision; cerebellar sx. Acute stroke like symptoms TECHNIQUE: Multiple axial CT images of the head were obtained without contrast. A dose lowering technique was utilized adhering to the principles of ALARA. COMPARISON: CTA head of same day, brain MRI 06/25/2024 FINDINGS: No acute intracranial hemorrhage, midline shift, intra-axial mass, hydrocephalus, territorial ischemia or abnormal extra-axial collection. Arachnoid cyst adjacent to the superior right parietal lobe is unchanged. Changes with chronic microvascular ischemic disease. There is progressive ence phalomalacia within the mid to inferior left cerebellar hemisphere. The calvarium is intact. The paranasal sinuses, mastoid air cells, and middle ear cavities are clear. IMPRESSION: 1. No acute intracranial abnormality identified. 2. Progressive encephalomalacia within the subacute to chronic appearing left cerebellar infarct originally described on the 06/25/2024 MRI. 3. Involutional changes with chronic microvascular ischemic disease. ACT 112: Negative or not required by law. The above report was generated using voice recognition software. It may contain grammatical, syntax or spelling errors. Electronically signed by: Madhu Alaniz M.D. 08/20/2024 3:17 PM Head CTA 08/20/24 14:33 CT ANGIOGRAM OF THE BRAIN CLINICAL HISTORY: Dizziness. Diplopia. COMPARISON STUDY: Unenhanced CT of the brain performed concurrently on 08/20/2024. MRI of the brain dated 06/25/2024. TECHNIQUE: Following the IV administration of 119 cc of Optiray 320, CT angiogram of the brain was performed from the skull base to the vertex. Images are reviewed in the axial, sagittal, and coronal planes. 3-D MIPS images are created and assessed. IV contrast was administered without complication. A dose lowering technique was utilized adhering to the principles of ALARA. FINDINGS: Brain parenchyma: There is age-related emotional change noting mild to moderate subcortical and periventricular microangiopathic disease. A focus of left cerebellar encephalomalacia is consistent with a prior infarct. This was acute on 06/25/2024. There is no evidence of acute hemorrhage, mass effect, or territorial ischemia noting angiographic phase technique. There is no evidence of enhancing mass lesion on the angiogram phase images. No extra-axial fluid collection is seen. Brownlee-white matter differentiation is preserved. Ventricles, sulci, and cisterns: Normal in configuration. CT angiogram of the brain: There is atherosclerotic calcification of the cavernous carotid arteries. The internal carotid arteries are widely patent, as are the anterior and middle cerebral arteries. The vertebrobasilar system and posterior cerebral arteries are widely patent. The right vertebral artery is dominant. There is no aneurysm, high-grade stenosis, or focal vessel cutoff identified throughout the intracranial circulation. Dural sinuses: Clear as visualized. Orbits: The bony orbits are intact. The orbital contents are normal as visualized. Sinuses and mastoids: An 11 mm retention cyst is noted in the right maxillary antrum. The Paranasal sinuses are otherwise clear. The mastoid air cells are well pneumatized. Calvarium: Unremarkable. IMPRESSION: 1. . There is no evidence of hemorrhage, mass effect, or acute territorial ischemia noting angiographic phase technique. 2. Unremarkable CT angiogram of the brain. ACT 112: Negative or not required by law. Electronically signed by: Sylvester Sweeney M.D. 08/20/2024 3:19 PM Neck CTA 08/20/24 14:33 CT angio neck with con CLINICAL HISTORY: dizziness; double vision; cerebellar sx TECHNIQUE: CT angiography of the head and neck was performed following int ravenous administration of iodinated contrast. Coronal and sagittal MIPS were obtained from the axial data set and were submitted for review. Automated dose lowering techniques and/or adjustment according to patient size were utilized for this examination. All measurements were calculated based on NASCET criteria. CT DOSE: 1217.62 mGy.cm Comparison: None available at the time of this dictation. FINDINGS: Lungs and soft tissues are unremarkable. CTA Neck: A 3 vessel aortic arch is shown. There is no significant atherosclerotic plaque in the aortic arch or the origins of the innominate, left common carotid, and left subclavian arteries. Carotid arteries are unremarkable. There is a filling defect in the V3 to proximal V4 segment of the vertebral artery likely representing a dissection. The right vertebral artery is dominant. IMPRESSION: 1. 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 Assessment of stenosis of the internal carotid arteries is based on NASCET geetha tellez. ACT 112: Negative or not required by law. Electronically signed by: Sagar Kennedy M.D. 08/20/2024 3:08 PM Code Status & VTE Plan VTE Prophylaxis Plan VTE Prophylaxis will be ordered: No Reason for no VTE drug order: Contraindicated Supervising Physician Co-Signing Physician Notes Patient is a 69-year-old female with history of A-fib currently not on anticoagulation, hypertension, hyperlipidemia, endocarditis, GI bleed, CVA and other medical problems presents with history of dizziness, transient blurry vision. Patient completed her IV antibiotic course for endocarditis today and home health nurse visited for PICC line removal. Patient developed sudden onset of blurry vision associated with dizziness, nausea, felt clammy and also states having left little finger numbness. Patient states that her right leg weakness from prior CVA felt like is worse from baseline. She also admits to have been ongoing neck pain for about 2 months which is associated with some stiffness and decreased range of movement. Please review HPI for complete details of presentation. I personally reviewed blood work and imaging studies. CT head showed progressive encephalomalacia within the subacute to chronic appearing left cerebellar infarct when compared to prior imaging. Neck CTA showed findings suggestive of dissection in the left V3 and V4 vertebral artery. EKG showed sinus bradycardia with prolonged QT. Blood work suggestive of PRATIMA creatinine 1.6, chronic lactic acidosis elevated at 3.0. Stroke alert was called in ED and ED physician spoke with Dr. Tim Ernandez, at [facility] who reviewed the images and recommended no TN K candidate. He also recommended starting aspirin 81 mg daily. He reported no role for intervention of the vertebral artery dissection and advised to hold antihypertensives unless blood pressure >220/120. Physical Exam: Vitals signs as noted above General Appearance: Moderately built and nourished, no apparent distress Head: normocephalic, Atraumatic Eyes: normal inspection, EOMI Neck: supple, Trachea midline Respiratory/Chest: Normal breath sounds, CTA, No accessory muscle use Cardiovascular: S1, S2, No murmur Abdomen/GI:Soft, Non tender, Bowel sounds present Extremities/Musculoskeletal:normal inspection, 1-2+, edema Neurologic/Psych:AAOX3, grossly no focal neurological deficits, no dysarthria, + right upper extremity intermittent tremor Skin: normal color, warm Left V3 and V4 vertebral artery dissection Subacute CVA Hypertensive urgency Chronic lactic acidosis Acute kidney injury Recent endocarditis H/O A-fib not on anticoagulation currently Telestroke recommended no TNK, surgical intervention Agree with aspirin 81 mg, neurochecks, neurology consult Check resting echo, lipid panel, A1c, fall precautions, PT OT, speech eval Check MRI brain, consider MRA as well if recommended by neurology Allow permissive hypertension Avoid nephrotoxic agents as able, monitor renal function, gentle IV fluids Continue oral cefadroxil as recommended by ID to continue treatment for endocarditis I personally interviewed and examined at bedside. Patient's care is coordinated with Genesis RAYMUNDO I have reviewed the advanced practitioner's documentation, and I agree with plan of care. Please refer to the documentation above for details of patient's presentation and for discussion of other issues. I spent a total [id number] coordinating, documenting, and providing care for this patient excluding time spent in the performance of separately billed services.
[2024-08-20] MEDS: POTASSIUM CHLORIDE CRTAB 20 MEQ TABCR PO STA (17:54)
--- NOTE | 2024-08-20 21:37 | Electrocardiogram Report ---
Test Reason : Blood Pressure : */* mmHG Vent. Rate : 56 BPM Atrial Rate : 56 BPM P-R Int : 174 ms QRS Dur : 84 ms QT Int : 538 ms P-R-T Axes : 68 -2 19 degrees QTcB Int : 519 ms Sinus bradycardia Minimal voltage criteria for LVH, may be normal variant ( R in aVL ) Prolonged QT Abnormal ECG When compared with ECG of 25-Jun-2024 14:02, Vent. rate has decreased by 28 bpm QT has lengthened Confirmed by Yordy Browning ([id number]) on 08/20/2024 9:37:15 PM Referred By: Confirmed By: Yordy Browning
--- NOTE | 2024-08-20 23:33 | Communication Note ---
Date of Service: August 20, 2024 Cefadroxil nonformulary Rx as per pharmacy. Patient on cefadroxil for MSSA bacteremia. Keflex while until patient able to bring patient cefadroxil Rx in a.m.
[2024-08-20] MEDS ORDERED: PHARMACIST DISCHARGE MED REC CONSULT PRN (23:39)
[2024-08-21] MEDS: LACTATED RINGER'S 1,000 ML IV SCH (00:09)
[2024-08-21] MEDS: METOPROLOL TARTRATE 25 MG TAB PO SCH (00:49)
[2024-08-21] MEDS: AMIODARONE 200 MG TAB PO SCH (00:53)
[2024-08-21] MEDS: cephALEXin 250 MG CAP PO ONE (01:35)
--- OUTSIDE RECORDS SUMMARY | 2024-08-21 04:48 | External Medical Summary | Summary of Care ---
Author Name Unknown Organization [facility] Address [address] [place] [address] Phone [phone] Care Team Providers Care Parts Data Writer Name Role Phone Juliane Khoury DO Primary Care Provider Reason for Visit * Reason Comments Hospital Follow-Up Encounter Details Date Type Department Care Team (Latest Contact Info) Description 08/05/2024 11:00 AM EDT Office Visit Family Practice [facility] [address] [facility] [place] [address] Juliane Khoury DO [address] [place] [address] Endocarditis, unspecified chronicity, unspecified endocarditis type*; Duodenal abscess; Gastrointestinal hemorrhage associated with duodenal ulcer; Recurrent falls; Epidural abscess; Atrial fibrillation with rapid ventricular response (HCC); Bacteremia due to methicillin susceptible Staphylococcus aureus (MSSA); Iron deficiency anemia due to chronic blood loss; Transfusion history; Mesenteric arterial embolization (HCC); Psoas abscess (HCC); S/P insertion of IVC (inferior vena caval) filter; Cerebellar stroke (HCC); Atrial fibrillation, unspecified type (HCC) Allergies No known active allergiesdocumented as of this encounter (statuses as of 08/19/2024) Medications Medication Sig Dispensed Refills Start Date [...] by mouth 3 Tablets daily . Active Magnesium 250 MG Oral Tablet Take 1 Tablet by mouth every evening. Active Ibuprofen 200 MG Oral Capsule Take 2 Capsules by mouth every 6 hours as needed. Active predniSONE 20 MG Oral Tablet (Deltasone)Indicati ons:Lumbar radiculopathy Take 3 tabs for 3 days, 2 tabs for 3 days, 1 tab for 3 days, 1/2 tab for 3 days 20 Tablet 06/17/2024 Active Amiodarone HCl 200 MG Oral Tablet (Cordarone) Take 1 Tablet by mouth in the morning and 1 Tablet before bedtime. Active Sennosides-Docusate Sodium 8.6-50 MG Oral Tablet (Senna S) Start: 07/16/24 11:13:00 AM EDT, 2 tab, PO, bid 07/16/2024 Active Losartan Potassium 100 MG Oral Tablet (Cozaar) Take 1 Tablet by mouth in the morning. 07/26/2024 Active Pantoprazole Sodium 40 MG Oral Tablet Delayed Release (Protonix) Take 1 Tablet by mouth 2 times a day with morning and evening meals. Active Furosemide 20 MG Oral Tablet (Lasix) Take 1 Tablet by mouth in the morning. 07/26/2024 Active Metoprolol Tartrate 25 MG Oral Tablet (Lopressor) Take 1 Tablet by mouth in the morning and 1 Tablet before bedtime. 06/25/2024 Active Losartan Potassium 50 MG Oral Tablet (Cozaar) Take 1 Tablet by mouth in the morning. 90 Tablet 3 08/15/2023 08/05/2024 Discontinue d(Medicatio n List Clean Up) tiZANidine HCl 4 MG Oral Tablet (Zanaflex)Indicatio ns:Lumbar radiculopathy Take 1 Tablet by mouth every 6 hours as needed for Muscle spasms. 30 Tablet 06/17/2024 08/05/2024 Discontinue d(Medicatio n List Clean Up) documented as of this encounter (statuses as of 08/19/2024) Active Problems Problem Noted Date Diagnosed Date Atrial fibrillation 08/19/2024 Primary osteoarthritis of both hands 02/14/2023 Primary [...] as of this encounter (statuses as of 08/19/2024) Resolved Problems Problem Noted Date Diagnosed Date Resolved Date Special screening for malign ant neoplasms, colon 02/13/2018 02/13/2018 Dyslipidemia, goal to be determined 11/14/2007 10/20/2009 Overview: Per Lipid Taxonomy HTN, goal below 140/90 12/26/200507/31 PURE HYPERCHOLESTEROLEM 06/13/200410/26 Overview: Per Lipid Taxonomy. Hypertension 03/06/2018 documented as of this encounter (statuses as of 08/19/2024) Immunizations Name Administration Dates Next Due COVID-19 mRNA, LNP-s, No Pre serve, 2-Dose Series (Luxodo) 09/05/2021,02/25/2021,01/29/2021 Covid-19, Mrna, Lnp-s, Pf, B ivalent, 30 Mcg, IM, 12 yrs and above (Pfizer) 09/20/2022 Pneumococcal Conjugate Vacc, 13 Valent (Prevnar) 04/14/2022 Pneumococcal Polysaccharide PPV23 (Pneumovax) 10/29/2020 Season Influenza, Quad, PF, Adjuvanted, 65+ Yrs, IM (FLUAD) 10/02/2023 Seasonal Influenza Virus Vac cine, Unspecified Formulation 08/29/2021,09/12/2018 Seasonal Influenza, QUAD, wi th Preserv, 6 mons & Above, 0.5 mL, IM 08/29/2020,09/19/2019 Seasonal Influenza, Quadriva lent Hd (Fluzone Hd) 09/20/2022 Seasonal Influenza, Quadriva lent, No Preserve, IM 09/13/2017 Seasonal Influenza, Trivalen t, (IIV3), with Preserv, (Fluzone) 08/20/2014,09/28/2010,09/28/2009 TD, Preservative Free 10/29/2020 TDAP, Age 6 [...] Sign Reading Time Taken Comments Blood Pressure 136/68 08/05/2024 11:06 AM EDT Pulse 60 08/05/2024 11:06 AM EDT Temperature 36.6 C (97.9 F) 08/05/2024 11:06 AM E DT Respiratory Rate 18 08/05/2024 11:06 AM EDT Oxygen Saturation 100% 08/05/2024 11:06 AM EDT Inhaled Oxygen Concentration - - Weight 90 kg (198 lb 6.4 oz) 08/05/2024 11:06 AM EDT Height - - Body Mass Index 33.02 06/20/2024 3:43 PM EDT documented in this encounter Progress Notes * PengLakeishamadhavi Khanna, - 08/05/2024 11:38 AM EDT Subjective: John Espino is a 69 year old female. Chief Complaint Patient presents with Hospital Follow-Up HPI: John Espino presents for hospital follow up. Medications & HM reviewed. See ER, hospital records for full details, further details provided by patient and son. Seen in ER for LBP, sent home with medications, had office f/u, wasn't better, so had another OP visit, sent to ER given persistent severe symptoms, recurrent falls Admitted [facility], and found to have MSSA bacteremia, per ID from skin source, possible endocarditis although TTE was negative. Then admitted to [facility], neurosurgery removed lumbar epidural abscess. GI bleed duodenal abscess, needed over 8 transfusions, tried to fix it several different ways. Black tarry stools, Hb down to 6, BPs to 80s, had to wait until stabalized - IR embolized the artery. Had psoas abscess- I&D, drain Had IVC placed in lower aorta, for clot in illiac artery. Also had cerebellar stroke noted at [facility], and transferred to [facility] Had neurosurgery, neurochecks, in ICU, epidural abscess- s/p laminectomy PHM: Patient Active Problem List Diagnosis Insomnia ADVANCE DIRECTIVE INFORMATION Anxiety state DYSLIPIDEMIA, GOAL TO BE DETERMINED Paraesophageal hernia HTN, goal below 140/90 Primary osteoarthritis of both hands Primary osteoarthritis of both shoulders Generalized osteoarthritis Atrial fibrillation (HCC) Current Outpatient Medications Medication Sig Dispense Refill Amiodarone HCl 200 MG Oral Tablet (Cordarone) Take 1 Tablet by mouth in the morning and 1 Tablet before bedtime. Furosemide 20 MG Oral Tablet (Lasix) Take 1 Tablet by mouth in the morning. Losartan Potassium 100 MG Oral Tablet (Cozaar) Take 1 Tablet by mouth in the morning. Metoprolol Tartrate 25 MG Oral Tablet (Lopressor) Take 1 Tablet by mouth in the morning and 1 Tablet before bedtime. Pantoprazole Sodium 40 MG Oral Tablet Delayed Release (Protonix) Take 1 Tablet by mouth 2 times a day with morning and evening meals. Sennosides-Docusate Sodium 8.6-50 MG Oral Tablet (Senna S) Start: 07/16/24 11:13:00 AM EDT, 2 tab, PO, bid predniSONE 20 MG Oral Tablet (Deltasone) Take 3 tabs for 3 days, 2 tabs for 3 days, 1 tab for 3 days, 1/2 tab for 3 days 20 Tablet 0 Ibuprofen 200 MG Oral Capsule Take 2 Capsules by mouth every 6 hours as needed. Magnesium 250 MG Oral Tablet Take 1 Tablet by mouth every evening. Calcium-Vitamin D 600-200 MG-UNIT Oral Tablet Take 1 Tablet by mouth in the morning. Collagen 1500/C 500-50-0.8 MG Oral Capsule (Collagen-Vitamin C-Biotin) Take by mouth 3 Tablets daily . Osteo Bi-Flex Triple Strength Oral Tablet Take by mouth 2 Tablets daily . Super B-50 Complex Oral Capsule Take by mouth 1 Tablet daily . Vitamin D3 50 MCG (2000 UT) Oral Capsule Take 1 Capsule by mouth in the morning. Multiple Vitamins-Minerals (MULTIVITAMIN WOMEN 50+) TABS Take 1 Tab by mouth daily. No current facility-administered medications for this visit. Review of patient's allergies indicates: No Known Allergies Objective: BP 136/68 | Pulse 60 | Temp 36.6 C (97.9 F) (Tympanic) | Resp 18 | Wt 90 kg (198 lb 6.4 oz) | LMP 10/21/2002 | SpO2 100% | BMI 33.02 kg/m | BSA 2.03 m Physical Exam: General: alert, healthy, and no distress Head: Normocephalic, No masses, lesions, tenderness or abnormalities Eye Exam: PERRLA, extraocular movements intact, conjunctiva are pink and non- injected, sclera clear Ears: External ears normal, Canals clear, TM's Normal Oropharynx: no exudate, no erythema, lips, buccal mucosa, and tongue normal, and mucous membranes are moist Neck: supple, no adenopathy, no bruits, thyroid normal size, non-tender, without nodularity Heart: regular rate & rhythm, no murmur, and no gallops Lungs: chest symmetric with normal AP diameter, no chest deformities noted, no chest wall tenderness, lungs clear to auscultation Pulses: carotid=2/4 w/o bruits Extremities: less than 2 second capillary refill, no joint deformities, effusion, or inflammation Neuro Exam: alert & oriented x 3 with fluent speech, no focal motor/sensory deficits, gait normal, reflexes normal and symmetric ASSESSMENT/PLAN: Much improved, afebrile, has follow up with specialists, continue current medications, BP and HR controlled Endocarditis, unspecified chronicity, unspecified endocarditis type (Primary) Duodenal abscess Gastrointestinal hemorrhage associated with duodenal ulcer Recurrent falls Epidural abscess Atrial fibrillation with rapid ventricular response (HCC) Bacteremia due to methicillin susceptible Staphylococcus aureus (MSSA) Iron deficiency anemia due to chronic blood loss Transfusion history 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 | For: Clinic Visit 45 min spent with patient, reviewing history, performing physical exam, reviewing labs, studies, specialist OVNs, and reports, educating and coordinating care, discussing treatment Juliane Khoury DO documented in this encounter Nursing Notes * Aruna Mcclendon LPN - 08/05/2024 10:54 AM EDT John Espino presents for hospital follow up. Medications & HM reviewed. documented in this encounter Plan of Treatment Upcoming Encounters Date Type Department Care Team (Late st Contact Info) Description 12/18/2024 8:45 AM EST Office Visit Dermatology [facility] [address] [place] [address] Brian Kaye MD [address] [place] [address] Scheduled Procedures Name Priority Associated Diagnoses Date/Ti me COLONOSCOPY FLEXIBLE PROXIMAL DIAGNOSTIC Recall History of colon polyps Health Maintenance Due Date Last Done Comments Cologuard 1999 Fecal Occult Blood Test 1999 Sigmoidoscopy 1999 Adult Wellness Visit 2020 Depression Screening 07/22/2020 07/22/2019, 08/24/2015 (Discussed) COVID-19 Vaccine ( season) 2024 10/02/2023, 09/20/2022, 09/05/2021, Additional history exists Influenza Vaccine (FLU shot) (#1) 2024 10/02/2023, 09/20/2022, 08/29/2021, Additional history exists Mammogram 12/25/2024 12/25/2023, 11/27, 03/25/2021, Additional history exists Albumin/Creatinine Ratio 03/29/2025 03/29/2022 GFR 08/13/2025 08/13/2024, 07/27, 07/29/2024, Additional history exists Lipid Panel 03/29/2027 03/29/2022, 10/27, 08/07/2019, Additional history exists DXA Scan 12/08/2027 12/08/2020 Colonoscopy 04/02/2029 04/02/2024, 05/0 06/2024, 02/26/2018, Additional history exists Colorectal Cancer Screening 04/02/2029 DTap/Tdap Vaccines (3 - Td or Tdap) 10/29/2030 10/29/2020, 10/28/2009, 05/26/1996 Zoster Vaccines Completed 10/06/2019, 08/05/2019 Pneumococcal Vaccine: 65+ Years Completed 04/14/2022, 10/29/2020 [...] as of this encounter Visit Diagnoses Diagnosis Endocarditis, unspecified chronicity, unspecified endocarditis type- Primary Duodenal abscess Abscess of intestine Gastrointestinal hemorrhage associated with duodenal ulcer Recurrent falls Personal history of fall Epidural abscess Intracranial and intraspinal abscess of unspecified site Atrial fibrillation with rapid ventricular response (HCC) Atrial fibrillation Bacteremia due to methicillin susceptible Staphylococcus aureus (MSSA) Iron deficiency anemia due to chronic blood loss Iron deficiency anemia secondary to blood loss (chronic) Transfusion history Other specified personal history presenting hazards to health Mesenteric arterial embolization (HCC) Acute vascular insufficiency of intestine Psoas abscess (HCC) Psoas muscle abscess S/P insertion of IVC (inferior vena caval) filter Other postprocedural status Cerebellar stroke (HCC) Atrial fibrillation, unspecified type (HCC) documented in this encounter Care Teams Parts Data Writer Relationship Specialty Start Date End Date Juliane Khoury DO [address] [place] [address] [place] [address] PCP - General Family Medicine 09/29/11 documented as of this encounter"
--- OUTSIDE RECORDS SUMMARY | 2024-08-21 04:48 | External Medical Summary | Continuity of Care Document ---
Author Name Unknown Organization [facility] [address] [place] [address] Care Team Providers Care Sawmill Worker Name Role Phone Juliane Khoury Primary Care Physician [phone] Encounter [facility] [id number] Date(s): 08/14/24 - 08/14/24 [facility] [address] [place] [address] [phone] Encounter Diagnosis Cerebellar stroke(Discharge Diagnosis) - 08/14/24 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 space of lumbar spine(Discharge Diagnosis) - 08/14/24 Proximal leg weakness(Discharge Diagnosis) - 08/14/24 Atrial fibrillation(Discharge Diagnosis) - 08/14/24 Embolic stroke(Discharge Diagnosis) - 08/15/24 Discharge Disposition: Home or Self Care Attending Physician: MD Liz, [facility] Referring Physician: MD Whalen Michael P Allergies, Adverse Reactions, Alerts No Known Allergies Assessment and Plan Extracted from: Title:TeleHealth Visit Note Author:MD Liz, E [facility] Date:08/15/24 1.Cerebellar stroke -Unclear etiology, possible left vertebral dissection vs pseudoaneurysm. Maybe in the setting of bacteremia. - Has recovered well -Continue PT for balance, we discussed fall precautions, especially when taking a shower (has shower chair but uses a bathtub). 2.Embolic stroke -unclear etiology, possible embolic, maybe septic emboli given widespread infection but she also had A.fib. - no history of A.fib prior to recent hospitalization, it is possible that A.fib was 2nd to GI bleed/hypovolemia -didn't tolerate antiplatelets or anticoagulation, had recurrent GIB. -she has follow up appointments with GI and cardiology in the next few weeks, she might need long-term cardiac monitoring. It seems that she had recurrent GIB while at rehab in the setting of taking aspirin and eliquis. -will refer to stroke neurology for follow up to address the need for long-term anticoagulation for secondary stroke prevention. -lipid panel was normal/low, no need for statin for now -HbA1C was 6.3 during hospitalization, was recently started on steroids, will need to repeat this with PCP. -D/W patient and her and they understand 3.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 space of lumbar spine -Resolving -has follow up imaging and ortho and neurosurgery appointments. 4.Proximal leg weakness -continue PT - I think she will recover well. 5.Atrial fibrillation -not on any anticoagulation right now -she is taking amiodarone 200mg, 1 tab twice a day instead of 2 tabs twice a day. She is not sure why. -will see cardiology soon. Medications amiodarone 200 mg oral tablet Start: 07/16/24 11:13:00 AM EDT, 2 tab, PO, bid Start Date: 07/16/24 Status: Ordered calcium (as carbonate) 600 mg oral tablet Start: 06/25/24 10:31:00 PM EDT, 1 tab, PO, Daily, PRN: as needed for indigestion Start Date: 06/25/24 Status: Ordered cefepime Start: 07/16/24 11:13:00 AM EDT, 2,000 mg =, IV, q12h, end date 08/19/24 Start Date: 07/16/24 Status: Ordered furosemide 20 mg oral tablet TAKE 1 TABLET BY MOUTH EVERY DAY Start Date: 08/14/24 Status: Ordered losartan 25 mg oral tablet Start: 07/16/24 11:13:00 AM EDT, 1 tab, PO, Daily Start Date: 07/16/24 Status: Ordered Mag-Ox 400 oral tablet Start: 06/25/24 10:32:00 PM EDT, 1 tab, PO, Daily Start Date: 06/25/24 Status: Ordered metoprolol tartrate 25 mg oral tablet Start: 06/25/24 10:31:00 PM EDT, 1 tab, PO, bid Start Date: 06/25/24 Status: Ordered pantoprazole 40 mg oral delayed release tablet Start: 07/16/24 11:13:00 AM EDT, 1 tab, PO, bid Start Date: 07/16/24 Status: Ordered Senna S Start: 07/16/24 11:13:00 AM EDT, 2 tab, PO, bid Start Date: 07/16/24 Status: Ordered Tylenol 500 mg oral tablet Start: 07/16/24 11:12:00 AM EDT, 2 tab, PO, q6h Start Date: 07/16/24 Status: Ordered Mental Status 08/14/24 Barriers to Learning one year None evide nt Mandatory Health Literacy Documentation Yes Health Literacy Communication Barriers N ever Primary Language Salvadorean Problem List Condition Confirmation Course Effective Dates Status Health St atus Informant 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 Atrial fibrillation Confirmed Active Cerebellar stroke Confirmed Active Hypertension Confirmed Active Psoas abscess, right Confirmed Active Proximal leg weakness Confirmed Active Diagnosis Diagnosis Type Effective Dates Health Status Clinical Service Informant 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 space of lumbar spine Discharge Diagnosis 08/14/24 Non-Specified Cerebellar stroke Discharge Diagnosis 08/14/24 Non-Specified Atrial fibrillation Discharge Diagnosis 08/14/24 Non-Specified Proximal leg weakness Discharge Diagnosis 08/14/24 Non-Specified Embolic stroke Discharge Diagnosis 08/15/24 Non-Specified Social History Social History Type Response Smoking Status Never smoked cigaret kalyani Sex Female Sex Representation Female (finding) Neurology Outpatient Note * MD Liz, Efstathia: PERFORM Event Display: Neurology Outpt Note Authored Date: TeleHealth Visit Note I have confirmed the patients name and date of . The patient has consented to this service,and I have advised the patient that this is a billable visit for which they may be subject to a copay. The patient initiated this visit after they were informed of the availability of TeleHealth for this medically necessary visit. I am located at home. The patient is located at home. This visit was conducted via live audio/video technology via [employer]. Chief Complaint follow up History of Present Illness HPI:This is a 69 yrs old right- handed woman with PMHx significant for HTN, HLD and anxiety and recent hospitalization for MSSA bacteremia with multiple sites of infection (lumbar epidural abscess,psoas abscess, cervical osteomyelitis), cerebellar stroke, recurrent GIB, who is seen today as a hos pital follow up. Patients was also present during the visit. Chart review/hospital coursesummarized: -Presented on 06/20/24 to [facility] with back pain and trouble walking/frequent falls for 8 days, also reported dizziness, pain had started suddenly and was radiating to the right leg, was previously seen at local ER on 06/14 and was given prednisone and a muscle relaxant. Initial labs were sig nificant for leucoytosis, hyponatremia (Na 127), elevated alk phos and troponin,PRATIMA (creatinine 1.5), was started on IV zosyn, was found to have A.fib with RVR, TTE with good EF and no vegetations, hemoglobin dropped from 12.4 to 8, CT abdomen/pelvis showed possible distal gastritis/proximal duodenitis,MRI pelvis and lumbar spineshowed possible infections myositis at the right pelvis with bilateral psoas abscesses, epidural enhancement of the lumbar spine with possible epidural abscesses and arachnoiditis, develop acute nausea, dizziness and vomiting,CT brain showed left cerebellar stroke(exact date of symptom onset was not clear), showed blood cultures grew MSSA, was transitionedto IV cefazolin and transferred to [place] [facility] on 06/25/2024 -the first night of the MICU admission, she became disoriented and aphasic and developed a left Facial droop, was seen by neurology,NIHSS was 9for drowsiness, left facial asymmetry, dysarthria and no effort against gravity in either lower extremity, not a candidate for TKN given recent large stroke, possible endocarditis and possible RPR. CTA: No LVO but possible left vertebral artery dissection with pseudoaneurysm at V2/V3, CT brain showed known/subacute left cerebellar stroke with mass effect on 4thventricle and small ischemic stroke in right occipital lobe? -was seen by neurology, ortho, ID and neurosurgery. Initial exam was significant only for mild proximal legs weakness. Was started on aspirin 81mg and DVT ppx. Lipid panel was good (low LDL) so was not started on a statin.MRI brain showed subacute left cerebellar stroke and more acute right cerebellar and right occipital embolic strokes. -was found to haveright common iliac vein thrombus, had IVC filtered placed on 06/27, no anticoagulation - on June 28, she developed againA.fib with RVRand dark stools, started on amiodarone gtt, off DVT ppx, endoscopy on 06/30 showed 2 duodenal uclers (possibly 2ndto NSAIDs use prior to admission?), stopped aspirin -recurrent GIBon 07/02, had endoscopy again with treatment of duodenal ulcers followed by IR embolization on 07/04 due to recurrent bleeding MRIs of the spine on 07/07/2024 : 1. Osteomyelitis of the craniocervical junctioninvolving occipital condyles, C1 anterior arch, and the odontoid with associated prevertebral myositis andleft retropharyngeal abscess. 2. Lumbar epidural abscess extending from L3 through L5with severe spinal canal stenosis at L3-L4 and L4-L5, similar or slightly worse compared to May 2024. 3. Possibleseptic arthritisinvolving the L3-L4 and L4-L5 facet joints. 4. Paraspinal and psoas myositis and intramuscular abscesses,the abscess associated with the right psoas muscle has increased in size,left paraspinal musculature abscesses are mildly decreased. 5. No evidence of epidural abscess in the thoracic spine. 6. Severe left neural foraminal stenosis at C5-C6 - was taken to the OR on 07/08for L4 laminectomywith abscess washout -PADMA on 07/08: no vegetations -MRI pelvis on 07/09 showed worsening psoas abscesses, had right psoas I&D (ortho) with obvious purulence -had attempted IR drainage of the left retropharyngeal abscess on 07/10 but collection was too small/resolving -had worsening kidney function, nephrology consult on 07/10 -resumed aspirin 81mg on 07/13, started on eliquis on 5mg bid on 07/15 -discharged to rehab on 07/16/2024 with IV cefepime until 08/19/2024 -was seen at outpatient ortho clinic on 07/21 and reportedHb drop and tarry stools the day prior, aspirin and eliquis discontinued - returned home on 07/28/2024 I personally reviewed all the availableradiology images of the brain and the spine from 06/25/2024 to 08/14/2024: -MRI total spine on 08/10/2024 showed improved osteomyelitis of thecraniocervical junction with resolution of the retropharyngeal abscess,Multilevel significant neural foraminal stenosis most significant at left C3-C4 and bilateral C6-C7, slightly improved lumbar epidural abscess with slight improvement in the significant stenosis at L3-L4 and L4-L5. -CTA head/neck on 08/11 showed chronic left cerebellar infarct with resolution of the edema and stable left vertebral artery dissection vs pseudoaneurysm. Visit today: -Mild neck pain, muscular -No back pain -Doing PT, walking with cane/walker, feels a little bit out of balance -Can get up from chair by pushing herself up, she can go up and down the stairs slowly with the cane, is using shower chair, has bathtub, no grab bars -Balance is fairly good but she has to hold on to things if not using walker/cane. -feels that right leg is weaker, notices when she is getting in and out of the car -has noticed some hand tremor in certain positions -possible right CTS prior to hospitalization, used to wear a wrist brace, no symptoms since discharge -Main complaint is fatigue -Was seen recently by ortho, neurosurgery and ID, might switch to PO antibiotics next week. Has scheduled appointments with cardiology and GI in the next few weeks. 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 All other negative. Physical Exam Awake, alert and oriented to self, time, place and situation, speech clear no obvious facial asymmetry no pronator drift, mild left arm positional and intention tremor ITALIA normal Can get up from the chair by pushing herself up. Assessment/Plan 1.Cerebellar stroke -Unclear etiology, possible left vertebral dissection vs pseudoaneurysm. Maybe in the setting of bacteremia. - Has recovered well -Continue PT for balance, we discussed fall precautions, especially when taking a shower (has shower chair but uses a bathtub). 2.Embolic stroke -unclear etiology, possible embolic, maybe septic emboli given widespread infection but she also had A.fib. - no history of A.fib prior to recent hospitalization, it is possible that A.fib was 2nd to GI bleed/hypovolemia -didn't tolerate antiplatelets or anticoagulation, had recurrent GIB. -she has follow up appointments with GI and cardiology in the next few weeks, she might need long-term cardiac monitoring. It seems that she had recurrent GIB while at rehab in the setting of taking aspirin and eliquis. -will refer to stroke neurology for follow up to address the need for long-term anticoagulation forsecondary stroke prevention. -lipid panel was normal/low, no need for statin for now -HbA1C was 6.3 during hospitalization, was recently started on steroids, will need to repeat this with PCP. -D/W patient and her and they understand 3.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 space of lumbar spine -Resolving -has follow up imaging and ortho and neurosurgery appointments. 4.Proximal leg weakness -continue PT - I think she will recover well. 5.Atrial fibrillation -not on any anticoagulation right now -she is taking amiodarone 200mg, 1 tab twice a day instead of 2 tabs twice a day. She is not sure why. -will see cardiology soon. Attestation Time spent on preparation of visit immediately before the encounter, patient visit, and immediate post-visit care performed on 08/15/2024 was: 60 minutes. Activities pertaining to this visit were: preparation to see the patient, including chart review and imaging review , obtaining and/or reviewingseparately obtained history , counseling and patient education, coordinating care and documenting clinical information in patient's electronic record . Problem List/Past Medical History Ongoing 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 space of lumbar spine Atrial fibrillation Cerebellar stroke Hypertension Proximal leg weakness Psoas abscess, right Resolved Clogged ear Cough Right otitis media Medications acetaminophen(Tylenol 500 mg oral tablet), 1000 mg= 2 tab, PO, q6h amiodarone(amiodarone 200 mg oral tablet), 400 mg= 2 tab, PO, bid calcium carbonate(calcium (as carbonate) 600 mg oral tablet), 600 mg= 1 tab, PO, Daily, PRN cefepime, 2000 mg= 50 mL, IV, q12h docusate-senna(Senna S), 2 tab, PO, bid furosemide(furosemide 20 mg oral tablet) losartan(losartan 25 mg oral tablet), 25 mg= 1 tab, PO, Daily magnesium oxide(Mag-Ox 400 oral tablet), 400 mg= 1 tab, PO, Daily metoprolol(metoprolol tartrate 25 mg oral tablet), 25 mg= 1 tab, PO, bid pantoprazole(pantoprazole 40 mg oral delayed release tablet), 40 mg= 1 tab, PO, bid Allergies NKA Social History Smoking Status Never smoked cigarettes Family History Stroke: Sister. Health Status Family Member(s) Recommendations Health Maintenance Pending(in the next year) OverDue Adult Influenza Vaccine due05/25/24and every 1year Due Adult COVID-19 Vaccination due08/15/24Unknown Frequency Adult Tdap/Td Vaccine due08/15/24Unknown Frequency Breast Cancer Screening due08/15/24Unknown Frequency Colorectal Cancer Screening due08/15/24Unknown Frequency Falls Plan of Care due08/15/24Unknown Frequency Medicare Annual Wellness Visit due08/15/24and every 1year Osteoporosis Screening due08/15/24One-time only Pneumococcal Vaccine Older Adults due08/15/24One-time only Shingles Vaccine due08/15/24One-time only Due In Future Adult Social Determinants of Health Screening not due until07/16/25and every 366day Body Mass Index not due until08/12/25and every 366day Satisfied(in the past 1 year) Satisfied Body Mass Index on08/11/24.Satisfied by MEENU Moncada Erin Hepatitis C Screening on06/25/24.Satisfied by Contributor[employer]system, [place] Lipid Screening on06/27/24.Satisfied by [employer]ributor[employer]system, [email or web address] Electronic Signature on File CC: Jeromy Valentine MD [address] [facility] [address] [facility] [address] CC: Glenda Neal DO [address] [facility] 1 [facility] [address] CC: Angel Kraft MD [address] [place] [address] [address] [facility] [address] Electronically Reviewed/Signed by: Gerardo Hill MD Author Signature Dt/Tm:08/15/2024 12:04 PM Neurology ET Patient Care team information Care Team Personnel Name: Pietro Cerda Amy E Position: Pharmacist Member Role: Pharmacy - Lifetime Address: [facility] [address] [place] [address] [place] Name: JADYN Vernon Ashley Position: Physician Profile Shaper Operator - Neurosurgery Member Role: Lifetime Relationship Address: [address] [place] [address] [address] [place] [address] [place] Name: DO Khoury Carey K Position: Referring DIRECT Member Role: Primary Care Provider Address: [address] [place] [address] [place] Name: Pietro Everett Cassie Position: Pharmacist Member Role: Pharmacy - Lifetime Care Team Related Persons Name: ANGELLA [place] Name: FRANKY [place] Name: CELINA AG
--- OUTSIDE RECORDS SUMMARY | 2024-08-21 04:48 | External Medical Summary | Continuity of Care Document ---
Author Name Unknown Organization [facility] [address] [facility] [address] [id number] Care Team Providers Care Cutlet Maker Pork Name Role Phone Juliane Khoury Primary Care Physician [phone] Encounter [facility] [id number] Date(s): 08/12/24 - 08/12/24 [place] [address] [address] [facility] [place] [address] [facility], [facility] [address], [address] [place] [address] [phone] Encounter Diagnosis Psoas abscess, right(Discharge Diagnosis) - 08/08/24 Discharge Disposition: Home or Self Care Attending Physician: MD Coreen, [place] Allergies, Adverse Reactions, Alerts No Known Allergies Medications amiodarone 200 mg oral tablet Start: [...] Start Date: 07/16/24 Status: Ordered Mental Status 08/12/24 Barriers to Learning one year None evide nt Mandatory Health Literacy Documentation Yes Health Literacy Communication Barriers N ever Primary Language Norwegian Problem List Condition Confirmation Course Effective Dates Status Health St atus Informant 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 Right otitis media Confirmed Active Cough Confirmed Active Hypertension Confirmed Active Psoas abscess, right Confirmed Active Clogged ear Confirmed Active Diagnosis Diagnosis Type Effective Dates Health Status Cl inical Service Informant Psoas abscess, right Discharge Diagnosis 08/08/24 Results Radiology Reports * Exam Date Time Procedure Performing Provider Status 08/12/24 1:44 PM XR Pelvis 1 or 2 Views Joan Hylton; Final Notes: (XR Pelvis 1 or 2 Views) Reason For Exam: fx XR Pelvis 1 or 2 Views EXAMINATION: XR Pelvis 1 or 2 Views CLINICAL HISTORY: K68.12: Psoas muscle abscess; K68.12: Psoas muscle abscess; AP Pelvis fx COMPARISON: None FINDINGS: AP view the pelvis. Mild degenerative changes of the hips, pubic symphysis, and sacroiliac joints. Enthesophytes at the greater trochanters at the gluteal tendon attachments and along the iliac crests. Degenerative changes of the lumbar spine, partially visualized. Osseous demineralization. No cortical destruction or periosteal reaction. IMPRESSION: No displaced fracture identified. Workstation ID: [id number] Final Dictated by:MD Block Cristy N Dictated DT/TM:08/12/2024 2:54 Signed by:MD Block Cristy N Signed (Electronic Signature):08/12/2024 2:53 p Social History Social History Type Response Smoking Status Never smoked cigaret kalyani Sex Female Sex Representation Female (finding) Patient Care team information Care Team Personnel Name: Pietro Cerda Amy E Position: Pharmacist Member Role: Pharmacy - Lifetime Address: [facility] [address] [place] [address] [place] Name: JADYN Vernon Ashley Position: Physician Resaw Tailer - Neurosurgery Member Role: Lifetime Relationship Address: [address] [facility] [address] [place] [address] [place] Name: DO Khoury Carey K Position: Referring DIRECT Member Role: Primary Care Provider Address: [address] [place] [address] [place] Name: Pietro Everett Cassie Position: Pharmacist Member Role: Pharmacy - Lifetime Care Team Related Persons Name: ANGELLA GA Name: FRANKY GA Name: CELINA GA
--- OUTSIDE RECORDS SUMMARY | 2024-08-21 04:48 | External Medical Summary | Continuity of Care Document ---
Author Name Unknown Organization [place] [address] [address] [facility] [address] [place], [place] [id number] Care Team Providers Care Tin Recovery Worker Name Role Phone Juliane Khoury Primary Care Physician [phone] [id number] Date(s): 08/11/24 - 08/11/24 [place] [address] [address] [facility] [address] [facility], [facility] [address] [place] [address] [phone] Encounter Diagnosis Body mass index [BMI] 32.0-32.9, adult(Discharge Diagnosis) - 08/11/24 Vertebral artery aneurysm(Discharge Diagnosis) - 08/11/24 Atrial fibrillation(Discharge Diagnosis) - 08/11/24 History of gastrointestinal bleeding(Discharge Diagnosis) - 08/11/24 Discharge Disposition: Home or Self Care Attending Physician: MD Maged, Gumaro Zelaya Allergies, Adverse Reactions, Alerts No Known Allergies [...] date 08/19/24 Start Date: 07/16/24 Status: Ordered losartan 25 mg oral tablet Start: 07/16/24 11:13:00 AM EDT, 1 tab, PO, Daily Start Date: 07/16/24 Status: Ordered Mag-Ox 400 oral tablet Start: 06/25/24 10:32:00 PM EDT, 1 tab, PO, Daily Start Date: 06/25/24 Status: Ordered metoprolol tartrate 25 mg oral tablet Start: 06/25/24 10:31:00 PM EDT, 1 tab, PO, bid Start Date: 06/25/24 Status: Ordered MiraLax Start: 07/16/24 11:14:00 AM EDT, 17 g =, PO, Daily, PRN: constipation Start Date: 07/16/24 Status: Ordered Osteo Bi-Flex 250 mg-200 mg oral tablet Start: 06/25/24 10:31:00 PM EDT, 2 tab, PO, Daily Start Date: 06/25/24 Status: Ordered oxyCODONE 5 mg oral tablet Start: 07/16/24 11:14:00 AM EDT, 5 mg =, PO, q6h, Disp# 12 tab, Refills: 0, PRN: as needed for pain Start Date: 07/16/24 Status: Ordered pantoprazole 40 mg oral delayed release tablet Start: 07/16/24 11:13:00 AM EDT, 1 tab, PO, bid Start Date: 07/16/24 Status: Ordered Senna S Start: 07/16/24 11:13:00 AM EDT, 2 tab, PO, bid Start Date: 07/16/24 Status: Ordered tiZANidine 2 mg oral tablet Start: 07/16/24 11:13:00 AM EDT, 1 tab, PO, q6h, PRN: muscle pain Start Date: 07/16/24 Status: Ordered Tylenol 500 mg oral tablet Start: 07/16/24 11:12:00 AM EDT, 2 tab, PO, q6h Start Date: 07/16/24 Status: Ordered Vitamin B Complex oral tablet Start: 06/25/24 10:32:00 PM EDT, 1 tab, PO, Daily Start Date: 06/25/24 Status: Ordered Mental Status 08/11/24 Barriers to Learning one year None evide nt Mandatory Health Literacy Documentation Yes Health Literacy Communication Barriers N ever Primary Language Burundian Problem List Condition Confirmation Course Effective Dates Status Health St atus Informant 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 Right otitis media Confirmed Active Cough Confirmed Active Hypertension Confirmed Active Psoas abscess, right Confirmed Active Clogged ear Confirmed Active Diagnosis Diagnosis Type Effective Dates Health Status Clinical Service Informant Body mass index [BMI] 32.0-32.9, adult Discharge Diagnosis 08/11/24 Non-Specified Vertebral artery aneurysm Discharge Diagnosis 08/11/24 Non-Specified Atrial fibrillation Discharge Diagnosis 08/11/24 Non-Specified History of gastrointestinal bleeding Discharge Diagnosis 08/11/24 Non-Specified Vital Signs Most recent to oldest [Reference Range]: 1 Height 165.1 cm (08/11/24 2:03 PM) Patient Weight 89.8 kg (08/11/24 2:03 PM) Body Mass Index 32.94 kg/m2 (08/11/24 2:03 PM) Heart Rate 55 bpm (08/11/24 2:03 PM) Blood Pressure 162/71mmHg (08/11/24 2:03 PM) BP Location # 1 Right Arm (08/11/24 2:03 PM) Social History Social History Type Response Smoking Status Never smoked cigaret kalyani Sex Female Sex Representation Female (finding) Patient Care team information Care Team Personnel Name: Pietro Cerda Amy E Position: Pharmacist Member Role: Pharmacy - Lifetime Address: [facility] [address] [place] [address] [place] Name: JADYN Vernon Ashley Position: Physician Retail Operations Manager - Neurosurgery Member Role: Lifetime Relationship Address: [address] [facility] [address] [place] [address] [place] Name: DO Khoury Carey K Position: Referring DIRECT Member Role: Primary Care Provider Address: [address] [place] [address] [place] Name: Pietro Everett Cassie Position: Pharmacist Member Role: Pharmacy - Lifetime Care Team Related Persons Name: ANGELLA GA Name: FRANKY GA Name: CELINA GA
--- OUTSIDE RECORDS SUMMARY | 2024-08-21 04:48 | External Medical Summary | Continuity of Care Document ---
Author Name Unknown Organization [facility] Address [address] [place] [id number] Care Team Providers Care Powder Press Operator Name Role Phone Juliane Khoury Primary Care Physician [phone] [id number] Date(s): 08/11/24 - 08/11/[address] [phone] Discharge Disposition: Home or Self Care Attending Physician: MD Lynne Ephraim W Referring Physician: MD Lynne Ephraim W Allergies, Adverse Reactions, Alerts No Known Allergies [...] PO, Daily Start Date: 06/25/24 Status: Ordered Problem List Condition Confirmation Course Effective Dates Status Health St atus Informant 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 Right otitis media Confirmed Active Cough Confirmed Active Hypertension Confirmed Active Psoas abscess, right Confirmed Active Clogged ear Confirmed Active Results Laboratory List Name Date Creatinine, POC (RAD) (CREATININE,POC (R AD)) 08/11/24 Most recent to oldest [Reference Range]: 1 Estimated CrCl 35.65 mL/min (08/11/24 1:34 PM) Cret, POC [0.6-1.3 mg/dL] 1.5 mg/dL *HI* (08/11/24 12:54 PM) Radiology Reports * Exam Date Time Procedure Performing Provider Status 08/11/24 1:[address] Angio Brain/Head Kaern Mireles; Lucy burrows Notes: (CT Angio Brain/Head) Reason For Exam: vert pseduo-anx CT Angio Brain/Head EXAMINATION: CTA OF THE HEAD WITH CONTRAST CLINICAL HISTORY: Aneurysm of unspecified site; vert pseduo-anx. COMPARISON: Priors including MR angiography neck 07/07/[address] angiography neck 06/26/2024. TECHNIQUE: CT angiography of the head performed after administration of intravenous contrast. Multiplanar coronal and sagittal reconstructions, MIP reconstructions and volume 3-D images were obtained. DOSE: Total Reported Dose Length Product (DLP) = 849 mGycm CONTRAST: Contrast Type (IV): Omnipaque 350 Contrast Volume (IV) in ml: 75.00 FINDINGS: Head CT: Cerebral parenchyma: Chronic infarct in a left PICA distribution with resolution of edema. No mass effect or hemorrhage.. Extra-axial spaces: No extra-axial fluid collections Ventricles: No hydrocephalus Mass effect: No midline shift Head CTA: Internal carotid artery: Minimal calcifications of the clinoid portion of the ICA bilaterally. No flow-limiting stenosis or aneurysmal dilation MERVIN: Unremarkable ACOM: Unremarkable MCA: Unremarkable REMEDIAL PROJECT MANAGER: Unremarkable PCOM: Hypoplastic bilateral Vertebrobasilar arteries: Left vertebral artery is small distal to the origin of posterior inferiorcerebellar artery.Short segment fusiform aneurysmal dilation measuring up to 8 x 4 mm in transverseand vertical dimensions at the V2/V3 portion of left vertebral artery as it exits the foramina transversarium at the C2 vertebral body . Previously noted focal narrowing of adjacent distal vertebral artery at C1-C2 is less conspicuous.. Dural venous sinuses: Patent IMPRESSION: 1. 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 2. 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 3. Chronic left PICA distribution infarct . Workstation ID: [id number] Final Dictated by:MD Barnes T Thomas Dictated DT/TM:08/13/2024 11:58 Signed by:MD Barnes T Thomas Signed (Electronic Signature):08/13/2024 11:57 Social History Social History Type Response Smoking Status Never smoked cigaret kalyani Sex Female Sex Representation Female (finding) Patient Care team information Care Team Personnel Name: Pietro Cerda Amy E Position: Pharmacist Member Role: Pharmacy - Lifetime Address: [facility] [address] [place] [address] [place] Name: JADYN Vernon Ashley Position: Physician Railroader - Neurosurgery Member Role: Lifetime Relationship Address: [address] [facility] [address] [place] [address] [place] Name: DO Khoury Carey K Position: Referring DIRECT Member Role: Primary Care Provider Address: [address] [place] [address] [place] Name: Pietro Everett Cassie Position: Pharmacist Member Role: Pharmacy - Lifetime Care Team Related Persons Name: ANGELLA GA Name: FRANKY GA Name: CELINA GA
--- OUTSIDE RECORDS SUMMARY | 2024-08-21 04:48 | External Medical Summary | Summary of Care ---
Author Name Unknown Organization [facility] Address [address] [place] [address] Phone [phone] Care Team Providers Care Electrical Engineering Technologist Name Role Phone Juliane Khoury DO Primary Care Provider Encounter Details Date Type Department Care Team (Late st Contact Info) Description 08/14/2024 Orders Only Family Practice [facility] [address] [facility] [place] [address] Juliane Khoury DO [address] [place] [address] Allergies No known active allergiesdocumented as of this encounter (statuses as of 08/14/2024) Medications Medication Sig Dispensed Refills Start Date End Date Status Multiple Vitamins-Minerals (MULTIVITAMIN WOMEN 50+) TABS Take 1 Tab by mouth daily. Active Osteo Bi-Flex Triple Strength Oral Tablet Take by mouth 2 Tablets daily . Active Vitamin D3 50 MCG (1999 [place]) Oral Capsule Take 1 Capsule by [...] needed. Active predniSONE 20 MG Oral Tablet (Deltasone)Indications :Lumbar radiculopathy Take 3 tabs for 3 days, [...] and 1 Tablet before bedtime. 06/25/2024 Active documented as of this encounter (statuses as of 08/14/2024) Active Problems Problem Noted Date Diagnosed Date [...] as of this encounter (statuses as of 08/14/2024) Resolved Problems Problem Noted Date Diagnosed Date Resolved Date Special screening for malign ant neoplasms, colon 02/13/2018 02/13/2018 Dyslipidemia, goal to be determined 11/14/2007 10/20/2009 Overview: Per Lipid Taxonomy HTN, goal below 140/90 12/26/200507/31 PURE HYPERCHOLESTEROLEM 06/13/200410/26 Overview: Per Lipid Taxonomy. Hypertension 03/06/2018 documented as of this encounter (statuses as of 08/14/2024) Immunizations Name Administration Dates Next Due COVID-19 mRNA, LNP-s, No Pre serve, 2-Dose Series (Pfizer) 09/05/2021,02/25/2021,01/29/2021 Covid-19, Mrna, Lnp-s, Pf, B ivalent, [...] on file documented as of this encounter Plan of Treatment Upcoming Encounters Date Type Department Care Team (Late st Contact Info) Description 12/18/2024 8:45 AM EST Office Visit Dermatology [facility] [address] [facility] [place] [address] Brian Kaye MD [address] [facility] [place] [phone] Scheduled Procedures Name Priority Associated Diagnoses Date/Ti [...] history exists Albumin/Creatinine Ratio 03/29/2025 03/29/2022 GFR 08/05/2025 08/13/2024, 07/27, 07/29/2024, Additional history exists Lipid Panel 03/29/2027 03/29/2022, 10/27, 08/07/2019, Additional history exists DXA Scan 12/08/2027 12/08/2020 Colonoscopy 04/02/2029 04/02/2024, 0506/2024, 02/26/2018, Additional history exists Colorectal Cancer Screening [...] Not on filedocumented as of this encounter Procedures Procedure Name Priority Date/Time Associated Diagnosis Comments CHEMISTRY-OUTSIDE Routine 08/13/2024 documented in this encounter Results * (ABNORMAL) CHEMISTRY-OUTSIDE (08/13/2024) Not all results display below - see scan for full detail OUTSIDE LAB (SEE SCANNED REPORT) Comment:SCAN INCLUDES: CMP, CRP, CBCD, SED RATE CREATININE 1.23(A) 0.6 - 1.2 MG/DL OUTSIDE LAB (SEE SCANNED REPORT) EGFR 44.4 ML/MIN/1.7 3M2 OUTSIDE LAB (SEE SCANNED REPORT) POTASSIUM 4.3 3.5 - 5.1 MMOL/L OUTSIDE LAB (SEE SCANNED REPORT) GLUCOSE 96 70 - 99 MG/DL OUTSIDE LAB (SEE SCANNED REPORT) HOURS FASTING OUTSID E LAB (SEE SCANNED REPORT) TRIGLYCERIDES-OUT SIDE LAB OUTSIDE LAB (SEE SCANNED REPORT) CHOLESTEROL-OUTSI DE LAB OUTSIDE LAB (SEE SCANNED REPORT) HDL-OUTSIDE LAB OUTS [facility] (SEE SCANNED REPORT) CHOL/HDL RATIO-OUTSIDE LAB OUTSIDE LA B (SEE SCANNED REPORT) LDL (CALCULATED)-OUTS [facility] OUTSIDE LAB (SEE SCANNED REPORT) LDL (DIRECT MEASURE)-OUTSIDE LAB OUTSIDE LAB (SEE SCANNED REPORT) HEMOGLOBIN, [id number] LAB OUTSIDE LAB (SEE SCANNED REPORT) PHOSPHORUS-OUTSID E LAB OUTSIDE LAB (SEE SCANNED REPORT) PTH-OUTSIDE LAB OUTS [facility] (SEE SCANNED REPORT) MICROALBUMIN RATIO-OUTSIDE LAB OUTSIDE LA B (SEE SCANNED REPORT) PROTEIN, UA-OUTSIDE LAB OUTSIDE LAB (SEE SCANNED REPORT) HGB 9.5(A) 12 - 16 G/DL OUTSIDE LAB (SEE SCANNED REPORT) 08/13/2024 Juliaen Khoury DO LABORATORY OUTSIDE LAB (SEE SCANNED REPORT) documented in this encounter Care Teams Electrical Engineering Technologist Relationship Specialty Start Date End Date Juliane Khoury DO [address] [place] [address] PCP - General Family Medicine 09/29/11 documented as of this encounter
--- OUTSIDE RECORDS SUMMARY | 2024-08-21 04:48 | External Medical Summary | Continuity of Care Document ---
Author Name Unknown Organization [facility] [address] Address [address] [facility] [address] [id number] Care Team Providers Care Siphoner Name Role Phone Juliane Khoury Primary Care Physician [phone] Encounter [facility] ALEX[place] [phone] Date(s): 08/12/24 - 08/12/24 [place] [address] [address] [facility] [address] [facility], [facility] [address], [address] [place] [address] [phone] Encounter Diagnosis MSSA bacteremia(Discharge Diagnosis) - 08/08/24 Receiving intravenous antibiotic treatment at home(Discharge Diagnosis) - 08/08/24 Abscess, psoas(Discharge Diagnosis) - 08/08/24 Bacterial spinal epidural abscess(Discharge Diagnosis) - 08/08/24 Osteomyelitis of cervical spine(Discharge Diagnosis) - 08/08/24 Discharge Disposition: Home or Self Care Attending Physician: JADYN Washington Michelle M Allergies, Adverse Reactions, Alerts No Known Allergies Assessment and Plan Extracted from: Title:Clinical Document Author:JADYN Washington Mich elle M Date:08/12/24 ID ORTHO OUTPATIENT NOTE Name: YARA GA Patient Number: [id number] : 1955 Date of Service: 08/12/2024 Chief Complaint: _ s/p hospitalization 06/25 - 07/16/24 with MSSA bacteremia with multiple sites of metastatic infection ID consult 06/26/24 surgery 07/09/24 (Coreen) I&D surgery 07/08/24 (Ant); I&D; hemilaminectomy; facetectomy Last ID clinic 07/29/24 HPI: _ 69 y.o woman w/ HTN, HLD who presented on 06/20/24 to [facility] ER with back pain and ambulatory dysfunction. She had been seen 06/14 for back pain, started on prednisone taper, family recalls recent back/gluteal injection on 06/17/24. Presented to [facility] due to difficulty walking, found to have MSSA bacteremia, cerebellar stroke, lumbar epidural abscess, and psoas abscess. # MSSA bacteremia --with multiple sites of infection as noted below. blood cultures06/25: MSSA, blood cultures 06/27: negative. TTE and PADMA with no evidence of endocarditis. given new stroke in setting of MSSA bacteremia, suspect she had endocarditis and resultant embolization and vegetation no longer see on valve. regardless, will be treated with prolonged course #Lumbar epidural abscess, possible septic arthritis L3-L5, paraspinal abscess, and arachnoiditis --went to OR on 07/08 and s/p L3-L4 hemilaminectomy and medial facetectomy. Intra-op, found to have parapsinal purulence, no purulence noted in epidural space, intra-op cultures MSSA. #B/l psoas abscesses (R > Left), the right has increased in size on f/u imaging --ortho now following and taken to OR on 07/09 and underwent R psoas/pelvis I&D and drain placement Pt found to have significant purulence with loculations in pelvis. intra-op cultures obtained, GPC seen on gram stain, cx: MSSA #OM of the craniocervical junction involving occipital condyles, C1 anterior arch, and odontoid with associated prevertebral myositis and left retropharyngeal abscess. --discussed with both ENT and neurosurgery, abscess is present but no plans for surgical intervention. asked team to reach out to IR for possible drainage --pt went to CT suite for attempted drainage of RP abscess yesterday (07/10), however, pt noted to have near resolution of abscess when drainage was attempted by procedure team, therefore, no drainage done. 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 --neurosurgery reviewed images, they state "no surgical intervention indicated/planned at this time, but we may consider DSA in the future" #GI bleed --On 07/04, pt underwent embolization of the superior pancreaticoduodenal and supraduodenal arteries. 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 Improved osteomyelitis of the craniocervical junction with resolution of the retropharyngeal abscess. 2. Multilevel degenerative changes along the cervical spine without high-grade central canal stenosis. Multilevel significant neural foraminal stenosis most significant at left C3-C4 and bilateral C6-C7. 3. Lumbar epidural abscess is overall slightly improved with interval slight improvement in significant stenosis at L3-L4 and L4-L5. 4. Postsurgical changes of posterior paraspinal soft tissues with residual collection in subcutaneous soft tissues likely postoperative seroma. 5. Paraspinal and psoas abscesses are improved compared with 07/07/2024. Denies fevers, chills, sweats, n, v, diarrhea, rashes Following also with neuro; had CT angio 08/11/24; results pending PICC working fine; getting stuck for labs; has some skin irritation from PICC adhesive Main complaint is fatigue; is anemic and also on beta blockers Denies pain Scheduled with cardiology in August Has televisit with neurosurg on 08/14/24 and in person in August Current Home Meds: (Last Updated 08/11 14:03) acetaminophen (Tylenol 500 mg oral tablet) 1,000 mg PO q6h amiodarone (amiodarone 200 mg oral tablet) 400 mg PO bid calcium carbonate (calcium (as carbonate) 600 mg oral tablet) 600 mg PO Daily PRN: as needed for indigestion cefepime 2,000 mg IV q12h end date 08/19/24 chondroitin-glucosamine (Osteo Bi-Flex 250 mg-200 mg oral tablet) 2 tab PO Daily docusate-senna (Senna S) 2 tab PO bid losartan (losartan 25 mg oral tablet) 25 mg PO Daily magnesium oxide (Mag-Ox 400 oral tablet) 400 mg PO Daily metoprolol (metoprolol tartrate 25 mg oral tablet) 25 mg PO bid multivitamin (Vitamin B Complex oral tablet) 1 tab PO Daily oxyCODONE (oxyCODONE 5 mg oral tablet) 5 mg PO q6h PRN: as needed for pain pantoprazole (pantoprazole 40 mg oral delayed release tablet) 40 mg PO bid polyethylene glycol 3350 (MiraLax) 17 g PO Daily PRN: constipation tiZANidine (tiZANidine 2 mg oral tablet) 2 mg PO q6h PRN: muscle pain Allergies and Sensitivities: NKA Past Medical History: Problems: Psoas abscess, right 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 space of lumbar spine Right otitis media Cough Clogged ear Hypertension OBJECTIVE Vitals: Last Updated 08/11/24 14:03 Date Temp BP Location Pulse RR SpO2 Pain 08/11/24 162/71 Right Arm 55 0 07/29/24 36.6 0 07/22/24 141/64 53 Vital Signs are the last 3 documented. No Orthostatic Data Available Height and Weight: Last Updated 08/11/24 14:03 Date BMI Wt(kg) Wt(lb) Method Ht(cm) (ft-in) Method 08/11/24 32.94 89.8 198 Standing Scale 165.1 5-5 Patient stated 07/22/24 36.28 98.9 218 Standing Scale 165.1 5-5 Patient stated 07/16/24 98.9 218 Bed Scale Heights and Weights are the last 3 documented. Physical Exam _ AxOx3, NAD; present PICC nontender; no erythema, drainage or tenderness at insertion site; no arm swelling noted there is some skin irritation at periphery of adhesive dressing right hip incision well healed; no drainage or cellulitis noted; nontender spine incision viewed; no erythema or drainage noted; nontender eGFR 44.0 ASSESSMENT: 69 y.o woman w/ HTN, HLD who presented on 06/20/24 to [facility] ER with back pain and ambulatory dysfunction. She had been seen 06/14 for back pain, started on prednisone taper, family recalls recent back/gluteal injection on 06/17/24. Presented to [facility] due to difficulty walking, found to have MSSA bacteremia, cerebellar stroke, lumbar epidural abscess, and psoas abscess. # MSSA bacteremia --with multiple sites of infection as noted below. blood cultures06/25: MSSA, blood cultures 06/27: negative. TTE and PADMA with no evidence of endocarditis. given new stroke in setting of MSSA bacteremia, suspect she had endocarditis and resultant embolization and vegetation no longer seen on valve. #Lumbar epidural abscess, possible septic arthritis L3-L5, paraspinal abscess, and arachnoiditis --went to OR on 07/08 and s/p L3-L4 hemilaminectomy and medial facetectomy. Intra-op, found to have paraspinal purulence, no purulence noted in epidural space, intra-op cultures sent and grew MSSA. #B/l psoas abscesses (R > Left), the right has increased in size on f/u imaging --ortho took to OR on 07/09 and underwent R psoas/pelvis I&D and drain placement Pt found to have significant purulence with loculations in pelvis. intra-op cultures obtained, cx: MSSA ; 08/10 MRI showing improvement #OM of the craniocervical junction involving occipital condyles, C1 anterior arch, and odontoid with associated prevertebral myositis and left retropharyngeal abscess. 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 neurosurgery reviewed images, they state "no surgical intervention indicated/planned at this time, but we may consider DSA in the future" #GI bleed --On 07/04, pt underwent embolization of the superior pancreaticoduodenal and supraduodenal arteries. 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 Cr seems to be plateauing - 2.2 from 2.0 on 07/04. nafcillin changed to cefepime to decrease risk of additional renal injury. Cr has been steadily improving. continues on cefepime RECOMMENDATIONS: Dr. Angela is seeing pt today as well Pt has telehealth visit with neurosurg 08/14/24 1. Continue cefepime 2gm IV q12H; estimated stop date 08/19/24 If tomorrow's labs are good and neurosurg happy with imaging; then plan on stopping IV abx next week and place on PO suppression (duration TBD): Discussed possibly maintaining PICC with transition to PO abx; will decide after we see results 2. continue weekly labs: CBC/d; BMP; ESR; CRP HH coming tomorrow to draw labs 3. F/U coordinated with Dr. Angela's team 4. Request call should any concerning ID symptom or question arises Pt and her verbalized understanding of the plan Medications amiodarone 200 mg oral tablet Start: [...] PO, q6h Start Date: 07/16/24 Status: Ordered Problem List Condition Confirmation Course Effective Dates Status Health St atus Informant 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 Right otitis media Confirmed Active Cough Confirmed Active Hypertension Confirmed Active Psoas abscess, right Confirmed Active Clogged ear Confirmed Active Diagnosis Diagnosis Type Effective Dates Health Status Clinical Service Informant MSSA bacteremia Discharge Diagnosis 08/08/24 Receiving intravenous antibiotic treatment at home Discharge Diagnosis 08/08/24 Abscess, psoas Discharge Diagnosis 08/08/24 Bacterial spinal epidural abscess Discharge Diagnosis 08/08/24 Osteomyelitis of cervical spine Discharge Diagnosis 08/08/24 Social History Social History Type Response Smoking Status Never smoked cigaret kalyani Sex Female Sex Representation Female (finding) ID Ortho Outpt Note * JADYN Washington, Glenda M: MODIFY, MODIFY, MODIFY, PERFORM, MODIFY, MODIFY, MODIFY Event Display: ID Ortho Outpt Note Authored Date: [id number] ID ORTHO OUTPATIENT NOTE Name: YARA GA Patient Number: [id number] : 1955 Date of Service: 08/12/2024 Chief Complaint: _ s/p hospitalization 06/25 - 07/16/24 with MSSA bacteremia with multiple sites of metastatic infection ID consult 06/26/24 surgery 07/09/24 (Coreen) I&D surgery 07/08/24 (Ant); I&D; hemilaminectomy; facetectomy Last ID clinic 07/29/24 HPI: _ 69 y.o woman w/ HTN, HLD who presented on 06/20/24 to [facility] ER with back pain and ambulatory dysfunction. She had been seen 06/14 for back pain, started on prednisone taper, family recalls recent back/gluteal injection on 06/17/24. Presented to [facility] due to difficulty walking, found to have MSSA bacteremia, cerebellar stroke, lumbar epidural abscess, and psoas abscess. # MSSA bacteremia --with multiple sites of infection as noted below. blood cultures06/25: MSSA, blood cultures 06/27: negative. TTE and PADMA with no evidence of endocarditis. given new stroke in setting of MSSA bacteremia, suspect she had endocarditis and resultant embolization and vegetation no longersee on valve. regardless, will be treated with prolonged course #Lumbar epidural abscess, possible septic arthritis L3-L5, paraspinal abscess, and arachnoiditis --went to OR on 07/08 and s/p L3-L4 hemilaminectomy and medial facetectomy. Intra-op, found to have parapsinal purulence, no purulence noted in epidural space, intra-op cultures MSSA. #B/l psoas abscesses (R > Left), the right has increased in size on f/u imaging --ortho now following and taken to OR on 07/09 and underwent R psoas/pelvis I&D and drain placement Pt found to have significant purulence with loculations in pelvis. intra-op cultures obtained, GPC seen on gram stain, cx: MSSA #OM of the craniocervical junction involving occipital condyles, C1 anterior arch, and odontoid with associated prevertebral myositis and left retropharyngeal abscess. --discussed with both ENT and neurosurgery, abscess is present but no plans for surgical intervention. asked team to reach out to IR for possible drainage --pt went to CT suite for attempted drainage of RP abscess yesterday (07/10), however, pt noted to have near resolution of abscess when drainage was attempted by procedure team, therefore, no drainagedone. #Acute/subacute L cerebellar stroke, possible L vertebral artery aneurysm --reviewed with radiologyand possibly mycotic aneurysm but not definitive. --neurosurgery reviewed images, they state "no surgical intervention indicated/planned at this time, but we may consider DSA in the future" #GI bleed --On 07/04, pt underwent embolization of the superior pancreaticoduodenal and supraduodenalarteries. 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 Improved osteomyelitis of the craniocervical junction with resolution of the retropharyngeal abscess. 2. Multilevel degenerative changes along the cervical spine without high-grade central canal stenosis. Multilevel significant neural foraminal stenosis most significant at left C3-C4 and bilateral C6-C7. 3. Lumbar epidural abscess is overall slightly improved with interval slight improvement in significant stenosis at L3-L4 and L4-L5. 4. Postsurgical changes of posterior paraspinal soft tissues with residual collection in subcutaneous soft tissues likely postoperative seroma. 5. Paraspinal and psoas abscesses are improved compared with 07/07/2024. Denies fevers, chills, sweats, n, v, diarrhea, rashes Following also with neuro; had CT angio 08/11/24; results pending PICC working fine; getting stuck for labs; has some skin irritation from PICC adhesive Main complaint is fatigue; is anemic and also on beta blockers Denies pain Scheduled with cardiology in August Has televisit with neurosurg on 08/14/24 and in person in August Current Home Meds: (Last Updated 08/11 14:03) acetaminophen (Tylenol 500 mg oral tablet) 1,000 mg PO q6h amiodarone (amiodarone 200 mg oral tablet) 400 mg PO bid calcium carbonate (calcium (as carbonate) 600 mg oral tablet) 600 mg PO Daily PRN: as needed for indigestion cefepime 2,000 mg IV q12h end date 08/19/24 chondroitin-glucosamine (Osteo Bi-Flex 250 mg-200 mg oral tablet) 2 tab PO Daily docusate-senna (Senna S) 2 tab PO bid losartan (losartan 25 mg oral tablet) 25 mg PO Daily magnesium oxide (Mag-Ox 400 oral tablet) 400 mg PO Daily metoprolol (metoprolol tartrate 25 mg oral tablet) 25 mg PO bid multivitamin (Vitamin B Complex oral tablet) 1 tab PO Daily oxyCODONE (oxyCODONE 5 mg oral tablet) 5 mg PO q6h PRN: as needed for pain pantoprazole (pantoprazole 40 mg oral delayed release tablet) 40 mg PO bid polyethylene glycol 3350 (MiraLax) 17 g PO Daily PRN: constipation tiZANidine (tiZANidine 2 mg oral tablet) 2 mg PO q6h PRN: muscle pain Allergies and Sensitivities: NKA Past Medical History: Problems: Psoas abscess, right 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 space of lumbar spine Right otitis media Cough Clogged ear Hypertension OBJECTIVE Vitals: Last Updated 08/11/24 14:03 Date Temp BP Location Pulse RR SpO2 Pain 08/11/24 162/71 Right Arm 55 0 07/29/24 36.6 0 07/22/24 141/64 53 Vital Signs are the last 3 documented. No Orthostatic Data Available Height and Weight: Last Updated 08/11/24 14:03 Date BMI Wt(kg) Wt(lb) Method Ht(cm) (ft-in) Method 08/11/24 32.94 89.8 198 Standing Scale 165.1 5-5 Patient stated 07/22/24 36.28 98.9 218 Standing Scale 165.1 5-5 Patient stated 07/16/24 98.9 218 Bed Scale Heights and Weights are the last 3 documented. Physical Exam _ AxOx3, NAD; present PICC nontender; no erythema, drainage or tenderness at insertion site; no arm swelling noted there is some skin irritation at periphery of adhesive dressing right hip incision well healed; no drainage or cellulitis noted; nontender spine incision viewed; no erythema or drainage noted; nontender eGFR 44.0 ASSESSMENT: 69 y.o woman w/ HTN, HLD who presented on 06/20/24 to [facility] ER with back pain and ambulatorydysfunction. She had been seen 06/14 for back pain, started on prednisone taper, family recalls recent back/gluteal injection on 06/17/24. Presented to [facility] due to difficulty walking, found to have MSSA bacteremia, cerebellar stroke, lumbar epidural abscess, and psoas abscess. # MSSA bacteremia --with multiple sites of infection as noted below. blood cultures06/25: MSSA, blood cultures 06/27: negative. TTE and PADMA with no evidence of endocarditis. given new stroke in setting of MSSA bacteremia, suspect she had endocarditis and resultant embolization and vegetation no longerseen on valve. #Lumbar epidural abscess, possible septic arthritis L3-L5, paraspinal abscess, and arachnoiditis --went to OR on 07/08 and s/p L3-L4 hemilaminectomy and medial facetectomy. Intra-op, found to have paraspinal purulence, no purulence noted in epidural space, intra-op cultures sent and grew MSSA. #B/l psoas abscesses (R > Left), the right has increased in size on f/u imaging --ortho took to OR on 07/09 and underwent R psoas/pelvis I&D and drain placement Pt found to have significant purulence with loculations in pelvis. intra-op cultures obtained, cx: MSSA ; 08/10 MRI showing improvement #OM of the craniocervical junction involving occipital condyles, C1 anterior arch, and odontoid with associated prevertebral myositis and left retropharyngeal abscess. 08/10 MRI shows improvement #Acute/subacute L cerebellar stroke, possible L vertebral artery aneurysm --reviewed with radiologyand possibly mycotic aneurysm but not definitive. neurosurgery reviewed images, they state "no surgical intervention indicated/planned at this time, but we may consider DSA in the future" #GI bleed --On 07/04, pt underwent embolization of the superior pancreaticoduodenal and supraduodenalarteries. 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 Cr seems to be plateauing - 2.2 from 2.0 on 07/04. nafcillin changed to cefepime to decrease risk of additional renal injury. Cr has been steadily improving. continues on cefepime RECOMMENDATIONS: Dr. Angela is seeing pt today as well Pt has telehealth visit with neurosurg 08/14/24 1. Continue cefepime 2gm IV q12H; estimated stop date 08/19/24 If tomorrow's labs are good and neurosurg happy with imaging; then plan on stopping IV abx next week and place on PO suppression (duration TBD): Discussed possibly maintaining PICC with transition to PO abx; will decide after we see results 2. continue weekly labs: CBC/d; BMP; ESR; CRP HH coming tomorrow to draw labs 3. F/U coordinated with Dr. Angela's team 4. Request call should any concerning ID symptom or question arises Pt and her verbalized understanding of the plan Electronic Signature on File Electronically Reviewed/Signed by: Glenda Washington PA-C Author Signature Dt/Tm:08/12/2024 03:14 PM Division of Infectious Disease and Epidemiology [facility] Patient Care team information Care Team Personnel Name: Pietro Cerda Amy E Position: Pharmacist Member Role: Pharmacy - Lifetime Address: [facility] [address] [place] [address] [place] Name: JADYN Vernon Ashley Position: Physician Diagnostic Medical Sonographer - Neurosurgery Member Role: Lifetime Relationship Address: [address] [facility] [address] [place] [address] [place] Name: DO Khoury Carey K Position: Referring DIRECT Member Role: Primary Care Provider Address: [address] [place] [address] [place] Name: Pietro Everett Cassie Position: Pharmacist Member Role: Pharmacy - Lifetime Care Team Related Persons Name: ANGELLA GA Name: FRANKY GA Name: CELINA GA
--- NOTE | 2024-08-21 05:47 | Magnetic Resonance Report ---
Exam(s): MRI HEAD Without Contrast EXAM: MR Head Without Intravenous Contrast CLINICAL HISTORY: Reason for exam: cva. TECHNIQUE: Magnetic resonance images of the head/brain without intravenous contrast in multiple planes. COMPARISON: No relevant prior studies available. FINDINGS: Brain: There is region of prior infarction and ensuing encephalomalacia demonstrated to the left cerebellar hemisphere approximately 3.8 x 3.3 cm maximal transverse dimension. Extra-axial fluid collection is demonstrated approximated to the posterior margin of the right parietal lobe approximately 3.9 x 2.1 cm in maximal transverse dimension. There is subcentimeter subcortical and periventricular T2 hyper signal intensities present. No hemorrhage. Ventricles: Unremarkable. No ventriculomegaly. Bones/joints: There is ovoid to trapezoidal region of increased signal intensity on diffusion-weighted imaging along the anterior margin of the left cerebellar hemisphere approximately 1.2 cm transverse dimension some low signal intensity on the ADC map, some increased T2 signal intensity as well. No acute fracture. Sinuses: Unremarkable as visualized. No acute sinusitis. Mastoid air cells: Unremarkable as visualized. No mastoid effusion. Orbits: Unremarkable as visualized. IMPRESSION: Region of acute to subacute infarction anterior margin of the left cerebellar hemisphere with additional old infarction and ensuing encephalomalacia to a larger portion of the left cerebral hemisphere. Arachnoid cyst demonstrated approximated to the right parietum. Mild chronic ischemic microvascular process. Communications: Call Doctor Above results Electronically signed by: Brian Cobb MD 08/21/24 05:46 AM
[2024-08-21 07:03] LABS: Basophils # (auto) 0.04 K/uL (0.00-0.20); Basophils % (auto) 0.6 %; Eosinophils # (auto) 0.18 K/uL (0.00-0.50); Eosinophils % (auto) 2.8 %; Hematocrit (blood only) 30.1 % (37.0-47.0); Hemoglobin 9.9 g/dl (12.0-16.0); Immature Granulocytes # (auto) 0.06 K/uL (0.01-0.20); Immature Granulocytes % (auto) 0.9 %; Lymphocytes # (auto) 1.54 K/uL (1.20-3.40); Lymphocytes % (auto) 23.5 %; Mean Corpuscular Hgb Conc 32.9 g/dL (32.0-36.0); Mean Corpuscular Volume 91.2 fL (80.0-100.0); Mean Platelet Volume 10.5 fL (9.4-12.4); Monocytes # (auto) 0.51 K/uL (0.11-0.59); Monocytes % (auto) 7.8 %; Neutrophils # (auto) 4.21 K/uL (1.40-6.50); Neutrophils % (auto) 64.4 %; Platelet Count 217 K/uL (130-400); RDW Standard Deviation 47.1 fL (36.4-46.3); White Blood Count 6.54 K/ul (4.8-10.8)
[2024-08-21] MEDS: CALCIUM CARBONATE 1250MG TAB PO SCH (08:08)
[2024-08-21] MEDS: PANTOprazole 40 MG TAB PO SCH (08:08)
[2024-08-21] MEDS: ASPIRIN 81 MG CHEW PO SCH (08:08)
[2024-08-21 08:49] LABS: BUN Creatinine Ratio 25.2 (10-20); Calcium 9.7 mg/dl (8.6-10.3); Chol HDL Ratio 5.2 (0-5); Creatinine Clr Calc Pharmacy 40.1 ml/min; Est GFR (African American) 49.5 ml/min; Est GFR (Non-African American) 42.7 ml/min; Magnesium 2.3 mg/dl (1.7-2.4); Potassium 4.6 mmol/L (3.5-5.1)
[2024-08-21 09:25] LABS: Estimated Average Glucose 100 mg/dl; Hemoglobin A1C 5.1 % (4.5-5.6)
--- NOTE | 2024-08-21 11:12 | Neurology Consultation ---
Date of Consultation August 21, 2024 Assessment & Plan (1) Stroke-like symptoms: Recommend continued stroke work up to include the following: Reportedly had a PADMA in June Continue frequent neurological assessments Obtain stat CT brain without contrast for any acute neurological decline Continue to monitor/control blood pressure & blood glucose Continue to monitor telemetry closely Continue to monitor renal and hepatic function, keep euvolemic Recommend DAPT for at least 3 weeks however citing recent bleeding I agree with ASA daily and continue to monitor for s/s of hemorrhage Recommend high dose statin therapy indefinitely if tolerated SCDs as VTE prophylaxis PT/OT/SLT to eval and treat Recommend eval for RENNY and consider outpatient polysomnography Telehealth Consultation Telehealth Information Telehealth Information: I performed this visit using a real-time telehealth connection between my location and the patients location ([facility]). After connecting through interactive tele-video, patient was identified by name and date of and/or wristband check.Patient (or authorized healthcare patient services representative) was informed that this was a telemedicine visit and it was being conducted confidentially over secure lines. My office door was closed and no one else was present in the room with me.Patient (or authorized healthcare patient services representative) provided consent to proceed with the visit, expressed an understanding of privacy and security of the telemedicine visit, and gave permission to have a hospital patient services representative in the room in order to assist with the visit and to conduct portions of the visit, as needed. I informed the patient (or authorized healthcare patient services representative) that I reviewed their record and presented the opportunity for them to ask any questions regarding the visit today. The patient agreed to participate. History of Present Illness Reason for Consultation: Stroke Requesting Physician: Dr. Nguyen Attending Physician: Amada Nguyen MD History of Present Illness 69yo female suffer stroke recently presented with dizziness and blurred vision following PICC line removal at home. Reports the room was spinning, she could not focus felt lightheaded and very dizzy but denies full syncope. States she continues to feel like ears are clogged. Otherwise no complaint at this time. She arrived hypertensive yesterday and was not considered thrombolytic candidate due to recent stroke and was admitted for continued workup. CT brain without contrast unrevealing for hemorrhage. CTA head and neck reveal previous stroke, intracranial and extracranial atherosclerotic disease and MRI brain reports possible small area of new infarct in territory of recent infarct. Recently completed antimicrobial treatment for bacteremia. Recently suffered retroperitoneal hematoma, has a hx of AFIB has not been on full anticoag. She and at bedside agreeable to continue ASA and monitor for s/s of bleeding. I have performed televideo consultation. She is alert & oriented; able to answer all questions appropriately, name objects on televideo monitor, repeat phrases and perform complex/embedded commands without deficit. Neurological exam is non lateralizing/nonfocal in terms of motor strength and coordination. Allergies Allergy/AdvReac Type Severity Reaction Status Date / Time No Known Allergies Allergy Unverified 08/20/24 15:20 Home Medications Medication Instructions Recorded Confirmed Type Collagen Tab 3 tabs PO QAM 06/20/24 08/20/24 History acetaminophen 500 mg tablet 1,000 mg PO Q6H PRN Pain 06/20/24 08/20/24 History (Tylenol Extra Strength) calcium carbonate (Calcium 600) 600 mg PO DAILY 06/20/24 08/20/24 History glucosamine-chondroitin 250 mg-200 2 tab PO DAILY 06/20/24 08/20/24 History mg tablet (Osteo Bi-Flex) magnesium oxide 400 mg PO DAILY 06/20/24 08/20/24 History tizanidine 4 mg tablet 4 mg PO Q6 PRN .Muscle pain 06/20/24 08/20/24 History turmeric 400 mg capsule 400 mg PO QAM 06/20/24 08/20/24 History vitamin B complex 1 tab PO DAILY 06/20/24 08/20/24 History metoprolol tartrate 25 mg tablet 25 mg PO BID17 #60 tabs 06/25/24 08/20/24 Rx amiodarone 200 mg tablet 200 mg PO BID 08/20/24 08/20/24 History cefadroxil 500 mg capsule 500 mg PO BID 08/20/24 08/20/24 History furosemide 20 mg tablet 20 mg PO QAM 08/20/24 08/20/24 History losartan 100 mg tablet 100 mg PO DAILY 08/20/24 08/20/24 History pantoprazole 40 mg tablet,delayed 40 mg PO DAILY 08/20/24 08/20/24 History release Patient History Medical History HTN (hypertension) Surgical History H/O section History of cholecystectomy Hx of tonsillectomy History of Zakia fundoplication Family History Other Heart disease Hypertension Social History Smoking Status: Never smoker Hx Alcohol Use: Yes Alcohol type: wine Alcohol Intake Frequency: 2-4 x/Month Hx Substance Use: No Preferred Language: Japanese Communication Ability: Effective Set Rider Required: No Beliefs That Will Affect Care: None Current Living Situation: Family Current Living Situation Comment: and daughter Feels Safe at Home: Yes Assistive Devices: Cane, Walker and Other Assistive Devices Comment: shower chair, shower wand Physical Exam Neurological Examination: Mental Status: Awake and alert. Oriented to person, place, and time. Fluency naming repetition and comprehension appear grossly intact. Affect remains appropriate. CN testing: I: Denies changes in ability to smell II:Reports no changes in visual acuity III/IV/: No evidence of gaze preference, hippus, nystagmus or roving eye movements V: Facial sensation reportedly grossly intact to light touch bilaterally VII: Facial movements appear without evidence of asymmetry VIII: Hearing appears grossly intact to loud voice bilaterally IX/X: Palate appears to elevate symmetrically XI: Shoulder shrug appears symmetric/ grossly intact bilaterally XII: Tongue protrudes midline without evidence of biting Motor exam: Strength appears grossly intact/symmetric in all extremities Sensory: Sensation is reportedly grossly intact throughout Coordination: Finger to nose and heel to diehl were intact. No apparent evidence of dysmetria or dysdiadochokinesia Reflexes: Deferred Gait: Deferred Results & Data Vital Signs (Past 12 Hours) Vital Signs Temp Pulse Pulse Resp BP Pulse Ox O2 Del Method 08/21/24 07:53 36.9 C 60 18 152/62 H 100 Room Air 08/21/24 05:47 59 L 08/21/24 03:25 36.8 C 60 18 125/65 98 Room Air 08/20/24 23:57 56 L 08/20/24 23:46 36.5 C 58 L 16 156/82 H 98 Room Air Laboratory Results Abnormal lab results 09/25/24 09/25/24 09/25/24 Range/Units 14:38 14:40 15:04 RBC 3.52 L (4.20-5.40) M/uL Hgb 10.5 L (12.0-16.0) g/dl Hct 32.6 L (37.0-47.0) % RDW Std Deviation 47.5 H (36.4-46.3) fL Lymph # (Auto) 3.64 H (1.20-3.40) K/uL [place] # (Auto) 0.69 H (0.11-0.59) K/uL APTT < 20 L (21-31) Seconds Carbon Dioxide 19 L (21-32) mmol/L Anion Gap 15 H (3-11) BUN 39 H (6-23) mg/dl Creatinine 1.68 H (0.6-1.2) mg/dl BUN/Creatinine Ratio 23.2 H (10-20) Glucose 172 H (70-99(Fasting)) mg/dl POC Glucose 194 H (70-99) mg/dl Lactate 3.0 H* (0.4-2.0) mmol/L Total Bilirubin 1.3 H (0.2-1.0) mg/dl Cholesterol (0-200) mg/dl Cholesterol/HDL Ratio (0-5) 08/21/24 Range/Units 06:10 RBC 3.30 L (4.20-5.40) M/uL Hgb 9.9 L (12.0-16.0) g/dl Hct 30.1 L (37.0-47.0) % RDW Std Deviation 47.1 H (36.4-46.3) fL Lymph # (Auto) (1.20-3.40) K/uL [place] # (Auto) (0.11-0.59) K/uL APTT (21-31) Seconds Carbon Dioxide (21-32) mmol/L Anion Gap (3-11) BUN 32 H (6-23) mg/dl Creatinine 1.27 H D (0.6-1.2) mg/dl BUN/Creatinine Ratio 25.2 H (10-20) Glucose (70-99(Fasting)) mg/dl POC Glucose (70-99) mg/dl Lactate (0.4-2.0) mmol/L Total Bilirubin (0.2-1.0) mg/dl Cholesterol 236 H (0-200) mg/dl Cholesterol/HDL Ratio 5.2 H (0-5) Diagnostic Findings Head CT 08/20/24 14:33 CT head/brain wo con CLINICAL HISTORY: 69 years-old Female with dizziness; double vision; cerebellar sx. Acute stroke like symptoms TECHNIQUE: Multiple axial CT images of the head were obtained without contrast. A dose lowering technique was utilized adhering to the principles of ALARA. COMPARISON: CTA head of same day, brain MRI 06/25/2024 FINDINGS: No acute intracranial hemorrhage, midline shift, intra-axial mass, hydrocephalus, territorial ischemia or abnormal extra-axial collection. Arachnoid cyst adjacent to the superior right parietal lobe is unchanged. Changes with chronic microvascular ischemic disease. There is progressive encephalomalacia within the mid to inferior left cerebellar hemisphere. The calvarium is intact. The paranasal sinuses, mastoid air cells, and middle ear cavities are clear. IMPRESSION: 1. No acute intracranial abnormality identified. 2. Progressive encephalomalacia within the subacute to chronic appearing left cerebellar infarct originally described on the 06/25/2024 MRI. 3. Involutional changes with chronic microvascular ischemic disease. ACT 112: Negative or not required by law. The above report was generated using voice recognition software. It may contain grammatical, syntax or spelling errors. Electronically signed by: Madhu Alaniz M.D. 08/20/2024 3:17 PM Head CTA 08/20/24 14:33 CT ANGIOGRAM OF THE BRAIN CLINICAL HISTORY: Dizziness. Diplopia. COMPARISON STUDY: Unenhanced CT of the brain performed concurrently on 08/20/2024. MRI of the brain dated 06/25/2024. TECHNIQUE: Following the IV administration of 119 cc of Optiray 320, CT angiogram of the brain was performed from the skull base to the vertex. Images are reviewed in the axial, sagittal, and coronal planes. 3-D MIPS images are created and assessed. IV contrast was administered without complication. A dose lowering technique was utilized adhering to the principles of ALARA. FINDINGS: Brain parenchyma: There is age-related emotional change noting mild to moderate subcortical and periventricular microangiopathic disease. A focus of left cerebellar encephalomalacia is consistent with a prior infarct. This was acute on 06/25/2024. There is no evidence of acute hemorrhage, mass effect, or territorial ischemia noting angiographic phase technique. There is no evidence of enhancing mass lesion on the angiogram phase images. No extra-axial fluid collection is seen. Brownlee-white matter differentiation is preserved. Ventricles, sulci, and cisterns: Normal in configuration. CT angiogram of the brain: There is atherosclerotic calcification of the cavernous carotid arteries. The internal carotid arteries are widely patent, as are the anterior and middle cerebral arteries. The vertebrobasilar system and posterior cerebral arteries are widely patent. The right vertebral artery is dominant. There is no aneurysm, high-grade stenosis, or focal vessel cutoff identified throughout the intracranial circulation. Dural sinuses: Clear as visualized. Orbits: The bony orbits are intact. The orbital contents are normal as visualized. Sinuses and mastoids: An 11 mm retention cyst is noted in the right maxillary antrum. The Paranasal sinuses are otherwise clear. The mastoid air cells are well pneumatized. Calvarium: Unremarkable. IMPRESSION: 1. . There is no evidence of hemorrhage, mass effect, or acute territorial ischemia noting angiographic phase technique. 2. Unremarkable CT angiogram of the brain. ACT 112: Negative or not required by law. Electronically signed by: Sylvester Sweeney M.D. 08/20/2024 3:19 PM Neck CTA 08/20/24 14:33 CT angio neck with con CLINICAL HISTORY: dizziness; double vision; cerebellar sx TECHNIQUE: CT angiography of the head and neck was performed following intravenous administration of iodinated contrast. Coronal and sagittal MIPS were obtained from the axial data set and were submitted for review. Automated dose lowering techniques and/or adjustment according to patient size were utilized for this examination. All measurements were calculated based on NASCET criteria. CT DOSE: 1217.62 mGy.cm Comparison: None available at the time of this dictation. FINDINGS: Lungs and soft tissues are unremarkable. CTA Neck: A 3 vessel aortic arch is shown. There is no significant at herosclerotic plaque in the aortic arch or the origins of the innominate, left common carotid, and left subclavian arteries. Carotid arteries are unremarkable. There is a filling defect in the V3 to proximal V4 segment of the vertebral artery likely representing a dissection. The right vertebral artery is dominant. IMPRESSION: 1. 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 Assessment of stenosis of the internal carotid arteries is based on NASCET criteria. ACT 112: Negative or not required by law. Electronically signed by: Sagar Kennedy M.D. 08/20/2024 3:08 PM Brain MRI 08/21/24 00:30 CR Exam(s): MRI HEAD Without Contrast EXAM: MR Head Without Intravenous Contrast CLINICAL HISTORY: Reason for exam: cva. TECHNIQUE: Magnetic resonance images of the head/brain without intravenous contrast in multiple planes. COMPARISON: No relevant prior studies available. FINDINGS: Brain: There is region of prior infarction and ensuing encephalomalacia demonstrated to the left cerebellar hemisphere approximately 3.8 x 3.3 cm maximal transverse dimension. Extra-axial fluid collection is demonstrated approximated to the posterior margin of the right parietal lobe approximately 3.9 x 2.1 cm in maximal transverse dimension. There is subcentimeter subcortical and periventricular T2 hyper signal intensities present. No hemorrhage. Ventricles: Unremarkable. No ventriculomegaly. Bones/joints: There is ovoid to trapezoidal region of increased signal intensity on diffusion-weighted imaging along the anterior margin of the left cerebellar hemisphere approximately 1.2 cm transverse dimension some low signal intensity on the ADC map, some increased T2 signal intensity as well. No acute fracture. Sinuses: Unremarkable as visualized. No acute sinusitis. Mastoid air cells: Unremarkable as visualized. No mastoid effusion. Orbits: Unremarkable as visualized. IMPRESSION: Region of acute to subacute infarction anterior margin of the left cerebellar hemisphere with additional old infarction and ensuing encephalomalacia to a larger portion of the left cerebral hemisphere. Arachnoid cyst demonstrated approximated to the right parietum. Mild chronic ischemic microvascular process. Communications: Call Doctor Above results Electronically signed by: Brian Cobb MD 08/21/24 05:46 AM Medications Administered Home Medications Medication Instructions Recorded Confirmed Last Taken Collagen Tab 3 tabs PO QAM 06/20/24 08/20/24 Unknown acetaminophen 500 mg tablet 1,000 mg PO Q6H PRN Pain 06/20/24 08/20/24 Unknown (Tylenol Extra Strength) calcium carbonate (Calcium 600) 600 mg PO DAILY 06/20/24 08/20/24 Unknown glucosamine-chondroitin 250 mg-200 2 tab PO DAILY 06/20/24 08/20/24 Unknown mg tablet (Osteo Bi-Flex) magnesium oxide 400 mg PO DAILY 06/20/24 08/20/24 Unknown tizanidine 4 mg tablet 4 mg PO Q6 PRN .Muscle pain 06/20/24 08/20/24 Unknown turmeric 400 mg capsule 400 mg PO QAM 06/20/24 08/20/24 Unknown vitamin B complex 1 tab PO DAILY 06/20/24 08/20/24 Unknown metoprolol tartrate 25 mg tablet 25 mg PO BID17 #60 tabs 06/25/24 08/20/24 Unknown amiodarone 200 mg tablet 200 mg PO BID 08/20/24 08/20/24 Unknown cefadroxil 500 mg capsule 500 mg PO BID 08/20/24 08/20/24 Unknown furosemide 20 mg tablet 20 mg PO QAM 08/20/24 08/20/24 Unknown losartan 100 mg tablet 100 mg PO DAILY 08/20/24 08/20/24 Unknown pantoprazole 40 mg tablet,delayed 40 mg PO DAILY 08/20/24 08/20/24 Unknown release Active Medications Generic Name Dose Route Start Last Admin Trade Name [id number] PRN Reason Stop Dose Admin Amiodarone HCl 200 mg 08/20/24 23:39 08/21/24 08:08 Amiodarone 200 Mg Tab PO 09/19/24 23:38 200 mg BID NANETTE Administration Aspirin 81 mg 08/21/24 09:00 08/21/24 08:08 Aspirin 81 Mg Chew PO 09/20/24 08:59 81 mg DAILY NANETTE Administration Calcium Carbonate 1 tab 08/21/24 09:00 08/21/24 08:08 Calcium Carbonate 1250mg Tab PO 09/20/24 08:59 1 tab DAILY NANETTE Administration Lactated Ringer's 1,000 mls @ 80 mls/hr 08/20/24 23:39 08/21/24 00:09 Lr IV 08/21/24 12:08 80 mls/hr .[id number] NANETTE Administration Metoprolol Tartrate 25 mg 08/20/24 23:39 08/21/24 08:08 Metoprolol Tartrate 25 Mg Tab PO 09/19/24 23:38 25 mg BID17 NANETTE Administration Pantoprazole Sodium 40 mg 08/21/24 09:00 08/21/24 08:08 Pantoprazole 40 Mg Tab PO 09/20/24 08:59 40 mg DAILY NANETTE Administration
--- NOTE | 2024-08-21 11:38 | Hospitalist Progress Note ---
Date of Service August 21, 2024 Assessment & Plan (1) Stroke-like symptoms: (2) Dissection of vertebral artery: (3) HTN (hypertension): (4) Elevated lactic acid level: Plan 69-year-old female who presented to the ED on 08/20/2024 with dizziness/blurred vision, recent cerebellar stroke, recently hospitalized for retroperitoneal hematoma, finished IV antibiotics on 08/20 for MSSA bacteremia admitted for stroke like symptoms CVA Left V3/V4 vertebral artery dissection: Not a candidate for tPA due to h/o retroperitoneal bleed CT head did not show acute abnormalities but noted progressive encephalomalacia within subacute to chronic left cerebellar infarct CTA Head/Neck reported dissection in left V3 and V4 vertebral artery MRI brain reported region of acute to subacute infarction anterior margin of left cerebellar hemisphere with additional old infarction and ensuing encephalomalacia to a larger portion of left cerebral hemisphere. Discussed with Neuro via TT. Recommends continuing only ASA for now. 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 Cr is 1.27 today Monitor. Recheck Lactate Recent retroperitoneal hematoma: Hb stable Monitor signs of bleeding Recent MSSA bacteremia: Patient finished IV cephalosporin on 08/20PICC line was removed by home care nursing Follows with infectious disease, reports she will be on cefadroxil for at least 2 months, this is ordered History of pAF Considering pAF, recurrent CVA and bleeding risks, will appreciate Cardiology input in mgt and also consideration for possible watchman if indicated Continue amiodarone/metoprolol Full code DVT prophylaxis: SCDs, AC contraindicated with recent bleeding I spent a total of 60 minutes coordinating, documenting and providing care for this patient excluding time spent in performance of separately billed services Admission and Anticipated Discharge Date Admission Date: August 20, 2024 Subjective Patient seen and examined Patient was recently hospitalized in May for sepsis, MSSA bacteremia, infectious myositis/spinal and epidural abscess, retroperitoneal bleed, CVA and was transferred to [facility]. She reported she was managed there , got IVC filter, was not continued on AC for Afib/CVA due to GI bleed as well. Went to rehab Went home from rehab on 07/28/24 Reported she has had mild right leg weakness and neck pain/stiffness since She completed her IV abx yesterday and PICC was removed. She started around 1.30PM she developed acute worsening/double vision and increased right leg weakness/unsteady gait. Reports visual changes have currently resolved Still reports some right leg weakness Reports some numbness on left 5th finger which she stated has been going on for sometime and not related to acute episodes from yesterday Denied any other sensory deficits. Reported severe nausea during visual episode yesterday but none at this time Denied chest pain, SOB, cough Denied other complaints on ROS Physical Exam Constitutional: + well hydrated; no acute distress Eyes: PERRL, conjunctivae normal, anicteric sclerae ENMT: external ear and nose normal, oropharynx normal Respiratory: normal respiratory effort, lungs clear to auscultation Cardiovascular: Rate/Rhythm: regular rate and regular rhythm Gastrointestinal (Abdomen): normal bowel sounds, soft, nontender, no he patosplenomegaly Musculoskeletal: No pedal edema Neurologic: PERRL, EOMI, accommodation nl, no face palsy, no dysarthria No sensory deficits Power is atleast antigravity in all extremities CN II, III, IV, IV, , V, VII, VIII, IX, XI, XII grossly intact Psychiatric: A+Ox3, euthymic affect Results & Data Results & Data Vital Signs (Past 12 Hours) Vital Signs Temp Pulse Pulse Resp BP Pulse Ox O2 Del Method 08/21/24 07:53 36.9 C 60 18 152/62 H 100 Room Air 08/21/24 05:47 59 L 08/21/24 03:25 36.8 C 60 18 125/65 98 Room Air 08/20/24 23:57 56 L 08/20/24 23:46 36.5 C 58 L 16 156/82 H 98 Room Air Laboratory Results Abnormal lab results 08/20/24 08/20/24 08/20/24 Range/Units 14:38 14:40 15:04 RBC 3.52 L (4.20-5.40) M/uL Hgb 10.5 L (12.0-16.0) g/dl Hct 32.6 L (37.0-47.0) % RDW Std Deviation 47.5 H (36.4-46.3) fL Lymph # (Auto) 3.64 H (1.20-3.40) K/uL [place] # (Auto) 0.69 H (0.11-0.59) K/uL APTT < 20 L (21-31) Seconds Carbon Dioxide 19 L (21-32) mmol/L Anion Gap 15 H (3-11) BUN 39 H (6-23) mg/dl Creatinine 1.68 H (0.6-1.2) mg/dl BUN/Creatinine Ratio 23.2 H (10-20) Glucose 172 H (70-99(Fasting)) mg/dl POC Glucose 194 H (70-99) mg/dl Lactate 3.0 H* (0.4-2.0) mmol/L Total Bilirubin 1.3 H (0.2-1.0) mg/dl Cholesterol (0-200) mg/dl Cholesterol/HDL Ratio (0-5) 09//24 Range/Units 06:10 RBC 3.30 L (4.20-5.40) M/uL Hgb 9.9 L (12.0-16.0) g/dl Hct 30.1 L (37.0-47.0) % RDW Std Deviation 47.1 H (36.4-46.3) fL Lymph # (Auto) (1.20-3.40) K/uL [place] # (Auto) (0.11-0.59) K/uL APTT (21-31) Seconds Carbon Dioxide (21-32) mmol/L Anion Gap (3-11) BUN 32 H (6-23) mg/dl Creatinine 1.27 H D (0.6-1.2) mg/dl BUN/Creatinine Ratio 25.2 H (10-20) Glucose (70-99(Fasting)) mg/dl POC Glucose (70-99) mg/dl Lactate (0.4-2.0) mmol/L Total Bilirubin (0.2-1.0) mg/dl Cholesterol 236 H (0-200) mg/dl Cholesterol/HDL Ratio 5.2 H (0-5)
--- NOTE | 2024-08-21 15:14 | Cardiology Consultation ---
Date of Consultation August 21, 2024 Assessment & Plan (1) Stroke-like symptoms: (2) Prolonged QT interval: (3) PAF (paroxysmal atrial fibrillation): Plan Asymptomatic paroxysmal atrial fibrillation observed x 2 when acutely ill in May 2024 ([facility]) and in June ([facility] [place] [id number] 5 points Multiple anticoagulation trials over the last 2 months, resultant recurrent GI bleeding Prescribed amiodarone and metoprolol to tartrate at [facility] in June 2024 Prolonged QTc interval on admission EKG Recommendations: Obtained PADMA report from [facility] Decrease amiodarone to 200 mg once per day Daily EKG's Maintain telemetry while hospitalized Continue metoprolol tartrate 25 mg twice a day. Risks of anticoagulation appear greater than benefit at this time Continue aspirin trial for now Agree with high intensity statin therapy Future Watchman referral briefly discussed, not particularly interested, has IVC filter in place. Supervising Physician Co-Signing Physician Notes I have personally performed a history and physical examination on the patient. I have reviewed the advance practitioner's documentation, and I agree with, and take responsibility for the plan of care. 69-year-old female with history of asymptomatic paroxysmal atrial fibrillation x 2 during hospitalization in May. Significant GI bleeding requiring transfusion noted with anticoagulation trial. Prescribed amiodarone and metoprolol to maintain sinus rhythm while hospitalized at [facility]. Recommend reduce amiodarone to 200 mg once daily due to QT prolongation. Metoprolol to tartrate will be transition to Toprol-XL 25 mg once daily. Daily ECG for surveillance. Continue telemetry monitoring during hospitalization. Obtain formal PADMA report from [facility]. Continue low-dose aspirin. Consider future referral for Watchman device implantation as an outpatient. Suleiman Robert DO, [facility] History of Present Illness Reason for Consultation: Guidance regarding AC in pt with AF with CVA Requesting Physician: Amada Nguyen MD Attending Physician: Amada Nguyen MD History of Present Illness Prior history of hypertension, dyslipidemia, anxiety, with a markedly complex course since May 2024 Presented to the ER on June 14, 2024 with acute back pain after change in position, acute left lumbar radiculopathy. Received Toradol, Decadron, and morphine with improvement. 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, acute right cerebellar and right occipital embolic strokes possibly septic emboli due to widespread infection, arachnoiditis, retroperitoneal hematoma, 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 on June 27, 2024, acute on chronic renal dysfunction, hyponatremia, recurrent GI bleeding requiring multiple transfusions of pRBC's, endoscopy on June 30 revealing 2 duodenal ulcers, recurrent GI bleeding on July 02 again with treatment of duodenal ulcers followed by IR embolization on July 04 due to recurrent bleeding Status post July 08, 2024 L4 laminectomy with abscess washout PADMA on July 08, 2024 without vegetation Worsening psoas abscesses status post right psoas I&D Retried on aspirin and Eliquis on just prior to discharged to [facility] on July 16 Recurrent GI bleeding, tarry stools on July 20 leading to discontinuation of aspirin and Eliquis Return home on June 27 Making progress with rehabilitation at home Shortly after removal of PICC line yesterday patient developed strokelike symptoms (room floating, cross eyed, nausea, dry heaves, sweating, diaphoresis) Imaging this admission with dissection of the left V3 and V4 vertebral artery, acute to subacute infarction anterior margin of the left cerebellar hemisphere Allergies Allergy/AdvReac Type Severity Reaction Status Date / Time No Known Allergies Allergy Unverified 08/20/24 15:20 Home Medications Medication Instructions Recorded Confirmed Type Collagen Tab 3 tabs PO QAM 06/20/24 08/20/24 History acetaminophen 500 mg tablet 1,000 mg PO Q6H PRN Pain 06/20/24 08/20/24 History (Tylenol Extra Strength) calcium carbonate (Calcium 600) 600 mg PO DAILY 06/20/24 08/20/24 History glucosamine-chondroitin 250 mg-200 2 tab PO DAILY 06/20/24 08/20/24 History mg tablet (Osteo Bi-Flex) magnesium oxide 400 mg PO DAILY 06/20/24 08/20/24 History tizanidine 4 mg tablet 4 mg PO Q6 PRN .Muscle pain 06/20/24 08/20/24 History turmeric 400 mg capsule 400 mg PO QAM 06/20/24 08/20/24 History vitamin B complex 1 tab PO DAILY 06/20/24 08/20/24 History metoprolol tartrate 25 mg tablet 25 mg PO BID17 #60 tabs 06/25/24 08/20/24 Rx amiodarone 200 mg tablet 200 mg PO BID 08/20/24 08/20/24 History cefadroxil 500 mg capsule 500 mg PO BID 08/20/24 08/20/24 History furosemide 20 mg tablet 20 mg PO QAM 08/20/24 08/20/24 History losartan 100 mg tablet 100 mg PO DAILY 08/20/24 08/20/24 History pantoprazole 40 mg tablet,delayed 40 mg PO DAILY 08/20/24 08/20/24 History release Patient History Medical History HTN (hypertension) Surgical History H/O section History of cholecystectomy Hx of tonsillectomy History of Zakia fundoplication Family History Other Heart disease Hypertension Social History Smoking Status: Never smoker Hx Alcohol Use: Yes Alcohol type: wine Alcohol Intake Frequency: 2-4 x/Month Hx Substance Use: No Preferred Language: Yakut Communication Ability: Effective Speech Language Therapist Required: No Beliefs That Will Affect Care: None Current Living Situation: Family Current Living Situation Comment: and daughter Feels Safe at Home: Yes Assistive Devices: Cane and Walker Assistive Devices Comment: shower chair, shower wand Review of Systems Review of Systems: Complete Review of Systems: Constitutional: No current fevers or chills HEENT: Dental cleaning last in January 2024. Pulmonary: No history of PE, asthma, or COPD Cardiac: No chest pain, palpitations, orthopnea, PND, or edema. GI/Abd: See above. Vascular: IVC filter Hematologic: Iron deficiency anemia. Multiple transfusions in June 2024 Musculoskeletal: See above. Skin: No rash. Neurologic: See above. Endocrine: No history of diabetes mellitus. No thyroid trouble. Complete Review of Systems is as stated above, negative, or noncontributory Physical Exam Physical Exam: General: A&Ox3. NAD. Pleasant. Comfortable. Cooperative. at bedside. HENT: Normocephalic. Atraumatic. Eyes: PER. Conjunctiva pink, sclera clear. Neck: No carotid bruits. No JVD. Heart: Regular at 56 bpm. No murmur. No rub. Lungs: Clear to auscultation. Abdomen: +BS. Extremities: No clubbing, cyanosis, or edema. Limited neurological examination is without focal deficits. Pulses: Posterior tibial=2/4. Results & Data Vital Signs (Past 12 Hours) Vital Signs Temp Pulse Pulse Resp BP Pulse Ox O2 Del Method 08/21/24 12:59 54 L 08/21/24 11:37 36.9 C 52 L 18 130/71 100 Room Air 08/21/24 07:53 36.9 C 60 18 152/62 H 100 Room Air 08/21/24 05:47 59 L 08/21/24 03:25 36.8 C 60 18 125/65 98 Room Air Laboratory Results Cardiac Enzymes 08/20/24 Range/Units 14:40 AST 13 (13-39) U/L Troponin I High Sens 2.4 (0-14) pg/ml Coagulation 08/20/24 Range/Units 14:40 PT 10.9 (9.0-12.0) Seconds APTT < 20 L (21-31) Seconds Lipids 08/21/24 Range/Units 06:10 Triglycerides 148 (0-150) mg/dl Cholesterol 236 H (0-200) mg/dl HDL Cholesterol 45 mg/dl Cholesterol/HDL Ratio 5.2 H (0-5) CBC 08/20/24 08/21/24 Range/Units 14:40 06:10 WBC 8.76 6.54 (4.8-10.8) K/ul RBC 3.52 L 3.30 L (4.20-5.40) M/uL Hgb 10.5 L 9.9 L (12.0-16.0) g/dl Hct 32.6 L 30.1 L (37.0-47.0) % Plt Count 260 217 (130-400) K/uL Neut # (Auto) 3.99 4.21 (1.40-6.50) K/uL Lymph # (Auto) 3.64 H 1.54 (1.20-3.40) K/uL [place] # (Auto) 0.69 H 0.51 (0.11-0.59) K/uL Eos # (Auto) 0.30 0.18 (0.00-0.50) K/uL Baso # (Auto) 0.06 0.04 (0.00-0.20) K/uL Comprehensive Metabolic Panel 08/20/24 08/21/24 Range/Units 14:40 06:10 Sodium 137 139 (136-145) mmol/L Potassium 3.5 4.6 D (3.5-5.1) mmol/L Chloride 103 106 (98-107) mmol/L Carbon Dioxide 19 L 23 (21-32) mmol/L BUN 39 H 32 H (6-23) mg/dl Creatinine 1.68 H 1.27 H D (0.6-1.2) mg/dl Glucose 172 H 94 (70-99(Fasting)) mg/dl Calcium 9.9 9.7 (8.6-10.3) mg/dl AST 13 (13-39) U/L ALT 13 (7-52) U/L Alkaline Phosphatase 75 (34-104) U/L Total Protein 7.5 (6.0-8.3) gm/dl Albumin 4.0 (3.4-5.0) gm/dl Intake and Output 08/21/24 08/21/24 08/21/24 06:59 14:59 22:59 Intake Total 1000 / 1000 Balance 1000 / 1000 Intake: IV 1000 / 1000 Lactated Ringer's 1,000 ml @ 80 1000 / 1000 mls/hr IV .[id number] [facility] Rx#: [id number] Other: # Unmeasured Voids 1 Diagnostic Findings August 21, 2024 TTE ([facility], Dr. Robert): Normal LV systolic function. EF 65 to 70%. Mild mitral regurgitation. Trace tricuspid regurgitation. Estimated systolic pulmonary pressure 35 mmHg. Telemetry: Sinus/sinus bradycardia throughout. No atrial fibrillation/flutter. EKG with prolonged QT interval, 519 ms, sinus bradycardia 56 bpm with voltage criteria for LVH
[2024-08-21] MEDS ORDERED: DOCUSATE SODIUM 100 MG CAP PO PRN (16:37)
[2024-08-21] MEDS: ATORVASTATIN 40 MG TAB PO SCH (19:59)
[2024-08-22] MEDS: ACETAMINOPHEN 325 MG TAB PO PRN (05:05)
[2024-08-22] MEDS: oxyCODONE HCL IR 5 MG TAB (IMMEDIATE RELEASE) PO STA (06:09)
[2024-08-22] MEDS: METOPROLOL SUCC 25MG EXT REL TAB PO STA (06:15)
[2024-08-22 06:58] LABS: Basophils # (auto) 0.02 K/uL (0.00-0.20); Basophils % (auto) 0.3 %; Eosinophils # (auto) 0.27 K/uL (0.00-0.50); Eosinophils % (auto) 3.8 %; Hematocrit (blood only) 28.3 % (37.0-47.0); Hemoglobin 9.2 g/dl (12.0-16.0); Immature Granulocytes # (auto) 0.03 K/uL (0.01-0.20); Immature Granulocytes % (auto) 0.4 %; Lymphocytes # (auto) 2.11 K/uL (1.20-3.40); Lymphocytes % (auto) 29.7 %; Mean Corpuscular Hgb Conc 32.5 g/dL (32.0-36.0); Mean Corpuscular Volume 92.2 fL (80.0-100.0); Mean Platelet Volume 10.1 fL (9.4-12.4); Monocytes # (auto) 0.62 K/uL (0.11-0.59); Monocytes % (auto) 8.7 %; Neutrophils # (auto) 4.05 K/uL (1.40-6.50); Neutrophils % (auto) 57.1 %; Platelet Count 189 K/uL (130-400); RDW Coefficient of Variation 13.9 % (11.5-14.5); RDW Standard Deviation 46.9 fL (36.4-46.3); Red Blood Count 3.07 M/uL (4.20-5.40)
[2024-08-22 07:12] LABS: BUN Creatinine Ratio 20.8 (10-20); Calcium 9.3 mg/dl (8.6-10.3); Creatinine Clr Calc Pharmacy 39.2 ml/min; Est GFR (African American) 48.1 ml/min; Est GFR (Non-African American) 41.5 ml/min; Potassium 3.9 mmol/L (3.5-5.1)
[2024-08-22] MEDS: AMIODARONE 200 MG TAB PO SCH (08:17)
--- NOTE | 2024-08-22 08:45 | Pharmacy Report ---
- Date of Service August 22, 2024 - Pharmacy CVA/TIA Medication Review Medications to Prevent Stroke handout has been added to the patients discharge packet. Antiplatelet(s) * aspirin 81 mg daily Cholesterol * High intensity statin: atorvastatin 40 mg daily DVT Prophylaxis * SCD knee Therapeutic Anticoagulation * Hx Afib/Aflutter noted, but anticoagulation is being deferred due to history of recurrent GI bleeding Type 2 Diabetes * Patient does not have T2DM
[2024-08-22] MEDS ORDERED: METOPROLOL SUCC 25MG EXT REL TAB PO SCH (09:00)
[2024-08-22] MEDS: LOSARTAN POTASSIUM 50 MG TAB PO SCH (09:40)
--- NOTE | 2024-08-22 10:49 | Cardiology Progress Note ---
Date of Service August 22, 2024 Assessment & Plan (1) Stroke-like symptoms: (2) Prolonged QT interval: (3) PAF (paroxysmal atrial fibrillation): Plan Asymptomatic paroxysmal atrial fibrillation observed x 2 when acutely ill in May 2024 ([facility]) and in June ([facility] [place] [id number] 5 points Multiple anticoagulation trials over the last 2 months, resultant recurrent GI bleeding Prescribed amiodarone and metoprolol tartrate at [facility] in June 2024 Prolonged QTc interval on admission EKG, improved with reduction in amiodarone dosing as noted below. Recommendations: Amiodarone decreased to 200 mg once a day this admission Metoprolol tartrate 25 mg BID changed to metoprolol succinate 25 mg once a day this admission Risks of anticoagulation appear greater than benefit at this time Continue aspirin trial for now Agree with high intensity statin therapy Please contact with any questions or concerns. Admission and Anticipated Discharge Date Admission Date: August 20, 2024 Supervising Physician Co-Signing Physician Notes I have personally performed a history and physical examination on the patient. I have reviewed the advance practitioner's documentation, and I agree with, and take responsibility for the plan of care. 69-year-old female with history of asymptomatic paroxysmal atrial fibrillation x 2 during hospitalization in May and June. [id number] =5. Significant GI bleeding requiring transfusion (14 units PRBCs) noted with anticoagulation trial. Prescribed amiodarone and metoprolol to maintain sinus rhythm while hospitalized at [facility]. QT elevated on initial ECG during current hospitalization. QT interval improved today with reduction of amiodarone. Metoprolol tartrate transition to Toprol-XL 25 mg once daily. Risk of anticoagulation outweighs benefit currently. Consider retrial of anticoagulation versus referral for Watchman device implantation in future. Repeat EGD prior to initiation of anticoagulation. Continue low-dose aspirin trial. Suleiman Robert DO, [facility] Subjective Patient seen and examined. Chart, medications, and telemetry reviewed. Feeling okay. No new complaints or concerns. Telemetry: Sinus bradycardia/sinus with heart rates ranging from 55 to 70 bpm. No atrial fibrillation. EKG dated August 22, 2024 revealed sinus bradycardia at 58 bpm. QTc has shortened to 469 ms. Review of Systems Review of Systems: Complete Review of Systems: Constitutional: No current fevers or chills HEENT: Dental cleaning last in January 2024. Sinus congestion. Clogged ears. Pulmonary: No history of PE, asthma, or COPD Cardiac: No chest pain, palpitations, orthopnea, PND, or edema. GI/Abd: See above. Vascular: IVC filter Hematologic: Iron deficiency anemia. Multiple transfusions in June 2024 Musculoskeletal: See above. Skin: No rash. Neurologic: See above. Endocrine: No history of diabetes mellitus. No thyroid trouble. Complete Review of Systems is as stated above, negative, or noncontributory Physical Exam Physical Exam: General: A&Ox3. NAD. Pleasant. Comfortable. Cooperative. at bedside. HENT: Normocephalic. Atraumatic. Eyes: PER. Conjunctiva pink, sclera clear. Neck: No carotid bruits. No JVD. Heart: Regular at 56 bpm. No murmur. No rub. Lungs: Clear to auscultation. Abdomen: +BS. Extremities: No clubbing, cyanosis, or edema. Limited neurological examination is without focal deficits. Pulses: Posterior tibial=2/4. Results & Data Vital Signs (Past 12 Hours) Vital Signs Temp Pulse Pulse Resp BP BP Pulse Ox 08/22/24 10:08 58 L 08/22/24 07:13 37.1 C 63 18 150/75 H 96 08/22/24 06:15 60 167/71 H 08/22/24 03:05 36.9 C 59 L 18 155/65 H 97 O2 Del Method 08/22/24 10:08 08/22/24 07:13 Room Air 08/22/24 06:15 08/22/24 03:05 Room Air Laboratory Results CBC 08/22/24 Range/Units 06:32 WBC 7.10 (4.8-10.8) K/ul RBC 3.07 L (4.20-5.40) M/uL Hgb 9.2 L (12.0-16.0) g/dl Hct 28.3 L (37.0-47.0) % Plt Count 189 (130-400) K/uL Neut # (Auto) 4.05 (1.40-6.50) K/uL Lymph # (Auto) 2.11 (1.20-3.40) K/uL [place] # (Auto) 0.62 H (0.11-0.59) K/uL Eos # (Auto) 0.27 (0.00-0.50) K/uL Baso # (Auto) 0.02 (0.00-0.20) K/uL Comprehensive Metabolic Panel 08/22/24 Range/Units 06:32 Sodium 135 L (136-145) mmol/L Potassium 3.9 (3.5-5.1) mmol/L Chloride 104 (98-107) mmol/L Carbon Dioxide 25 (21-32) mmol/L BUN 27 H (6-23) mg/dl Creatinine 1.30 H (0.6-1.2) mg/dl Glucose 94 (70-99(Fasting)) mg/dl Calcium 9.3 (8.6-10.3) mg/dl Intake and Output 08/21/24 08/22/24 08/22/24 22:59 06:59 14:59 Other: # Unmeasured Voids 1 2
--- NOTE | 2024-08-22 10:56 | Hospitalist Progress Note ---
Date of Service August 22, 2024 Assessment & Plan (1) Stroke-like symptoms: (2) Dissection of vertebral artery: (3) HTN (hypertension): (4) Elevated lactic acid level: Plan 69-year-old female who presented to the ED on 08/20/2024 with dizziness/blurred vision, recent cerebellar stroke, recently hospitalized for retroperitoneal hematoma, finished IV antibiotics on 08/20 for MSSA bacteremia admitted for stroke like symptoms CVA Left V3/V4 vertebral artery dissection: Not a candidate for tPA due to h/o retroperitoneal bleed CT head did not show acute abnormalities but noted progressive encephalomalacia within subacute to chronic left cerebellar infarct CTA Head/Neck reported dissection in left V3 and V4 vertebral artery MRI brain reported region of acute to subacute infarction anterior margin of left cerebellar hemisphere with additional old infarction and ensuing encephalomalacia to a larger portion of left cerebral hemisphere. Neuro recommended continuing only ASA for now. Start high intensity statin Started lipitor 40mg TTE showing EF 65-70%, mild MR, trace TR, systolic pulm pr 35mmHg [employer]/PT/OT eval noted Resume losartan On 08/21/24, I reviewed some DC paperwork brought by and scans (CTA/MRI on 's laptop) from [place]. They noted in the DC summary/reports from [place] that patient had left vertebral artery pseudoaneurysm vs dissection. Hence, the dissection is not new Vasc sx not available today. Patient to follow up with them outpatient PRATIMA: Lactic acidosis: Cr was 1.68 on admission (Was 1.23 in 08/13/24) Lactate was 3-> 1.7 Got IVF Cr is 1.3 today Monitor. Recheck Lactate Recent retroperitoneal hematoma: Hb stable Monitor signs of bleeding Recent MSSA bacteremia: Patient finished IV cephalosporin on 08/20PICC line was removed by home care nursing Follows with infectious disease, reports she will be on cefadroxil for at least 2 months, this is ordered Cardiology recommended repeat BCx yesterday. If prelim BCx come back negative, plan dc home History of pAF Considering pAF, recurrent CVA and bleeding risks, cardiology was consulted Cardiology reduced patient's amiodarone to 200mg once a day and changed lopressor to toprol XL No recommendation for anticagulation at this time considering recent bleed with attempts at anticoagulation Patient will follow up with Cardiology outpatient. They may consider other mgt such as Watchman. Full code DVT prophylaxis: SCDs, AC contraindicated with recent bleeding I spent a total of 40 minutes coordinating, documenting and providing care for this patient excluding time spent in performance of separately billed services Admission and Anticipated Discharge Date Admission Date: August 20, 2024 Subjective Patient seen and examined Denied any blurry/double vision today Reports RLE weakness is back to what it was previously Reports neck pain/stiffness, not new Reports feeling better Denied chest pain, palpitation, SOB Reported some ear fullness but stated she had some URI symptoms recently which are mostly resolved Physical Exam Constitutional: + well hydrated; no acute distress Eyes: PERRL, conjunctivae normal, anicteric sclerae ENMT: external ear and nose normal, oropharynx normal Respiratory: normal respiratory effort, lungs clear to auscultation Cardiovascular: Rate/Rhythm: regular rate and regular rhythm Gastrointestinal (Abdomen): normal bowel sounds, soft, nontender, no hepatosplenomegaly Musculoskeletal: no cyanosis or clubbing, extremities motor strength 5/5 Neurologic: PERRL, EOMI, accommodation nl, no face palsy, no dysarthria Psychiatric: A+Ox3, euthymic affect Results & Data Results & Data Vital Signs (Past 12 Hours) Vital Signs Temp Pulse Pulse Resp BP BP Pulse Ox 08/22/24 10:08 58 L 08/22/24 07:13 37.1 C 63 18 150/75 H 96 08/22/24 06:15 60 167/71 H 08/22/24 03:05 36.9 C 59 L 18 155/65 H 97 O2 Del Method 08/22/24 10:08 08/22/24 07:13 Room Air 08/22/24 06:15 08/22/24 03:05 Room Air Laboratory Results Abnormal lab results 08/22/24 Range/Units 06:32 RBC 3.07 L (4.20-5.40) M/uL Hgb 9.2 L (12.0-16.0) g/dl Hct 28.3 L (37.0-47.0) % RDW Std Deviation 46.9 H (36.4-46.3) fL [place] # (Auto) 0.62 H (0.11-0.59) K/uL Sodium 135 L (136-145) mmol/L BUN 27 H (6-23) mg/dl Creatinine 1.30 H (0.6-1.2) mg/dl BUN/Creatinine Ratio 20.8 H (10-20)
--- NOTE | 2024-08-22 23:04 | Electrocardiogram Report ---
Test Reason : Blood Pressure : */* mmHG Vent. Rate : 58 BPM Atrial Rate : 58 BPM P-R Int : 174 ms QRS Dur : 84 ms QT Int : 478 ms P-R-T Axes : 66 7 32 degrees QTcB Int : 469 ms Sinus bradycardia Otherwise normal ECG When compared with ECG of 20-Aug-2024 15:12, QT has shortened Confirmed by Yordy Browning ([id number]) on 08/22/2024 11:04:33 PM Referred By: REFERRED SELF Confirmed By: Yordy Browning
[2024-08-23 07:22] LABS: Basophils # (auto) 0.04 K/uL (0.00-0.20); Basophils % (auto) 0.5 %; Eosinophils # (auto) 0.24 K/uL (0.00-0.50); Eosinophils % (auto) 3.3 %; Hematocrit (blood only) 27.8 % (37.0-47.0); Hemoglobin 9.1 g/dl (12.0-16.0); Immature Granulocytes # (auto) 0.04 K/uL (0.01-0.20); Immature Granulocytes % (auto) 0.5 %; Lymphocytes # (auto) 2.21 K/uL (1.20-3.40); Lymphocytes % (auto) 30.2 %; Mean Corpuscular Hemoglobin 29.8 pg (25.0-34.0); Mean Corpuscular Hgb Conc 32.7 g/dL (32.0-36.0); Mean Corpuscular Volume 91.1 fL (80.0-100.0); Mean Platelet Volume 9.9 fL (9.4-12.4); Monocytes # (auto) 0.64 K/uL (0.11-0.59); Monocytes % (auto) 8.7 %; Neutrophils # (auto) 4.15 K/uL (1.40-6.50); Neutrophils % (auto) 56.8 %; Platelet Count 206 K/uL (130-400); RDW Coefficient of Variation 13.6 % (11.5-14.5); RDW Standard Deviation 45.1 fL (36.4-46.3); Red Blood Count 3.05 M/uL (4.20-5.40); White Blood Count 7.32 K/ul (4.8-10.8)
[2024-08-23 07:26] VITALS: O2SAT 99
[2024-08-23 07:48] LABS: BUN Creatinine Ratio 21.2 (10-20); Calcium 9.3 mg/dl (8.6-10.3); Creatinine Clr Calc Pharmacy 43.1 ml/min; Est GFR (African American) 54.1 ml/min; Est GFR (Non-African American) 46.7 ml/min
[2024-08-23] MEDS: METOPROLOL SUCC 25MG EXT REL TAB PO SCH (08:16)
[2024-08-23 11:17] VITALS: PULSE 56; RESP 18; TEMP 98.4
--- NOTE | 2024-08-23 11:26 | Discharge Summary ---
Date of Service August 23, 2024 Admission HPI Per Admitting Provider The patient is a 69-year-old female with a past medical history of A-fib, CVA, recent retroperitoneal hematoma, recent MSSA bacteremiaendocarditis, who presents to the ED today 08/20/2024 after she became dizzy and her vision became blurry. She reports a home care nurse came to her house to remove her PICC line. She was sitting and comfortable. Her vision became blurry and she started feeling dizzy. She also felt nauseous and clammy. She denied any abdominal pain at this time. Denied any chest pain or shortness of breath. When she arrived to the ER, stroke alert was called- Head CT showed: 1. No acute intracranial abnormality identified. 2. Progressive encephalomalacia within the subacute to chronic appearing left cerebellar infarct originally described on the 06/25/2024 MRI. 3. Involutional changes with chronic microvascular ischemic disease. CTA of the neck showed dissection and a left V3/V4 vertebral artery Head CTA was negative Per the ER physician, after discussion with neurology/ICU it was recommended the patient be admitted to PCU level of care and started on aspirin. Not a candidate for TPA with history of retroperitoneal hematoma EKG showed sinus bradycardia On arrival to the ED, labs are remarkable for hemoglobin 10.5, CO2 19, anion gap 15, BUN 39, creatinine 1.68, lactate 3.0 The patient was recently admitted . She originally came in on 06/20 for back pain and weakness and was found to be septic in the setting of possible infectious myositis with retroperitoneal bleed. The patient also had an MRI that showed progressive disease with abscesses in the psoas and epidural space. At this time she was also worked up for stroke which was positive for left cerebellar infarct The patient was discharged on IV antibiotics which she completed today. She will now be transitioned to cefadroxil for at least 2 months per the patient, she is following with infectious disease. Reports her only residual deficits from her recent stroke were right leg weakness and some balance issues. On exam today, patient had tremors on her right hand and arm but otherwise no weakness numbness or tingling. Her blurry vision resolved but she still reports feeling fuzzy on exam. Admission Exam Per Admitting Provider Eyes: PERRL, conjunctivae normal, anicteric sclerae ENMT: external ear and nose normal, oropharynx normal Neck: trachea midline, no thyromegaly Respiratory: normal respiratory effort, lungs clear to auscultation Cardiovascular: RRR, no murmur, no edema Chest (Breasts): normal inspection/palpation of breasts Gastrointestinal (Abdomen): normal bowel sounds, soft, nontender, no hepatosplenomegaly Musculoskeletal: no cyanosis or clubbing, extremities motor strength 5/5 Skin: no rashes, warm and dry Neurologic: patellar DTR's 2+ bilat, sensation intact and PERRL, EOMI, accommodation nl, no face palsy, no dysarthria normal touch/pain/proprioception, CN's II-XI intact bilaterally and moves all extremities (Reports right lower extremity weakness, strength is equal on exam) Motor/Sensory: + tremor (Right arm) Psychiatric: A+Ox3, euthymic affect Lymphatic: no cervical or axillary lymphadenopathy Principal Diagnosis Cerebrovascular accident Discharge Exam Constitutional + well hydrated; no acute distress Eyes PERRL, conjunctivae normal, anicteric sclerae ENMT external ear and nose normal, oropharynx normal Respiratory normal respiratory effort, lungs clear to auscultation Cardiovascular Rate/Rhythm: regular rate and regular rhythm Gastrointestinal (Abdomen) normal bowel sounds, soft, nontender, no hepatosplenomegaly Musculoskeletal no cyanosis or clubbing, extremities motor strength 5/5 Neurologic PERRL, EOMI, accommodation nl, no face palsy, no dysarthria Psychiatric A+Ox3, euthymic affect Discharge Data Allergies Allergy/AdvReac Type Severity Reaction Status Date / Time No Known Allergies Allergy Unverified 08/20/24 15:20 Consultations 08/20/24 16:01 ED Decision to Admit Stat 08/20/24 23:39 Consult Neurology Routine 08/21/24 10:26 Consult Cardiology Routine Ordered Studies 08/20/24 14:33 CT angio head w con Stat CT angio neck with con Stat CT head/brain wo con Stat 08/21/24 00:30 MR brain wo con Routine Hospital Course (1) Stroke-like symptoms: (2) Dissection of vertebral artery: (3) HTN (hypertension): (4) Elevated lactic acid level: Plan 69-year-old female who presented to the ED on 08/20/2024 with dizziness/blurred vision, recent cerebellar stroke, recently hospitalized for retroperitoneal hematoma, finished IV antibiotics on 08/20 for MSSA bacteremia admitted for stroke like symptoms CVA Left V3/V4 vertebral artery dissection: Not a candidate for tPA due to h/o retroperitoneal bleed CT head did not show acute abnormalities but noted progressive encephalomalacia within subacute to chronic left cerebellar infarct CTA Head/Neck reported dissection in left V3 and V4 vertebral artery MRI brain reported region of acute to subacute infarction anterior margin of left cerebellar hemisphere with additional old infarction and ensuing encephalomalacia to a larger portion of left cerebral hemisphere. Neuro recommended continuing only ASA for now and to start high intensity statin Started lipitor 40mg TTE showing EF 65-70%, mild MR, trace TR, systolic pulm pr 35mmHg On 08/21/24, I reviewed some DC paperwork brought by and scans (CTA/MRI on 's laptop) from [place]. 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 Hence, the dissection is not new Patient to continue to follow up with her Cerebrovascular neurosurgeon outpatient Acute kidney injury Lactic acidosis: Cr was 1.68 on admission (Was 1.23 in 08/13/24) Lactate was 3-> 1.7 Got IVF PRATIMA resolved. Cr is 1.18 today Recent retroperitoneal hematoma: Hb stable Hb is 9.1 today Recent MSSA bacteremia: Patient finished IV cephalosporin on 08/20PICC line was removed by home care nursing Currently on cefadroxil Follows with infectious disease History of pAF Considering pAF, recurrent CVA and bleeding risks, cardiology was consulted Cardiology reduced patient's amiodarone to 200mg once a day and changed lopressor to toprol XL 25mg daily No recommendation for anticoagulation at this time considering recent bleed with attempts at anticoagulation Patient will follow up with Cardiology outpatient. They may consider other mgt such as Watchman. Total Time Total Time Spent Total Time Spent (In Minutes): 35 Total Time Includes: Examination of the Patient, Discharge Planning and Medication Reconciliation Discharge Plan Discharge Items Patient Disposition: Home - Home Health Services Reason For Visit: Stroke like symptoms Discharge Diagnosis: Cerebrovascular accident Activity: Resume your previous activity Non-emergency contact: Primary Care Provider, Reforestation Worker and Neurologist Call non-emergency contact if: you have any medication questions and your symptoms worsen Follow-up/Referrals: Juliane Khoury, [Primary Care Provider] - 08/28/24 9:40 am (Date & Time 08/28/2024 9:40 AM Provider Juliane Khoury Department [facility] ) Diet: Heart Healthy and Low Sodium (2gm) Addtl Attending Provider Instructions: Mrs Kenzie Germain were hospitalized and managed for the above listed diagnoses. You are being started on Aspirin 81mg daily and Atorvastatin 40mg daily. Your amiodarone was reduced to once a day Your metoprolol tartarate was changed to metoprolol succinate once a day Please ensure follow up with Cardiology as discussed Please ensure follow up with your Neurology, Cerebrovascular Neurosurgeon and Primary Doctor as we discussed. It was a pleasure taking care of you Pending Studies at Discharge: No Stand-Alone Forms: My [facility], Smoking Cessation, Medications to Prevent Stroke Medications and DC Order Prescriptions: New atorvastatin 40 mg Tablet 40 mg PO HS 30 Days Qty: 30 0RF aspirin [Children's Aspirin] 81 mg Tablet,Chewable 81 mg PO DAILY 30 Days Qty: 30 0RF metoprolol succinate 25 mg Tablet Extended Release 24 Hr 25 mg PO QAM 30 Days Qty: 30 0RF Continued tizanidine 4 mg tablet 4 mg PO Q6 PRN (Reason: .Muscle pain) acetaminophen [Tylenol Extra Strength] 500 mg Tablet 1,000 mg PO Q6H PRN (Reason: Pain) calcium carbonate [Calcium 600] 600 mg calcium (1,500 mg) Tablet 600 mg PO DAILY vitamin B complex Tablet 1 tab PO DAILY glucosamine-chondroitin [Osteo Bi-Flex] 250-200 mg Tablet 2 tab PO DAILY magnesium oxide 400 mg magnesium Tablet 400 mg PO DAILY turmeric 400 mg Capsule 400 mg PO QAM Collagen Tab 3 tabs PO QAM cefadroxil 500 mg capsule 500 mg PO BID furosemide 20 mg tablet 20 mg PO QAM losartan 100 mg tablet 100 mg PO DAILY pantoprazole 40 mg tablet,delayed release (DR/EC) 40 mg PO DAILY Changed amiodarone 200 mg tablet 200 mg PO DAILY Qty: 0 0RF Discontinued metoprolol tartrate 25 mg Tablet 25 mg PO BID17 Qty: 60 0RF Discharge Orders: Discharge Order (Routine); Ordered 08/23/24 Ordered By: Amada Mcguire/Other Patient Handouts: VAD, ED Heart Disease Education Admission Data Admit Date/Time: 08/20/24 22:12 Attending Provider: Amada Nguyen I. Admit Provider: Tj Ford Primary Care Provider: Juliane Khoury Other Providers: Camden Abebe; Marciano Nava; Sherley,[facility]; Suleiman Robert Other Interventions: Discharge Summary Assessment (RN) Last Done: 08/23/24 11:27
[2024-08-23 11:27] VITALS: BP 167/71
[2024-08-24] MEDS ORDERED: LOSARTAN POTASSIUM 50 MG TAB PO SCH (09:00)
--- NOTE | 2024-08-24 16:32 | Electrocardiogram Report ---
Test Reason : Blood Pressure : */* mmHG Vent. Rate : 61 BPM Atrial Rate : 61 BPM P-R Int : 172 ms QRS Dur : 82 ms QT Int : 466 ms P-R-T Axes : 61 11 39 degrees QTcB Int : 469 ms Normal sinus rhythm Normal ECG When compared with ECG of 22-Aug-2024 05:13, No significant change was found Confirmed by Glenda Neal (Rod) on 08/24/2024 4:32:13 PM Referred By: REFERRED SELF Confirmed By: Glenda Neal
== END 2024-08-23 12:06 | disposition home health service (06) | DRG 64 ==
LOC: ED 14:26 → 2S 22:12 → SUATTDRO 22:12 → 2S 08-21 00:47